=== PATIENT | male | born 1960 | race Caucasian/White ===

== ENCOUNTER 2016-05-28 14:22 | Emergency (ER) | payer OTHER ==
[2016-05-28 14:32] VITALS: BP 163/102
--- NOTE | 2016-05-28 14:34 | ER Document Report ---
ED Medical Screen (RME) - General Stated Complaint: FALL/RIGTH SHOULDER Notes: 55 yo male c/o right shoulder pain x several weeks. sons came over to his house , found patient disorientsed. "not like himself" patient seems dioriented, suicidal thoughts to son. + hx/o depression.. + ETOH abuse. + HTN, + CAD with 13 stents, Heavy ETOH daily per son - Related Data Allergies/Adverse Reactions: No Known Allergies Allergy (Unverified 05/28/16 14:28)
[2016-05-28 15:02] LABS: ABSOLUTE BASOPHILS # (AUTO) 0.1 10^3/uL (0.0-0.2); ABSOLUTE EOSINOPHILS # (AUTO) 0.1 10^3/uL (0.0-0.6); ABSOLUTE LYMPHOCYTES (AUTO) 1.6 10^3/uL (0.5-4.7); ABSOLUTE MONOCYTES (AUTO) 0.4 10^3/uL (0.1-1.4); ABSOLUTE NEUT (AUTO) 3.1 10^3/uL (1.7-8.2); BASOPHILS % (AUTO) 1.1 % (0-2); EOSINOPHILS % (AUTO) 1.3 % (0-6); HEMATOCRIT 53.5 % (37.9-51.0); HEMOGLOBIN 18.6 g/dL (13.5-17.0); HGB HCT DIFFERENCE 2.3; LYMPHOCYTES % (AUTO) 31.1 % (13-45); MEAN CORPUSCULAR HEMOGLOBIN 32.6 pg (27.0-33.4); MEAN CORPUSCULAR HGB CONC 34.9 g/dL (32.0-36.0); MEAN CORPUSCULAR VOLUME 94 fl (80-97); MONOCYTES % (AUTO) 7.2 % (3-13); RED BLOOD COUNT 5.71 10^6/uL (4.35-5.55); RED CELL DISTRIBUTION WIDTH 15.2 % (11.5-14.0); SEGMENTED NEUTROPHILS % (AUTO) 59.3 % (42-78); WHITE BLOOD COUNT 5.2 10^3/uL (4.0-10.5)
[2016-05-28 15:19] LABS: ALANINE AMINOTRANSFERASE 128 U/L (21-72); ALBUMIN 5.2 g/dL (3.5-5.0); ALKALINE PHOSPHATASE 117 U/L (38-126); ANION GAP 23 (5-19); ASPARTATE AMINO TRANSFERASE 142 U/L (17-59); BILIRUBIN,TOTAL 1.2 mg/dL (0.2-1.3); BLOOD UREA NITROGEN 8 mg/dL (7-20); CALCIUM 9.4 mg/dL (8.4-10.2); CARBON DIOXIDE 21 mmol/L (22-30); CHLORIDE 101 mmol/L (98-107); CREATININE RESULT 0.67 mg/dL (0.52-1.25); GLUCOSE 95 mg/dL (75-110); POTASSIUM 4.3 mmol/L (3.6-5.0); SODIUM 144.9 mmol/L (137-145); TOTAL PROTEIN 7.5 g/dL (6.3-8.2)
[2016-05-28 16:17] LABS: APPEARANCE,URINE CLEAR; BILIRUBIN,URINE NEGATIVE (NEGATIVE); GLUCOSE, URINE NEGATIVE (NEGATIVE); KETONES,URINE TRACE mg/dL (NEGATIVE); LEUKOCYTE ESTERASE,URINE NEGATIVE (NEGATIVE); NITRITE,URINE NEGATIVE (NEGATIVE); PROTEIN,URINE 100 mg/dL (NEGATIVE)
[2016-05-28] MEDS ORDERED: PREDNISONE 20 MG TABLET PO ONE (16:25)
--- NOTE | 2016-05-28 16:33 | ER Document Report ---
ED General - General Chief Complaint: Shoulder Pain Stated Complaint: FALL/RIGTH SHOULDER Mode of Arrival: Ambulatory Information source: Patient, Relative - 2 sons Notes: 55 yr old male chronic alcoholic presents iwth complaints of right shoulder pain and continued depression. pt brought in by 2 sons who are concerned about his drinking and depression. pt admits the shoulder pain is chronic but worsened after a fall TRAVEL OUTSIDE OF THE [place] IN LAST 30 DAYS: No - HPI Onset: Other Onset/Duration: Persistent Quality of pain: Achy Severity: Mild Pain Level: 1 Associated symptoms: Other Exacerbated by: Movement Relieved by: Denies Similar symptoms previously: Yes Recently seen / treated by doctor: No - Related Data Allergies/Adverse Reactions: No Known Allergies Allergy (Unverified 05/28/16 14:28) Past Medical History - Social History Smoking Status: Never Smoker Cigarette use (# per day): No Chew tobacco use (# tins/day): No Smoking Education Provided: No Frequency of alcohol use: Heavy Drug Abuse: None Family History: Reviewed & Not Pertinent Patient has suicidal ideation: No - patients sons report that he was making suicidal statements. Patient has homicidal ideation: No - Past Medical History Cardiac Medical History: Reports: Hx Heart Attack, Hx Hypercholesterolemia, Hx Hypertension Renal/ Medical History: Denies: Hx Peritoneal Dialysis GI Medical History: Reports: Hx Gastroesophageal Reflux Disease Psychiatric Medical History: Reports: Hx Depression Past Surgical History: Reports: Hx Cardiac Surgery - stents x13, bypass Review of Systems - Review of Systems Notes: REVIEW OF SYSTEMS: CONSTITUTIONAL : Denies fever, chills, or sweats. Denies recent illness. EENT: Denies eye, ear, throat, or mouth pain or symptoms. Denies nasal or sinus congestion or discharge. Denies throat, tongue, or mouth swelling or difficulty swallowing. CARDIOVASCULAR: Denies chest pain. Denies palpitations or racing or irregular heart beat. Denies ankle edema. RESPIRATORY: Denies cough, cold, or chest congestion. Denies shortness of breath, difficulty breathing, or wheezing. GASTROINTESTINAL: Denies abdominal pain or distention. Denies nausea, vomiting , or diarrhea. Denies blood in vomitus, stools, or per rectum. Denies black, tarry stools. Denies constipation. GENITOURINARY: Denies difficulty urinating, painful urination, burning, frequency, blood in urine, or discharge. MUSCULOSKELETAL: Right shoulder pain SKIN: Denies rash, lesions or sores. HEMATOLOGIC : Denies easy bruising or bleeding. LYMPHATIC: Denies swollen, enlarged glands. NEUROLOGICAL: Denies confusion or altered mental status. Denies passing out or loss of consciousness. Denies dizziness or lightheadedness. Denies headache. Denies weakness or paralysis or loss of use of either side. Denies problems with gait or speech. Denies sensory loss, numbness, or tingling. Denies seizures. PSYCHIATRIC: Depression ALL OTHER SYSTEMS REVIEWED AND NEGATIVE. Dictation was performed using [employer] voice recognition software PHYSICAL EXAMINATION: GENERAL: Well-appearing, well-nourished and in no acute distress. Patient face appears flushed secondary to alcohol use HEAD: Atraumatic, normocephalic. EYES: Pupils equal round and reactive to light, extraocular movements intact, sclera anicteric, conjunctiva are normal. ENT: Nares patent, oropharynx clear without exudates. Moist mucous membranes. NECK: Normal range of motion, supple without lymphadenopathy LUNGS: Breath sounds clear to auscultation bilaterally and equal. No wheezes rales or rhonchi. HEART: Regular rate and rhythm without murmurs ABDOMEN: Soft, nontender, nondistended abdomen. No guarding, no rebound. No masses appreciated. Musculoskeletal: Limited range of motion of the right shoulder secondary to pain NEUROLOGICAL: Cranial nerves grossly intact. Normal speech, normal gait. Normal sensory, motor exams PSYCH: Normal mood, normal affect. SKIN: Warm, Dry, normal turgor, no rashes or lesions noted. Physical Exam - Vital signs Vitals: Temp Pulse Resp BP Pulse Ox 98.0 F 95 20 163/102 H 92 05/28/16 14:29 05/28/16 14:29 05/28/16 14:29 05/28/16 14:29 05/28/16 14:29 Course - Re-evaluation Re-evalutation: 05/28/16 16:32 xray was negative , p offered mental health eval which he agrees to 05/28/16 17:24 It appears even though patient was here with his sons he eloped prior to my notification the patient was leaving. - Vital Signs Vital signs: Temp Pulse Resp BP Pulse Ox 98.0 F 95 20 163/102 H 92 05/28/16 14:29 05/28/16 14:29 05/28/16 14:29 05/28/16 14:29 05/28/16 14:29 - Laboratory Result Diagrams: 05/28/16 14:43 05/28/16 14:43 Laboratory results interpreted by me: 05/28/16 05/28/16 05/28/16 14:43 14:43 15:56 RBC 5.71 H Hgb 18.6 H Hct 53.5 H RDW 15.2 H Carbon Dioxide 21 L Anion Gap 23 H AST 142 H ALT 128 H Albumin 5.2 H Urine Protein 100 H Urine Ketones TRACE H Urine Urobilinogen 2.0 H - Diagnostic Test Radiology reviewed: Image reviewed, Reports reviewed Discharge - Discharge Clinical Impression: Alcohol abuse Shoulder pain Qualifiers: Laterality: right Chronicity: chronic Qualified Code(s): M25.511 - Pain in right shoulder; G89.29 - Other chronic pain Depression Qualifiers: Depression Type: unspecified Qualified Code(s): F32.9 - Major depressive disorder, single episode, unspecified Condition: Stable Disposition: ELOPED Additional Instructions: Patient has left prior to discharge
== END 2016-05-28 17:16 | disposition left against medical advice (07) ==
LOC: ER 14:22
DX: M25.511 Pain in right shoulder (principal); F10.10 Alcohol abuse, uncomplicated; F32.9 Major depressive disorder, single episode, unspecified; W19.XXXA Unspecified fall, initial encounter
CPT/HCPCS: 36415; 80053; 81001; 85025; 99281

== ENCOUNTER 2017-02-12 19:52 | Emergency (ER) | payer OTHER ==
[2017-02-12 20:10] LABS: ABSOLUTE BASOPHILS # (AUTO) 0.1 10^3/uL (0.0-0.2); ABSOLUTE MONOCYTES (AUTO) 0.9 10^3/uL (0.1-1.4); ABSOLUTE NEUT (AUTO) 6.5 10^3/uL (1.7-8.2); BASOPHILS % (AUTO) 0.7 % (0-2); EOSINOPHILS % (AUTO) 0.2 % (0-6); HEMATOCRIT 47.8 % (37.9-51.0); HGB HCT DIFFERENCE 3.2; LYMPHOCYTES % (AUTO) 11.8 % (13-45); MEAN CORPUSCULAR HEMOGLOBIN 32.1 pg (27.0-33.4); MEAN CORPUSCULAR HGB CONC 35.5 g/dL (32.0-36.0); MEAN CORPUSCULAR VOLUME 90 fl (80-97); MONOCYTES % (AUTO) 10.2 % (3-13); RED CELL DISTRIBUTION WIDTH 15.1 % (11.5-14.0); SEGMENTED NEUTROPHILS % (AUTO) 77.1 % (42-78); WHITE BLOOD COUNT 8.4 10^3/uL (4.0-10.5)
--- NOTE | 2017-02-12 20:23 | RADIOLOGY REPORT (SQ) ---
EXAM DESCRIPTION: CHEST SINGLE VIEW COMPLETED DATE/TIME: 02/12/2017 8:13 pm REASON FOR STUDY: cp COMPARISON: None. NUMBER OF VIEWS: One view. TECHNIQUE: Single frontal radiographic view of the chest acquired. LIMITATIONS: None. FINDINGS: LUNGS AND PLEURA: Fullness along the left heart border, ill-defined appearance. Potential ly artifact. Volume loss and pneumonia among others also in the differential. Lungs otherwise look clear. MEDIASTINUM AND HILAR STRUCTURES: As above. HEART AND VASCULAR STRUCTURES: As above. BONES: No acute findings. HARDWARE: None in the chest. OTHER: No other significant finding. IMPRESSION: 1. Mild fullness along the left cardiac border with indistinct margins. Differential as above. This may be physiologic, however there no priors available for comparison. If clinically wa rranted, CT chest can be considered. TECHNICAL DOCUMENTATION: JOB ID: [id number] [employer]- All Rights Reserved
[2017-02-12 20:26] LABS: PROTHROMBIN TIME 13.3 SEC (11.4-15.4)
[2017-02-12 20:33] LABS: ALANINE AMINOTRANSFERASE 35 U/L (21-72); ALBUMIN 4.3 g/dL (3.5-5.0); ALKALINE PHOSPHATASE 74 U/L (38-126); ANION GAP 15 (5-19); ASPARTATE AMINO TRANSFERASE 38 U/L (17-59); BILIRUBIN,DIRECT 0.6 mg/dL (0.0-0.4); BILIRUBIN,TOTAL 2.1 mg/dL (0.2-1.3); BLOOD UREA NITROGEN 9 mg/dL (7-20); CALCIUM 9.1 mg/dL (8.4-10.2); CARBON DIOXIDE 22 mmol/L (22-30); CHLORIDE 99 mmol/L (98-107); CREATINE KINASE 123 U/L (55-170); CREATININE RESULT 0.76 mg/dL (0.52-1.25); GLUCOSE 137 mg/dL (75-110); POTASSIUM 3.9 mmol/L (3.6-5.0); SODIUM 136.4 mmol/L (137-145)
[2017-02-12 20:36] LABS: CREATINE KINASE MB 0.95 ng/mL (<4.55)
[2017-02-12 20:37] LABS: TROPONIN I < 0.012 ng/mL
[2017-02-12 20:55] LABS: TOTAL PROTEIN 6.5 g/dL (6.3-8.2)
[2017-02-12] MEDS ORDERED: FAMOTIDINE INJ/PF 20 MG/2 ML SDV IV ONE (21:17)
[2017-02-12] MEDS ORDERED: NORMAL SALINE 1000 ML 1,000 ML IV PRN (21:17)
[2017-02-12] MEDS ORDERED: KETOROLAC TROMETHAMINE INJ/PF 30 MG/1 ML SDV IV ONE (21:17)
--- NOTE | 2017-02-12 21:42 | ER Document Report ---
ED Cardiac - General Chief Complaint: Chest Pain Stated Complaint: CHEST PAIN Time Seen by Provider: 02/12/17 20:52 Mode of Arrival: Ambulatory Information source: Patient TRAVEL OUTSIDE OF THE [place] IN LAST 30 DAYS: No - HPI Patient complains to provider of: Chest pain Was the onset of pain: Sudden Is the pain a: New problem Chest pain location: Substernal Quality of pain: Heaviness Chest pain radiation location: Left shoulder Severity now: None Severity at worst: Moderate Pain level currently: 0 Cardiac risk factors: Hypertension, Smoker, Dyslipidemia, Hx [place] Positive cardiac history: Yes Associated symptoms: None Exacerbated by: Torso movement Relieved by: Nothing Similar symptoms previously: Yes Recently seen / treated by doctor: No Notes: Patient is a 56-year-old male with a history of hypertension, cholesterol, coronary artery disease with 13 stents that were placed in [place] prior to moving down here, he reports having chest pain that has been going on throughout the day, started earlier this morning, it is worsened by certain movements he makes to the torso or the left shoulder, he took some nitro at home which she reports helped but the pain came back shortly thereafter, he does report increased belching as well, admits to excessive alcohol consumption , although he has been clean for the past 2 days because his son took away his keys and has limited his ability to go out and buy alcohol, he has had some shaking but no seizure activity - Related Data Allergies/Adverse Reactions: No Known Allergies Allergy (Unverified 05/28/16 14:28) Past Medical History - General Information source: Patient, Relative - Social History Smoking Status: Former Smoker Family History: Reviewed & Not Pertinent - Past Medical History Cardiac Medical History: Reports: Hx Heart Attack, Hx Hypercholesterolemia, Hx Hypertension Renal/ Medical History: Denies: Hx Peritoneal Dialysis GI Medical History: Reports: Hx Gastroesophageal Reflux Disease Psychiatric Medical History: Reports: Hx Depression Past Surgical History: Reports: Hx Cardiac Surgery - stents x13, bypass Review of Systems - Review of Systems Constitutional: No symptoms reported EENT: No symptoms reported Cardiovascular: Chest pain Respiratory: No symptoms reported Gastrointestinal: No symptoms reported Genitourinary: No symptoms reported Male Genitourinary: No symptoms reported Musculoskeletal: See HPI Skin: No symptoms reported Hematologic/Lymphatic: No symptoms reported Neurological/Psychological: No symptoms reported -: Yes All other systems reviewed and negative Physical Exam - Vital signs Vitals: Pulse Ox 98 02/12/17 20:03 Interpretation: Normal - General General appearance: Appears well, Alert - HEENT Head: Normocephalic, Atraumatic Eyes: Normal Pupils: PERRL - Respiratory Respiratory status: No respiratory distress Chest status: Tender - Tender to palpate in the left anterior chest wall superiorly, into the left shoulder, pain with range of motion testing of the shoulder Breath sounds: Normal Chest palpation: Normal - Cardiovascular Rhythm: Regular Heart sounds: Normal auscultation Murmur: No - Abdominal Inspection: Normal Distension: No distension Bowel sounds: Normal Tenderness: Nontender Organomegaly: No organomegaly - Back Back: Normal, Nontender - Extremities General upper extremity: Normal inspection, Nontender, Normal color, Normal ROM , Normal temperature General lower extremity: Normal inspection, Nontender, Normal color, Normal ROM , Normal temperature, Normal weight bearing. No: Hao's sign - Neurological Neuro grossly intact: Yes Cognition: Normal Orientation: AAOx4 Pete Coma Scale Eye Opening: Spontaneous [place] Coma Scale Verbal: Oriented [place] Coma Scale Motor: Obeys Commands [place] Coma Scale Total: 15 Speech: Normal Motor strength normal: LUE, RUE, LLE, RLE Sensory: Normal - Psychological Associated symptoms: Normal affect, Normal mood - Skin Skin Temperature: Warm Skin Moisture: Dry Skin Color: Normal Course - Re-evaluation Re-evalutation: 02/12/17 23:56 Patient resting comfortably, lab and imaging findings were discussed with him at bedside, symptoms are likely musculoskeletal in nature as they were are reproducible with certain movements and palpation of the left anterior chest wall, cardiac enzymes 2 are negative, remainder of evaluation is otherwise unremarkable, patient will be discharged with instructions for follow-up and advised to return if symptoms worsen, patient acknowledges understanding and agreement with the - Vital Signs Vital signs: Temp Pulse Resp BP Pulse Ox 17 141/92 H 97 02/12/17 23:00 02/12/17 23:00 02/12/17 23:00 - Laboratory Result Diagrams: 02/12/17 20:00 02/12/17 20:00 Laboratory results interpreted by me: 02/12/17 02/12/17 20:00 20:00 RDW 15.1 H Lymphocytes % 11.8 L Sodium 136.4 L Glucose 137 H Total Bilirubin 2.1 H Direct Bilirubin 0.6 H - Diagnostic Test Radiology reviewed: Image reviewed, Reports reviewed - EKG Interpretation by Me EKG shows normal: Sinus rhythm Rate: Tachycardia Discharge - Discharge Clinical Impression: Chest wall pain Condition: Stable Disposition: HOME, SELF-CARE Instructions: Chest Wall Pain ([facility]) Additional Instructions: Follow up with your primary care provider in one to 2 days. Return to the emergency room immediately if symptoms worsen or any additional concerns. Prescriptions: Tramadol HCl/Acetaminophen [Ultracet 37.5 mg/325 mg Tablet] 1 each PO Q6 #14 tablet
[2017-02-12 23:02] VITALS: BP 141/92
[2017-02-12] MEDS ORDERED: TRAMADOL HCL 50 MG TABLET PO ONE (23:18)
--- NOTE | 2017-02-12 23:24 | EKG REPORT ---
SEVERITY:- OTHERWISE NORMAL ECG - SINUS TACHYCARDIA : Confirmed by: Patel Woodall MD 12-Feb-2017 23:23:58
== END 2017-02-13 00:19 | disposition home or self-care (01) ==
LOC: ER 19:52
DX: R07.89 Other chest pain (principal); I10 Essential (primary) hypertension; E78.00 Pure hypercholesterolemia, unspecified; I25.10 Atherosclerotic heart disease of native coronary artery without angina pectoris; K21.9 Gastro-esophageal reflux disease without esophagitis; I25.2 Old myocardial infarction; Z95.1 Presence of aortocoronary bypass graft
CPT/HCPCS: 93005; 99285; 96361; 96374; 96375; 36415; 82553; 82550; 85025; 85610; 80053; 84484; 71010; 93010; J1885; J7030; S0028

== ENCOUNTER 2017-04-05 12:05 | Inpatient (IN) | payer OTHER ==
[2017-04-05] MEDS ORDERED: NORMAL SALINE 1000 ML 1,000 ML IV ONE (12:43)
[2017-04-05] MEDS ORDERED: ONDANSETRON HCL INJ/PF 4 MG/2 ML SDV IV ONE (12:43)
--- NOTE | 2017-04-05 12:44 | ER Document Report ---
ED Medical Screen (RME) - General Chief Complaint: Nausea/Vomiting Stated Complaint: NAUSEA,VOMITING Time Seen by Provider: 04/05/17 12:42 Notes: Patient states he quit drinking alcohol 3 weeks ago. He states since then he has been shaky and vomiting. [facility]. TRAVEL OUTSIDE OF THE [place] IN LAST 30 DAYS: No - Related Data Allergies/Adverse Reactions: No Known Allergies Allergy (Verified 04/05/17 12:06) Past Medical History - Past Medical History Cardiac Medical History: Reports: Hx Heart Attack, Hx Hypercholesterolemia, Hx Hypertension Renal/ Medical History: Denies: Hx Peritoneal Dialysis GI Medical History: Reports: Hx Gastroesophageal Reflux Disease Psychiatric Medical History: Reports: Hx Depression Past Surgical History: Reports: Hx Cardiac Surgery - stents x13, bypass Physical Exam - Vital signs Vitals: Temp Pulse Resp BP Pulse Ox 98.4 F 115 H 20 104/62 96 04/05/17 12:12 04/05/17 12:12 04/05/17 12:12 04/05/17 12:12 04/05/17 12:12 Course - Vital Signs Vital signs: Temp Pulse Resp BP Pulse Ox 98.4 F 115 H 20 104/62 96 04/05/17 12:12 04/05/17 12:12 04/05/17 12:12 04/05/17 12:12 04/05/17 12:12
[2017-04-05 13:44] LABS: HEMATOCRIT 54.6 % (37.9-51.0); HEMOGLOBIN 18.9 g/dL (13.5-17.0); MEAN CORPUSCULAR HEMOGLOBIN 31.4 pg (27.0-33.4); MEAN CORPUSCULAR HGB CONC 34.6 g/dL (32.0-36.0); MEAN CORPUSCULAR VOLUME 91 fl (80-97); PLATELET COUNT 171 10^3/uL (150-450); RED BLOOD COUNT 6.02 10^6/uL (4.35-5.55); RED CELL DISTRIBUTION WIDTH 16.9 % (11.5-14.0); WHITE BLOOD COUNT 12.8 10^3/uL (4.0-10.5)
[2017-04-05 14:02] LABS: ALANINE AMINOTRANSFERASE 63 U/L (21-72); ALCOHOL < 10 mg/dL (NONE DETECTED); ALKALINE PHOSPHATASE 86 U/L (38-126); ASPARTATE AMINO TRANSFERASE 71 U/L (17-59); BILIRUBIN,DIRECT 0.8 mg/dL (0.0-0.4); BILIRUBIN,TOTAL 2.1 mg/dL (0.2-1.3); BLOOD UREA NITROGEN 11 mg/dL (7-20); CALCIUM 9.8 mg/dL (8.4-10.2); CHLORIDE 91 mmol/L (98-107); GLUCOSE 161 mg/dL (75-110); POTASSIUM 3.5 mmol/L (3.6-5.0); TOTAL PROTEIN 7.9 g/dL (6.3-8.2)
--- NOTE | 2017-04-05 14:07 | RADIOLOGY REPORT (SQ) ---
EXAM DESCRIPTION: CHEST PA/LAT COMPLETED DATE/TIME: 04/05/2017 1:51 pm REASON FOR STUDY: cough/pain COMPARISON: Chest film 02/12/2017 EXAM PARAMETERS: NUMBER OF VIEWS: two views TECHNIQUE: Digital Frontal and Lateral radiographic views of the chest acquired. RADIATION DOSE: NA LIMITATIONS: Left lateral costophrenic sulcus cropped from the field of view on the frontal film FINDINGS: LUNGS AND PLEURA: No opacities, masses or pneumothorax. No pleural effusion. MEDIASTINUM AND HILAR STRUCTURES: No masses or contour abnormalities. HEART AND VASCULAR STRUCTURES: Heart normal size. No evidence for failure. BONES: No acute findings. HARDWARE: None in the chest. OTHER: No other significant finding. IMPRESSION: NO SIGNIFICANT RADIOGRAPHIC FINDING IN THE CHEST. TECHNICAL DOCUMENTATION: JOB ID: [id number] [employer]- All Rights Reserved
[2017-04-05 14:09] LABS: CARBON DIOXIDE 23 mmol/L (22-30); SODIUM 134.1 mmol/L (137-145)
[2017-04-05 14:12] LABS: ANION GAP 20 (5-19)
[2017-04-05] MEDS ORDERED: LORAZEPAM INJ 2 MG/1 ML VIAL IV ONE ×3 (14:12→16:54)
[2017-04-05 14:18] LABS: ABSOLUTE LYMPHOCYTES# (MANUAL) 0.9 10^3/uL (0.5-4.7); ABSOLUTE MONOCYTES # (MANUAL) 0.6 10^3/uL (0.1-1.4); ABSOLUTE NEUTROPHILS# (MANUAL) 11.3 10^3/uL (1.7-8.2); BAND NEUTROPHILS % (MANUAL) 1 % (3-5); BASOPHILS % (MANUAL) 0 % (0-2); EOSINOPHILS % (MANUAL) 0 % (0-6); LYMPHOCYTES % (MANUAL) 3 % (13-45); MONOCYTES % (MANUAL) 5 % (3-13); SEGMENTED NEUTROPHILS % (MAN) 87 % (42-78); TOTAL CELLS COUNTED 100
[2017-04-05 14:19] LABS: ANISOCYTOSIS 1+; PLATELET CLUMPS PRESENT; PLATELET COMMENT ADEQUATE; POLYCHROMASIA SLIGHT; STOMATOCYTES 1+; TOXIC GRANULATION 1+
[2017-04-05] MEDS ORDERED: POTASSIUM CHLORIDE 10 MEQ TABLET.SA PO ONE (14:24)
[2017-04-05] MEDS ORDERED: MAGNESIUM SULFATE/D5W 1 GM/100 ML RTUPB IV ONE (14:24)
--- NOTE | 2017-04-05 14:24 | ER Document Report ---
ED General - General Chief Complaint: Nausea/Vomiting Stated Complaint: NAUSEA,VOMITING Time Seen by Provider: 04/05/17 12:42 Notes: 36-year-old male presents with upper abdominal pain nausea vomiting dehydration. Constant. For about a week. He detox from alcohol 3 weeks ago with no meds got better and then got worse again. Has the above symptoms. Denies fever chills respiratory problems. Has not drank or used drugs since. From [facility]. Was tachycardic there. TRAVEL OUTSIDE OF THE [place] IN LAST 30 DAYS: No - Related Data Allergies/Adverse Reactions: No Known Allergies Allergy (Verified 04/05/17 12:06) Past Medical History - Social History Smoking Status: Never Smoker Chew tobacco use (# tins/day): No Frequency of alcohol use: None Drug Abuse: None Family History: Reviewed & Not Pertinent Patient has suicidal ideation: No Patient has homicidal ideation: No - Past Medical History Cardiac Medical History: Reports: Hx Heart Attack, Hx Hypercholesterolemia, Hx Hypertension Renal/ Medical History: Denies: Hx Peritoneal Dialysis GI Medical History: Reports: Hx Gastroesophageal Reflux Disease Psychiatric Medical History: Reports: Hx Depression Past Surgical History: Reports: Hx Cardiac Surgery - stents x13, bypass Review of Systems - Review of Systems Notes: REVIEW OF SYSTEMS GEN: Malaise no fever ENT: Denies sore throat, nasal discharge, ear pain EYES: Denies blurry vision, eye pain, discharge CV: Denies chest pain, palpitations, edema RESP: Denies cough, shortness of breath, wheezing GI: Denies abdominal pain, nausea, vomiting, diarrhea MSK: Denies joint pain/swelling, edema, SKIN: Denies rash, skin lesions LYMPH: Denies swollen glands/lymph nodes NEURO: Denies headache, focal weakness or numbness, dizziness PSYCH: Denies depression, suicidal or homicidal ideation PHYSICAL EXAMINATION General: No acute distress, well-nourished Head: Atraumatic, normocephalic ENT: Mouth normal, oropharynx moist, no exudates or tonsillar enlargement Eyes: Conjunctiva normal, pupils equal, lids normal Neck: No JVD, supple, no guarding CVS: The cardiac, regular rhythm, no murmurs Resp: No resp distress, equal and normal breath sounds bilaterally GI: Nondistended, soft, no tenderness to palpation, no rebound or guarding Ext: No deformities, no edema, normal range of motion in upper and lower ext Back: No CVA or midline TTP Skin: No rash, warm Lymphatic: No lymphadeopathy noted Neuro: Awake, alert. Face symmetric. GCS 15. Physical Exam - Vital signs Vitals: Temp Pulse Resp BP Pulse Ox 98.4 F 115 H 20 104/62 96 04/05/17 12:12 04/05/17 12:12 04/05/17 12:12 04/05/17 12:12 04/05/17 12:12 Course - Re-evaluation Re-evalutation: 04/05/17 14:24 56-year-old male presents with dehydration nausea vomiting and upper abdominal pain in the setting of alcohol withdrawal. He is tachycardic which could be from alcohol withdrawal but he has minimal tremor so I think is probably also dehydrated. We will rule out pancreatitis with labs. Also hepatitis. Fluids Zofran Ativan and reassessment will be done. 04/05/17 15:35 And found to be hypokalemic. Ordered repletion as well as magnesium and IV fluids. He got some Ativan. At about 330 a came to the bedside as he had pulled out his IV made a bloody mass and was threatening to leave. He looks diaphoretic and is questionably altered. Do not feel comfortable with him leaving at this time I feel like he is actually withdrawing worse. I am going to give him a high dose of Ativan, allow him to take a nap, control his behavior and withdrawal and replete his I's. He is actually in agreement after a long discussion. 04/05/17 16:55 Patient is more altered even after 4 mg of Ativan, tachycardic to the 120s and trying to crawl out of bed. He is asking nursing staff there will be pursued show on his food tray. I think he is developing delirium I think he probably did have alcohol withdrawal to begin with which is now getting worse. Concern for delirium tremens. Will give more Ativan, continue IV fluids, add thiamine and admit to the hospital. 04/05/17 19:35 Patient reassessed at 7 PM for downgraded to IMCU. Previously admitted ICU but Dr. jacome agrees he can be downgraded. He is calm heart rate is 110. - Vital Signs Vital signs: Temp Pulse Resp BP Pulse Ox 98.4 F 115 H 16 107/95 H 94 04/05/17 12:12 04/05/17 12:12 04/05/17 19:00 04/05/17 18:02 04/05/17 19:00 - Laboratory Result Diagrams: 04/05/17 13:19 04/05/17 13:19 Laboratory results interpreted by me: 04/05/17 04/05/17 04/05/17 13:19 13:19 13:19 WBC 12.8 H RBC 6.02 H Hgb 18.9 H Hct 54.6 H RDW 16.9 H Seg Neuts % (Manual) 87 H Band Neutrophils % 1 L Lymphocytes % (Manual) 3 L Abs Neuts (Manual) 11.3 H Sodium 134.1 L Potassium 3.5 L Chloride 91 L Anion Gap 20 H Creatinine 1.67 H Est GFR ( Amer) 52 L Est GFR (Non-Af Amer) 43 L Glucose 161 H Magnesium 1.0 L* Total Bilirubin 2.1 H Direct Bilirubin 0.8 H AST 71 H Critical Care Note - Critical Care Note Total time excluding time spent on procedures (mins): 45 Comments: The above patient is critically ill. Not including procedures, but including direct re-evaluations, speaking with patient and/or consultants, interpreting results, and documenting, I spent the total amount of minute listed listed above on critical care time Discharge - Discharge Clinical Impression: Dehydration, Hypokalemia, Alcohol withdrawal delirium, acute, hyperactive Condition: Good Disposition: ADMITTED INPATIENT Admitting Provider: Hospitalist Unit Admitted: IMCU Instructions: Alcohol Withdrawl ([facility]), Dehydration ([facility]) Prescriptions: Ondansetron HCl [Zofran 4 mg Tablet] 1 - 2 tab PO Q4H PRN #10 tablet PRN Reason: Referrals: AUDELIA SAMAYOA MD [Primary Care Provider] - Follow up as needed
[2017-04-05] MEDS ORDERED: RINGERS SOLUTION,LACTATED 1,000 ML IV ONE (14:51)
[2017-04-05] MEDS ORDERED: THIAMINE HCL 100 MG in NORMAL SALINE 50 ML IV ONE (16:57)
[2017-04-05] MEDS ORDERED: HALOPERIDOL LACTATE INJ 5 MG/1 ML VIAL IV ONE (17:07)
[2017-04-05] MEDS: POTASSI CL 20 MEQ/50 ML RIDER 20 MEQ/50 ML RTUPB IV SCH ×2 (17:17→19:26)
[2017-04-05 18:00] LABS: PHOSPHORUS 2.6 mg/dL (2.5-4.5)
[2017-04-05] MEDS ORDERED: THIAMINE HCL INJ 200 MG/2 ML VIAL IV ONE (18:00)
[2017-04-05] MEDS ORDERED: LORAZEPAM INJ 2 MG/1 ML VIAL IV PRN (18:05)
--- NOTE | 2017-04-05 18:12 | PDOC H&P ---
History of Present Illness Admission Date/PCP: April 05, 2016 AUDELIA SAMAYOA MD History of Present Illness: WOODROW JERNIGAN is a 56 year old male with a history of alcoholism who presented to the hospital [place] nausea and vomiting for the past couple of days. He told the ER physician that his last drink was 3 weeks ago and that he had had some alcohol withdrawal symptoms which got better but then got worse again. It is strongly suspected that he was likely drinking again. He became shaky in the ER and received 1 mg of Ativan initially. He subsequently became very agitated and combative and required a total of 9 mg of IV Ativan and 5 mg of IV Haldol. Currently somnolent and opens his eyes briefly to sternal rub but does not follow commands. Past Medical History Cardiac Medical History: Reports: Myocardial Infarction, Hyperlipidema, Hypertension GI Medical History: Reports: Gastroesophageal Reflux Disease Psychiatric Medical History: Reports: Depression Hematology: Reports: Anemia - gout Social History Smoking Status: Never Smoker Frequency of Alcohol Use: Heavy Family History Family History: Reviewed & Not Pertinent Parental Family History Reviewed: No - Pt unable to provide Children Family History Reviewed: Unknown Sibling(s) Family History Reviewed.: Unknown Medication/Allergy Home Medications: Tramadol HCl/Acetaminophen [Ultracet 37.5 mg/325 mg Tablet] 1 each PO Q6 #14 tablet 02/12/17 Ondansetron HCl [Zofran 4 mg Tablet] 1 - 2 tab PO Q4H PRN #10 tablet 04/05/17 Allergies/Adverse Reactions: No Known Allergies Allergy (Verified 04/05/17 12:06) Review of Systems ROS unobtainable: Due to mental status Physical Exam Vital Signs: Temp Pulse Resp BP Pulse Ox 98.4 F 115 H 20 106/75 96 04/05/17 12:12 04/05/17 12:12 04/05/17 17:53 04/05/17 17:53 04/05/17 17:53 Intake & Output 04/04/17 04/05/17 04/06/17 06:59 06:59 06:59 Weight 114.305 kg General appearance: PRESENT: no acute distress, obese Exam: Sleeping, snoring Head exam: PRESENT: atraumatic, normocephalic Eye exam: PRESENT: PERRLA. ABSENT: scleral icterus Ear exam: PRESENT: normal external ear exam Mouth exam: PRESENT: moist Neck exam: ABSENT: meningismus, tenderness Respiratory exam: PRESENT: clear to auscultation sebas, unlabored. ABSENT: accessory muscle use, crackles, wheezes Cardiovascular exam: PRESENT: tachycardia. ABSENT: systolic murmur GI/Abdominal exam: PRESENT: normal bowel sounds, soft. ABSENT: guarding, rebound, tenderness Rectal exam: PRESENT: deferred Extremities exam: ABSENT: calf tenderness, pedal edema, tenderness Neurological exam: ABSENT: awake Skin exam: ABSENT: abrasion, cyanosis Results Laboratory Results: 04/05/17 13:19 04/05/17 13:19 04/05/17 04/05/17 04/05/17 12:43 13:19 13:19 WBC 12.8 H RBC 6.02 H Hgb 18.9 H Hct 54.6 H MCV 91 MCH 31.4 MCHC 34.6 RDW 16.9 H Plt Count 171 Seg Neutrophils % Not Reportable Lymphocytes % Not Reportable Monocytes % Not Reportable Eosinophils % Not Reportable Basophils % Not Reportable Absolute Neutrophils Not Reportable Absolute Lymphocytes Not Reportable Absolute Monocytes Not Reportable Absolute Eosinophils Not Reportable Absolute Basophils Not Reportable Sodium 134.1 L Potassium 3.5 L Chloride 91 L Carbon Dioxide 23 Anion Gap 20 H BUN 11 Creatinine 1.67 H Est GFR ( Amer) 52 L Est GFR (Non-Af Amer) 43 L Glucose 161 H Calcium 9.8 Total Bilirubin 2.1 H AST 71 H ALT 63 Alkaline Phosphatase 86 Total Protein 7.9 Albumin 5.0 Lipase 113.6 04/05/17 13:19 Troponin I 0.014 Impressions: Chest X-Ray 04/05/17 12:43 IMPRESSION: NO SIGNIFICANT RADIOGRAPHIC FINDING IN THE CHEST. Assessment & Plan - Diagnosis (1) Alcohol withdrawal delirium, acute, hyperactive Is this a current diagnosis for this admission?: Yes Plan: Admit to ICU for close monitoring. IV Thiamine ordered. IV NS at 150cc/hr Ativan IV scheduled and PRN Lovenox s/c for DVT prophylaxis IV Protonix Mag and phos ordered- levels pending. ASpiration and seizure precautions (2) Dehydration Is this a current diagnosis for this admission?: Yes (3) Hypokalemia Is this a current diagnosis for this admission?: Yes Plan: Repleted, continue to monitor - Time Critical Time spent with patient: 35 or more minutes
[2017-04-05] MEDS ORDERED: MAGNESIUM SULFATE 4 GM/100 ML RTUPB IV ONE (19:00)
--- NOTE | 2017-04-05 19:04 | EKG REPORT ---
SEVERITY:- BORDERLINE ECG - SINUS TACHYCARDIA PROBABLE LEFT ATRIAL ABNORMALITY : Confirmed by: Lorraine Parker 05-Apr-2017 19:04:00
[2017-04-06 09:01] LABS: APPEARANCE,URINE CLOUDY; BILIRUBIN,URINE NEGATIVE (NEGATIVE); COLOR,URINE AMBER; GLUCOSE, URINE 50 mg/dL (NEGATIVE); KETONES,URINE NEGATIVE (NEGATIVE); LEUKOCYTE ESTERASE,URINE NEGATIVE (NEGATIVE); NITRITE,URINE NEGATIVE (NEGATIVE); PROTEIN,URINE 100 mg/dL (NEGATIVE); URINE SPECIFIC GRAVITY 1.016
[2017-04-06 09:52] LABS: URINE AMPHETAMINES SCREEN NEGATIVE; URINE BARBITURATES SCREEN NEGATIVE; URINE BENZODIAZEPINES SCREEN NEGATIVE; URINE COCAINE SCREEN NEGATIVE; URINE MARIJUANA (THC) SCREEN NEGATIVE; URINE METHADONE SCREEN NEGATIVE; URINE PHENCYCLIDINE SCREEN NEGATIVE
[2017-04-06 10:26] LABS: ABSOLUTE LYMPHOCYTES (AUTO) 0.9 10^3/uL (0.5-4.7); ABSOLUTE MONOCYTES (AUTO) 0.4 10^3/uL (0.1-1.4); ABSOLUTE NEUT (AUTO) 4.1 10^3/uL (1.7-8.2); BASOPHILS % (AUTO) 0.4 % (0-2); EOSINOPHILS % (AUTO) 0.7 % (0-6); HEMATOCRIT 42.3 % (37.9-51.0); LYMPHOCYTES % (AUTO) 16.5 % (13-45); MEAN CORPUSCULAR HEMOGLOBIN 31.6 pg (27.0-33.4); MEAN CORPUSCULAR HGB CONC 34.6 g/dL (32.0-36.0); MEAN CORPUSCULAR VOLUME 92 fl (80-97); MONOCYTES % (AUTO) 8.1 % (3-13); PLATELET COUNT 104 10^3/uL (150-450); RED BLOOD COUNT 4.62 10^6/uL (4.35-5.55); RED CELL DISTRIBUTION WIDTH 16.9 % (11.5-14.0); SEGMENTED NEUTROPHILS % (AUTO) 74.3 % (42-78); TOTAL CELLS COUNTED % (AUTO) 100 %; WHITE BLOOD COUNT 5.5 10^3/uL (4.0-10.5)
[2017-04-06 10:27] LABS: HEMOGLOBIN 14.6 g/dL (13.5-17.0)
[2017-04-06 10:42] LABS: ALANINE AMINOTRANSFERASE 47 U/L (21-72); ALBUMIN 3.8 g/dL (3.5-5.0); ALKALINE PHOSPHATASE 56 U/L (38-126); ANION GAP 10 (5-19); ASPARTATE AMINO TRANSFERASE 51 U/L (17-59); BILIRUBIN,DIRECT 0.4 mg/dL (0.0-0.4); BILIRUBIN,TOTAL 1.1 mg/dL (0.2-1.3); BLOOD UREA NITROGEN 20 mg/dL (7-20); CALCIUM 9.4 mg/dL (8.4-10.2); CARBON DIOXIDE 26 mmol/L (22-30); CHLORIDE 99 mmol/L (98-107); GLUCOSE 107 mg/dL (75-110); PHOSPHORUS 3.1 mg/dL (2.5-4.5); POTASSIUM 3.8 mmol/L (3.6-5.0); SODIUM 135.4 mmol/L (137-145); TOTAL PROTEIN 5.8 g/dL (6.3-8.2)
[2017-04-06 10:53] LABS: MAGNESIUM 2.2 mg/dL (1.6-2.3)
[2017-04-06] MEDS: LORAZEPAM 1 MG TABLET PO SCH ×4 (11:36→21:35)
[2017-04-06] MEDS ORDERED: TRAMADOL HCL 50 MG TABLET PO PRN (14:03)
[2017-04-06] MEDS ORDERED: NITROGLYCERIN 0.4 MG/TAB 25 TAB/BOTTLE SL PRN (14:03)
[2017-04-06] MEDS ORDERED: 1/2 NORMAL SALINE 1,000 ML IV PRN (14:08)
[2017-04-06] MEDS ORDERED: MULTIVITAMIN TABLET PO ONE (15:00)
[2017-04-06] MEDS ORDERED: PREDNISONE 5 MG TABLET PO ONE (15:00)
[2017-04-06] MEDS ORDERED: ALLOPURINOL 100 MG TABLET PO ONE (15:00)
[2017-04-06] MEDS ORDERED: THIAMINE HCL 100 MG TABLET PO ONE (15:00)
[2017-04-06] MEDS ORDERED: ASPIRIN 81 MG TABLET, ENT COATED PO ONE (15:00)
[2017-04-06] MEDS ORDERED: ATORVASTATIN CALCIUM 20 MG TABLET PO ONE (15:00)
[2017-04-06] MEDS ORDERED: SERTRALINE HCL 50 MG TABLET PO ONE (15:00)
--- NOTE | 2017-04-06 15:25 | RADIOLOGY REPORT (SQ) ---
EXAM DESCRIPTION: HIP RIGHT AP/LATERAL COMPLETED DATE/TIME: 04/06/2017 3:02 pm REASON FOR STUDY: trauma, fall COMPARISON: None. NUMBER OF VIEWS: Two views. TECHNIQUE: AP pelvis and additional frog-leg view of the right hip. LIMITATIONS: None. FINDINGS: MINERALIZATION: Normal. RIGHT HIP: No fracture or dislocation. No worrisome bone lesions. Mild degenerative changes. LEFT HIP: No fracture or dislocation. No worrisome bone lesions. Moderate degenerative changes. PUBIS AND ISCHIUM: No fracture. PELVIS: No fracture. SACRUM: No fracture or dislocation. No worrisome bone lesions. LOWER LUMBAR SPINE: No fracture or dislocation. No worrisome bone lesions. No significant disc disea se. SOFT TISSUES: No findings. OTHER: No other significant finding. IMPRESSION: 1. No evidence fracture. 2. Mild degenerative changes involving the right hip with moderate degenerative changes involving th e left hip. TECHNICAL DOCUMENTATION: JOB ID: [id number] [employer]- All Rights Reserved
--- NOTE | 2017-04-06 15:27 | RADIOLOGY REPORT (SQ) ---
EXAM DESCRIPTION: SHOULDER RIGHT 2 OR MORE VIEWS COMPLETED DATE/TIME: 04/06/2017 3:02 pm REASON FOR STUDY: trauma, fall COMPARISON: 05/28/2016 NUMBER OF VIEWS: Three views. TECHNIQUE: Internal rotation, external rotation, and Y view images acquired of the right shoulder. LIMITATIONS: None. FINDINGS: MINERALIZATION: Normal. BONES: Well corticated bony density on the lateral view posterior to the scapula in the soft tissues likely representing myositis ossificans from previous soft tissue injury. No acute fracture or dislo cation. No worrisome bone lesions. JOINTS: No dislocation. Mild degenerative changes involving the AC joint and the glenohumeral joint. VISUALIZED LUNGS AND RIBS: No pneumothorax. No rib fracture. SOFT TISSUES: No radiopaque foreign body. OTHER: No other significant finding. IMPRESSION: Mild degenerative changes without evidence of acute fracture. TECHNICAL DOCUMENTATION: JOB ID: [id number] [employer]- All Rights Reserved
[2017-04-06] MEDS ORDERED: CLOPIDOGREL BISULFATE 75 MG TABLET PO ONE (15:30)
[2017-04-06] MEDS ORDERED: FOLIC ACID 1 MG TABLET PO ONE (15:30)
[2017-04-06] MEDS ORDERED: ISOSORBIDE MONONITRATE 60 MG TAB.ER.24H PO ONE (15:30)
--- NOTE | 2017-04-06 16:47 | PDOC PROGRESS REPORT ---
Subjective Progress Note for:: 04/06/17 Subjective:: 56-year-old gentleman with past medical history of alcoholism Hypertension Coronary artery disease hyperlipidemia Presented to the hospital on April 05 with nausea vomiting and shaking. He generally drinks a quart of vodka every day. He says his last drink was 3 days ago but has been shaky and sick ever since. In the ER he became very agitated and required multiple doses of IV Ativan and 1 dose of IV Haldol. He did relatively well overnight. This morning he is drowsy but wakes up and answers questions appropriately. He is now on p.o. Ativan 4 times a day. He reported that he had fallen at home and was having some right shoulder and hip pain. X-rays did not show any acute dislocation or fracture. Appetite is good. Reason For Visit: DEHYDRATION HYPOKALEMIA ALCOHOL WITHDRAW DELIRIUM Physical Exam Vital Signs: Temp Pulse Resp BP Pulse Ox 98.4 F 115 H 13 134/87 H 94 04/05/17 12:12 04/05/17 12:12 04/06/17 15:03 04/06/17 14:01 04/06/17 15:03 Additional comments: Obese male sitting up in bed not in acute distress HEENT: Pupils equal reactive to light moist pink oral fragile mucosa with no lesions normal external ears and nose no icterus Neck is supple trachea is midline Cardiac: S1-S2 regular no peripheral edema no cyanosis no calf tenderness Abdomen: Soft, obese, no focal tenderness, normal bowel sounds Skin: Warm and dry Neurologic: Awake and alert oriented 3 no facial droop speech is clear and fluent no focal weakness Results Laboratory Results: 04/06/17 10:13 04/06/17 10:13 04/06/17 04/06/17 04/06/17 08:35 10:13 10:13 WBC 5.5 RBC 4.62 Hgb 14.6 D Hct 42.3 MCV 92 MCH 31.6 MCHC 34.6 RDW 16.9 H Plt Count 104 L Seg Neutrophils % 74.3 Lymphocytes % 16.5 Monocytes % 8.1 Eosinophils % 0.7 Basophils % 0.4 Absolute Neutrophils 4.1 Absolute Lymphocytes 0.9 Absolute Monocytes 0.4 Absolute Eosinophils 0.0 Absolute Basophils 0.0 Sodium 135.4 L Potassium 3.8 Chloride 99 Carbon Dioxide 26 Anion Gap 10 BUN 20 Creatinine 1.63 H Est GFR ( Amer) 53 L Est GFR (Non-Af Amer) 44 L Glucose 107 Calcium 9.4 Phosphorus 3.1 Magnesium 2.2 D Total Bilirubin 1.1 AST 51 ALT 47 Alkaline Phosphatase 56 Total Protein 5.8 L Albumin 3.8 Urine Color BECKY Urine Appearance CLOUDY Urine pH 5.0 Ur Specific [place] 1.016 Urine Protein 100 H Urine Glucose (UA) 50 H Urine Ketones NEGATIVE Urine Blood SMALL H Urine Nitrite NEGATIVE Ur Leukocyte Esterase NEGATIVE Urine WBC (Auto) 7 Urine RBC (Auto) 1 Impressions: Chest X-Ray 04/05/17 12:43 IMPRESSION: NO SIGNIFICANT RADIOGRAPHIC FINDING IN THE CHEST. Hip/Pelvis X-Ray 04/06/17 00:00 IMPRESSION: 1. No evidence fracture. 2. Mild degenerative changes involving the right hip with moderate degenerative changes involving the left hip. Shoulder X-Ray 04/06/17 00:00 IMPRESSION: Mild degenerative changes without evidence of acute fracture. Assessment & Plan - Diagnosis (1) Alcohol withdrawal delirium, acute, hyperactive Is this a current diagnosis for this admission?: Yes (2) Dehydration Is this a current diagnosis for this admission?: Yes (3) Hypokalemia Is this a current diagnosis for this admission?: Yes (4) CAD (coronary artery disease) Is this a current diagnosis for this admission?: Yes (5) Hypertension Is this a current diagnosis for this admission?: Yes (6) Hyperlipidemia Is this a current diagnosis for this admission?: Yes (7) ARF (acute renal failure) Is this a current diagnosis for this admission?: Yes - Time Time Spent with patient: 25-34 minutes - Plan Summary Plan Summary: Continue scheduled and prn Ativan. Acute renal failure is most likely secondary to dehydration. Continue IV fluids and monitor renal function Continue outpatient medications for hypertension hyperlipidemia and coronary artery disease Continue thiamine and folic acid supplementation. Fall precautions Physical therapy
[2017-04-06] MEDS: RANOLAZINE 500 MG TAB.SR.12H PO SCH (17:55)
[2017-04-06] MEDS: METOPROLOL TARTRATE 25 MG TABLET PO SCH (17:55)
[2017-04-06] MEDS: NORMAL SALINE 1000 ML 1,000 ML IV PRN (17:56)
[2017-04-06] MEDS: MAGNESIUM OXIDE 400 MG TABLET PO SCH (17:56)
[2017-04-06] MEDS ORDERED: TRAZODONE HCL 50 MG TABLET PO SCH (22:00)
[2017-04-07] MEDS: RANOLAZINE 500 MG TAB.SR.12H PO SCH (05:24)
[2017-04-07] MEDS: METOPROLOL TARTRATE 25 MG TABLET PO SCH (05:26)
[2017-04-07] MEDS ORDERED: LANSOPRAZOLE 30 MG TAB.RAP.DR PO SCH (06:00)
[2017-04-07] MEDS ORDERED: LORAZEPAM 1 MG TABLET PO PRN (09:53)
[2017-04-07] MEDS ORDERED: ATORVASTATIN CALCIUM 20 MG TABLET PO SCH (10:00)
[2017-04-07] MEDS ORDERED: MULTIVITAMIN TABLET PO SCH (10:00)
[2017-04-07] MEDS ORDERED: CLOPIDOGREL BISULFATE 75 MG TABLET PO SCH (10:00)
[2017-04-07] MEDS ORDERED: FOLIC ACID 1 MG TABLET PO SCH ×2 (10:00)
[2017-04-07] MEDS ORDERED: PREDNISONE 5 MG TABLET PO SCH (10:00)
[2017-04-07] MEDS ORDERED: THIAMINE HCL 100 MG TABLET PO SCH ×2 (10:00→12:00)
[2017-04-07] MEDS ORDERED: ISOSORBIDE MONONITRATE 60 MG TAB.ER.24H PO SCH (10:00)
[2017-04-07] MEDS ORDERED: SERTRALINE HCL 50 MG TABLET PO SCH (10:00)
[2017-04-07] MEDS ORDERED: ASPIRIN 81 MG TABLET, ENT COATED PO SCH (10:00)
[2017-04-07] MEDS ORDERED: ALLOPURINOL 100 MG TABLET PO SCH (10:00)
[2017-04-07] MEDS: MAGNESIUM OXIDE 400 MG TABLET PO SCH (10:06)
[2017-04-07] MEDS: LORAZEPAM 1 MG TABLET PO SCH (10:08)
[2017-04-07] MEDS: NORMAL SALINE 1000 ML 1,000 ML IV PRN (12:05)
--- NOTE | 2017-04-07 13:32 | PDOC DISCHARGE SUMMARY ---
General - Admit/Disc Date/PCP Admission Date/Primary Care Provider: 04/05/17 19:49 AUDELIA SAMAYOA MD Discharge Date: 04/07/17 - Discharge Diagnosis (1) Alcohol withdrawal delirium, acute, hyperactive Is this a current diagnosis for this admission?: Yes (2) Dehydration Is this a current diagnosis for this admission?: Yes (3) Hypokalemia Is this a current diagnosis for this admission?: Yes (4) CAD (coronary artery disease) Is this a current diagnosis for this admission?: Yes (5) Hypertension Is this a current diagnosis for this admission?: Yes (6) Hyperlipidemia Is this a current diagnosis for this admission?: Yes (7) ARF (acute renal failure) Is this a current diagnosis for this admission?: Yes (8) Hypomagnesemia Is this a current diagnosis for this admission?: Yes - Additional Information Discharge Diet: Cardiac Discharge Activity: Activity As Tolerated Prescriptions: Lorazepam [Ativan 1 mg Tablet] 2 mg PO Q4HP PRN 5 Days #30 tablet PRN Reason: Lorazepam [Ativan 1 mg Tablet] 2 mg PO BID 5 Days #10 tablet Home Medications: Allopurinol [Zyloprim 100 mg Tablet] 100 mg PO DAILY 04/06/17 Aspirin [Aspirin EC] 81 mg PO DAILY 04/06/17 Atorvastatin Calcium [Lipitor 40 mg Tablet] 20 mg PO DAILY 04/06/17 Clopidogrel Bisulfate [Plavix 75 mg Tablet] 75 mg PO DAILY 04/06/17 Folic Acid [Folvite 1 mg Tablet] 1 mg PO DAILY 04/06/17 Isosorbide Mononitrate [Imdur 60 mg Tablet.er] 60 mg PO DAILY 04/06/17 Magnesium Oxide [Mag-Ox 400 mg Tablet] 400 mg PO BID 04/06/17 Metoprolol Tartrate [Lopressor 25 mg Tablet] 25 mg PO Q12 04/06/17 Multivitamin [Multivitamins] 1 each PO DAILY 04/06/17 Nitroglycerin [Nitrostat 0.4 mg (1/150 Gr) Tabs 25/Bottle] 1 tab SL Q5MP PRN 07/19 Pantoprazole Sodium 40 mg PO DAILY 04/06/17 Prednisone [Deltasone 5 mg Tablet] 5 mg PO DAILY 04/06/17 Ranolazine [Ranexa] 500 mg PO Q12 04/06/17 Sertraline HCl [Zoloft] 100 mg PO DAILY 04/06/17 Thiamine HCl [Thiamine 100 mg Tablet] 100 mg PO DAILY 04/06/17 Tramadol HCl [Ultram 50 mg Tablet] 50 mg PO 5XD 04/06/17 Trazodone HCl [Desyrel 50 mg Tablet] 50 mg PO DAILY 04/06/17 Folic Acid [Folvite 1 mg Tablet] 1 mg PO DAILY tablet 04/07/17 Lorazepam [Ativan 1 mg Tablet] 2 mg PO BID 5 Days #10 tablet 04/07/17 Lorazepam [Ativan 1 mg Tablet] 2 mg PO Q4HP PRN 5 Days #30 tablet 04/07/17 Thiamine HCl [Thiamine 100 mg Tablet] 100 mg PO DAILY@1200 tablet 04/07/17 History of Present Illness History of Present Illness: 56-year-old gentleman with past medical history of alcoholism Hypertension Coronary artery disease hyperlipidemia Presented to the hospital on April 05 with nausea vomiting and shaking. He generally drinks a quart of vodka every day. He says his last drink was 3 days ago but has been shaky and sick ever since. In the ER he became very agitated and required multiple doses of IV Ativan and 1 dose of IV Haldol. He was started on [id number] Ativan and continue to improve. He became more alert and oriented. He walked around the room okay He reported that he had fallen at home and was having some right shoulder and hip pain. X-rays did not show any acute dislocation or fracture. He is doing well now and will be discharged home with Ativan prescription. He is to get a basic metabolic panel on April 12 to confirm improvement in renal function and follow up with his primary care physician. Hospital Course Hospital Course: As above Physical Exam Vital Signs: Temp Pulse Resp BP Pulse Ox 97.4 F 93 20 129/94 H 92 04/07/17 10:06 04/07/17 10:06 04/07/17 10:06 04/07/17 10:06 04/07/17 10:06 Intake & Output 04/06/17 04/07/17 04/08/17 06:59 06:59 06:59 Intake Total 2480 Balance 2480 Weight 115.5 kg Additional comments: Obese male sitting up in bed not in acute distress Neck is supple trachea is midline Cardiac: S1-S2 regular no peripheral edema no cyanosis no calf tenderness Abdomen: Soft, obese, no focal tenderness, normal bowel sounds Skin: Warm and dry Results Laboratory Results: 04/06/17 10:13 04/06/17 10:13 Impressions: Chest X-Ray 04/05/17 12:43 IMPRESSION: NO SIGNIFICANT RADIOGRAPHIC FINDING IN THE CHEST. Hip/Pelvis X-Ray 04/06/17 00:00 IMPRESSION: 1. No evidence fracture. 2. Mild degenerative changes involving the right hip with moderate degenerative changes involving the left hip. Shoulder X-Ray 04/06/17 00:00 IMPRESSION: Mild degenerative changes without evidence of acute fracture. Status: Image reviewed by me Plan Time Spent: Greater than 30 Minutes
[2017-04-07 14:24] VITALS: BP 129/94
--- NOTE | 2017-04-07 17:42 | XCELERA REPORT ---
[address] [address] Transthoracic Echocardiogram Report Name: WOODROW JERNIGAN Age: 56 yrs Gender: Male : 1960 Patient Status: Inpatient Patient Location: [address] [place] [address] Study Date: 04/07/2017 09:30 AM Height: 73 in Weight: 252 lb BSA: 2.4 m2 Procedure: A two-dimensional transthoracic echocardiogram with color flow and Doppler was performed. Study Quality: Technically suboptimal. The study was technically difficult with many images being suboptimal in quality. Reason For Study: TACHYCARDIA / OLD [place] History: TACHYCARDIA / OLD [place]. Ordering Physician: CECELIA WAN Performed By: Kaylah Busch Interpretation Summary The left ventricle is grossly normal size. LV EF is 65% Left ventricular systolic function is normal. LV diastolic function not assessed. pROBABLY NO WALL MOTION ABNORMALITY. The right ventricle is not well visualized secondary to technical limitations The left atrial size is normal. There is no evidence of mitral valve prolapse. There is no mitral valve stenosis. There is a trace amount of mitral regurgitation There is no aortic valve stenosis There is no LVOT obstruction. No aortic regurgitation is present. There is no tricuspid stenosis. There is a mild amount of tricuspid regurgitation NO SIGNIFICANT PULMONARY HYPERTENSION..RVSP IS 31 TO 36 MM OF Hg WITH A RA MEAN OF 5 TO 10. There is no pericardial effusion. MMode/2D Measurements & Calculations RVDd: 4.4 cm LVIDd: 5.4 cm FS: 39.1 % Ao root diam: 2.9 cm IVSd: 1.0 cm LVIDs: 3.3 cm EDV(Teich): 143.2 ml LVPWd: 1.00 cm ESV(Teich): 44.3 ml Ao root area: 6.7 cm2 EF(Teich): 69.0 % LA dimension: 4.0 cm Doppler Measurements & Calculations MV E max milady: MV P1/2t max milady: Ao V2 max: LV V1 max P.1 cm/sec 66.6 cm/sec 120.8 cm/sec 3.1 mmHg MV A max milady: MV P1/2t: 81.7 msec Ao max PG: LV V1 max: 72.1 cm/sec 5.8 mmHg 87.9 cm/sec MV E/A: 0.92 MVA(P1/2t): 2.7 cm2 MV dec slope: 239.0 cm/sec2 PA V2 max: TR max milady: 70.1 cm/sec 253.8 cm/sec PA max PG: TR max P.8 mmHg 2.0 mmHg Left Ventricle The left ventricle is grossly normal size. There is normal left ventricular wall thickness. LV EF is 65%. Left ventricular systolic function is normal. LV diastolic function not assessed. pROBABLY NO WALL MOTION ABNORMALITY. Right Ventricle The right ventricle is not well visualized secondary to technical limitations. Atria The right atrium is normal. The left atrial size is normal. Mitral Valve There is no evidence of mitral valve prolapse. There is no vegetation seen on the mitral valve. There is no mitral valve stenosis. There is a trace amount of mitral regurgitation. Aortic Valve There is no aortic valve stenosis. There is no LVOT obstruction. No aortic regurgitation is present. Tricuspid Valve There is no tricuspid stenosis. There is a mild amount of tricuspid regurgitation. NO SIGNIFICANT PULMONARY HYPERTENSION..RVSP IS 31 TO 36 MM OF Hg WITH A RA MEAN OF 5 TO 10. Pulmonic Valve There is no pulmonic valvular stenosis. There is no pulmonic valvular regurgitation. Great Vessels The aortic root is not well visualized. Effusions There is no pericardial effusion. : CECELIA WAN > Emmy Jimenes
[2017-04-07] MEDS ORDERED: LORAZEPAM 1 MG TABLET PO SCH (18:00)
== END 2017-04-07 16:17 | disposition home or self-care (01) | DRG 897 ==
LOC: ER 12:05 → EH 19:49 → 3W 04-06 19:00
PROVIDERS: ADMIT Internal Medicine; ATTEND Internal Medicine
DX: F10.231 Alcohol dependence with withdrawal delirium (principal); N17.9 Acute kidney failure, unspecified; E87.6 Hypokalemia; E86.0 Dehydration; E78.5 Hyperlipidemia, unspecified; E83.42 Hypomagnesemia; I10 Essential (primary) hypertension; K21.9 Gastro-esophageal reflux disease without esophagitis; F32.9 Major depressive disorder, single episode, unspecified; M10.9 Gout, unspecified; I25.10 Atherosclerotic heart disease of native coronary artery without angina pectoris; M25.551 Pain in right hip; M25.511 Pain in right shoulder; Z91.81 History of falling; Z95.1 Presence of aortocoronary bypass graft; I25.2 Old myocardial infarction
CPT/HCPCS: 36415; 71046; 80053; 80307; 81001; 83690; 83735; 84100; 84484; 85025; 93005; 93010; 93306; 96361; 96365; 96366; 96367; 96375; 96376; 99291; J1630; J2060; J2405; J3411; J3475; J3480; J7030; J7120; J7512

== ENCOUNTER 2017-07-27 19:18 | Emergency (ER) | payer OTHER ==
[2017-07-27] MEDS ORDERED: ONDANSETRON 4 MG TAB.RAPDIS PO ONE (20:42)
--- NOTE | 2017-07-27 20:45 | ER Document Report ---
ED Medical Screen (RME) - General Chief Complaint: Vomiting Stated Complaint: VOMITING Time Seen by Provider: 07/27/17 20:32 Notes: RAPID MEDICAL EVALUATION DISCLOSURE I have seen this patient as part of a Rapid Medical Evaluation and, if applicable, placed any initially appropriate orders. The patient will be seen and fully evaluated, including a full history and physical exam, by a provider ( in Main ED or Fast Track) when a room becomes available. 57-year-old male here with complaints of epigastric and left upper quadrant abdominal cramping nausea vomiting and skin yellowing ongoing for the past few days. He states that he had been fighting a facial abscess and had been taking Augmentin as well as Tylenol for this for the past 10 days. He finished the Augmentin and the abscess went away. He states he has been taking 2 extra strength Tylenol every 4-6 hours but adamantly denies that he has taken more than this. He used to drink a quart of vodka daily for many years up until 3 months ago when he cut down significantly and now he only drinks a few glasses of wine several times per week. He denies any prior history of liver disease or cirrhosis. He still has his gallbladder. He denies any history of cancer but has a strong family history of cancer. EXAM Severely jaundiced Minimal epigastric and left upper quadrant tenderness to palpation No peritoneal signs TRAVEL OUTSIDE OF THE [place] IN LAST 30 DAYS: No - Related Data Allergies/Adverse Reactions: No Known Allergies Allergy (Verified 04/05/17 12:06) Past Medical History - Past Medical History Cardiac Medical History: Reports: Hx Heart Attack, Hx Hypercholesterolemia, Hx Hypertension Renal/ Medical History: Denies: Hx Peritoneal Dialysis GI Medical History: Reports: Hx Gastroesophageal Reflux Disease Psychiatric Medical History: Reports: Hx Depression Past Surgical History: Reports: Hx Cardiac Surgery - stents x13, bypass - Immunizations History of Influenza Vaccine for 01/2017 - 06/2017 Season: Yes Physical Exam - Vital signs Vitals: Temp Pulse Resp BP Pulse Ox 98.3 F 99 16 103/70 96 07/27/17 19:34 04/26/18 19:34 07/27/17 19:34 07/27/17 19:34 07/27/17 19:34 Course - Vital Signs Vital signs: Temp Pulse Resp BP Pulse Ox 98.3 F 99 16 103/70 96 07/27/17 19:34 07/27/17 19:34 07/27/17 19:34 07/27/17 19:34 07/27/17 19:34
[2017-07-27 21:21] LABS: HEMATOCRIT 40.2 % (37.9-51.0); HEMOGLOBIN 13.7 g/dL (13.5-17.0); MEAN CORPUSCULAR HEMOGLOBIN 32.6 pg (27.0-33.4); MEAN CORPUSCULAR HGB CONC 33.9 g/dL (32.0-36.0); MEAN CORPUSCULAR VOLUME 96 fl (80-97); PLATELET COUNT 177 10^3/uL (150-450); RED BLOOD COUNT 4.19 10^6/uL (4.35-5.55); RED CELL DISTRIBUTION WIDTH 14.8 % (11.5-14.0); WHITE BLOOD COUNT 10.6 10^3/uL (4.0-10.5)
[2017-07-27 21:39] LABS: ABSOLUTE LYMPHOCYTES# (MANUAL) 1.3 10^3/uL (0.5-4.7); ABSOLUTE MONOCYTES # (MANUAL) 0.6 10^3/uL (0.1-1.4); ABSOLUTE NEUTROPHILS# (MANUAL) 8.4 10^3/uL (1.7-8.2); BAND NEUTROPHILS % (MANUAL) 7 % (3-5); BASOPHILS % (MANUAL) 2 % (0-2); EOSINOPHILS % (MANUAL) 1 % (0-6); LYMPHOCYTES % (MANUAL) 12 % (13-45); METAMYELOCYTES % (MANUAL) 1 % (0); MONOCYTES % (MANUAL) 6 % (3-13); SEGMENTED NEUTROPHILS % (MAN) 71 % (42-78); TOTAL CELLS COUNTED 100
[2017-07-27 21:42] LABS: ANISOCYTOSIS SLIGHT; PLATELET COMMENT ADEQUATE; PLATELET LARGE PRESENT; POLYCHROMASIA SLIGHT; TOXIC VACUOLATION PRESENT
[2017-07-27 22:00] LABS: APPEARANCE,URINE CLOUDY; BILIRUBIN,URINE MODERATE (NEGATIVE); COLOR,URINE BROWN; GLUCOSE, URINE 50 mg/dL (NEGATIVE); KETONES,URINE NEGATIVE (NEGATIVE); LEUKOCYTE ESTERASE,URINE NEGATIVE (NEGATIVE); NITRITE,URINE NEGATIVE (NEGATIVE); PROTEIN,URINE 30 mg/dL (NEGATIVE); URINE SPECIFIC GRAVITY 1.029
--- NOTE | 2017-07-27 22:27 | ER Document Report ---
ED General - General Chief Complaint: Vomiting Stated Complaint: VOMITING Time Seen by Provider: 07/27/17 20:32 Mode of Arrival: Ambulatory Information source: Patient Notes: Patient is a 49-year-old male who presents to emergency department with complaints of "turning yellow" and vomiting. Patient states that approximately 8 days ago he was seen in urgent care due to a dental abscess was placed on amoxicillin and told to take extra strength Tylenol. Patient reports that he has been taking approximately 1000 mg of Tylenol every 6 hours for the last 8 days. Patient reports that 2 nights ago he noticed that his skin was turning yellow. Patient states that he has been feeling exhausted and has not slept very well in the last few days but otherwise has no physical complaints. Patient reports a lot of past medical history of left lateral cardiac bypass approximately 9 years ago, 13 stents, hypertension, hyperlipidemia. TRAVEL OUTSIDE OF THE [place] IN LAST 30 DAYS: No - Related Data Allergies/Adverse Reactions: No Known Allergies Allergy (Verified 04/05/17 12:06) Past Medical History - Social History Smoking Status: Never Smoker Chew tobacco use (# tins/day): No Frequency of alcohol use: Heavy Drug Abuse: None Family History: Reviewed & Not Pertinent Patient has suicidal ideation: No Patient has homicidal ideation: No - Past Medical History Cardiac Medical History: Reports: Hx Heart Attack, Hx Hypercholesterolemia, Hx Hypertension Pulmonary Medical History: Reports: None EENT Medical History: Reports: None Neurological Medical History: Reports: None Endocrine Medical History: Reports: None Renal/ Medical History: Reports: None. Denies: Hx Peritoneal Dialysis Malignancy Medical History: Reports None GI Medical History: Reports: Hx Gastroesophageal Reflux Disease Musculoskeltal Medical History: Reports None Skin Medical History: Reports None Psychiatric Medical History: Reports: Hx Depression Traumatic Medical History: Reports: None Past Surgical History: Reports: Hx Cardiac Surgery - stents x13, bypass Review of Systems - Review of Systems Notes: REVIEW OF SYSTEMS: CONSTITUTIONAL : Denies fever, chills, or sweats. Reports recent dental abscess with treatment. EENT: Denies eye, ear, throat, or mouth pain or symptoms. Denies nasal or sinus congestion or discharge. Denies throat, tongue, or mouth swelling or difficulty swallowing. CARDIOVASCULAR: Denies chest pain. Denies palpitations or racing or irregular heart beat. Denies ankle edema. RESPIRATORY: Denies cough, cold, or chest congestion. Denies shortness of breath, difficulty breathing, or wheezing. GASTROINTESTINAL: Denies abdominal pain or distention. Denies nausea, reports vomiting x8 days, denies diarrhea. Denies blood in vomitus, stools, or per rectum. Denies black, tarry stools. Denies constipation. GENITOURINARY: Denies difficulty urinating, painful urination, burning, frequency, blood in urine, or discharge. MUSCULOSKELETAL: Denies back or neck pain or stiffness. Denies joint pain or swelling. SKIN: Denies rash, lesions or sores, reports yellow skin x2 days. HEMATOLOGIC : Denies easy bruising or bleeding. LYMPHATIC: Denies swollen, enlarged glands. NEUROLOGICAL: Denies confusion or altered mental status. Denies passing out or loss of consciousness. Denies dizziness or lightheadedness. Denies headache. Denies weakness or paralysis or loss of use of either side. Denies problems with gait or speech. Denies sensory loss, numbness, or tingling. Denies seizures. PSYCHIATRIC: Denies anxiety or stress. Denies depression, suicidal ideation, or homicidal ideation. ALL OTHER SYSTEMS REVIEWED AND NEGATIVE. Dictation was performed using [employer] voice recognition software Physical Exam - Vital signs Vitals: Temp Pulse Resp BP Pulse Ox 98.3 F 99 16 103/70 96 07/27/17 19:34 07/27/17 19:34 07/27/17 19:34 07/27/17 19:34 07/27/17 19:34 - Notes Notes: PHYSICAL EXAMINATION: GENERAL: Well-appearing, well-nourished and in no acute distress. HEAD: Atraumatic, normocephalic. EYES: Pupils equal round and reactive to light, extraocular movements intact, conjunctiva yellow. ENT: Nares patent, oropharynx clear without exudates. Moist mucous membranes. NECK: Normal range of motion, supple without lymphadenopathy LUNGS: Breath sounds clear to auscultation bilaterally and equal. No wheezes rales or rhonchi. HEART: Regular rate and rhythm without murmurs ABDOMEN: Soft, nontender, nondistended abdomen. No guarding, no rebound. No masses appreciated. Musculoskeletal: Normal range of motion, no pitting or edema. No cyanosis. NEUROLOGICAL: Cranial nerves grossly intact. Normal speech, normal gait. Normal sensory, motor exams PSYCH: Normal mood, normal affect. SKIN: Warm, Dry, normal turgor, no rashes or lesions noted, jaundice noted throughout. Course - Re-evaluation Re-evalutation: On initial exam patient appears very jaundiced but is otherwise comfortable and has no acute complaints. Patient states that the initial nausea he had is completely resolved after nausea medications were administered in triage. Initial labs show a normal CBC with elevated bands, mildly elevated liver enzymes, a total bili of 34.3, and a potassium 2.8. Will add on mag level and send patient for right upper quadrant ultrasound. Patient given 40 mEq of p.o. potassium replacement as IV K riders are unavailable at this time. Patient will be treated with 1 g of Invanz IV for bandemia. Currently awaiting mag level and results of ultrasound. Patient remains asymptomatic and is resting comfortably in his room. Right upper quadrant ultrasound has resulted and shows gallbladder sludge, but otherwise no acute findings or obstructions. Will send patient for CT of the abdomen and pelvis with IV contrast. Magnesium is 0.9, will replace with 2 g of IV magnesium. 07/28/17 04:40 Call placed to [facility] for possible transfer for pancreatitis with obstruction and there is no GI coverage available at [facility]. 07/28/17 0510 Received call from [facility] and spoke with Dr. Fer Ramirez MD who will be accepting the patient for admission and possible ERCP later this morning. 07/28/17 07:23 Bedside report given to Mary KELLER. Patient currently awaiting bed placement and transport to [facility]. - Vital Signs Vital signs: Temp Pulse Resp BP Pulse Ox 98.7 F 99 18 99/71 L 99 07/28/17 06:00 07/27/17 19:34 07/28/17 06:00 07/28/17 04:13 07/28/17 06:14 - Laboratory Result Diagrams: 07/27/17 21:06 07/27/17 22:34 Laboratory results interpreted by me: 07/27/17 07/27/17 07/27/17 21:06 21:20 22:34 WBC 10.6 H RBC 4.19 L RDW 14.8 H Band Neutrophils % 7 H Lymphocytes % (Manual) 12 L Metamyelocytes % 1 H Abs Neuts (Manual) 8.4 H Sodium 133.0 L Potassium 2.8 L* Chloride 91 L Glucose 122 H Calcium 7.7 L Magnesium Total Bilirubin 34.3 H AST 384 H ALT 102 H Alkaline Phosphatase 761 H Total Protein 5.6 L Albumin 3.0 L Lipase 561.8 H Urine Protein 30 H Urine Glucose (UA) 50 H Urine Blood SMALL H Urine Bilirubin MODERATE H Urine Urobilinogen 4.0 H 07/27/17 22:34 WBC RBC RDW Band Neutrophils % Lymphocytes % (Manual) Metamyelocytes % Abs Neuts (Manual) Sodium Potassium Chloride Glucose Calcium Magnesium 0.9 L* Total Bilirubin AST ALT Alkaline Phosphatase Total Protein Albumin Lipase Urine Protein Urine Glucose (UA) Urine Blood Urine Bilirubin Urine Urobilinogen Discharge - Discharge Clinical Impression: Jaundice, Bandemia, Hypokalemia, Hypomagnesemia Vomiting Qualifiers: Vomiting type: unspecified Vomiting Intractability: non-intractable Nausea presence: unspecified Qualified Code(s): R11.10 - Vomiting, unspecified
[2017-07-27 22:57] LABS: ACETAMINOPHEN 10 ug/mL (10-30); ALANINE AMINOTRANSFERASE 102 U/L (21-72); ALKALINE PHOSPHATASE 761 U/L (38-126); ANION GAP 13 (5-19); ASPARTATE AMINO TRANSFERASE 384 U/L (17-59); BLOOD UREA NITROGEN 9 mg/dL (7-20); CALCIUM 7.7 mg/dL (8.4-10.2); CARBON DIOXIDE 29 mmol/L (22-30); CHLORIDE 91 mmol/L (98-107); GLUCOSE 122 mg/dL (75-110); LIPASE 561.8 U/L (23-300); TOTAL PROTEIN 5.6 g/dL (6.3-8.2)
[2017-07-27 23:04] LABS: BILIRUBIN,TOTAL 34.3 mg/dL (0.2-1.3)
[2017-07-27 23:06] LABS: POTASSIUM 2.8 mmol/L (3.6-5.0)
[2017-07-27] MEDS ORDERED: POTASSI CL 20 MEQ/50 ML RIDER 20 MEQ/50 ML RTUPB IV SCH (23:14)
[2017-07-28] MEDS ORDERED: POTASSIUM CHLORIDE 10 MEQ TABLET.SA PO ONE (00:10)
[2017-07-28] MEDS: MAGNESIUM SULFATE/D5W 1 GM/100 ML RTUPB IV SCH ×4 (00:52→05:40)
--- NOTE | 2017-07-28 01:20 | RADIOLOGY REPORT (SQ) ---
EXAM DESCRIPTION: U/S ABDOMEN LIMITED W/O DOP CLINICAL HISTORY: 57 years, Male, vomiting, jaundice COMPARISON: None. LIMITATIONS: Bowel gas artifact. FINDINGS: Gallbladder sludge. Negative sonographic Adams's test. Gallbladder wall thickness is 0.7 cm. No pericholecystic fluid. Negative sonographic Adams's test. Moderate hepatic steatosis, 21.6 cm hepatomegaly, partially obscured aorta, obscured pancreas, and 11 cm right kidney appear otherwise unremarkable. No vita ascites. IMPRESSION: 1. No acute findings. Gallbladder sludge. Nonspecific gallbladder wall edema measures 0.7 cm in thickness. Negative sonographic Adams's test. 2. Hepatomegaly. Hepatic steatosis.
[2017-07-28] MEDS ORDERED: ERTAPENEM SODIUM INJ 1 GM VIAL IV ONE (01:52)
--- NOTE | 2017-07-28 03:50 | RADIOLOGY REPORT (SQ) ---
EXAM DESCRIPTION: CT ABD/PELVIS WITH IV ONLY CLINICAL HISTORY: 57 years Male, jaundice, elevated bilirubin, vomiting COMPARISON: Concurrent ultrasound. TECHNIQUE: IV contrast. Coronal and sagittal reformat. This exam was performed according to our departmental dose-optimization program, which includes automated exposure control, adjustment of the mA and/or kV according to patient size and/or use of iterative reconstruction technique. FINDINGS: Moderate fat inflammation surrounds pancreas and second portion of the duodenum. 0.8 cm gallbladder wall thickness and mild adjacent fat inflammation surrounding a mildly hydropic gallbladder. No gallbladder sludge on concurrent sonogram. 3.2 cm lesion of the superior left femoral head may indicate avascular necrosis. Moderate coronary arterial calcification stenting. Mild perinephric fat stranding. Moderate hepatic steatosis. Normal appendix. Inferior thorax, spleen, splenule, adrenals, gastrointestinal tract, pelvic organs, lymphatics, vasculature, and musculoskeleton appear otherwise unremarkable. IMPRESSION: 1. Inflammation of the pancreas, gallbladder, and duodenum probably due to extensive moderate pancreatitis. 2. 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
[2017-07-28] MEDS ORDERED: POTASSIUM CHLORIDE 20 MEQ/15 ML UDCUP PO ONE (04:55)
--- NOTE | 2017-07-28 07:45 | EKG REPORT ---
SEVERITY:- BORDERLINE ECG - SINUS RHYTHM BORDERLINE T ABNORMALITIES, ANTERIOR LEADS BORDERLINE PROLONGED QT INTERVAL : Confirmed by: Patel Woodall MD 28-Jul-2017 07:44:11
--- NOTE | 2017-07-28 10:56 | ER Document Report ---
Doctor's Note Notes: 07/28/17 10:55 Patient is stable at this time. Vital signs reviewed. Not significantly uncomfortable. At this time patient is stable for transport
[2017-07-28 11:47] VITALS: BP 112/68
== END 2017-07-28 11:50 | disposition short-term general hospital (02) ==
LOC: ER 19:18
DX: R17 Unspecified jaundice (principal); D72.825 Bandemia; E87.6 Hypokalemia; E83.42 Hypomagnesemia; R11.10 Vomiting, unspecified; K04.7 Periapical abscess without sinus; Z79.899 Other long term (current) drug therapy; I10 Essential (primary) hypertension; Z95.1 Presence of aortocoronary bypass graft; I25.2 Old myocardial infarction
CPT/HCPCS: 93005; 99285; 96365; 96366; 96368; 36415; 87040; 83690; 83735; 80307; 85025; 87077; 80053; 81001; 87186; 76705; 74177; 93010; S0119; J1335; J3475

== ENCOUNTER 2017-12-01 14:39 | Emergency (ER) | payer OTHER ==
--- NOTE | 2017-12-01 15:27 | ER Document Report ---
ED Medical Screen (RME) - General Chief Complaint: Neck Swelling Stated Complaint: NECK/SHOULDER LUMP Time Seen by Provider: 12/01/17 15:24 Notes: 57 years old male presents today with soft tissue swelling over the left clavicular fourth and left side of the neck. This been going on for the last few days to weeks. No pain or discomfort except having dysphagia. Former smoker. Heavy drinker. TRAVEL OUTSIDE OF THE [place] IN LAST 30 DAYS: No - Related Data Allergies/Adverse Reactions: No Known Allergies Allergy (Verified 12/01/17 14:41) Past Medical History - Social History Chew tobacco use (# tins/day): No Frequency of alcohol use: Occasional Drug Abuse: None - Past Medical History Cardiac Medical History: Reports: Hx Heart Attack, Hx Hypercholesterolemia, Hx Hypertension Renal/ Medical History: Denies: Hx Peritoneal Dialysis GI Medical History: Reports: Hx Gastroesophageal Reflux Disease Psychiatric Medical History: Reports: Hx Depression Past Surgical History: Reports: Hx Cardiac Surgery - stents x13, bypass - Immunizations History of Influenza Vaccine for 01/2017 - 06/2017 Season: Yes Physical Exam - Vital signs Vitals: Temp Pulse Resp BP Pulse Ox 98.5 F 102 H 18 157/99 H 97 12/01/17 14:52 12/01/17 14:52 12/01/17 14:52 12/01/17 14:52 12/01/17 14:52 Course - Vital Signs Vital signs: Temp Pulse Resp BP Pulse Ox 98.5 F 102 H 18 157/99 H 97 12/01/17 14:52 12/01/17 14:52 12/01/17 14:52 12/01/17 14:52 12/01/17 14:52
[2017-12-01 16:31] LABS: ABSOLUTE LYMPHOCYTES (AUTO) 0.7 10^3/uL (0.5-4.7); ABSOLUTE MONOCYTES (AUTO) 0.4 10^3/uL (0.1-1.4); ABSOLUTE NEUT (AUTO) 4.8 10^3/uL (1.7-8.2); BASOPHILS % (AUTO) 0.4 % (0-2); EOSINOPHILS % (AUTO) 0.4 % (0-6); HEMATOCRIT 49.8 % (37.9-51.0); HEMOGLOBIN 17.3 g/dL (13.5-17.0); LYMPHOCYTES % (AUTO) 12.3 % (13-45); MEAN CORPUSCULAR HEMOGLOBIN 30.8 pg (27.0-33.4); MEAN CORPUSCULAR HGB CONC 34.8 g/dL (32.0-36.0); MEAN CORPUSCULAR VOLUME 89 fl (80-97); MONOCYTES % (AUTO) 6.9 % (3-13); PLATELET COUNT 112 10^3/uL (150-450); RED BLOOD COUNT 5.63 10^6/uL (4.35-5.55); RED CELL DISTRIBUTION WIDTH 17.6 % (11.5-14.0); TOTAL CELLS COUNTED % (AUTO) 100 %
[2017-12-01 17:27] LABS: ALANINE AMINOTRANSFERASE 38 U/L (21-72); ALBUMIN 4.6 g/dL (3.5-5.0); ALKALINE PHOSPHATASE 111 U/L (38-126); ANION GAP 15 (5-19); ASPARTATE AMINO TRANSFERASE 71 U/L (17-59); BILIRUBIN,DIRECT 0.8 mg/dL (0.0-0.4); BILIRUBIN,TOTAL 2.3 mg/dL (0.2-1.3); BLOOD UREA NITROGEN 11 mg/dL (7-20); CARBON DIOXIDE 31 mmol/L (22-30); CHLORIDE 89 mmol/L (98-107); GLUCOSE 148 mg/dL (75-110); POTASSIUM 3.8 mmol/L (3.6-5.0); SODIUM 134.8 mmol/L (137-145); TOTAL PROTEIN 7.4 g/dL (6.3-8.2)
--- NOTE | 2017-12-01 17:32 | ER Document Report ---
ED General - General Chief Complaint: Neck Swelling Stated Complaint: NECK/SHOULDER LUMP Time Seen by Provider: 12/01/17 15:24 TRAVEL OUTSIDE OF THE [place] IN LAST 30 DAYS: No - HPI Notes: Patient is a 57-year-old male with a history of coronary disease, stent placement, CABG, hypertension who presents to the ED complaining of a soft lump to the left trapezius muscle/base of the neck area that developed over the last month and has been slowly increasing in size. Patient states that he has not noticed any redness or drainage to the skin. Patient states that pushing on it does not cause any discomfort and it feels soft. Patient states that he does have an occasional discomfort in that area when he moves his arm. Patient states that he can breathe without any difficulties, but fears that it may be getting closer to his neck. He is eating and drinking without any difficulties. He is urinating normally and having normal bowel movements. He has not had any drooling or hoarseness. Denies any headache, fever, head injury , neck pain, URI, sore throat, chest pain, palpitations, syncope, cough, shortness of breath, wheeze, dyspnea, abdominal pain, nausea/vomiting/diarrhea, urinary retention, dysuria, hematuria, or rash. - Related Data Allergies/Adverse Reactions: No Known Allergies Allergy (Verified 12/01/17 14:41) Past Medical History - Social History Smoking Status: Never Smoker Chew tobacco use (# tins/day): No Frequency of alcohol use: Occasional Drug Abuse: None Family History: Reviewed & Not Pertinent Patient has suicidal ideation: No Patient has homicidal ideation: No - Past Medical History Cardiac Medical History: Reports: Hx Heart Attack, Hx Hypercholesterolemia, Hx Hypertension Renal/ Medical History: Denies: Hx Peritoneal Dialysis GI Medical History: Reports: Hx Gastroesophageal Reflux Disease Psychiatric Medical History: Reports: Hx Depression Past Surgical History: Reports: Hx Cardiac Surgery - stents x13, bypass Review of Systems - Review of Systems -: Yes All other systems reviewed and negative Physical Exam - Vital signs Vitals: Temp Pulse Resp BP Pulse Ox 98.5 F 102 H 18 157/99 H 97 12/01/17 14:52 12/01/17 14:52 12/01/17 14:52 12/01/17 14:52 12/01/17 14:52 - Notes Notes: PHYSICAL EXAMINATION: GENERAL: Well-appearing, well-nourished and in no acute distress. A&Ox4. Answers questions appropriately. Moves comfortably w/o notable distress HEAD: Atraumatic, normocephalic. EYES: Pupils equal round and reactive to light, extraocular movements intact, sclera anicteric, conjunctiva are normal. ENT: EAC clear b/l. TM's intact b/l without erythema, fluid, or perforation. Nares patent and with clear discharge. oropharynx without erythema without exudates. No tonsilar hypertrophy without erythema or exudate. No palatine shift. Uvula midline. No tongue protrusion. No drooling, hoarseness, or airway compromise. Moist mucous membranes. No sinus tenderness. NECK: Normal range of motion, supple without lymphadenopathy. No rigidity/ meningismus. see skin. LUNGS: Breath sounds clear to auscultation bilaterally and equal. No wheezes rales or rhonchi. No retractions HEART: Regular rate and rhythm without murmurs, rubs, gallops. NEUROLOGICAL: Normal speech, normal gait. Normal sensory, motor exams PSYCH: Normal mood, normal affect. SKIN: there is a round approx 4cm smooth, soft, rubbery, non-tender, mobile lump to the left medial trap- just lateral to the left base of neck posterior to the sternocleidomastoid noted. No erythema, induration, fluctuance. Course - Re-evaluation Re-evalutation: 12/01/17 16:00 I did speak with Dr. Jack about this presentation. Most consistent with a lipoma which he suggests outpatient f/u. We may perform an US, but CT not warranted at this time. Dr. Younger will assist with an US. 12/01/17 17:48 Patient is an afebrile, well-hydrated, 57-year-old male who presents to the ED with a lipoma. Vitals are acceptable without significant tachycardia, tachypnea , or hypoxia. PE is otherwise unremarkable. Ultrasound was performed by Dr. Younger who agrees that this is a lipoma. CBC and CMP are acceptable. No other labs or imaging warranted at this time based on H&P. Patient is tolerating p.o. any difficulties and is nontoxic-appearing. Low suspicion for any meningitis, sepsis, peritonsillar/pharyngeal abscess, airway compromise, Eduardo's, or other emergent systemic condition at this time. Patient is aware this condition can change from initial presentation and he needs to monitor symptoms closely. Conservative measures otherwise for symptoms. Recheck with your PCM in 3-5 days. Call general surgery to schedule an appointment for further evaluation and management. Return to the ED with any worsening/ concerning symptoms otherwise as reviewed in discharge. Patient is in agreement. - Vital Signs Vital signs: Temp Pulse Resp BP Pulse Ox 98.5 F 102 H 18 157/99 H 97 12/01/17 14:52 12/01/17 14:52 12/01/17 14:52 12/01/17 14:52 12/01/17 14:52 - Laboratory Result Diagrams: 12/01/17 15:40 12/01/17 16:48 Laboratory results interpreted by me: 12/01/17 12/01/17 15:40 16:48 RBC 5.63 H Hgb 17.3 H RDW 17.6 H Plt Count 112 L Seg Neutrophils % 80.0 H Lymphocytes % 12.3 L Sodium 134.8 L Chloride 89 L Carbon Dioxide 31 H Glucose 148 H Total Bilirubin 2.3 H Direct Bilirubin 0.8 H AST 71 H Discharge - Discharge Clinical Impression: Lipoma Qualifiers: Lipoma location: trunk Qualified Code(s): D17.1 - Benign lipomatous neoplasm of skin and subcutaneous tissue of trunk Condition: Stable Disposition: HOME, SELF-CARE Additional Instructions: Keep the skin clean Wash with soap and water Tylenol/ibuprofen if needed Take medication as directed Monitor for any worsening symptoms Recheck with your PCM in 3-5 days Call the general surgeon's office and schedule an appointment for further evaluation and management Return to the ED with any worsening symptoms and/or development of fever, drooling, hoarseness, trouble swallowing, headache, chest pain, palpitations, syncope, shortness of breath, trouble breathing, abdominal pain, n/v/d, abscess , purulent discharge, red streaks, worsening swelling, or other worsening symptoms that are concerning to you. Forms: Elevated Blood Pressure, Smoking Cessation Education Referrals: TEJAS JACK MD [ACTIVE STAFF] - Follow up in 1 week
[2017-12-01 18:11] VITALS: BP 152/101
== END 2017-12-01 18:13 | disposition home or self-care (01) ==
LOC: ER 14:39
DX: D17.1 Benign lipomatous neoplasm of skin and subcutaneous tissue of trunk (principal); R22.1 Localized swelling, mass and lump, neck; I25.10 Atherosclerotic heart disease of native coronary artery without angina pectoris; I10 Essential (primary) hypertension
CPT/HCPCS: 36415; 80053; 85025; 99283

== ENCOUNTER 2018-01-14 17:06 | Inpatient (IN) | payer OTHER ==
--- NOTE | 2018-01-14 17:43 | ER Document Report ---
ED General - General Mode of Arrival: Ambulatory Information source: Patient TRAVEL OUTSIDE OF THE [place] IN LAST 30 DAYS: No <DAVID VARGAS - Last Filed: 01/14/18 19:43> <JULIANA RUBIN - Last Filed: 01/14/18 22:19> - General Chief Complaint: Alcohol Withdrawl Stated Complaint: POSSIBLE SEIZURE Time Seen by Provider: 01/14/18 17:30 Notes: Patient is a 57 year old male with HTN, CAD (13 stents), cardiac bypass, VT, hyperlipidemia, depression with a history of alcohol abuse, alcohol withdrawal seizures presents to the emergency department accompanied by son complaining of a possible seizure. Son states he and the patient were on their way home from a buffet when the patient began to behave abnormally further stating he began to speak jibberish. He states the patient then proceeded to contract one hand, go stiff then began to have contractures of all extremities. Following this, the son reports the patient stopped breathing after which he called 911 and was instructed to perform CPR where he compressed 6 times and gave mouth to mouth. He states the patient then began to breathe again and EMS arrived on scene. Son states the patient had similar symptoms approximately 2 weeks ago where the patient normalized shortly after. He states the patient's last alcoholic beverage was approximately 2 days ago. At bedside, patient states he feels exhausted. (DAVID VARGAS) The HPI comes primarily from the patient's son Daniel, whose telephone number is [phone]. Patient was here in July of this year and had very high bilirubin, he was sent to [place] where he probably had ERCP. He did not have his gallbladder removed although there was discussion about whether or not to remove the gallbladder. (JULIANA RUBIN) - Related Data Allergies/Adverse Reactions: No Known Allergies Allergy (Verified 12/01/17 14:41) Past Medical History - General Information source: Patient - Social History Smoking Status: Former Smoker - quit 20 years ago as of 2018. Cigarette use (# per day): No Chew tobacco use (# tins/day): No Smoking Education Provided: No Frequency of alcohol use: Heavy Family History: Reviewed & Not Pertinent - Past Medical History Cardiac Medical History: Reports: Hx Heart Attack, Hx Hypercholesterolemia, Hx Hypertension GI Medical History: Reports: Hx Gastroesophageal Reflux Disease Psychiatric Medical History: Reports: Hx Depression Past Surgical History: Reports: Hx Cardiac Surgery - stents x13, bypass <DAVID VARGAS - Last Filed: 01/14/18 19:43> Review of Systems - Review of Systems Constitutional: No symptoms reported EENT: No symptoms reported Cardiovascular: No symptoms reported Respiratory: No symptoms reported Gastrointestinal: No symptoms reported Genitourinary: No symptoms reported Male Genitourinary: No symptoms reported Musculoskeletal: No symptoms reported Skin: No symptoms reported Hematologic/Lymphatic: No symptoms reported Neurological/Psychological: See HPI, Seizure -: Yes All other systems reviewed and negative <ALICIADAVID VAUGHN - Last Filed: 01/14/18 19:43> Physical Exam - General General appearance: Appears well, Alert In distress: None - HEENT Head: Normocephalic, Atraumatic Eyes: Normal Conjunctiva: Normal Extraocular movements intact: Yes Pupils: PERRL Mucous membranes: Normal Neck: Normal - Respiratory Respiratory status: No respiratory distress Chest status: Nontender Breath sounds: Normal Chest palpation: Normal - Cardiovascular Rhythm: Regular Heart sounds: Normal auscultation Murmur: No Friction rub: No Gallop: None auscultated - Abdominal Inspection: Normal Distension: No distension Bowel sounds: Normal Tenderness: Nontender Organomegaly: No organomegaly - Back Back: Normal - Extremities General upper extremity: Normal ROM General lower extremity: Normal ROM - Neurological Neuro grossly intact: Yes Cognition: Normal Orientation: AAOx4 [place] Coma Scale Eye Opening: Spontaneous [place] Coma Scale Verbal: Oriented [place] Coma Scale Motor: Obeys Commands [place] Coma Scale Total: 15 Speech: Normal - Psychological Associated symptoms: Normal affect, Normal mood - Skin Skin Temperature: Warm Skin Moisture: Dry Skin Color: Normal <DAVID VARGAS - Last Filed: 01/14/18 19:43> - Vital signs Vitals: Temp Pulse Resp BP Pulse Ox 99.1 F 124 H 14 108/79 97 01/14/18 17:17 01/14/18 17:17 01/14/18 17:17 01/14/18 17:17 01/14/18 17:17 Course - Laboratory Result Diagrams: 01/14/18 17:30 01/14/18 17:30 <ALICIAJOECURTIS - Last Filed: 01/14/18 19:43> - Laboratory Result Diagrams: 01/14/18 17:30 01/14/18 17:30 - EKG Interpretation by Ga EKG shows normal: Sinus rhythm, Sunset, QRS Complexes, ST-T Waves. abnormal: Intervals - Borderline prolonged QT interval Rate: Tachycardia - 113 Rhythm: NSR P Waves: LAE - Consults Dr. Rodriguez Time consulted: 21:00 Consulted provider: will come to ER <JULIANA RUBIN - Last Filed: 01/14/18 22:19> - Vital Signs Vital signs: Temp Pulse Resp BP Pulse Ox 98.5 F 124 H 18 137/88 H 97 01/14/18 20:52 01/14/18 17:17 01/14/18 22:00 01/14/18 22:00 01/14/18 22:00 - Laboratory Laboratory results interpreted by me: 01/14/18 01/14/18 01/14/18 17:27 17:30 17:30 MCH 33.9 H RDW 15.4 H Sodium 133.2 L Potassium 3.1 L Chloride 87 L Anion Gap 24 H Creatinine 2.02 H Est GFR ( Amer) 41 L Est GFR (Non-Af Amer) 34 L Glucose 258 H POC Glucose 263 H Uric Acid Magnesium 0.9 L* Total Bilirubin 3.1 H Direct Bilirubin 1.3 H AST 98 H Creatine Kinase 188 H 01/14/18 17:30 MCH RDW Sodium Potassium Chloride Anion Gap Creatinine Est GFR ( Amer) Est GFR (Non-Af Amer) Glucose POC Glucose Uric Acid 12.1 H Magnesium Total Bilirubin Direct Bilirubin AST Creatine Kinase Critical Care Note - Critical Care Note Total time excluding time spent on procedures (mins): 40 <JULIANA RUBIN - Last Filed: 01/14/18 22:19> Discharge <DAVID VARGAS - Last Filed: 01/14/18 19:43> - Discharge Admitting Provider: Hospitalist Unit Admitted: IMCU <JULIANA RUBIN - Last Filed: 01/14/18 22:19> - Discharge Clinical Impression: Seizure, Hypokalemia, Hypomagnesemia, Tachycardia Hypotension Qualifiers: Hypotension type: unspecified hypotension type Qualified Code(s): I95.9 - Hypotension, unspecified Alcohol withdrawal seizure Qualifiers: Complication of substance-induced condition: uncomplicated Qualified Code(s): F10.230 - Alcohol dependence with withdrawal, uncomplicated Acute renal failure Qualifiers: Acute renal failure type: unspecified Qualified Code(s): N17.9 - Acute kidney failure, unspecified Condition: Good Disposition: ADMITTED INPATIENT Scribe Attestation: 01/14/18 17:47 I personally performed the services described in the documentation, reviewed and edited the documentation which was dictated to the scribe in my presence, and it accurately records my words and actions. (JULIANA RUBIN) Scribe Documentation - Scribe Written by Danni:: Danni Michel, 01/14/2018 18:07 acting as scribe for :: Ab <DAVID VARGAS - Last Filed: 01/14/18 19:43>
[2018-01-14] MEDS ORDERED: NORMAL SALINE 1000 ML 1,000 ML IV ONE (17:44)
[2018-01-14] MEDS ORDERED: LORAZEPAM INJ 2 MG/1 ML VIAL IV ONE (17:44)
[2018-01-14 17:51] LABS: ABSOLUTE LYMPHOCYTES (AUTO) 1.1 10^3/uL (0.5-4.7); ABSOLUTE MONOCYTES (AUTO) 0.6 10^3/uL (0.1-1.4); ABSOLUTE NEUT (AUTO) 6.3 10^3/uL (1.7-8.2); BASOPHILS % (AUTO) 0.5 % (0-2); EOSINOPHILS % (AUTO) 0.1 % (0-6); HEMATOCRIT 48.8 % (37.9-51.0); LYMPHOCYTES % (AUTO) 13.6 % (13-45); MEAN CORPUSCULAR HEMOGLOBIN 33.9 pg (27.0-33.4); MEAN CORPUSCULAR HGB CONC 34.9 g/dL (32.0-36.0); MEAN CORPUSCULAR VOLUME 97 fl (80-97); MONOCYTES % (AUTO) 7.8 % (3-13); PLATELET COUNT 158 10^3/uL (150-450); RED BLOOD COUNT 5.02 10^6/uL (4.35-5.55); RED CELL DISTRIBUTION WIDTH 15.4 % (11.5-14.0); TOTAL CELLS COUNTED % (AUTO) 100 %; WHITE BLOOD COUNT 8.1 10^3/uL (4.0-10.5)
[2018-01-14 18:20] LABS: ALANINE AMINOTRANSFERASE 46 U/L (21-72); ALBUMIN 4.8 g/dL (3.5-5.0); ALKALINE PHOSPHATASE 99 U/L (38-126); BILIRUBIN,DIRECT 1.3 mg/dL (0.0-0.4); BILIRUBIN,TOTAL 3.1 mg/dL (0.2-1.3); BLOOD UREA NITROGEN 9 mg/dL (7-20); CALCIUM 8.8 mg/dL (8.4-10.2); CREATINE KINASE 188 U/L (55-170); GLUCOSE 258 mg/dL (75-110); POTASSIUM 3.1 mmol/L (3.6-5.0); TOTAL PROTEIN 7.6 g/dL (6.3-8.2)
[2018-01-14 18:31] LABS: ASPARTATE AMINO TRANSFERASE 98 U/L (17-59); CARBON DIOXIDE 22 mmol/L (22-30); CHLORIDE 87 mmol/L (98-107); CREATINE KINASE MB 1.09 ng/mL (<4.55); SODIUM 133.2 mmol/L (137-145)
[2018-01-14 18:34] LABS: ALCOHOL < 10 mg/dL (NONE DETECTED); ANION GAP 24 (5-19)
[2018-01-14 18:36] LABS: TROPONIN I < 0.012 ng/mL
[2018-01-14] MEDS ORDERED: POTASSIUM CHLORIDE 20 MEQ/15 ML UDCUP PO ONE (18:48)
[2018-01-14] MEDS ORDERED: THIAMINE HCL 100 MG in NORMAL SALINE 50 ML IV ONE (18:51)
[2018-01-14] MEDS ORDERED: THIAMINE HCL INJ 200 MG/2 ML VIAL ONE (19:22)
[2018-01-14] MEDS: MAGNESIUM SULFATE/D5W 1 GM/100 ML RTUPB IV SCH ×3 (19:35→23:26)
--- NOTE | 2018-01-14 19:47 | EKG REPORT ---
SEVERITY:- BORDERLINE ECG - SINUS TACHYCARDIA PROBABLE LEFT ATRIAL ABNORMALITY BORDERLINE PROLONGED QT INTERVAL : Confirmed by: Emmy Jimenes MD 14-Jan-2018 19:45:37
[2018-01-14] MEDS ORDERED: RINGERS SOLUTION,LACTATED 1,000 ML IV ONE (20:53)
[2018-01-14 21:22] LABS: LIPASE 94.7 U/L (23-300)
--- NOTE | 2018-01-14 21:30 | RADIOLOGY REPORT (SQ) ---
XR CHEST 1 VIEW HISTORY: Alcohol withdrawal seizure. COMPARISON: None. FINDINGS/IMPRESSION: Normal cardiomediastinal silhouette. Possible opacity versus atelectasis in the left lung base. No pleural effusion is seen. No acute osseous findings.
[2018-01-14] MEDS ORDERED: MAG HYDROX/AL HYDROX/SIMETH SUSP 30 ML UDCUP PO PRN (22:21)
[2018-01-14] MEDS ORDERED: LORAZEPAM INJ 2 MG/1 ML VIAL IV PRN (22:21)
[2018-01-14] MEDS ORDERED: IPRATROPIUM/ALBUTEROL 0.5-2.5 MG/3 ML AMPUL NEB PRN (22:21)
[2018-01-14] MEDS ORDERED: METOPROLOL TARTRATE 25 MG TABLET PO ONE (23:00)
[2018-01-14] MEDS ORDERED: TRAZODONE HCL 50 MG TABLET PO ONE (23:00)
[2018-01-14] MEDS: LORAZEPAM 1 MG TABLET PO PRN (23:40)
[2018-01-15 00:10] LABS: APPEARANCE,URINE CLOUDY; BILIRUBIN,URINE MODERATE (NEGATIVE); COLOR,URINE AMBER; GLUCOSE, URINE NEGATIVE (NEGATIVE); KETONES,URINE NEGATIVE (NEGATIVE); LEUKOCYTE ESTERASE,URINE NEGATIVE (NEGATIVE); NITRITE,URINE NEGATIVE (NEGATIVE); PROTEIN,URINE >=500 mg/dL (NEGATIVE); URINE SPECIFIC GRAVITY 1.024
[2018-01-15 00:35] LABS: CREATINE KINASE MB 1.35 ng/mL (<4.55)
[2018-01-15 00:36] LABS: TROPONIN I < 0.012 ng/mL
[2018-01-15] MEDS: MAGNESIUM SULFATE/D5W 1 GM/100 ML RTUPB IV SCH (01:09)
[2018-01-15 01:14] LABS: URINE AMPHETAMINES SCREEN NEGATIVE; URINE BARBITURATES SCREEN NEGATIVE; URINE BENZODIAZEPINES SCREEN NEGATIVE; URINE COCAINE SCREEN NEGATIVE; URINE MARIJUANA (THC) SCREEN NEGATIVE; URINE METHADONE SCREEN NEGATIVE; URINE PHENCYCLIDINE SCREEN NEGATIVE
[2018-01-15] MEDS: NORMAL SALINE 1000 ML 1,000 ML IV PRN ×2 (04:20→08:52)
--- NOTE | 2018-01-15 06:30 | PDOC H&P ---
History of Present Illness Admission Date/PCP: 01/14/18 21:07 Patient complains of: Seizure History of Present Illness: WOODROW JERNIGAN is a 57 year old male with a past medical history of alcohol and benzodiazepine dependence, seizure, coronary artery bypass graft, subsequent supposed 13 stents, hypertension dyslipidemia. Patient presents with seizure- like activity including limb shaking and garbled speech, lasting several minutes , no postictal state. Previous episode 2 weeks ago, patient admits running out of Xanax and last drink 2 days ago. He receives thiamine, folate and referred to the hospitalist for admission. Past Medical History Cardiac Medical History: Reports: Myocardial Infarction, Hyperlipidema, Hypertension GI Medical History: Reports: Gastroesophageal Reflux Disease Psychiatric Medical History: Reports: Depression Hematology: Reports: Anemia - gout Past Surgical History Past Surgical History: Reports: None Social History Information Source: Patient, [facility] Records Smoking Status: Former Smoker Number of Years Smokin Last Time Smoked: 2002 Frequency of Alcohol Use: Heavy Hx Recreational Drug Use: No Drugs: None Hx Prescription Drug Abuse: No - Advance Directive Resuscitation Status: Full Code Family History Family History: CAD, COPD Parental Family History Reviewed: Yes Children Family History Reviewed: Yes Sibling(s) Family History Reviewed.: Yes Medication/Allergy Home Medications: Allopurinol [Zyloprim 100 mg Tablet] 100 mg PO DAILY 04/06/17 Aspirin [Aspirin EC] 81 mg PO DAILY 04/06/17 Atorvastatin Calcium [Lipitor 40 mg Tablet] 20 mg PO DAILY 04/06/17 Clopidogrel Bisulfate [Plavix 75 mg Tablet] 75 mg PO DAILY 04/06/17 Folic Acid [Folvite 1 mg Tablet] 1 mg PO DAILY 04/06/17 Isosorbide Mononitrate [Imdur 60 mg Tablet.er] 60 mg PO DAILY 04/06/17 Magnesium Oxide [Mag-Ox 400 mg Tablet] 400 mg PO BID 04/06/17 Metoprolol Tartrate [Lopressor 25 mg Tablet] 25 mg PO Q12 04/06/17 Multivitamin [Multivitamins] 1 each PO DAILY 04/06/17 Nitroglycerin [Nitrostat 0.4 mg (1/150 Gr) Tabs 25/Bottle] 1 tab SL Q5MP PRN 07/19 Pantoprazole Sodium 40 mg PO DAILY 04/06/17 Prednisone [Deltasone 5 mg Tablet] 5 mg PO DAILY 04/06/17 Ranolazine [Ranexa] 500 mg PO Q12 04/06/17 Sertraline HCl [Zoloft] 100 mg PO DAILY 04/06/17 Thiamine HCl [Thiamine 100 mg Tablet] 100 mg PO DAILY 04/06/17 Tramadol HCl [Ultram 50 mg Tablet] 50 mg PO 5XD 04/06/17 Trazodone HCl [Desyrel 50 mg Tablet] 50 mg PO DAILY 04/06/17 Folic Acid [Folvite 1 mg Tablet] 1 mg PO DAILY tablet 04/07/17 Lorazepam [Ativan 1 mg Tablet] 2 mg PO BID 5 Days #10 tablet 04/07/17 Lorazepam [Ativan 1 mg Tablet] 2 mg PO Q4HP PRN 5 Days #30 tablet 04/07/17 Thiamine HCl [Thiamine 100 mg Tablet] 100 mg PO DAILY@1200 tablet 04/07/17 Allergies/Adverse Reactions: No Known Allergies Allergy (Verified 12/01/17 14:41) Review of Systems ROS unobtainable: Due to mental status - Unreliable historian Physical Exam Vital Signs: Temp Pulse Resp BP Pulse Ox 98.1 F 77 20 109/72 97 01/15/18 03:50 01/15/18 03:50 01/15/18 03:50 01/15/18 03:50 01/15/18 03:50 Intake & Output 01/13/18 01/14/18 01/15/18 11:59 11:59 11:59 Intake Total 2300 Balance 2300 Weight 118 kg General appearance: PRESENT: no acute distress, well-developed, well-nourished Head exam: PRESENT: atraumatic, normocephalic Eye exam: PRESENT: conjunctiva pink, EOMI, PERRLA. ABSENT: scleral icterus Ear exam: PRESENT: normal external ear exam Mouth exam: PRESENT: moist, tongue midline Neck exam: ABSENT: carotid bruit, JVD, lymphadenopathy, thyromegaly Respiratory exam: PRESENT: clear to auscultation sebas. ABSENT: rales, rhonchi, wheezes Cardiovascular exam: PRESENT: RRR. ABSENT: diastolic murmur, rubs, systolic murmur Pulses: PRESENT: normal dorsalis pedis pul Vascular exam: PRESENT: normal capillary refill GI/Abdominal exam: PRESENT: normal bowel sounds, soft. ABSENT: distended, guarding, mass, organolmegaly, rebound, tenderness Rectal exam: PRESENT: deferred Extremities exam: PRESENT: full ROM. ABSENT: calf tenderness, clubbing, pedal edema Neurological exam: PRESENT: alert, awake, oriented to person, oriented to place , oriented to time, oriented to situation, CN II-XII grossly intact. ABSENT: motor sensory deficit Psychiatric exam: PRESENT: appropriate affect, normal mood. ABSENT: homicidal ideation, suicidal ideation Skin exam: PRESENT: dry, intact, warm. ABSENT: cyanosis, rash Results Laboratory Results: 01/14/18 23:20 Urine Color BECKY Urine Appearance CLOUDY Urine pH 5.0 Ur Specific [place] 1.024 Urine Protein >=500 H Urine Glucose (UA) NEGATIVE Urine Ketones NEGATIVE Urine Blood NEGATIVE Urine Nitrite NEGATIVE Ur Leukocyte Esterase NEGATIVE Urine WBC (Auto) 8 Urine RBC (Auto) 3 01/14/18 01/14/18 23:40 23:40 Creatine Kinase 194 H CK-MB (CK-2) 1.35 Troponin I < 0.012 Impressions: Chest X-Ray 01/14/18 21:05 FINDINGS/IMPRESSION: Normal cardiomediastinal silhouette. Possible opacity versus atelectasis in the left lung base. No pleural effusion is seen. No acute osseous findings. Assessment & Plan - Diagnosis (1) Alcohol withdrawal seizure Qualifiers: Complication of substance-induced condition: uncomplicated Qualified Code(s ): F10.230 - Alcohol dependence with withdrawal, uncomplicated Is this a current diagnosis for this admission?: Yes Plan: Patient discontinued alcohol 48 hours prior to event, additionally ran out of Xanax. Telemetry observation, supportive care, thiamine, folate and benzodiazepine as needed (2) Hypertension Qualifiers: Hypertension type: essential hypertension Qualified Code(s): I10 - Essential (primary) hypertension Is this a current diagnosis for this admission?: Yes Plan: Outpatient regiment (3) Hypomagnesemia Is this a current diagnosis for this admission?: Yes Plan: Magnesium IV repletion, reevaluate chemistry (4) CAD (coronary artery disease) Is this a current diagnosis for this admission?: Yes Plan: Denies pain, serial cardiac enzymes. - Time Time Spent: 50 to 70 Minutes - Inpatient Certification Medical Necessity: Need Close Monitoring Due to Risk of Patient Decompensation
[2018-01-15] MEDS: HEPARIN SOD (PORCINE) 5,000 UNIT/ML 1 ML SYRINGE SUBCUT SCH ×4 (06:32→22:15)
[2018-01-15 07:14] LABS: ABSOLUTE MONOCYTES (AUTO) 0.3 10^3/uL (0.1-1.4); BASOPHILS % (AUTO) 0.3 % (0-2); EOSINOPHILS % (AUTO) 0.7 % (0-6); HEMATOCRIT 39.9 % (37.9-51.0); MEAN CORPUSCULAR HEMOGLOBIN 34.2 pg (27.0-33.4); MEAN CORPUSCULAR HGB CONC 35.5 g/dL (32.0-36.0); MEAN CORPUSCULAR VOLUME 96 fl (80-97); MONOCYTES % (AUTO) 7.9 % (3-13); RED BLOOD COUNT 4.14 10^6/uL (4.35-5.55); RED CELL DISTRIBUTION WIDTH 15.6 % (11.5-14.0); SEGMENTED NEUTROPHILS % (AUTO) 69.1 % (42-78); TOTAL CELLS COUNTED % (AUTO) 100 %; WHITE BLOOD COUNT 4.3 10^3/uL (4.0-10.5)
[2018-01-15 07:17] LABS: HEMOGLOBIN 14.2 g/dL (13.5-17.0); PLATELET COUNT 84 10^3/uL (150-450)
[2018-01-15 07:26] LABS: ALANINE AMINOTRANSFERASE 54 U/L (21-72); ALBUMIN 3.7 g/dL (3.5-5.0); ALKALINE PHOSPHATASE 80 U/L (38-126); ANION GAP 10 (5-19); ASPARTATE AMINO TRANSFERASE 81 U/L (17-59); BILIRUBIN,DIRECT 0.7 mg/dL (0.0-0.4); BILIRUBIN,TOTAL 2.1 mg/dL (0.2-1.3); BLOOD UREA NITROGEN 11 mg/dL (7-20); CALCIUM 7.9 mg/dL (8.4-10.2); CARBON DIOXIDE 31 mmol/L (22-30); CHLORIDE 94 mmol/L (98-107); CHOLESTEROL 256.27 mg/dL (0-200); CREATINE KINASE 174 U/L (55-170); GLUCOSE 128 mg/dL (75-110); SODIUM 135.4 mmol/L (137-145); TRIGLYCERIDES 171 mg/dL (<150)
[2018-01-15 07:36] LABS: CREATINE KINASE MB 0.99 ng/mL (<4.55)
[2018-01-15 07:37] LABS: DIRECT LDL 173 mg/dL (<100)
[2018-01-15 07:39] LABS: TROPONIN I < 0.012 ng/mL
[2018-01-15 07:48] LABS: VLDL CHOLESTEROL 34.2 mg/dL (10-31)
[2018-01-15 07:49] LABS: POTASSIUM 2.9 mmol/L (3.6-5.0)
[2018-01-15] MEDS ORDERED: POTASSIUM CHLORIDE 10 MEQ CAPSULE.ER PO ONE (08:44)
--- NOTE | 2018-01-15 08:47 | Physician Advisory Note ---
Physician Advisor ProgressNote .: Pursuant to the plan for [facility], I have reviewed the medical record for this patient. Physician Advisor Statement: Please consider documenting, if you agree: 1. "GABINO, suspect due to ; baseline Cr = 0.8's" 2. "benzodiazepine dependence" 3. "Acute hyponatremia, likely due to " 4. "Abnormal LFTs, suspect due to " [acute alcoholic hepatitis? or ...] Status: Appropriately brought in initially as Obs, for IVF & K/Mag replacement , prn benzo, etc. Since arrival & onset of tx, tachycardia & hypotension have improved, GABINO is improved (tho' not yet fully baseline), Na is improved, K is a bit worse, thrombocytopenia has developed. If cannot safely be d/c'd later today after more K replacement/IVF, please document the reasons/ongoing concerns , & may become appropriate for change to Inpatient status. Thanks! CK
[2018-01-15] MEDS: ISOSORBIDE MONONITRATE 60 MG TAB.ER.24H PO SCH (10:28)
[2018-01-15] MEDS: LANSOPRAZOLE 30 MG TAB.RAP.DR PO SCH (10:29)
[2018-01-15] MEDS: SERTRALINE HCL 50 MG TABLET PO SCH (10:29)
[2018-01-15] MEDS: MAGNESIUM OXIDE 400 MG TABLET PO SCH ×2 (10:29→18:09)
[2018-01-15] MEDS: ATORVASTATIN CALCIUM 40 MG TABLET PO SCH (10:30)
[2018-01-15] MEDS: CLOPIDOGREL BISULFATE 75 MG TABLET PO SCH (10:30)
[2018-01-15] MEDS: THIAMINE HCL 100 MG TABLET PO SCH (10:30)
[2018-01-15] MEDS: METOPROLOL TARTRATE 25 MG TABLET PO SCH ×2 (10:31→22:13)
[2018-01-15] MEDS: ASPIRIN 81 MG TABLET, ENT COATED PO SCH (10:31)
[2018-01-15] MEDS: DOCUSATE SODIUM 100 MG CAPSULE PO SCH ×2 (10:33→18:04)
[2018-01-15] MEDS: POTASSI CL 20 MEQ/50 ML RIDER 20 MEQ/50 ML RTUPB IV SCH ×2 (10:33→13:26)
[2018-01-15] MEDS: FOLIC ACID 1 MG TABLET PO SCH (10:40)
[2018-01-15 12:44] LABS: CREATINE KINASE MB 0.85 ng/mL (<4.55)
[2018-01-15 12:47] LABS: TROPONIN I < 0.012 ng/mL
[2018-01-15 14:32] LABS: ANION GAP 10 (5-19); BLOOD UREA NITROGEN 11 mg/dL (7-20); CALCIUM 7.9 mg/dL (8.4-10.2); CARBON DIOXIDE 25 mmol/L (22-30); CHLORIDE 99 mmol/L (98-107); GLUCOSE 110 mg/dL (75-110); POTASSIUM 3.6 mmol/L (3.6-5.0); SODIUM 133.9 mmol/L (137-145)
--- NOTE | 2018-01-15 18:14 | PDOC PROGRESS REPORT ---
Subjective Progress Note for:: 01/15/18 Subjective:: The patient is a 57-year-old male with a past medical history of alcohol and benzodiazepine dependence, seizures, CABG, report of 13 stents, hypertension, dyslipidemia, GERD, and depression who was admitted 01/04/18 for seizure-like activity. The patient was seen on morning rounds. He is found resting in bed comfortably on room air. The patient is alert and oriented x4, however, slow to respond to questions. He tells me that his last alcohol intake was 3-4 weeks ago and that his son was "just telling stories like he likes to do." He reports that the cause of his seizure was a "sugar medication" and that upon arrival to the emergency department he was found to have a "low enough sugar to stop my heart, " but then tells me that this occurred after eating at a [place] buffet. He is unable to tell me what medication he is referencing and denies a history of diabetes. He states that he is feeling well and is just tired this morning. He denies headache, dizziness, chest pain, palpitations, dyspnea, cough, abdominal pain, nausea vomiting and diarrhea. He has no new questions or concerns. No concerns per nursing. Reason For Visit: ETOH WITHDRAWAL SZ, CAD Physical Exam Vital Signs: Temp Pulse Resp BP Pulse Ox 98.1 F 93 18 103/71 96 01/15/18 12:10 01/15/18 16:03 01/15/18 16:03 01/15/18 12:10 01/15/18 16:03 Intake & Output 01/14/18 01/15/18 01/16/18 06:59 06:59 06:59 Intake Total 2300 2122 Balance 2300 2122 Weight 118 kg General appearance: PRESENT: no acute distress, well-developed, well-nourished - Overweight Head exam: PRESENT: atraumatic, normocephalic Eye exam: PRESENT: conjunctiva pink, EOMI, PERRLA. ABSENT: scleral icterus Ear exam: PRESENT: normal external ear exam Mouth exam: PRESENT: moist, tongue midline Neck exam: ABSENT: carotid bruit, JVD, lymphadenopathy, thyromegaly Respiratory exam: PRESENT: clear to auscultation sebas. ABSENT: rales, rhonchi, wheezes Cardiovascular exam: PRESENT: RRR. ABSENT: diastolic murmur, rubs, systolic murmur Pulses: PRESENT: normal dorsalis pedis pul Vascular exam: PRESENT: normal capillary refill GI/Abdominal exam: PRESENT: normal bowel sounds, soft. ABSENT: distended, guarding, mass, organolmegaly, rebound, tenderness Rectal exam: PRESENT: deferred Extremities exam: PRESENT: full ROM. ABSENT: calf tenderness, clubbing, pedal edema Neurological exam: PRESENT: alert, awake, oriented to person, oriented to place , oriented to time, oriented to situation, CN II-XII grossly intact. ABSENT: motor sensory deficit Psychiatric exam: PRESENT: appropriate affect, normal mood. ABSENT: homicidal ideation, suicidal ideation Skin exam: PRESENT: dry, intact, warm. ABSENT: cyanosis, rash Results Laboratory Results: 01/15/18 06:42 01/15/18 13:49 01/14/18 01/15/18 01/15/18 23:20 06:42 06:42 WBC 4.3 RBC 4.14 L Hgb 14.2 D Hct 39.9 MCV 96 MCH 34.2 H MCHC 35.5 RDW 15.6 H Plt Count 84 L Seg Neutrophils % 69.1 Lymphocytes % 22.0 Monocytes % 7.9 Eosinophils % 0.7 Basophils % 0.3 Absolute Neutrophils 3.0 Absolute Lymphocytes 1.0 Absolute Monocytes 0.3 Absolute Eosinophils 0.0 Absolute Basophils 0.0 Sodium 135.4 L Potassium 2.9 L* Chloride 94 L Carbon Dioxide 31 H Anion Gap 10 BUN 11 Creatinine 1.18 Est GFR ( Amer) > 60 Est GFR (Non-Af Amer) > 60 Glucose 128 H Calcium 7.9 L Magnesium 2.0 D Total Bilirubin 2.1 H AST 81 H ALT 54 Alkaline Phosphatase 80 Total Protein 6.0 L Albumin 3.7 Triglycerides 171 H Cholesterol 256.27 H LDL Cholesterol Direct 173 H VLDL Cholesterol 34.2 H HDL Cholesterol 64 Urine Color BECKY Urine Appearance CLOUDY Urine pH 5.0 Ur Specific [place] 1.024 Urine Protein >=500 H Urine Glucose (UA) NEGATIVE Urine Ketones NEGATIVE Urine Blood NEGATIVE Urine Nitrite NEGATIVE Ur Leukocyte Esterase NEGATIVE Urine WBC (Auto) 8 Urine RBC (Auto) 3 01/15/18 13:49 WBC RBC Hgb Hct MCV MCH MCHC RDW Plt Count Seg Neutrophils % Lymphocytes % Monocytes % Eosinophils % Basophils % Absolute Neutrophils Absolute Lymphocytes Absolute Monocytes Absolute Eosinophils Absolute Basophils Sodium 133.9 L Potassium 3.6 Chloride 99 Carbon Dioxide 25 Anion Gap 10 BUN 11 Creatinine 0.81 Est GFR ( Amer) > 60 Est GFR (Non-Af Amer) > 60 Glucose 110 Calcium 7.9 L Magnesium Total Bilirubin AST ALT Alkaline Phosphatase Total Protein Albumin Triglycerides Cholesterol LDL Cholesterol Direct VLDL Cholesterol HDL Cholesterol Urine Color Urine Appearance Urine pH Ur Specific [place] Urine Protein Urine Glucose (UA) Urine Ketones Urine Blood Urine Nitrite Ur Leukocyte Esterase Urine WBC (Auto) Urine RBC (Auto) 01/14/18 01/14/18 01/15/18 23:40 23:40 06:42 Creatine Kinase 194 H 174 H CK-MB (CK-2) 1.35 Troponin I < 0.012 01/15/18 01/15/18 01/15/18 06:42 11:57 11:57 Creatine Kinase 154 CK-MB (CK-2) 0.99 0.85 Troponin I < 0.012 < 0.012 Impressions: Chest X-Ray 01/14/18 21:05 FINDINGS/IMPRESSION: Normal cardiomediastinal silhouette. Possible opacity versus atelectasis in the left lung base. No pleural effusion is seen. No acute osseous findings. Assessment & Plan - Diagnosis (1) Alcohol withdrawal seizure Qualifiers: Complication of substance-induced condition: uncomplicated Qualified Code(s ): F10.230 - Alcohol dependence with withdrawal, uncomplicated Is this a current diagnosis for this admission?: Yes Plan: The patient was admitted with report of seizure-like activity and discontinuation of alcohol and benzodiazepines approximately 48 hours prior to the event per patient's family. He does have a history of alcohol withdrawal seizures. He has been admitted to the [facility] on continuous cardiac telemetry. He has received 2.5L of IV fluids and is now tolerating a regular diet. IV fluids are discontinued. We will continue thiamine and folate supplementation. Fall, seizure, aspiration precautions. As needed p.o. and IV Ativan for anxiety, agitation, withdrawal symptoms, and seizure-like activity. (2) Hypokalemia Is this a current diagnosis for this admission?: Yes Plan: Replete. Patient was provided IV and p.o. potassium replacement. We will continue to monitor daily chemistries. (3) Hypomagnesemia Is this a current diagnosis for this admission?: Yes (4) CAD (coronary artery disease) Qualifiers: Coronary Disease-Associated Artery/Lesion type: bypass graft [place] vs. transplanted heart: [place] heart Is this a current diagnosis for this admission?: Yes Plan: The patient denies current pain, palpitations, dyspnea, orthopnea. EKG revealed sinus tachycardia with a prolonged QT interval. Serial troponins are negative x3. He will be monitored on continuous cardiac telemetry. We will continue daily aspirin, Plavix, statin therapy. Home antihypertensive medication regimen is continued. (5) Hyperlipidemia Is this a current diagnosis for this admission?: Yes Plan: Daily statin therapy. (6) Hypertension Qualifiers: Hypertension type: essential hypertension Qualified Code(s): I10 - Essential (primary) hypertension Is this a current diagnosis for this admission?: Yes Plan: The patient's home dose isosorbide and metoprolol are continued. (7) GABINO (acute kidney injury) Is this a current diagnosis for this admission?: Yes Plan: Resolved; likely prerenal secondary to hypotension related to alcohol withdrawal seizure. Patient was admitted with a creatinine of 2.02; corrected to 0.81 (baseline) with IV fluids. Avoid nephrotoxic medications as able. Continue to monitor with daily chemistries. (8) Benzodiazepine dependence Is this a current diagnosis for this admission?: Yes Plan: As needed p.o. and IV Ativan for anxiety, agitation, withdrawal symptoms, and seizure-like activity. (9) Abnormal LFTs Is this a current diagnosis for this admission?: Yes Plan: Likely secondary to acute alcoholic hepatitis, although, the patient has noted to have a history of elevated LFTs. CT of the abdomen and pelvis revealed hepatomegaly with hepatic steatosis. Will asses Hepatitis A/B/C panel. Will check PT/INR and CMP in the am. Pt is strongly encouraged to stop drinking EtOH. - Time Time Spent with patient: 15-24 minutes Medications reviewed and adjusted accordingly: Yes Anticipated discharge: Home Within: within 48 hours
[2018-01-15] MEDS ORDERED: TRAZODONE HCL 50 MG TABLET PO SCH (22:00)
[2018-01-15] MEDS: LORAZEPAM 1 MG TABLET PO PRN (22:22)
[2018-01-15] MEDS ORDERED: IBUPROFEN 400 MG TABLET PO PRN (22:34)
[2018-01-16] MEDS ORDERED: IBUPROFEN 400 MG TABLET ONE (00:39)
[2018-01-16 05:36] LABS: HEMATOCRIT 36.3 % (37.9-51.0); MEAN CORPUSCULAR HEMOGLOBIN 34.8 pg (27.0-33.4); MEAN CORPUSCULAR HGB CONC 35.8 g/dL (32.0-36.0); MEAN CORPUSCULAR VOLUME 97 fl (80-97); RED BLOOD COUNT 3.74 10^6/uL (4.35-5.55); RED CELL DISTRIBUTION WIDTH 15.2 % (11.5-14.0); WHITE BLOOD COUNT 3.9 10^3/uL (4.0-10.5)
[2018-01-16 06:04] LABS: ALANINE AMINOTRANSFERASE 49 U/L (21-72); ALBUMIN 3.3 g/dL (3.5-5.0); ALKALINE PHOSPHATASE 73 U/L (38-126); ANION GAP 6 (5-19); ASPARTATE AMINO TRANSFERASE 79 U/L (17-59); BILIRUBIN,DIRECT 0.5 mg/dL (0.0-0.4); BILIRUBIN,TOTAL 1.4 mg/dL (0.2-1.3); BLOOD UREA NITROGEN 10 mg/dL (7-20); CALCIUM 8.2 mg/dL (8.4-10.2); CARBON DIOXIDE 28 mmol/L (22-30); CHLORIDE 102 mmol/L (98-107); GLUCOSE 104 mg/dL (75-110); POTASSIUM 3.4 mmol/L (3.6-5.0); SODIUM 135.8 mmol/L (137-145); TOTAL PROTEIN 5.5 g/dL (6.3-8.2)
[2018-01-16] MEDS: HEPARIN SOD (PORCINE) 5,000 UNIT/ML 1 ML SYRINGE SUBCUT SCH (06:04)
[2018-01-16 06:11] LABS: INTERNATIONAL RATION (INR) 0.93; PROTHROMBIN TIME 12.9 SEC (11.4-15.4)
[2018-01-16 06:19] LABS: PLATELET COUNT 76 10^3/uL (150-450)
--- NOTE | 2018-01-16 08:46 | Physician Advisory Note ---
Physician Advisor ProgressNote .: [facility], I have reviewed the medical record for this patient. Physician Advisor Statement: Please consider documenting, if you agree: 1. ? 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 - or "just" ongoing acute EtOH w/d, +/- assoc'd delirium? (confabulating is nicely doc'd - may decide based on course ...) 2. "hyponatremia [acute or chronic], likely due to ____" 3. Med Nec: Please make it explicit why pt still needing to be in hospital 10/ PM, since "A&O x4", "feeling well", IVF d/c'd, GABINO resolved by PM, K better by PM, so far not needing prn Ativan, LFT's continuing to improve, .... - May then change to Inpatient status. Thanks! CK Note: Korsakoff synd = inability to form new memories, loss memory, confabulation, halluc.s, due to B-1 defic over time Wernicke encephalop = confusion, ataxia, abnormal eye mvmts, double vision, ...
[2018-01-16] MEDS: THIAMINE HCL 100 MG TABLET PO SCH (10:01)
[2018-01-16] MEDS: MAGNESIUM OXIDE 400 MG TABLET PO SCH (10:01)
[2018-01-16] MEDS: METOPROLOL TARTRATE 25 MG TABLET PO SCH (10:01)
[2018-01-16] MEDS: SERTRALINE HCL 50 MG TABLET PO SCH (10:01)
[2018-01-16] MEDS: ISOSORBIDE MONONITRATE 60 MG TAB.ER.24H PO SCH (10:01)
[2018-01-16] MEDS: CLOPIDOGREL BISULFATE 75 MG TABLET PO SCH (10:02)
[2018-01-16] MEDS: ATORVASTATIN CALCIUM 40 MG TABLET PO SCH (10:02)
[2018-01-16] MEDS: FOLIC ACID 1 MG TABLET PO SCH (10:02)
[2018-01-16] MEDS: ASPIRIN 81 MG TABLET, ENT COATED PO SCH (10:02)
[2018-01-16] MEDS: LANSOPRAZOLE 30 MG TAB.RAP.DR PO SCH (10:03)
[2018-01-16] MEDS: DOCUSATE SODIUM 100 MG CAPSULE PO SCH (10:03)
[2018-01-16 14:21] VITALS: BP 108/79
[2018-01-17 04:37] LABS: HEPATITIS A AB IGM Negative (Negative); HEPATITIS B CORE AB IGM Negative (Negative); HEPATITS B SURFACE ANTIGEN Negative (Negative)
[2018-01-17 07:30] LABS: HEPATITIS C VIRUS ANTIBODY <0.1 s/co ratio (0.0-0.9)
--- NOTE | 2018-01-18 13:41 | PDOC DISCHARGE SUMMARY ---
General - Admit/Disc Date/PCP Admission Date/Primary Care Provider: 01/16/18 11:49 Discharge Date: 01/16/18 - Discharge Diagnosis (1) Alcohol withdrawal seizure Is this a current diagnosis for this admission?: Yes - Additional Information Resuscitation Status: Full Code Discharge Diet: As Tolerated Discharge Activity: Activity As Tolerated Prescriptions: Clonazepam [Klonopin 1 mg Tablet] 1 mg PO DAILYP PRN #14 tablet PRN Reason: Anxiety Home Medications: Acetaminophen [Tylenol Extra Strength 500 mg Tablet] 500 mg PO Q6HP PRN Aspirin [Aspirin EC] 81 mg PO DAILY 01/15/18 Cinnamon Bark [Cinnamon] 1,000 mg PO DAILY 01/15/18 Clopidogrel Bisulfate [Plavix 75 mg Tablet] 75 mg PO DAILY 01/15/18 Folic Acid [Folvite 1 mg Tablet] 1 mg PO DAILY 01/15/18 Isosorbide Mononitrate [Imdur 60 mg Tablet.er] 60 mg PO DAILY 01/15/18 Magnesium Oxide [Mag-Ox 400 mg Tablet] 400 mg PO BID 01/15/18 Metoprolol Tartrate [Lopressor 50 mg Tablet] 75 mg PO Q12 01/15/18 Sertraline HCl [Zoloft] 100 mg PO DAILY 01/15/18 Thiamine HCl [Thiamine 100 mg Tablet] 100 mg PO DAILY 01/15/18 Trazodone HCl [Desyrel 50 mg Tablet] 50 mg PO QHS 01/15/18 Aspirin [Ecotrin 81 mg EC Tablet] 81 mg PO DAILY tabec 01/16/18 Atorvastatin Calcium [Lipitor 40 mg Tablet] 20 mg PO DAILY tablet 01/16/18 Clonazepam [Klonopin 1 mg Tablet] 1 mg PO DAILYP PRN #14 tablet 01/16/18 Clopidogrel Bisulfate [Plavix 75 mg Tablet] 75 mg PO DAILY tablet 01/16/18 Isosorbide Mononitrate [Imdur 60 mg Tablet.er] 60 mg PO DAILY tab.er.24h Lansoprazole [Prevacid 30 mg Odt Tablet] 30 mg PO DAILY tab.rap.dr 01/16/18 Magnesium Oxide [Mag-Ox 400 mg Tablet] 400 mg PO BID tablet 01/16/18 Metoprolol Tartrate [Lopressor 25 mg Tablet] 25 mg PO Q12 tablet 01/16/18 Sertraline HCl [Zoloft 50 mg Tablet] 100 mg PO DAILY tablet 01/16/18 Thiamine HCl [Thiamine 100 mg Tablet] 100 mg PO DAILY tablet 01/16/18 Trazodone HCl [Desyrel 50 mg Tablet] 50 mg PO QHS tablet 01/16/18 History of Present Illness Patient complains of: SEIZURE History of Present Illness: WOODROW JERNIGAN is a 57 year old male with a past medical history of alcohol and benzodiazepine dependence, seizure, coronary artery bypass graft, subsequent supposed 13 stents, hypertension dyslipidemia. Patient presents with seizure- like activity including limb shaking and garbled speech, lasting several minutes , no postictal state. Previous episode 2 weeks ago, patient admits running out of Xanax and last drink 2 days ago. He receives thiamine, folate and referred to the hospitalist for admission. Hospital Course Hospital Course: 57-year-old male with PMH of ETOH and benzodiazepine dependence, seizures, CABG (reports "13 stents"), HTN, dyslipidemia, GERD and depression who was admitted 01/04/2018 for seizure-like activity. The patient's son reports that he witnessed seizure-like activity on the day the patient was admitted. According to family, the patient has a history of chronic EtOH use, has experienced EtOH withdrawal seizures in the past and takes benzodiazepines daily. The patient reportedly ran out of his benzodiazepines and stop drinking alcohol approximately 48 hours prior to admission. Patient was treated with IV Ativan and IVF. In addition to EtOH withdrawal seizures, the patient was admitted with an GABINO (creatinine 2.02). This is likely prerenal secondary to dehydration and hypotension from chronic alcohol use. The patient received 2.5 L of IVF bolus in the ED and continued on maintenance fluids once inpatient. He was also provided daily thiamine and folate supplementation. The patient did not experience another seizure while admitted to [facility]. Additionally, the patient's mental status remained intact. He was alert and oriented x3 (GCS 15) throughout his hospital stay. The administration of generous IVF, the patient's creatinine decreased from 2.02--> 0.89. Following 48 hours at [facility], the patient was deemed safe for discharge home. Patient reported he ran out of his benzodiazepine medication so he was provided a new prescription for Klonopin. The patient received extensive counseling regarding the dangers of chronic EtOH use and the risks associated with seizures following abrupt cessation of EtOH consumption. The patient (and his son at the bedside) stated complete understanding of the discharge instructions. For further information regarding this patient's hospitalization, please refer to the EMR. Physical Exam Vital Signs: Temp Pulse Resp BP Pulse Ox 98.2 F 79 18 108/79 95 01/16/18 14:19 01/16/18 14:19 01/16/18 14:19 01/16/18 14:19 01/16/18 14:19 Intake & Output 01/17/18 01/18/18 01/19/18 06:59 06:59 06:59 Intake Total 458 Balance 458 Results Impressions: Chest X-Ray 01/14/18 21:05 FINDINGS/IMPRESSION: Normal cardiomediastinal silhouette. Possible opacity versus atelectasis in the left lung base. No pleural effusion is seen. No acute osseous findings. Status: Imported from PACS Qualifiers - * PATIENT BEING DISCHARGED WITH ANY OF THE FOLLOWING DIAGNOSIS: No Plan Discharge Plan: DISCHARGE HOME WITH PRESCRIPTION FOR KLONIPIN. INSTRUCTED TO STOP DRINKING ALCOHOL. Time Spent: Less than 30 Minutes
== END 2018-01-16 14:49 | disposition home or self-care (01) | DRG 897 ==
LOC: ER 17:06 → INTOOBSV 21:07 → EH 21:07 → 3W 22:10 → OBSVTOIN 01-16 11:49
PROVIDERS: ADMIT Internal Medicine; ATTEND Internal Medicine
DX: F10.239 Alcohol dependence with withdrawal, unspecified (principal); R56.9 Unspecified convulsions; E87.6 Hypokalemia; E83.42 Hypomagnesemia; I95.9 Hypotension, unspecified; E78.5 Hyperlipidemia, unspecified; I25.10 Atherosclerotic heart disease of native coronary artery without angina pectoris; I10 Essential (primary) hypertension; K21.9 Gastro-esophageal reflux disease without esophagitis; Y90.0 Blood alcohol level of less than 20 mg/100 ml; I25.2 Old myocardial infarction; Z95.1 Presence of aortocoronary bypass graft; Z95.5 Presence of coronary angioplasty implant and graft; Z87.891 Personal history of nicotine dependence; Z79.01 Long term (current) use of anticoagulants; Z79.82 Long term (current) use of aspirin; Z79.899 Other long term (current) drug therapy
CPT/HCPCS: 36415; 71045; 80048; 80053; 80061; 80074; 80307; 81001; 82550; 82553; 82962; 83036; 83690; 83735; 84443; 84484; 84550; 85025; 85027; 85610; 85730; 93005; 93010; 96365; 96367; 96375; 99291; G0378; J1644; J2060; J3411; J3475; J3480; J3490; J7030; J7120

== ENCOUNTER 2018-05-13 17:47 | Emergency (ER) | payer OTHER ==
[2018-05-13] MEDS ORDERED: ASPIRIN 81 MG TABLET, CHEWABLE PO ONE (18:27)
[2018-05-13] MEDS ORDERED: MORPHINE SULFATE 10 MG/ML INJ IV ONE (18:28)
[2018-05-13] MEDS ORDERED: ONDANSETRON HCL INJ/PF 4 MG/2 ML SDV IV ONE (18:28)
[2018-05-13] MEDS ORDERED: NORMAL SALINE 1000 ML 1,000 ML IV ONE ×2 (18:28→19:50)
--- NOTE | 2018-05-13 18:30 | ER Document Report ---
ED Medical Screen (RME) - General Chief Complaint: Chest Pain Stated Complaint: ABDOMINAL PAIN Time Seen by Provider: 05/13/18 18:08 Mode of Arrival: Ambulatory Information source: Patient Notes: 48-year-old's male presents emergency department with complaints of nausea, vomiting, right-sided abdominal pain. Patient states he has a history of ETOH abuse. He stopped drinking from until Monday. He consumed alcohol on Monday. He states that he drank a large amount and stopped on . He states that he then went into withdrawals. He states that he had the DTs , Monday, Monday. Patient states that today he is only has nausea. He denies any vomiting, diarrhea, constipation. He states that when he arrived in the emergency department the walk from the parking lot to triage caused him to feel short of breath and have chest pain. He states that he is having a dull ache in the left chest. He states that it radiates to the armpit. He took 2 nitro and this helped with the pain. He has a history of CAD with stent placement. I have greeted and performed a rapid initial assessment of this patient. A comprehensive ED assessment and evaluation of the patient, analysis of test results and completion of the medical decision making process will be conducted by additional ED providers. PHYSICAL EXAMINATION: GENERAL: Ill appearing. HEAD: Atraumatic, normocephalic. EYES: Pupils equal round extraocular movements intact, conjunctiva are normal. ENT: Nares patent NECK: Normal range of motion LUNGS: No respiratory distress Musculoskeletal: Normal range of motion NEUROLOGICAL: Normal speech, normal gait. PSYCH: Normal mood, normal affect. SKIN: Warm, Dry, normal turgor, no rashes or lesions noted. TRAVEL OUTSIDE OF THE [place] IN LAST 30 DAYS: No - Related Data Allergies/Adverse Reactions: No Known Allergies Allergy (Verified 05/13/18 18:08) Past Medical History - Social History Chew tobacco use (# tins/day): No Frequency of alcohol use: Heavy - Past Medical History Cardiac Medical History: Reports: Hx Heart Attack, Hx Hypercholesterolemia, Hx Hypertension Renal/ Medical History: Denies: Hx Peritoneal Dialysis GI Medical History: Reports: Hx Gastroesophageal Reflux Disease Psychiatric Medical History: Reports: Hx Depression Past Surgical History: Reports: Hx Cardiac Surgery - stents x13, bypass - Immunizations History of Influenza Vaccine for 01/2017 - 06/2017 Season: Yes Physical Exam - Vital signs Vitals: Temp Pulse Resp BP Pulse Ox 97.5 F 110 H 18 136/110 H 96 05/13/18 18:04 05/13/18 18:04 05/13/18 18:04 05/13/18 18:04 05/13/18 18:04 Course - Vital Signs Vital signs: Temp Pulse Resp BP Pulse Ox 97.5 F 110 H 18 136/110 H 96 05/13/18 18:04 05/13/18 18:04 05/13/18 18:04 05/13/18 18:04 05/13/18 18:04
[2018-05-13 18:36] LABS: HEMOGLOBIN 19.7 g/dL (13.5-17.0); MEAN CORPUSCULAR HEMOGLOBIN 31.6 pg (27.0-33.4); MEAN CORPUSCULAR HGB CONC 35.5 g/dL (32.0-36.0); MEAN CORPUSCULAR VOLUME 89 fl (80-97); PLATELET COUNT 168 10^3/uL (150-450); RED BLOOD COUNT 6.22 10^6/uL (4.35-5.55); RED CELL DISTRIBUTION WIDTH 15.7 % (11.5-14.0); WHITE BLOOD COUNT 12.7 10^3/uL (4.0-10.5)
[2018-05-13 18:51] LABS: ALANINE AMINOTRANSFERASE 53 U/L (21-72); ALBUMIN 4.8 g/dL (3.5-5.0); ALKALINE PHOSPHATASE 137 U/L (38-126); ANION GAP 16 (5-19); ASPARTATE AMINO TRANSFERASE 63 U/L (17-59); BILIRUBIN,DIRECT 0.9 mg/dL (0.0-0.4); BILIRUBIN,TOTAL 2.5 mg/dL (0.2-1.3); BLOOD UREA NITROGEN 32 mg/dL (7-20); CALCIUM 9.8 mg/dL (8.4-10.2); CARBON DIOXIDE 27 mmol/L (22-30); CHLORIDE 90 mmol/L (98-107); GLUCOSE 174 mg/dL (75-110); LIPASE 1443.2 U/L (23-300); SODIUM 133.3 mmol/L (137-145); TOTAL PROTEIN 7.2 g/dL (6.3-8.2)
[2018-05-13 18:59] LABS: HEMATOCRIT 55.4 % (37.9-51.0)
[2018-05-13 19:01] LABS: ABSOLUTE LYMPHOCYTES# (MANUAL) 0.6 10^3/uL (0.5-4.7); ABSOLUTE MONOCYTES # (MANUAL) 1.3 10^3/uL (0.1-1.4); ABSOLUTE NEUTROPHILS# (MANUAL) 10.8 10^3/uL (1.7-8.2); BASOPHILS % (MANUAL) 0 % (0-2); EOSINOPHILS % (MANUAL) 0 % (0-6); LYMPHOCYTES % (MANUAL) 5 % (13-45); MONOCYTES % (MANUAL) 10 % (3-13); SEGMENTED NEUTROPHILS % (MAN) 85 % (42-78); TOTAL CELLS COUNTED 100
[2018-05-13 19:02] LABS: ANISOCYTOSIS SLIGHT; PLATELET COMMENT ADEQUATE; PLATELET GIANT PRESENT
--- NOTE | 2018-05-13 19:50 | RADIOLOGY REPORT (SQ) ---
EXAM DESCRIPTION: CHEST SINGLE VIEW COMPLETED DATE/TIME: 05/13/2018 6:47 pm REASON FOR STUDY: chest pain COMPARISON: 04/05/2017 TECHNIQUE: Single frontal radiographic view of the chest acquired. NUMBER OF VIEWS: One view. LIMITATIONS: None. FINDINGS: LUNGS AND PLEURA: No pneumothorax. No consolidation or pleural effusion. MEDIASTINUM AND HILAR STRUCTURES: Stable. HEART AND VASCULAR STRUCTURES: Stable. BONES: No acute findings. HARDWARE: None in the chest. OTHER: No other significant finding. IMPRESSION: NO ACUTE FINDINGS. TECHNICAL DOCUMENTATION: JOB ID: [id number] [employer]- All Rights Reserved Reading location - IP/workstation name: [email or web address]
--- NOTE | 2018-05-13 19:53 | ER Document Report ---
ED General - General Chief Complaint: Chest Pain Stated Complaint: ABDOMINAL PAIN Time Seen by Provider: 05/13/18 18:08 Mode of Arrival: Ambulatory Notes: Patient is a 48-year-old male with a past medical history of coronary artery disease, status post stent placement, bypass, chronic alcohol abuse, presents to the emergency department with complaints of nausea, vomiting, epigastric abdominal pain, right-sided abdominal pain. Patient states he has a history of ETOH abuse. He stopped drinking from until Monday. He consumed alcohol on Monday. He states that he drank a large amount and stopped on . He states that he then went into withdrawals. He states that he had withdrawal symptoms , Monday, Monday. Patient states that today he is only has nausea as well as mild, aching, cramping upper abdominal pain. Nothing improves or worsens his symptoms currently. States he had previously had vomiting but has been able to tolerate oral intake today without further vomitin g. He states that when he arrived in the emergency department the walk from the parking lot to triage caused him to feel short of breath and have chest pain. He states that he is having a dull ache in the left chest. He states that it radiates to the armpit. He took 2 nitro and this helped with the pain. He has a history of CAD with stent placement. He denies any current chest discomfort. TRAVEL OUTSIDE OF THE [place] IN LAST 30 DAYS: No - Related Data Allergies/Adverse Reactions: No Known Allergies Allergy (Verified 05/13/18 18:08) Past Medical History - General Information source: Patient - Social History Smoking Status: Current Every Day Smoker Chew tobacco use (# tins/day): No Frequency of alcohol use: Heavy Drug Abuse: None Lives with: Alone Family History: CAD, COPD Patient has suicidal ideation: No Patient has homicidal ideation: No - Past Medical History Cardiac Medical History: Reports: Hx Heart Attack, Hx Hypercholesterolemia, Hx Hypertension Renal/ Medical History: Denies: Hx Peritoneal Dialysis GI Medical History: Reports: Hx Gastroesophageal Reflux Disease Psychiatric Medical History: Reports: Hx Depression Past Surgical History: Reports: Hx Cardiac Surgery - stents x13, bypass - Immunizations Hx Pneumococcal Vaccination: 04/03/14 Review of Systems - Review of Systems Notes: Constitutional: Negative for fever. HENT: Negative for sore throat. Eyes: Negative for visual changes. Cardiovascular: Positive for chest discomfort earlier now resolved Respiratory: Negative for shortness of breath. Gastrointestinal: Positive for upper abdominal pain, nausea and vomiting Genitourinary: Negative for dysuria. Musculoskeletal: Negative for back pain. Skin: Negative for rash. Neurological: Negative for headaches, weakness or numbness. 10 point ROS negative except as marked above and in HPI. Physical Exam - Vital signs Vitals: Temp Pulse Resp BP Pulse Ox 97.5 F 110 H 18 136/110 H 96 05/13/18 18:04 05/13/18 18:04 05/13/18 18:04 05/13/18 18:04 05/13/18 18:04 Interpretation: Tachycardic - Resolved at the time of my assessment with a heart rate of 92 Notes: PHYSICAL EXAMINATION: GENERAL: Well-appearing, well-nourished and in no acute distress. HEAD: Atraumatic, normocephalic. EYES: Pupils equal round and reactive to light, extraocular movements intact, sclera anicteric, conjunctiva are normal. ENT: nares patent, oropharynx clear without exudates. Moderately dry mucous membranes. NECK: Normal range of motion, supple without lymphadenopathy LUNGS: Breath sounds clear to auscultation bilaterally and equal. No wheezes rales or rhonchi. HEART: Regular rate and rhythm without murmurs ABDOMEN: Soft, very mild tenderness to the epigastrium on palpation with any other localized areas of tenderness, normoactive bowel sounds. No guarding, no rebound. No masses appreciated. EXTREMITIES: Normal range of motion, no pitting or edema. No cyanosis. NEUROLOGICAL: No focal neurological deficits. Moves all extremities spontaneously and on command. PSYCH: Normal mood, normal affect. SKIN: Warm, Dry, normal turgor, no rashes or lesions noted. Course - Re-evaluation Re-evalutation: 05/13/18 19:52 Patient presents with clinical history and exam and labs to suggest acute pancreatitis. Lipase is markedly elevated today. Patient admits to alcohol use as the trigger for the acute episode of pancreatitis and has a history of the same in the past. At time of arrival, patient's vitals are within normal limits, they are well-appearing and in no acute distress. The patient has tolerated oral intake without difficulty and has not had any vomiting with today's presentation. Pain was able to be controlled here in the emergency department with oral medications. Yelitza score is 0. Patient is an appropriate candidate for outpatient management of this acute episode of pancreatitis using oral pain medications, antiemetics, and recommendations for a clear liquid diet until pain has resolved. In regards to the patient's episode of chest discomfort, EKG without any ischemic changes. Initial troponin negative. Delta troponin is pending. Suspect that his pain was more likely related to recent nausea, vomiting and ongoing pancreatitis. Patient likewise agrees stating was more of a soreness than similar pains he has had in the past with cardiac events. If delta troponin remains normal I think it would be acceptable for patient to follow-up as an outpatient in regards to this episode of chest discomfort. 05/13/18 22:04 Delta troponin remains normal. Patient has some mild upper abdominal pain but states this is mild enough that he feels Tylenol will be sufficient. Has continued to tolerate oral intake without any difficulty. At this time will discharge with return precautions and follow-up recommendations. Verbal di avanirge instructions given a the bedside and opportunity for questions given. Medication warnings reviewed. Patient is in agreement with this plan and has verbalized understanding of return precautions and the need for primary care follow-up in the next 24-72 hours. - Vital Signs Vital signs: Temp Pulse Resp BP Pulse Ox 97.5 F 110 H 13 171/99 H 97 05/13/18 18:04 05/13/18 18:04 05/13/18 20:54 05/13/18 20:54 05/13/18 21:01 - Laboratory Result Diagrams: 05/13/18 18:20 05/13/18 18:20 Laboratory results interpreted by me: 05/13/18 05/13/18 18:20 18:20 WBC 12.7 H RBC 6.22 H Hgb 19.7 H Hct 55.4 H RDW 15.7 H Seg Neuts % (Manual) 85 H Lymphocytes % (Manual) 5 L Abs Neuts (Manual) 10.8 H Sodium 133.3 L Chloride 90 L BUN 32 H Creatinine 1.27 H Est GFR (Non-Af Amer) 58 L Glucose 174 H Total Bilirubin 2.5 H Direct Bilirubin 0.9 H AST 63 H Alkaline Phosphatase 137 H Lipase 1443.2 H - Diagnostic Test Radiology reviewed: Image reviewed, Reports reviewed Radiology results interpreted by me: 05/13/18 19:53 Chest x-ray: No acute infiltrate or pneumothorax - EKG Interpretation by Me Additional EKG results interpreted by me: 05/13/18 19:53 Sinus tachycardia, rate 108. No ST elevations or depressions. QTC is 451 Discharge - Discharge Clinical Impression: GABINO (acute kidney injury), Alcohol abuse, Upper abdominal pain, Chest discomfort Alcohol-induced pancreatitis Qualifiers: Chronicity: acute Acute pancreatitis complication: unspecified Qualified Code(s): K85.20 - Alcohol induced acute pancreatitis without necrosis or infection Nausea and vomiting Qualifiers: Vomiting type: unspecified Vomiting Intractability: non-intractable Qualified Code(s): R11.2 - Nausea with vomiting, unspecified Condition: Stable Disposition: HOME, SELF-CARE Additional Instructions: You were seen today for alcohol-induced pancreatitis. Please avoid alcohol in any quantity in the future as this could cause a recurrence of your pancreat itis. Please keep in mind that pancreatitis can be a very serious condition that can even result in . Your case today appears mild and it is safe for you to go home today with medications for nausea. Please drink plenty of fluids over the next several days and try to avoid food ingestion until your pain is resolved. Please return to the emergency department immediately if you develop persistent vomiting that prohibits you from taking your medications or keeping fluids down, you develop a fever of greater than 101F, you have worsening pain, you become confused, you become short of breath, or have any other symptoms that are worrisome to you. Please follow-up with your primary care doctor in the next 24-48 hours. You were also seen today for chest pain. The exact cause of your pain is unclear. However, based on your cardiac enzyme testing, chest x-ray, and EKG it does not appear that it is from an immediately life-threatening cause at this time. Although your testing here is normal is critical that you follow-up with your primary care physician for continued evaluation of this chest pain and possible stress testing. I recommended you see your physician within the next 24-48 hours to be evaluated for consideration of a stress test. Please return to emergency department immediately if you have worsening of your chest pain, shortness of breath, vomiting, become unable to exert yourself due to pain or difficulty breathing, you pass out, or have any pain that radiates into your arms, jaw, or back. Please also return if you have any additional symptoms that are concerning to you.
[2018-05-13] MEDS ORDERED: ONDANSETRON ODT 4 MG TAB (6 TAB/ER DISP) PO PRN (19:55)
[2018-05-13] MEDS ORDERED: ACETAMINOPHEN 325 MG TABLET PO ONE (22:03)
[2018-05-13 22:13] VITALS: BP 159/88
--- NOTE | 2018-05-13 23:54 | EKG REPORT ---
SEVERITY:- BORDERLINE ECG - SINUS TACHYCARDIA PROBABLE LEFT ATRIAL ABNORMALITY : Confirmed by: Lorraine Parker 13-May-2018 23:53:52
== END 2018-05-13 22:22 | disposition home or self-care (01) ==
LOC: ER 17:47
DX: K85.20 Alcohol induced acute pancreatitis without necrosis or infection (principal); F10.10 Alcohol abuse, uncomplicated; N17.9 Acute kidney failure, unspecified; R10.13 Epigastric pain; R11.2 Nausea with vomiting, unspecified; R00.0 Tachycardia, unspecified; R07.9 Chest pain, unspecified; R06.02 Shortness of breath; I25.10 Atherosclerotic heart disease of native coronary artery without angina pectoris; I10 Essential (primary) hypertension; I25.2 Old myocardial infarction; F17.200 Nicotine dependence, unspecified, uncomplicated; Z95.5 Presence of coronary angioplasty implant and graft; Z95.1 Presence of aortocoronary bypass graft; Z82.49 Family history of ischemic heart disease and other diseases of the circulatory system
CPT/HCPCS: 93005; 99284; 96361; 96374; 96375; 36415; 83690; 85025; 80053; 84484; 71045; 93010; J2270; J2405; J7030

== ENCOUNTER 2018-05-14 11:15 | Inpatient (IN) | payer OTHER ==
[2018-05-14] MEDS ORDERED: NORMAL SALINE 1000 ML 1,000 ML IV ONE ×2 (11:34→15:16)
[2018-05-14] MEDS ORDERED: MORPHINE SULFATE 10 MG/ML INJ IV ONE (11:35)
[2018-05-14] MEDS ORDERED: ONDANSETRON HCL INJ/PF 4 MG/2 ML SDV IV ONE (11:35)
--- NOTE | 2018-05-14 11:38 | ER Document Report ---
ED Medical Screen (RME) - General Chief Complaint: Testicular Pain Stated Complaint: TESTICLE PAIN Time Seen by Provider: 05/14/18 11:30 Mode of Arrival: Ambulatory Information source: Patient Notes: 57-year-old male presents emergency department complaints of nausea, vomiting, right upper quadrant abdominal pain with radiation down into the right testicle. Patient states that his nausea, vomiting, and abdominal pain symptoms started yesterday. He was seen in the emergency department for this and diagnosed with pancreatitis secondary to alcohol use. He was discharged home. Patient states that last night he began having some testicular pain. He states that he has a history of his testicle twisting while sleeping. He denies any previous surgeries on his testicle. Patient states that he took Tylenol without any improvement in symptoms. I have greeted and performed a rapid initial assessment of this patient. A comprehensive ED assessment and evaluation of the patient, analysis of test results and completion of the medical decision making process will be conducted by additional ED providers. PHYSICAL EXAMINATION: GENERAL: Well-appearing. HEAD: Atraumatic, normocephalic. EYES: Pupils equal round extraocular movements intact, conjunctiva are normal. ENT: Nares patent NECK: Normal range of motion LUNGS: No respiratory distress Musculoskeletal: Normal range of motion NEUROLOGICAL: Normal speech, normal gait. TRAVEL OUTSIDE OF THE [place] IN LAST 30 DAYS: No - Related Data Allergies/Adverse Reactions: No Known Allergies Allergy (Verified 05/13/18 18:08) Past Medical History - Social History Chew tobacco use (# tins/day): No Frequency of alcohol use: is in a ETOH program /detoxed -Monday Drug Abuse: None - Past Medical History Cardiac Medical History: Reports: Hx Heart Attack, Hx Hypercholesterolemia, Hx Hypertension Renal/ Medical History: Denies: Hx Peritoneal Dialysis GI Medical History: Reports: Hx Gastroesophageal Reflux Disease Psychiatric Medical History: Reports: Hx Depression Past Surgical History: Reports: Hx Cardiac Surgery - stents x13, bypass - Immunizations History of Influenza Vaccine for 01/2017 - 06/2017 Season: Yes Physical Exam - Vital signs Vitals: Temp Pulse Resp BP Pulse Ox 97.4 F 103 H 16 148/89 H 98 05/14/18 11:19 05/14/18 11:19 05/14/18 11:19 05/14/18 11:19 05/14/18 11:19 Course - Vital Signs Vital signs: Temp Pulse Resp BP Pulse Ox 97.4 F 103 H 16 148/89 H 98 05/14/18 11:19 05/14/18 11:19 05/14/18 11:19 05/14/18 11:19 05/14/18 11:19
[2018-05-14 13:10] LABS: ABSOLUTE LYMPHOCYTES (AUTO) 0.7 10^3/uL (0.5-4.7); ABSOLUTE MONOCYTES (AUTO) 0.8 10^3/uL (0.1-1.4); ABSOLUTE NEUT (AUTO) 10.3 10^3/uL (1.7-8.2); BASOPHILS % (AUTO) 0.2 % (0-2); HEMATOCRIT 48.8 % (37.9-51.0); LYMPHOCYTES % (AUTO) 5.5 % (13-45); MEAN CORPUSCULAR HEMOGLOBIN 31.5 pg (27.0-33.4); MEAN CORPUSCULAR HGB CONC 35.4 g/dL (32.0-36.0); MEAN CORPUSCULAR VOLUME 89 fl (80-97); MONOCYTES % (AUTO) 6.7 % (3-13); PLATELET COUNT 131 10^3/uL (150-450); RED BLOOD COUNT 5.48 10^6/uL (4.35-5.55); RED CELL DISTRIBUTION WIDTH 15.6 % (11.5-14.0); SEGMENTED NEUTROPHILS % (AUTO) 87.6 % (42-78); TOTAL CELLS COUNTED % (AUTO) 100 %; WHITE BLOOD COUNT 11.8 10^3/uL (4.0-10.5)
[2018-05-14 13:12] LABS: HEMOGLOBIN 17.2 g/dL (13.5-17.0)
[2018-05-14 13:25] LABS: ALANINE AMINOTRANSFERASE 29 U/L (21-72); ALBUMIN 4.5 g/dL (3.5-5.0); ALKALINE PHOSPHATASE 98 U/L (38-126); ANION GAP 13 (5-19); ASPARTATE AMINO TRANSFERASE 46 U/L (17-59); BILIRUBIN,DIRECT 0.9 mg/dL (0.0-0.4); BILIRUBIN,TOTAL 1.9 mg/dL (0.2-1.3); BLOOD UREA NITROGEN 25 mg/dL (7-20); CALCIUM 9.4 mg/dL (8.4-10.2); CARBON DIOXIDE 26 mmol/L (22-30); CHLORIDE 95 mmol/L (98-107); GLUCOSE 124 mg/dL (75-110); POTASSIUM 4.3 mmol/L (3.6-5.0); SODIUM 134.2 mmol/L (137-145); TOTAL PROTEIN 6.9 g/dL (6.3-8.2)
--- NOTE | 2018-05-14 14:05 | RADIOLOGY REPORT (SQ) ---
EXAM DESCRIPTION: U/S ABDOMEN LIMITED W/O DOP COMPLETED DATE/TIME: 05/14/2018 1:49 pm REASON FOR STUDY: RUQ pain COMPARISON: None. TECHNIQUE: Dynamic and static grayscale images acquired of the abdomen and recorded on PACS. Additio nal selected color Doppler and spectral images recorded. LIMITATIONS: None. FINDINGS: PANCREAS: Mild diffuse heterogenous appearance to the pancreas. These findings may be co nsistent with inflammatory changes. The patient has a known history of elevated lipase. No evidence of peripancreatic fluid collection. LIVER: The liver measures 18.0 cm in length, mild hepatomegaly. No masses. Echotexture normal. LIVER VASCULATURE: Normal directional flow of the main portal vein and hepatic veins. GALLBLADDER: The gallbladder is dilated. The gallbladder wall measures 3.7 mm, mild gallbladder wal l thickening. No pericholecystic fluid. ULTRASOUND-DETECTED RAE'S SIGN: Negative. INTRAHEPATIC DUCTS AND COMMON DUCT: CBD measures 3.1 mm in diameter, normal. The intrahepatic ducts normal caliber. No filling defects. INFERIOR VENA CAVA: Normal flow. AORTA: No aneurysm. RIGHT KIDNEY: The right kidney measures 13.2 cm in length, normal size. Normal echogenicity. No mehul id or suspicious masses. No hydronephrosis. No calcifications. PERITONEAL AND RIGHT PLEURAL SPACE: No ascites or effusions. OTHER: No other significant findings. IMPRESSION: 1. The gallbladder is dilated and mild diffuse gallbladder wall thickening. Correlatio n suggested. 2. Mild diffuse heterogenous appearance to the pancreas, these findings may be consistent with inflam matory changes. The patient has a known history of elevated lipase. 3. Mild hepatomegaly. TECHNICAL DOCUMENTATION: JOB ID: [id number]- All Rights Reserved Reading location - IP/workstation name: [email or web address]
--- NOTE | 2018-05-14 14:06 | RADIOLOGY REPORT (SQ) ---
EXAM DESCRIPTION: U/S SCROTUM W/DOPPLER COMPLETED DATE/TIME: 05/14/2018 1:49 pm REASON FOR STUDY: R testicular pain COMPARISON: None. TECHNIQUE: Static and realtime martinez scale imaging of the scrotum and testes. Selected color Doppler and spectral images recorded to document blood flow. LIMITATIONS: None. FINDINGS: RIGHT: TESTICLE: The right testicle measures 4.9 x 3.1 x 3.1 cm. Normal size. Normal echotexture. Normal blood flow. No mass. EPIDIDYMIS: Head of the epididymis measures 1.2 x 0.7 x 0.9 cm. Normal. HYDROCELE OR VARICOCELE: No. HERNIA OR EXTRA-TESTICULAR MASS: No. OTHER: No other significant finding. LEFT: TESTICLE: The left testicle measures 5.1 x 3.0 x 2.3 cm. Normal size. Normal echotexture. Normal b lood flow. No mass. EPIDIDYMIS: The head of the epididymis measures 1.0 x 0.7 x 0.7 cm. Normal. HYDROCELE OR VARICOCELE: No. HERNIA OR EXTRA-TESTICULAR MASS: No. OTHER: No other significant finding. IMPRESSION: 1. NORMAL SCROTAL ULTRASOUND. NO EVIDENCE OF TESTICULAR MASS OR TORSION. TECHNICAL DOCUMENTATION: JOB ID: [id number] [employer]- All Rights Reserved Reading location - IP/workstation name: [email or web address]
[2018-05-14 14:55] LABS: APPEARANCE,URINE CLEAR; BILIRUBIN,URINE NEGATIVE (NEGATIVE); GLUCOSE, URINE NEGATIVE (NEGATIVE); KETONES,URINE 20 mg/dL (NEGATIVE); LEUKOCYTE ESTERASE,URINE NEGATIVE (NEGATIVE); NITRITE,URINE NEGATIVE (NEGATIVE); PROTEIN,URINE NEGATIVE (NEGATIVE); URINE SPECIFIC GRAVITY 1.023
[2018-05-14 15:00] LABS: COLOR,URINE DARK YELLOW
--- NOTE | 2018-05-14 15:34 | ER Document Report ---
Entered by LINDA NI SCRIBE 05/14/18 [id number] Acting as scribe for:JULIANA RUBIN MD ED GI/ - General Chief Complaint: Testicular Pain Stated Complaint: TESTICLE PAIN Time Seen by Provider: 05/14/18 11:30 Mode of Arrival: Ambulatory Notes: 57-year-old male who presents to the emergency department today with complaints of vomiting, abdominal pain, and right testicular pain. Patient states the pain seems to radiate from his right side of his abdomen into his right testicle. Patient states he has a history of his "testicles twisting during sleep which he manually twists back". Patient was seen here yesterday and he states his lipase was elevated and he was diagnosed with pancreatitis. TRAVEL OUTSIDE OF THE [place] IN LAST 30 DAYS: No - Related Data Allergies/Adverse Reactions: No Known Allergies Allergy (Verified 05/13/18 18:08) Past Medical History - General Information source: Patient - Social History Smoking Status: Never Smoker Chew tobacco use (# tins/day): No Frequency of alcohol use: is in a ETOH program /detoxed -Monday Drug Abuse: None Family History: CAD, COPD Patient has suicidal ideation: No Patient has homicidal ideation: No - Past Medical History Cardiac Medical History: Reports: Hx Heart Attack, Hx Hypercholesterolemia, Hx Hypertension Renal/ Medical History: Denies: Hx Peritoneal Dialysis GI Medical History: Reports: Hx Gastroesophageal Reflux Disease Psychiatric Medical History: Reports: Hx Depression Past Surgical History: Reports: Hx Cardiac Surgery - stents x13, bypass - Immunizations Hx Pneumococcal Vaccination: 04/03/14 Review of Systems - Review of Systems Constitutional: No symptoms reported EENT: No symptoms reported Cardiovascular: No symptoms reported Respiratory: No symptoms reported Gastrointestinal: See HPI, Abdominal pain, Nausea, Vomiting Genitourinary: No symptoms reported Male Genitourinary: See HPI, Testicular pain Musculoskeletal: No symptoms reported Skin: No symptoms reported Hematologic/Lymphatic: No symptoms reported Neurological/Psychological: No symptoms reported -: Yes All other systems reviewed and negative Physical Exam - Vital signs Vitals: Temp Pulse Resp BP Pulse Ox 97.4 F 103 H 16 148/89 H 98 05/14/18 11:19 05/14/18 11:19 05/14/18 11:19 05/14/18 11:19 02/11/19 11:19 - Notes Notes: Physical Exam: General: Alert, appears well. HEENT: Normocephalic. Atraumatic. PERRL. Extraocular movements intact. Oropharynx clear. Neck: Supple. Non-tender. Respiratory: No respiratory distress. Clear and equal breath sounds bilaterally. Cardiovascular: Regular rate and rhythm. Abdominal: No McBurney's point tenderness to palpation. Slight tenderness to palpation of the right epigastric area. No distension. Normal Bowel Sounds. Male genitourinary: No swelling or tenderness with palpation of the right testic le. Right pelvic tenderness with palpation. Back: Non-tender. No deformity or step off. Extremities: Moves all four extremities. Upper extremities: Normal inspection. Normal ROM. Lower extremities: Normal inspection. No edema. Normal ROM. Neurological: Normal cognition. AAOx4. Normal speech. Psychological: Normal affect. Normal Mood. Skin: Warm. Dry. Normal color. Course - Vital Signs Vital signs: Temp Pulse Resp BP Pulse Ox 97.4 F 103 H 16 148/89 H 98 05/14/18 11:19 05/14/18 11:19 05/14/18 11:19 05/14/18 11:19 05/14/18 11:19 - Laboratory Result Diagrams: 05/14/18 12:41 05/14/18 12:41 Laboratory results interpreted by me: 05/14/18 05/14/18 05/14/18 12:41 12:41 14:10 WBC 11.8 H Hgb 17.2 H D RDW 15.6 H Plt Count 131 L Seg Neutrophils % 87.6 H Lymphocytes % 5.5 L Absolute Neutrophils 10.3 H Sodium 134.2 L Chloride 95 L BUN 25 H Glucose 124 H Total Bilirubin 1.9 H Direct Bilirubin 0.9 H Lipase 804.0 H Urine Ketones 20 H Urine Urobilinogen 2.0 H - Diagnostic Test Radiology reviewed: Image reviewed, Reports reviewed - Ultrasound of the testicles is unremarkable. Abdominal ultrasound shows a dilated gallbladder with mild diffuse gallbladder wall thickening without pericholecystic fluid. Mild diffuse heterogeneous appearance of the pancreas consistent with inflammatory changes, pancreatitis. Mild hepatomegaly. - Consults Dr. Murillo Time consulted: 14:20 Consulted provider: will see as inpatient - Requests that I have the hospitalist admit the patient and he will consult Chyna Leal NP Time consulted: 14:30 Consulted provider: will come to ER Discharge - Discharge Clinical Impression: Thickening of wall of gallbladder, Polycythemia Abdominal pain Qualifiers: Abdominal location: upper abdomen, unspecified Qualified Code(s): R10.10 - Upper abdominal pain, unspecified Pancreatitis Qualifiers: Chronicity: acute Pancreatitis type: unspecified pancreatitis type Acute pancreatitis complication: no infection or necrosis Qualified Code(s): K85.90 - Acute pancreatitis without necrosis or infection, unspecified Condition: Stable Disposition: ADMITTED INPATIENT Admitting Provider: Hospitalist Unit Admitted: Telemetry Scribe Attestation: 05/14/18 15:33 I personally performed the services described in the documentation, reviewed and edited the documentation which was dictated to the scribe in my presence, and it accurately records my words and actions. I personally performed the services described in the documentation, reviewed and edited the documentation which was dictated to the scribe in my presence, and it accurately records my words and actions.
[2018-05-14] MEDS ORDERED: ACETAMINOPHEN 325 MG TABLET PO PRN (16:39)
[2018-05-14] MEDS ORDERED: DEXTROSE 50%-WATER 25 GM/50 ML DISP.SYRIN IV PRN ×2 (16:39)
[2018-05-14] MEDS ORDERED: GLUCAGON,HUMAN RECOMB 1 MG INJ SUBCUT PRN (16:39)
[2018-05-14] MEDS ORDERED: ONDANSETRON 4 MG TAB.RAPDIS PO PRN (16:39)
[2018-05-14] MEDS ORDERED: DEXTROSE 40% GEL 15 GM TUBE PO PRN ×2 (16:39)
[2018-05-14] MEDS ORDERED: PROMETHAZINE HCL INJ 25 MG/1 ML VIAL IV PRN (16:39)
[2018-05-14] MEDS ORDERED: MORPHINE SULFATE 10 MG/ML INJ IV PRN (16:45)
[2018-05-14] MEDS ORDERED: HYDRALAZINE HCL INJ/PF 20 MG/1 ML SDV IV PRN (17:48)
[2018-05-14] MEDS ORDERED: METOPROLOL TARTRATE PF/INJ 5 MG/5 ML SDV IV PRN (17:48)
--- NOTE | 2018-05-14 18:58 | PDOC CONSULTATION ---
Consultation Consult Date: 05/14/18 Attending physician:: JULIANA RUBIN Consult reason:: Abdominal pain History of Present Illness Admission Date/PCP: 05/14/18 15:46 Patient complains of: Abdominal History of Present Illness: WOODROW JERNIGAN is a 57 year old male Patient is a 57-year-old white male, heavy alcoholic, ex-smoker, history of coronary artery disease, who was seen in the emergency department yesterday when he of testicular pain. Ultrasound of the right testicle was unremarkable. Pain radiating to his testicle. He was seen back in the emergency department today where he was found to have an increase in his level of lipase. Gallbladder ultrasound revealed no evidence of gallbladder stones, possibly thickened wall but no pericholecystic fluid; common bile duct felt to be within normal limits. The liver was felt to be mildly enlarged the pancreas had a heterogeneous pattern. Patient was admitted to the hospital service for abdominal pain possibly alcohol related pancreatitis. Surgery was consulted. Patient denies history of previous episodes of pancreatitis; he has had a colonoscopy in the past; he is in alcohol detoxification currently. He drinks regularly and heavily Past Medical History Past Medical History: Alcohol abuse; smoking abuse, now stopped; coronary artery disease, hypertension. Cardiac Medical History: Reports: Myocardial Infarction, Hyperlipidema, Hypert ension GI Medical History: Reports: Gastroesophageal Reflux Disease Psychiatric Medical History: Reports: Depression Hematology: Reports: Anemia - gout Past Surgical History Past Surgical History: History of 13 coronary artery stents placed over the last 15 years Social History Information Source: Patient Smoking Status: Former Smoker Frequency of Alcohol Use: Heavy Hx Recreational Drug Use: No Drugs: None Hx Prescription Drug Abuse: No Family History Family History: CAD, COPD Parental Family History Reviewed: Yes Children Family History Reviewed: Yes Sibling(s) Family History Reviewed.: Yes Medication/Allergy Home Medications: Folic Acid [Folvite 1 mg Tablet] 1 mg PO DAILY 01/15/18 Metoprolol Tartrate [Lopressor 50 mg Tablet] 75 mg PO Q12 01/15/18 Thiamine HCl [Thiamine 100 mg Tablet] 100 mg PO DAILY tablet 01/16/18 Magnesium Oxide [Magnesium] 500 mg PO Q12 05/14/18 Naltrexone 50 Mg 50 mg PO DAILY 05/14/18 Nitroglycerin 0.4 mg SL PRN PRN 05/14/18 Trazodone HCl [Desyrel] 100 mg PO QHS 05/14/18 Allergies/Adverse Reactions: No Known Allergies Allergy (Verified 05/13/18 18:08) Review of Systems Constitutional: PRESENT: as per HPI Eyes: ABSENT: visual disturbances Ears: ABSENT: hearing changes Gastrointestinal: PRESENT: as per HPI Genitourinary: PRESENT: as per HPI Physical Exam Vital Signs: Temp Pulse Resp BP Pulse Ox 98.4 F 103 H 17 152/94 H 95 05/14/18 17:10 05/14/18 11:19 05/14/18 18:01 05/14/18 18:00 05/14/18 18:01 Intake & Output 05/13/18 05/14/18 05/15/18 06:59 06:59 06:59 Intake Total 1000 Output Total 260 Balance 740 Weight 119.1 kg General appearance: PRESENT: no acute distress Head exam: PRESENT: normocephalic Eye exam: PRESENT: other - Evidence of icterus Mouth exam: PRESENT: dry mucosa Neck exam: PRESENT: full ROM Respiratory exam: PRESENT: other - Decreased in bases bilaterally Cardiovascular exam: PRESENT: RRR Pulses: PRESENT: normal carotid pulses GI/Abdominal exam: PRESENT: diminished bowel sounds, other - Soft small umbilical hernia: No perineal signs or rigidity no abdominal tenderness. Skin exam: PRESENT: dry Results Laboratory Results: 05/14/18 12:41 05/14/18 12:41 05/14/18 05/14/18 05/14/18 12:41 12:41 14:10 WBC 11.8 H RBC 5.48 Hgb 17.2 H D Hct 48.8 MCV 89 MCH 31.5 MCHC 35.4 RDW 15.6 H Plt Count 131 L Seg Neutrophils % 87.6 H Lymphocytes % 5.5 L Monocytes % 6.7 Eosinophils % 0.0 Basophils % 0.2 Absolute Neutrophils 10.3 H Absolute Lymphocytes 0.7 Absolute Monocytes 0.8 Absolute Eosinophils 0.0 Absolute Basophils 0.0 Sodium 134.2 L Potassium 4.3 Chloride 95 L Carbon Dioxide 26 Anion Gap 13 BUN 25 H Creatinine 0.90 Est GFR ( Amer) > 60 Est GFR (Non-Af Amer) > 60 Glucose 124 H Calcium 9.4 Total Bilirubin 1.9 H AST 46 ALT 29 Alkaline Phosphatase 98 Total Protein 6.9 Albumin 4.5 Lipase 804.0 H Urine Color DARK YELLOW Urine Appearance CLEAR Urine pH 5.0 Ur Specific [place] 1.023 Urine Protein NEGATIVE Urine Glucose (UA) NEGATIVE Urine Ketones 20 H Urine Blood NEGATIVE Urine Nitrite NEGATIVE Ur Leukocyte Esterase NEGATIVE Urine WBC (Auto) 4 Urine RBC (Auto) 0 Impressions: Scrotum Ultrasound 05/14/18 11:34 IMPRESSION: 1. NORMAL SCROTAL ULTRASOUND. NO EVIDENCE OF TESTICULAR MASS OR TORSION. Abdomen Ultrasound 05/14/18 11:36 IMPRESSION: 1. The gallbladder is dilated and mild diffuse gallbladder wall thickening. Correlation suggested. 2. Mild diffuse heterogenous appearance to the pancreas, these findings may be consistent with inflammatory changes. The patient has a known history of elevated lipase. 3. Mild hepatomegaly. 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 Patient's symptoms are unlikely due to acute gallbladder disease. Recommendations: 1. Allow patient to dry out, stabilize from a pancreatitis perspective; no indication for cholecystectomy tonight 2. We will follow patient with you; will track laboratory profile as well. (2) Pancreatitis Qualifiers: Chronicity: acute Pancreatitis type: unspecified pancreatitis type Acute pancreatitis complication: no infection or necrosis Qualified Code(s): K85.90 - Acute pancreatitis without necrosis or infection, unspecified Is this a current diagnosis for this admission?: Yes (3) Abnormal LFTs Is this a current diagnosis for this admission?: Yes (4) Alcohol abuse Is this a current diagnosis for this admission?: Yes
[2018-05-14] MEDS: ENOXAPARIN SODIUM INJ 40 MG/0.4 ML DISP.SYRIN SUBCUT SCH (20:10)
--- NOTE | 2018-05-14 20:36 | PDOC H&P ---
History of Present Illness Admission Date/PCP: 05/14/18 15:46 Patient complains of: abdominal pain. nausea and vomiting. History of Present Illness: WOODROW JERNIGAN is a 57 year old male with a PMH of CAD s/p stent placement(x13), bypass, ETOH abuse, presented to the ED with N/V, R sided abdominal pain radiating to the R testicle. The patient states he has a hx of ETOH abuse. He stopped drinking from until Monday. He consumed ETOH 5 days ago (1/2 gallon red wine). He began experiencing symptoms of withdrawal the next three days. Of note, the patient was seen at [facility] ED yesterday and was diagnosed with pancreatitis. He was sent home with pain medication and antiemetics. The patient returned today with the same abdominal pain. US reveals gallbladder wall thickening and inflammatory changes to the pancreas. Surgery was consulted. Lipase 804. Testicular US benign. Plan to admit the patient to hospitalist service for medical management of pancreatitis and cholecystitis. Surgery consulted for possible cholecystectomy. Past Medical History Cardiac Medical History: Reports: Coronary Artery Disease, Myocardial Infarction, Hyperlipidema, Hypertension GI Medical History: Reports: Gastroesophageal Reflux Disease Psychiatric Medical History: Reports: Depression Hematology: Reports: Anemia - gout Past Surgical History Past Surgical History: Reports: Coronary Artery Bypass Graft Social History Information Source: Patient Lives with: Alone Smoking Status: Never Smoker Frequency of Alcohol Use: Heavy Hx Recreational Drug Use: No Drugs: None Hx Prescription Drug Abuse: No - Advance Directive Resuscitation Status: Full Code Family History Family History: CAD, COPD Parental Family History Reviewed: Yes Children Family History Reviewed: NA Sibling(s) Family History Reviewed.: Yes Medication/Allergy Home Medications: Folic Acid [Folvite 1 mg Tablet] 1 mg PO DAILY 01/15/18 Metoprolol Tartrate [Lopressor 50 mg Tablet] 75 mg PO Q12 01/15/18 Thiamine HCl [Thiamine 100 mg Tablet] 100 mg PO DAILY tablet 01/16/18 Magnesium Oxide [Magnesium] 500 mg PO Q12 05/14/18 Naltrexone 50 Mg 50 mg PO DAILY 05/14/18 Nitroglycerin 0.4 mg SL PRN PRN 05/14/18 Trazodone HCl [Desyrel] 100 mg PO QHS 05/14/18 Allergies/Adverse Reactions: No Known Allergies Allergy (Verified 05/13/18 18:08) Review of Systems All systems: reviewed and no additional remarkable complaints except as stated Physical Exam Vital Signs: Temp Pulse Resp BP Pulse Ox 98.4 F 103 H 16 148/89 H 98 05/14/18 17:10 05/14/18 11:19 05/14/18 11:19 05/14/18 11:19 05/14/18 11:19 Intake & Output 05/13/18 05/14/18 05/15/18 06:59 06:59 06:59 Intake Total 1000 Output Total 260 Balance 740 Weight 119.1 kg General appearance: PRESENT: no acute distress, morbidly obese Eye exam: PRESENT: conjunctiva pink, PERRLA, other - EXOPTHALAMUS Mouth exam: PRESENT: moist, tongue midline Teeth exam: PRESENT: poor dentation Neck exam: PRESENT: full ROM Respiratory exam: PRESENT: clear to auscultation sebas, symmetrical, unlabored Cardiovascular exam: PRESENT: RRR, +S1, +S2 Pulses: PRESENT: normal radial pulses, normal dorsalis pedis pul GI/Abdominal exam: PRESENT: distended, normal bowel sounds, soft, tenderness - RUQ Rectal exam: PRESENT: deferred Extremities exam: PRESENT: full ROM. ABSENT: pedal edema Musculoskeletal exam: PRESENT: ambulatory, full ROM Neurological exam: PRESENT: alert, awake, oriented to person, oriented to place, oriented to time, oriented to situation Skin exam: PRESENT: dry, intact, normal color Results Laboratory Results: 05/14/18 12:41 05/14/18 12:41 05/14/18 05/14/18 05/14/18 12:41 12:41 14:10 WBC 11.8 H RBC 5.48 Hgb 17.2 H D Hct 48.8 MCV 89 MCH 31.5 MCHC 35.4 RDW 15.6 H Plt Count 131 L Seg Neutrophils % 87.6 H Lymphocytes % 5.5 L Monocytes % 6.7 Eosinophils % 0.0 Basophils % 0.2 Absolute Neutrophils 10.3 H Absolute Lymphocytes 0.7 Absolute Monocytes 0.8 Absolute Eosinophils 0.0 Absolute Basophils 0.0 Sodium 134.2 L Potassium 4.3 Chloride 95 L Carbon Dioxide 26 Anion Gap 13 BUN 25 H Creatinine 0.90 Est GFR ( Amer) > 60 Est GFR (Non-Af Amer) > 60 Glucose 124 H Calcium 9.4 Total Bilirubin 1.9 H AST 46 ALT 29 Alkaline Phosphatase 98 Total Protein 6.9 Albumin 4.5 Lipase 804.0 H Urine Color DARK YELLOW Urine Appearance CLEAR Urine pH 5.0 Ur Specific [place] 1.023 Urine Protein NEGATIVE Urine Glucose (UA) NEGATIVE Urine Ketones 20 H Urine Blood NEGATIVE Urine Nitrite NEGATIVE Ur Leukocyte Esterase NEGATIVE Urine WBC (Auto) 4 Urine RBC (Auto) 0 Impressions: Scrotum Ultrasound 05/14/18 11:34 IMPRESSION: 1. NORMAL SCROTAL ULTRASOUND. NO EVIDENCE OF TESTICULAR MASS OR TORSION. Abdomen Ultrasound 05/14/18 11:36 IMPRESSION: 1. The gallbladder is dilated and mild diffuse gallbladder wall thickening. Correlation suggested. 2. Mild diffuse heterogenous appearance to the pancreas, these findings may be consistent with inflammatory changes. The patient has a known history of elevated lipase. 3. Mild hepatomegaly. Status: Imported from PACS Assessment & Plan - Diagnosis (1) Pancreatitis Qualifiers: Chronicity: acute Pancreatitis type: unspecified pancreatitis type Acute pancreatitis complication: no infection or necrosis Qualified Code(s): K85.90 - Acute pancreatitis without necrosis or infection, unspecified Is this a current diagnosis for this admission?: Yes Plan: Likely secondary to ETOH abuse Patient reports he was previously an alcoholic but has been sober for approx. 12 years, he admits that be broke sobriety 5 days ago and consumed 1/2 gallon of red wine. Lipase 804, improved from yesterday when patient initially checked into the ER (lipase 1443) Possible cholecystitis on US Mild leukocytosis (WBC 11) [place] Criteria 0. Only 1% mortality risk Admit to MED/TELE NPO until evaluated by surgeon Maintenance IVF PRN morphine for pain control PRN zofran ODT for nausea (2) Thickening of wall of gallbladder Is this a current diagnosis for this admission?: Yes Plan: No evidence of stones or CBD blockage Surgery consulted NPO Maintenance IVF No plans for further imaging at this time (3) Alcohol abuse Is this a current diagnosis for this admission?: Yes Plan: History of ETOH abuse Patient admits to 12 yrs sobriety but consumed 1/2 gallon red wine 5 days ago Denies history of pancreatitis Outside the window of ETOH withdrawal No need for PRN benzos at this time Maintenance IVF PO thiamine and folate (4) CAD (coronary artery disease) Qualifiers: Coronary Disease-Associated Artery/Lesion type: bypass graft [place] vs. transplanted heart: [place] heart Associated angina: without angina Qualified Code(s): I25.810 - Atherosclerosis of coronary artery bypass graft(s) without angina pectoris Is this a current diagnosis for this admission?: Yes Plan: History of CABG x 1 and [place] with 13 stents placed in LAD Echocardiogram from reveals normal LVEF, no valvular abnormalities Continue ASA (5) Hypertension Qualifiers: Hypertension type: essential hypertension Qualified Code(s): I10 - Essential (primary) hypertension Is this a current diagnosis for this admission?: Yes Plan: Continue home dose anti-HTN - Time Time Spent: 30 to 50 Minutes Medications reviewed and adjusted accordingly: Yes Anticipated discharge: Home - Inpatient Certification Based on my medical assessment, after consideration of the patient's comorbidi ties, presenting symptoms, or acuity I expect that the services needed warrant INPATIENT care.: Yes I certify that my determination is in accordance with my understanding of Joe moore's requirements for reasonable and necessary INPATIENT services [42 CFR 412.3e].: Yes Medical Necessity: Risk of Complication if Not Cared For in Hospital
[2018-05-14] MEDS ORDERED: (PENDING PHARMACY ID) (Magnesium Oxide [Magnesium] 500 MG) PO SCH (22:00)
[2018-05-14] MEDS: MAGNESIUM OXIDE 400 MG TABLET PO SCH (22:04)
[2018-05-14] MEDS: METOPROLOL TARTRATE 50 MG TABLET PO SCH (22:07)
[2018-05-14] MEDS: FAMOTIDINE INJ/PF 20 MG/2 ML SDV IV SCH (22:08)
[2018-05-14] MEDS: NORMAL SALINE 1000 ML 1,000 ML IV PRN (22:13)
[2018-05-15 05:48] LABS: HEMATOCRIT 41.6 % (37.9-51.0); MEAN CORPUSCULAR HEMOGLOBIN 31.7 pg (27.0-33.4); MEAN CORPUSCULAR HGB CONC 35.1 g/dL (32.0-36.0); MEAN CORPUSCULAR VOLUME 90 fl (80-97); PLATELET COUNT 115 10^3/uL (150-450); RED BLOOD COUNT 4.61 10^6/uL (4.35-5.55); RED CELL DISTRIBUTION WIDTH 15.7 % (11.5-14.0); WHITE BLOOD COUNT 8.7 10^3/uL (4.0-10.5)
[2018-05-15 05:56] LABS: HEMOGLOBIN 14.6 g/dL (13.5-17.0)
[2018-05-15 06:08] LABS: ALANINE AMINOTRANSFERASE 26 U/L (21-72); ALBUMIN 3.3 g/dL (3.5-5.0); ALKALINE PHOSPHATASE 81 U/L (38-126); ANION GAP 8 (5-19); ASPARTATE AMINO TRANSFERASE 31 U/L (17-59); BILIRUBIN,DIRECT 0.6 mg/dL (0.0-0.4); BILIRUBIN,TOTAL 1.3 mg/dL (0.2-1.3); BLOOD UREA NITROGEN 17 mg/dL (7-20); CALCIUM 8.6 mg/dL (8.4-10.2); CARBON DIOXIDE 25 mmol/L (22-30); CHLORIDE 102 mmol/L (98-107); GLUCOSE 98 mg/dL (75-110); POTASSIUM 3.7 mmol/L (3.6-5.0); TOTAL PROTEIN 5.4 g/dL (6.3-8.2)
[2018-05-15] MEDS ORDERED: ENOXAPARIN SODIUM INJ 30 MG/0.3 ML DISP.SYRIN SUBCUT SCH (10:00)
[2018-05-15] MEDS: FAMOTIDINE INJ/PF 20 MG/2 ML SDV IV SCH ×2 (10:09→21:46)
[2018-05-15] MEDS: MAGNESIUM OXIDE 400 MG TABLET PO SCH ×2 (10:11→21:46)
[2018-05-15] MEDS: METOPROLOL TARTRATE 50 MG TABLET PO SCH ×2 (10:12→21:45)
[2018-05-15] MEDS: THIAMINE HCL 100 MG TABLET PO SCH (10:14)
[2018-05-15] MEDS: DOCUSATE SODIUM 100 MG CAPSULE PO SCH (10:15)
[2018-05-15] MEDS: FOLIC ACID 1 MG TABLET PO SCH (10:15)
[2018-05-15] MEDS: ENOXAPARIN SODIUM INJ 40 MG/0.4 ML DISP.SYRIN SUBCUT SCH (10:16)
[2018-05-15] MEDS ORDERED: LORAZEPAM INJ 2 MG/1 ML VIAL IV PRN (12:28)
[2018-05-15] MEDS ORDERED: HALOPERIDOL LACTATE INJ 5 MG/1 ML VIAL IM ONE (12:30)
[2018-05-15] MEDS: DIAZEPAM 5 MG TABLET PO SCH ×2 (12:58→20:25)
--- NOTE | 2018-05-15 17:51 | EKG REPORT ---
SEVERITY:- BORDERLINE ECG - SINUS RHYTHM BORDERLINE T ABNORMALITIES, ANT-LAT LEADS : Confirmed by: Emmy Jimenes MD 15-May-2018 17:51:38
--- NOTE | 2018-05-15 17:57 | PDOC PROGRESS REPORT ---
Subjective Progress Note for:: 05/15/18 Subjective:: WOODROW JERNIGAN is a 57 year old male with a PMH of CAD s/p stent placement(x13), bypass, ETOH abuse, GERD, EtOH abuse (continuous), and depression who was admitted 05/14/18 for pancreatitis. The patient was seen on morning rounds. He was found sitting up to chair on r oom air having just consumed a clear liquid diet. He appears to be comfortable and denies current abdominal discomfort, nausea, vomiting, diarrhea. He reports that he is feeling much better now that he has had something to eat; stating he has not been able to tolerate p.o. intake for approximately 4 days. At the time of my visit he is noted to be alert, oriented x4, though with an odd affect. He denies fever, chills, chest pain, palpitations, dyspnea, orthopnea, abdominal pain, nausea vomiting or diarrhea. He asks about possible cholecystectomy versus discharge to home tomorrow, but otherwise has no questions or concerns at this time. Per nursing, the patient has been impulsive, frequently detaching the IV line from his IV hub, and wandering the hallways. Orders for scheduled Valium with as needed Ativan for potential EtOH withdrawal are provided. Reason For Visit: PANCREATITIS Physical Exam Vital Signs: Temp Pulse Resp BP Pulse Ox 97.8 F 73 16 141/89 H 99 05/15/18 15:54 05/15/18 15:54 05/15/18 15:54 05/15/18 15:54 05/15/18 15:54 Intake & Output 05/14/18 05/15/18 05/16/18 06:59 06:59 06:59 Intake Total 2000 Output Total 260 Balance 1740 Weight 120 kg General appearance: PRESENT: no acute distress, disheveled, obese, well- developed, well-nourished Head exam: PRESENT: atraumatic, normocephalic Eye exam: PRESENT: conjunctiva pink, EOMI, PERRLA. ABSENT: scleral icterus Mouth exam: PRESENT: moist, tongue midline Neck exam: ABSENT: carotid bruit, JVD, lymphadenopathy, thyromegaly Respiratory exam: PRESENT: clear to auscultation sebas, symmetrical, unlabored. ABSENT: rales, rhonchi, wheezes Cardiovascular exam: PRESENT: RRR, +S1, +S2. ABSENT: diastolic murmur, rubs, systolic murmur Pulses: PRESENT: normal dorsalis pedis pul Vascular exam: PRESENT: normal capillary refill GI/Abdominal exam: PRESENT: distended, normal bowel sounds, soft. ABSENT: guarding, mass, organolmegaly, rebound, tenderness Rectal exam: PRESENT: deferred Extremities exam: PRESENT: full ROM. ABSENT: calf tenderness, clubbing, pedal edema Neurological exam: PRESENT: alert, awake, oriented to person, oriented to place, oriented to time, oriented to situation, CN II-XII grossly intact. ABSENT: motor sensory deficit Psychiatric exam: PRESENT: normal mood, unusual affect. ABSENT: homicidal ideation, suicidal ideation Skin exam: PRESENT: dry, intact, warm. ABSENT: cyanosis, rash Results Laboratory Results: 05/15/18 05:08 05/15/18 05:08 05/15/18 05/15/18 05/15/18 05:08 05:08 05:08 WBC 8.7 RBC 4.61 Hgb 14.6 D Hct 41.6 MCV 90 MCH 31.7 MCHC 35.1 RDW 15.7 H Plt Count 115 L Sodium 135.0 L Potassium 3.7 Chloride 102 Carbon Dioxide 25 Anion Gap 8 BUN 17 Creatinine 0.81 Est GFR ( Amer) > 60 Est GFR (Non-Af Amer) > 60 Glucose 98 Calcium 8.6 Total Bilirubin 1.3 AST 31 ALT 26 Alkaline Phosphatase 81 Total Protein 5.4 L Albumin 3.3 L TSH 1.82 05/15/18 05:08 NT-Pro-B Natriuret Pep 183 Impressions: Scrotum Ultrasound 05/14/18 11:34 IMPRESSION: 1. NORMAL SCROTAL ULTRASOUND. NO EVIDENCE OF TESTICULAR MASS OR TORSION. Abdomen Ultrasound 05/14/18 11:36 IMPRESSION: 1. The gallbladder is dilated and mild diffuse gallbladder wall thickening. Correlation suggested. 2. Mild diffuse heterogenous appearance to the pancreas, these findings may be consistent with inflammatory changes. The patient has a known history of elevated lipase. 3. Mild hepatomegaly. Assessment & Plan - Diagnosis (1) Pancreatitis Qualifiers: Chronicity: acute Pancreatitis type: unspecified pancreatitis type Acute pancreatitis complication: no infection or necrosis Qualified Code(s): K85.90 - Acute pancreatitis without necrosis or infection, unspecified Is this a current diagnosis for this admission?: Yes Plan: Improved; no asymptomatic and tolerating a clear liquid diet. Likely secondary to ETOH abuse Patient reports he was previously an alcoholic but has been sober since Mar, he admits that be broke sobriety 5 days ago and consumed 1/2 gallon of red wine. Lipase trending down 1443--> 804 Possible cholecystitis on US Mild leukocytosis (WBC 11); now resolved. [place] Criteria 0. Only 1% mortality risk Patient is admitted to the medical floor on continuous cardiac telemetry. He has been advanced to a clear liquid diet. Continue maintenance IV fluids. Antiemetics and analgesics as needed for symptom control. Surgery has been consulted; appreciate their evaluation recommendations. (2) Thickening of wall of gallbladder Is this a current diagnosis for this admission?: Yes Plan: No evidence of stones or CBD blockage Surgery consulted; spoke with Dr. Jack today, no indications for additional i maging or surgical intervention at this time. Management of pancreatitis as above. (3) Alcohol abuse Is this a current diagnosis for this admission?: Yes Plan: Patient endorses a history of EtOH abuse. He admits to several years of sobriety but recently consuming 1/2 gallon of red wine; patient's recent alcohol intake is not consistent between conversations. Early evidence of EtOH withdrawal today with impulsivity, mood lability, difficulty redirecting (patient reports that he has removed his IV multiple times and is found wandering in the hallways). Continue p.o. thiamine and folate supplementation. Continue maintenance IV fluids. Start scheduled Valium 5 mg every 6 hours with IV Ativan 2 mg every 2 hours as needed anxiety/agitation/withdrawal symptoms. Fall, aspiration, seizure precautions. 1:1 sitter for safety. Discharge planning is consulted. (4) CAD (coronary artery disease) Qualifiers: Coronary Disease-Associated Artery/Lesion type: bypass graft [place] vs. transplanted heart: [place] heart Associated angina: without angina Qualified Code(s): I25.810 - Atherosclerosis of coronary artery bypass graft(s) without angina pectoris Is this a current diagnosis for this admission?: Yes Plan: Stable; patient denies active chest pain at this time. History of CABG x 1 and OR with 13 stents placed in LAD Echocardiogram from reveals normal LVEF, no valvular abnormalities Continue ASA (5) Hypertension Qualifiers: Hypertension type: essential hypertension Qualified Code(s): I10 - Essential (primary) hypertension Is this a current diagnosis for this admission?: Yes Plan: Continue home dose metoprolol. IV hydralazine as needed for blood pressure control. (6) Alcohol withdrawal Is this a current diagnosis for this admission?: Yes Plan: Early indications for alcohol withdrawal despite inconsistencies in patient's self report of alcohol use. Per nursing, the patient is impulsive, difficult to redirect, removing IV lines, and wandering. At time of my visit, he was A&O x4 but with an odd affect. Scheduled and as needed benzodiazepines. Maintenance IV fluids. Supportive care. Fall, aspiration, seizure precautions. Bed alarm. 1:1 sitter for safety. Discharge planning is consulted. - Time Time Spent with patient: 25-34 minutes Medications reviewed and adjusted accordingly: Yes Anticipated discharge: Home
--- NOTE | 2018-05-15 23:10 | PDOC PROGRESS REPORT ---
Subjective Progress Note for:: 05/15/18 Subjective:: This is a 57-year-old male with a history of alcohol abuse, admitted with pancreatitis. The patient reports that he is feeling better today. The patient has been somewhat confused (as reported by the nursing staff). Currently he denies chest pain, shortness of breath, nausea, vomiting, blurry vision, headache, fevers, chills, malaise, fatigue. He does still have some abdominal pain, but it is much improved. Reason For Visit: PANCREATITIS Physical Exam Vital Signs: Temp Pulse Resp BP Pulse Ox 97.8 F 73 16 141/89 H 99 05/15/18 15:54 05/15/18 15:54 05/15/18 15:54 05/15/18 15:54 05/15/18 15:54 Intake & Output 05/14/18 05/15/18 05/16/18 06:59 06:59 06:59 Intake Total 2000 562 Output Total 260 Balance 1740 562 Weight 120 kg General appearance: PRESENT: no acute distress Head exam: PRESENT: atraumatic, normocephalic Eye exam: PRESENT: EOMI, PERRLA Mouth exam: PRESENT: moist, neck supple Neck exam: ABSENT: meningismus, tenderness, thyromegaly, tracheal deviation Respiratory exam: PRESENT: clear to auscultation sebas. ABSENT: chest wall tenderness Cardiovascular exam: PRESENT: RRR Pulses: PRESENT: normal radial pulses Vascular exam: ABSENT: pallor GI/Abdominal exam: PRESENT: soft, tenderness - Mild. ABSENT: distended, rigid Rectal exam: PRESENT: deferred Extremities exam: ABSENT: clubbing Musculoskeletal exam: ABSENT: deformity Neurological exam: PRESENT: alert, awake Psychiatric exam: PRESENT: agitated - Mild Skin exam: ABSENT: cyanosis, erythema, jaundice Results Laboratory Results: 05/15/18 05:08 05/15/18 05:08 05/15/18 05/15/18 05/15/18 05:08 05:08 05:08 WBC 8.7 RBC 4.61 Hgb 14.6 D Hct 41.6 MCV 90 MCH 31.7 MCHC 35.1 RDW 15.7 H Plt Count 115 L Sodium 135.0 L Potassium 3.7 Chloride 102 Carbon Dioxide 25 Anion Gap 8 BUN 17 Creatinine 0.81 Est GFR ( Amer) > 60 Est GFR (Non-Af Amer) > 60 Glucose 98 Calcium 8.6 Total Bilirubin 1.3 AST 31 ALT 26 Alkaline Phosphatase 81 Total Protein 5.4 L Albumin 3.3 L TSH 1.82 05/15/18 05:08 NT-Pro-B Natriuret Pep 183 Impressions: Scrotum Ultrasound 05/14/18 11:34 IMPRESSION: 1. NORMAL SCROTAL ULTRASOUND. NO EVIDENCE OF TESTICULAR MASS OR TORSION. Abdomen Ultrasound 05/14/18 11:36 IMPRESSION: 1. The gallbladder is dilated and mild diffuse gallbladder wall thickening. Correlation suggested. 2. Mild diffuse heterogenous appearance to the pancreas, these findings may be consistent with inflammatory changes. The patient has a known history of elevated lipase. 3. Mild hepatomegaly. Assessment & Plan - Diagnosis (1) Pancreatitis Qualifiers: Chronicity: acute Pancreatitis type: unspecified pancreatitis type Acute pancreatitis complication: no infection or necrosis Qualified Code(s): K85.90 - Acute pancreatitis without necrosis or infection, unspecified Is this a current diagnosis for this admission?: Yes - Plan Summary Plan Summary: This is a 57-year-old male with pancreatitis. The patient recently began drinking again, which precipitated his abdominal pain. The most likely scenario for his pancreatitis is alcohol related. The patient has a gallbladder ultrasound which shows borderline thickening of the wall of the gallbladder. This is frequently seen in patients with hepatitis and/or cirrhosis. The patient does not exhibit a Adams sign. There was no mention of gallstones on his ultrasound report. I do not believe his abdominal pain or his pancreatitis is related to his gallbladder. Patient should refrain from alcohol intake completely. If the patient has recurrence of his pancreatitis and complete abstinence of alcohol intake, cholecystectomy may be reasonable. The patient is tolerating clear liquids at this time. If amylase and lipase are trending down, restart of a regular diet is reasonable. I will see the patient again on an as- needed basis. Please renotify with any questions or concerns.
[2018-05-16] MEDS: DIAZEPAM 5 MG TABLET PO SCH ×3 (00:11→13:08)
[2018-05-16 05:42] LABS: HEMATOCRIT 40.3 % (37.9-51.0); HEMOGLOBIN 14.2 g/dL (13.5-17.0); MEAN CORPUSCULAR HEMOGLOBIN 32.1 pg (27.0-33.4); MEAN CORPUSCULAR HGB CONC 35.3 g/dL (32.0-36.0); MEAN CORPUSCULAR VOLUME 91 fl (80-97); PLATELET COUNT 112 10^3/uL (150-450); RED BLOOD COUNT 4.43 10^6/uL (4.35-5.55); RED CELL DISTRIBUTION WIDTH 15.6 % (11.5-14.0); WHITE BLOOD COUNT 6.6 10^3/uL (4.0-10.5)
[2018-05-16 06:03] LABS: ALANINE AMINOTRANSFERASE 28 U/L (21-72); ALBUMIN 3.3 g/dL (3.5-5.0); ALKALINE PHOSPHATASE 77 U/L (38-126); ANION GAP 10 (5-19); ASPARTATE AMINO TRANSFERASE 37 U/L (17-59); BILIRUBIN,DIRECT 0.5 mg/dL (0.0-0.4); BLOOD UREA NITROGEN 19 mg/dL (7-20); CALCIUM 8.9 mg/dL (8.4-10.2); CARBON DIOXIDE 25 mmol/L (22-30); CHLORIDE 103 mmol/L (98-107); GLUCOSE 101 mg/dL (75-110); LIPASE 505.4 U/L (23-300); TOTAL PROTEIN 5.3 g/dL (6.3-8.2)
[2018-05-16] MEDS: NORMAL SALINE 1000 ML 1,000 ML IV PRN (08:15)
[2018-05-16] MEDS ORDERED: OXYCODONE HCL IR 5 MG TABLET PO PRN (08:39)
[2018-05-16 08:58] VITALS: BP 140/66
[2018-05-16] MEDS: METOPROLOL TARTRATE 50 MG TABLET PO SCH (09:18)
[2018-05-16] MEDS: MAGNESIUM OXIDE 400 MG TABLET PO SCH (09:20)
[2018-05-16] MEDS: FOLIC ACID 1 MG TABLET PO SCH (09:20)
[2018-05-16] MEDS: DOCUSATE SODIUM 100 MG CAPSULE PO SCH (09:20)
[2018-05-16] MEDS: THIAMINE HCL 100 MG TABLET PO SCH (09:20)
[2018-05-16] MEDS: ENOXAPARIN SODIUM INJ 40 MG/0.4 ML DISP.SYRIN SUBCUT SCH (09:21)
[2018-05-16] MEDS: FAMOTIDINE INJ/PF 20 MG/2 ML SDV IV SCH (09:21)
--- NOTE | 2018-05-19 13:32 | PDOC DISCHARGE SUMMARY ---
General - Admit/Disc Date/PCP Admission Date/Primary Care Provider: 05/14/18 15:46 Discharge Date: 05/16/18 - Discharge Diagnosis (1) Pancreatitis Is this a current diagnosis for this admission?: Yes Summary: Improved; now asymptomatic and tolerating a regular diet. Likely secondary to ETOH abuse Patient reports he was previously an alcoholic but has been sober since March, he admits that be broke sobriety 5 days ago and consumed 1/2 gallon of red wine. Lipase trending down 1443--> 804--> 505 Possible cholecystitis on US Mild leukocytosis (WBC 11); now resolved. [place] Criteria 0. Only 1% mortality risk The patient was admitted to the medical floor on continuous cardiac telemetry in n.p.o. status and provided aggressive IV fluids, antiemetics, and analgesics as needed. Surgery was consulted for evaluation cholecystitis; ruled out. The borderline thickening of the gallbladder wall is likely secondary to cirrhosis. No indications for surgical interventions at this time. As the patient's symptoms resolved, his diet was cautiously advanced with good tolerance. At time of discharge, the patient with in stable condition, maintaining oxygen saturations while ambulatory on room air, and asymptomatic while tolerating a regular diet. He is instructed to stop drinking, ensure he remains hydrated through drinking plenty of water, advancing his diet slowly as tolerated. He is provided prescriptions for Zofran and oxycodone for symptom management. He is advised to continue his folic acid and thiamine supplementation. He is instructed to follow-up with his primary care provider within 1 week. (2) Thickening of wall of gallbladder Is this a current diagnosis for this admission?: Yes Summary: Likely secondary to cirrhosis and patient with long-standing history of EtOH abuse. No evidence of stones or CBD blockage. Surgery was consulted; no indications for additional imaging or surgical int ervention at this time. Management of pancreatitis as above. (3) Alcohol abuse Is this a current diagnosis for this admission?: Yes Summary: Patient endorses a history of EtOH abuse. He admits to several years of sobriety but recently consuming 1/2 gallon of red wine; patient's recent alcohol intake is not consistent between conversations. Some evidence of EtOH withdrawal on Day 2 with impulsivity, mood lability, difficulty redirecting (nursing reports that he has removed his IV and has found wandering in the hallways); responded well to a one-time dose of p.o. Valium. Further scheduled Valium doses were held as the patient had no futher symptoms. He did not require as needed Ativan for anxiety/agitation/withdrawal symptoms. On day of discharge, he had return to his baseline mental status; alert and oriented x4 without behavioral disturbances. Sobriety was strongly encouraged. Recommend continued thiamine and folic acid supplementation. (4) CAD (coronary artery disease) Is this a current diagnosis for this admission?: Yes Summary: Stable; patient denies active chest pain at this time. History of CABG x 1 and [place] with 13 stents placed in LAD Echocardiogram from reveals normal LVEF, no valvular abnormalities Continue ASA (5) Hypertension Is this a current diagnosis for this admission?: Yes Summary: Acceptable blood pressures on the patient's home dose metoprolol. (6) Alcohol withdrawal Is this a current diagnosis for this admission?: Yes Summary: The patient demonstrated some indications for mild alcohol withdrawal despite inconsistencies in patient's self report of alcohol use. Per nursing, the patient is impulsive, difficult to redirect, removing IV lines, and wandering. He remained in NSR with acceptable blood pressures and without any other indications of EtOH withdrawal. During each of my visits, he was A&O x4 but with an odd affect. CIWA protocol was ordered; patient only received one Valium dose as his symptoms rapidly subsided afterward. He did not require additional benzodiazepine dosing. - Additional Information Resuscitation Status: Full Code Discharge Diet: As Tolerated, Other (Comments) Discharge Activity: Activity As Tolerated, Balance Activity w/Rest, Slowly Increase Activity Prescriptions: Ondansetron [Zofran Odt 4 mg Tablet] 4 mg PO Q6HP PRN #12 tab.rapdis PRN Reason: Oxycodone HCl [Oxy-Ir 5 mg Tablet] 5 mg PO Q4HP PRN #20 tablet PRN Reason: Home Medications: Folic Acid [Folvite 1 mg Tablet] 1 mg PO DAILY 01/15/18 Metoprolol Tartrate [Lopressor 50 mg Tablet] 75 mg PO Q12 01/15/18 Thiamine HCl [Thiamine 100 mg Tablet] 100 mg PO DAILY tablet 01/16/18 Magnesium Oxide [Magnesium] 500 mg PO Q12 05/14/18 Naltrexone 50 Mg 50 mg PO DAILY 05/14/18 Nitroglycerin 0.4 mg SL PRN PRN 05/14/18 Trazodone HCl [Desyrel] 100 mg PO QHS 05/14/18 Acetaminophen [Tylenol 325 mg Tablet] 650 mg PO Q4HP PRN tablet 05/16/18 Ondansetron [Zofran Odt 4 mg Tablet] 4 mg PO Q6HP PRN #12 tab.rapdis 05/16/18 Oxycodone HCl [Oxy-Ir 5 mg Tablet] 5 mg PO Q4HP PRN #20 tablet 05/16/18 History of Present Illness History of Present Illness: Per H&P by Chyna Leal NP: WOODROW JERNIGAN is a 57 year old male with a PMH of CAD s/p stent placement(x13), bypass, ETOH abuse, presented to the ED with N/V, R sided abdominal pain radiating to the R testicle. The patient states he has a hx of ETOH abuse. He stopped drinking from until Monday. He consumed ETOH 5 days ago (1/2 gallon red wine). He began experiencing symptoms of withdrawal the next three days. Of note, the patient was seen at [facility] yesterday and was diagnosed with pancreatitis. He was sent home with pain medication and antiemetics. The patient returned today with the same abdominal pain. US reveals gallbladder wall thickening and inflammatory changes to the pancreas. Surgery was consulted. Lipase 804. Testicular US benign. Plan to admit the patient to hospitalist service for medical management of pancreatitis and cholecystitis. Surgery consulted for possible cholecystectomy. Physical Exam Vital Signs: Temp Pulse Resp BP Pulse Ox 98.1 F 84 16 140/66 H 97 05/16/18 12:04 05/16/18 12:04 05/16/18 12:04 05/16/18 12:04 05/16/18 12:04 General appearance: PRESENT: no acute distress, disheveled, obese, well- developed, well-nourished Head exam: PRESENT: atraumatic, normocephalic Eye exam: PRESENT: conjunctiva pink, EOMI, PERRLA. ABSENT: scleral icterus Ear exam: PRESENT: normal external ear exam Mouth exam: PRESENT: moist, tongue midline Neck exam: ABSENT: carotid bruit, JVD, lymphadenopathy, thyromegaly Respiratory exam: PRESENT: clear to auscultation sebas, symmetrical, unlabored. ABSENT: rales, rhonchi, wheezes Cardiovascular exam: PRESENT: RRR. ABSENT: diastolic murmur, rubs, systolic murmur Pulses: PRESENT: normal dorsalis pedis pul Vascular exam: PRESENT: normal capillary refill GI/Abdominal exam: PRESENT: normal bowel sounds, soft. ABSENT: distended, guarding, mass, organolmegaly, rebound, tenderness Rectal exam: PRESENT: deferred Extremities exam: PRESENT: full ROM. ABSENT: calf tenderness, clubbing, pedal edema Neurological exam: PRESENT: alert, awake, oriented to person, oriented to place, oriented to time, oriented to situation, CN II-XII grossly intact. ABSENT: motor sensory deficit Psychiatric exam: PRESENT: appropriate affect, normal mood. ABSENT: homicidal ideation, suicidal ideation Skin exam: PRESENT: dry, intact, warm. ABSENT: cyanosis, rash Results Laboratory Results: 05/16/18 05:18 05/16/18 05:18 05/15/18 05:08 NT-Pro-B Natriuret Pep 183 Impressions: Scrotum Ultrasound 05/14/18 11:34 IMPRESSION: 1. NORMAL SCROTAL ULTRASOUND. NO EVIDENCE OF TESTICULAR MASS OR TORSION. Abdomen Ultrasound 05/14/18 11:36 IMPRESSION: 1. The gallbladder is dilated and mild diffuse gallbladder wall thickening. Correlation suggested. 2. Mild diffuse heterogenous appearance to the pancreas, these findings may be consistent with inflammatory changes. The patient has a known history of elevated lipase. 3. Mild hepatomegaly. Qualifiers - * PATIENT BEING DISCHARGED WITH ANY OF THE FOLLOWING DIAGNOSIS: No Plan Discharge Plan: Discharged home with self-care. Patient is instructed to STOP drinking alcohol, drink plenty of water, eat a bland diet, avoid high fatty foods and to advance slowly to a cardiac diet as tolerated. He is to follow-up with his primary care provider within 1 week. Return to the emergency department as needed for concerning symptoms. Time Spent: Less than 30 Minutes
== END 2018-05-16 13:13 | disposition home or self-care (01) | DRG 439 ==
LOC: ER 11:15 → EH 15:46 → 5 20:34
PROVIDERS: ADMIT Internal Medicine; ATTEND Internal Medicine
PROC: HZ2ZZZZ Detoxification Services for Substance Abuse Treatment (ICD-10-PCS; principal; 2018-05-14)
DX: K85.20 Alcohol induced acute pancreatitis without necrosis or infection (principal); F10.239 Alcohol dependence with withdrawal, unspecified; I25.810 Atherosclerosis of coronary artery bypass graft(s) without angina pectoris; K70.30 Alcoholic cirrhosis of liver without ascites; F10.20 Alcohol dependence, uncomplicated; I10 Essential (primary) hypertension; K81.9 Cholecystitis, unspecified; E78.00 Pure hypercholesterolemia, unspecified; K21.9 Gastro-esophageal reflux disease without esophagitis; F32.9 Major depressive disorder, single episode, unspecified; D64.9 Anemia, unspecified; M10.9 Gout, unspecified; Z60.2 Problems related to living alone; D75.1 Secondary polycythemia; I25.2 Old myocardial infarction; Z95.1 Presence of aortocoronary bypass graft; Z95.5 Presence of coronary angioplasty implant and graft; Z79.899 Other long term (current) drug therapy; Z87.891 Personal history of nicotine dependence; Z83.6 Family history of other diseases of the respiratory system; Z82.49 Family history of ischemic heart disease and other diseases of the circulatory system
CPT/HCPCS: 36415; 76705; 76870; 80053; 81001; 83615; 83690; 83880; 84443; 85025; 85027; 93005; 93010; 93976; 96361; 96374; 96375; 99285; J1630; J1650; J2060; J2270; J2405; J7030; S0028; S0119

== ENCOUNTER 2018-12-29 16:46 | Inpatient (IN) | payer OTHER ==
[2018-12-29] MEDS ORDERED: ASPIRIN 81 MG TABLET, CHEWABLE PO ONE (16:50)
[2018-12-29 17:17] LABS: ABSOLUTE LYMPHOCYTES (AUTO) 0.6 10^3/uL (0.5-4.7); ABSOLUTE MONOCYTES (AUTO) 0.4 10^3/uL (0.1-1.4); ABSOLUTE NEUT (AUTO) 7.6 10^3/uL (1.7-8.2); BASOPHILS % (AUTO) 0.2 % (0-2); HEMATOCRIT 49.8 % (37.9-51.0); HEMOGLOBIN 17.4 g/dL (13.5-17.0); LYMPHOCYTES % (AUTO) 6.6 % (13-45); MEAN CORPUSCULAR HEMOGLOBIN 32.8 pg (27.0-33.4); MEAN CORPUSCULAR VOLUME 94 fl (80-97); MONOCYTES % (AUTO) 4.6 % (3-13); SEGMENTED NEUTROPHILS % (AUTO) 88.6 % (42-78); TOTAL CELLS COUNTED % (AUTO) 100 %; WHITE BLOOD COUNT 8.6 10^3/uL (4.0-10.5)
[2018-12-29 17:39] LABS: ALBUMIN 4.4 g/dL (3.5-5.0); ALKALINE PHOSPHATASE 113 U/L (38-126); ANION GAP 17 (5-19); ASPARTATE AMINO TRANSFERASE 80 U/L (17-59); BILIRUBIN,DIRECT 0.8 mg/dL (0.0-0.4); BLOOD UREA NITROGEN 11 mg/dL (7-20); CALCIUM 8.8 mg/dL (8.4-10.2); CARBON DIOXIDE 25 mmol/L (22-30); CHLORIDE 91 mmol/L (98-107); CREATINE KINASE 284 U/L (55-170); GLUCOSE 207 mg/dL (75-110); PLATELET COUNT 79 10^3/uL (150-450); POTASSIUM 3.5 mmol/L (3.6-5.0); TOTAL PROTEIN 6.9 g/dL (6.3-8.2)
[2018-12-29 17:51] LABS: CREATINE KINASE MB 2.49 ng/mL (<4.55); TROPONIN I 0.016 ng/mL
--- NOTE | 2018-12-29 18:06 | ER Document Report ---
ED General - General Chief Complaint: Chest Pain Stated Complaint: CHEST PAIN Time Seen by Provider: 12/29/18 17:53 Primary Care Provider: BRITTANY BASSETT [Primary Care Provider] - Follow up as needed TRAVEL OUTSIDE OF THE [place] IN LAST 30 DAYS: No - HPI Notes: Patient presents with onset of intermittent chest pain in his left upper chest wall that radiates to his left scapula that started this morning. He has been off and on several times and last several minutes. He has a history of several heart attacks and stents is on Plavix and has been medically compliant. He also states that he used to drink approximately half a bottle of vodka every day and quit drinking on his day. He has had several bouts of vomiting, he has not eaten anything since Monday but is able to drink water. He states that as of yesterday he is quit vomiting and feels like he is over the hump. - Related Data Allergies/Adverse Reactions: No Known Allergies Allergy (Verified 05/13/18 18:08) Past Medical History - Social History Smoking Status: Former Smoker Frequency of alcohol use: None Drug Abuse: None Family History: CAD, COPD Patient has suicidal ideation: No Patient has homicidal ideation: No - Past Medical History Cardiac Medical History: Reports: Hx Coronary Artery Disease, Hx Heart Attack, Hx Hypercholesterolemia, Hx Hypertension Renal/ Medical History: Denies: Hx Peritoneal Dialysis GI Medical History: Reports: Hx Gastroesophageal Reflux Disease Psychiatric Medical History: Reports: Hx Depression Past Surgical History: Reports: Hx Cardiac Surgery - stents x13, bypass, Hx Coronary Artery Bypass Graft - Immunizations Hx Pneumococcal Vaccination: 04/03/14 Review of Systems - Review of Systems Constitutional: No symptoms reported EENT: No symptoms reported Cardiovascular: See HPI Respiratory: See HPI Gastrointestinal: No symptoms reported Genitourinary: No symptoms reported Male Genitourinary: No symptoms reported Musculoskeletal: No symptoms reported Skin: No symptoms reported Hematologic/Lymphatic: No symptoms reported Neurological/Psychological: No symptoms reported Physical Exam - Vital signs Vitals: Pulse Ox 94 12/29/18 16:50 - General General appearance: Appears well, Alert, Other - Mild tremulous of hands when outstretched - HEENT Head: Normocephalic, Atraumatic Eyes: Normal Conjunctiva: Normal Cornea: Normal Pupils: PERRL - Respiratory Respiratory status: No respiratory distress Chest status: Nontender Breath sounds: Normal Chest palpation: Normal - Cardiovascular Rhythm: Tachycardia Heart sounds: Normal auscultation Murmur: No - Abdominal Inspection: Normal Distension: No distension Bowel sounds: Normal Tenderness: Nontender - Back Back: Normal, Nontender - Neurological Neuro grossly intact: Yes Cognition: Normal Orientation: AAOx4 Course - Re-evaluation Re-evalutation: 12/29/18 18:05 Pleasant patient who states that he wanted to quit drinking and he has as of Monday and feels like as of yesterday he is turning the corner . All tremors of his hands outstretched. He is also hypertensive. He has multiple heart history and states that he has been having intermittent chest pain rating to his left scapula since this morning. Work-up in progress 12/30/18 00:40 Patient admitted for pancreatitis, detox, and further chest pain management. - Vital Signs Vital signs: Temp Pulse Resp BP Pulse Ox 99.4 F 20 150/72 H 93 12/29/18 17:02 12/29/18 18:01 12/29/18 21:20 12/29/18 20:16 - Laboratory Result Diagrams: 12/29/18 17:04 12/29/18 17:04 Laboratory results interpreted by me: 12/29/18 12/29/18 12/29/18 17:04 17:04 17:04 Hgb 17.4 H Plt Count 79 L Lymph % (Auto) 6.6 L Seg Neutrophils % 88.6 H Sodium 133.1 L Potassium 3.5 L Chloride 91 L Glucose 207 H Magnesium 1.1 L* Total Bilirubin 3.0 H Direct Bilirubin 0.8 H AST 80 H Creatine Kinase 284 H Lipase 12/29/18 17:04 Hgb Plt Count Lymph % (Auto) Seg Neutrophils % Sodium Potassium Chloride Glucose Magnesium Total Bilirubin Direct Bilirubin AST Creatine Kinase Lipase 632.4 H Discharge - Discharge Clinical Impression: Alcohol abuse Chest pain Qualifiers: Chest pain type: unspecified Qualified Code(s): R07.9 - Chest pain, unspecified Pancreatitis Qualifiers: Chronicity: acute Pancreatitis type: unspecified pancreatitis type Acute pancreatitis complication: unspecified Qualified Code(s): K85.90 - Acute pancreatitis without necrosis or infection, unspecified Nausea and vomiting Qualifiers: Vomiting type: unspecified Vomiting Intractability: non-intractable Qualified Code(s): R11.2 - Nausea with vomiting, unspecified Condition: Good Disposition: ADMITTED INPATIENT Admitting Provider: Michael (Hospitalist) Unit Admitted: Telemetry [facility]errals: [facility] [[facility]] - Follow up as needed
[2018-12-29] MEDS ORDERED: MAGNESIUM SULFATE PF/INJ 40 MEQ/10 ML SDV IV ONE (18:51)
--- NOTE | 2018-12-29 18:55 | RADIOLOGY REPORT (SQ) ---
EXAM DESCRIPTION: CHEST SINGLE VIEW COMPLETED DATE/TIME: 12/29/2018 6:24 pm REASON FOR STUDY: chest pain COMPARISON: 05/13/2018. EXAM PARAMETERS: NUMBER OF VIEWS: One view. TECHNIQUE: Single frontal radiographic view of the chest acquired. RADIATION DOSE: NA LIMITATIONS: None. FINDINGS: LUNGS AND PLEURA: The right lung is clear. MEDIASTINUM AND HILAR STRUCTURES: There is obscuration of the left heart border by a veiled opacity in the left paramediastinal region. The hilum is visualized through the mass. The possibility of le ft upper lobe collapse or anterior or posterior mediastinal mass are considerations. HEART AND VASCULAR STRUCTURES: The heart is difficult to evaluate due to silhouetting of the left hea rt border. It does not appear significantly changed in size. BONES: No acute findings. HARDWARE: None in the chest. OTHER: No other significant finding. IMPRESSION: Evidence of a veiled opacity in the left paramediastinal region. CT could be useful for further evaluation. TECHNICAL DOCUMENTATION: JOB ID: [id number] SC-69 2010 [employer]- All Rights Reserved Reading location - IP/workstation name: [email or web address]
[2018-12-29] MEDS ORDERED: MAGNESIUM SULFATE 4 GM/100 ML RTUPB IV ONE (19:35)
[2018-12-29] MEDS: MAGNESIUM SULFATE/D5W 1 GM/100 ML RTUPB IV SCH ×3 (19:50→22:39)
--- NOTE | 2018-12-29 21:00 | RADIOLOGY REPORT (SQ) ---
EXAM DESCRIPTION: CT CHEST WITH IV CONTRAST COMPLETED DATE/TME: 12/29/2018 18:49 CLINICAL HISTORY: 58 years, Male, eval for lung collapse vs mass, abn CXR COMPARISON: Multiple prior plain radiographs, most recent from the previous examination performed earlier the same day TECHNIQUE: Contrast enhanced CT of the chest was performed. Coronal and sagittal reformations were created. Images stored on PACS. All CT scanners at this facility use dose modulation, iterative reconstruction, and/or weight based dosing when appropriate to reduce radiation dose to as low as reasonably achievable (ALARA). [facility]: Dose Right [facility]: CareDose [facility]: Dose Right [facility]: Teradose 4D [facility]: Smart [employer] LIMITATIONS: None. FINDINGS: Central airways are patent. There is a 6 mm solid subpleural nodule located within the left lower lobe on image 56 of series 4, new from the previous exam dated 07/28/2017. Lungs are otherwise clear. Mediastinal windows show no significant hilar or mediastinal lymph node enlargement. Calcifications are evident about the coronary vessels and thoracic aorta. However, there is prominent mediastinal fat which likely results in the abnormality seen on the recent chest radiograph. Limited evaluation of the upper abdomen reveals that the liver is diffusely low in attenuation relative to the spleen. In addition, mild inflammatory stranding is noted immediately adjacent to the pancreatic tail, best visualized on image 76 of series 3. There is associated thickening of the anterior perirenal fascia on the left. No additional suspicious findings are evident within the imaged upper abdomen. Bone windows show an area of heterotopic ossification located adjacent to the right scapula on image one of series 3. No destructive osseous lesions. IMPRESSION: No acute findings within the chest. The findings seen on the recent chest radiograph corresponds to prominent mediastinal fat. Mild inflammatory stranding located adjacent to the pancreatic tail, suspicious for acute pancreatitis. Correlation with lipase levels. 6.0 mm solid pulmonary nodule. Recommend a non-contrast Chest CT at 6-12 months, then consider an additional non-contrast Chest CT at 18-24 months. These guidelines do not apply to immunocompromised patients and patients with cancer. Follow up in patients with significant comorbidities as clinically warranted. For lung cancer screening, adhere to Lung-RADS guidelines. Reference: Radiology. 2017; 284(1):228-43. Hepatic steatosis. TECHNICAL DOCUMENTATION: Quality ID # 436: Final reports with documentation of one or more dose reduction techniques (e.g., Automated exposure control, adjustment of the mA and/or kV according to patient size, use of iterative reconstruction technique) copyright 2011 [employer]- All Rights Reserved
[2018-12-30] MEDS: MAGNESIUM SULFATE/D5W 1 GM/100 ML RTUPB IV SCH (00:26)
[2018-12-30] MEDS ORDERED: LORAZEPAM INJ 2 MG/1 ML VIAL IV PRN (00:38)
[2018-12-30] MEDS ORDERED: DIAZEPAM 5 MG TABLET PO ONE (00:38)
[2018-12-30] MEDS ORDERED: IPRATROPIUM/ALBUTEROL 0.5-2.5 MG/3 ML AMPUL NEB PRN (00:42)
[2018-12-30] MEDS ORDERED: ACETAMINOPHEN 325 MG TABLET PO PRN (00:42)
[2018-12-30] MEDS ORDERED: MAG HYDROX/AL HYDROX/SIMETH SUSP 30 ML UDCUP PO PRN (00:42)
[2018-12-30] MEDS: RINGERS SOLUTION,LACTATED 1,000 ML IV PRN ×2 (01:33→11:00)
[2018-12-30 03:27] LABS: TROPONIN I < 0.012 ng/mL
[2018-12-30] MEDS ORDERED: PANTOPRAZOLE SODIUM 40 MG VIAL IV PRN (05:49)
--- NOTE | 2018-12-30 05:59 | PDOC H&P ---
History of Present Illness Admission Date/PCP: 12/30/18 00:53 [facility] Patient complains of: Abdominal pain nausea vomiting History of Present Illness: WOODROW JERNIGAN is a 58 year old male with a past medical history of coronary artery disease status post coronary artery bypass graft, 13 stents, hypertension, dyslipidemia, chronic sinusitis and binge alcohol abuse. He presents with a 4-day binge of alcohol resulting in abdominal pain nausea vomiting without blood, unable to tolerate food or medication he develops chest pain that prompted him to seek evaluation emergency room. EMS discovered his blood pressure in the 200 systolic range and administered nitroglycerin resulting in instant relief of chest pain. In the emergency room he is found to have conjunctivitis, sinusitis, abdominal pain, hyperbilirubinemia and mild pancreatitis. He receives symptomatic management and referred to the hospitalist for admission. Patient does admit history of DTs and failure of inpatient alcohol rehab x3. Past Medical History Cardiac Medical History: Reports: Coronary Artery Disease, Myocardial Infarction, Hyperlipidema, Hypertension Pulmonary Medical History: Reports: Other - Chronic sinusitis EENT Medical History: Reports: Eyes - Both eyes erythemic with purulent exudate Denies: Ears, Nose, Throat Renal/ Medical History: Reports: None Malignancy Medical History: Reports: None GI Medical History: Reports: Gastroesophageal Reflux Disease Denies: Hiatal Hernia, Ulcerative Colitis Psychiatric Medical History: Reports: Alcohol Dependency Denies: Depression, Substance Abuse Hematology: Reports: Anemia - gout Past Surgical History Past Surgical History: Reports: Coronary Artery Bypass Graft Social History Information Source: Patient, [facility] Records Lives with: Family Smoking Status: Former Smoker Number of Years Smokin Last Time Smoked: 04/03/1991 Frequency of Alcohol Use: Heavy Hx Recreational Drug Use: No Drugs: None Hx Prescription Drug Abuse: No - Advance Directive Resuscitation Status: Full Code Family History Family History: CAD, COPD Parental Family History Reviewed: Yes Children Family History Reviewed: Yes Sibling(s) Family History Reviewed.: Yes Medication/Allergy Home Medications: Folic Acid [Folvite 1 mg Tablet] 1 mg PO DAILY 01/15/18 Metoprolol Tartrate [Lopressor 50 mg Tablet] 75 mg PO Q12 01/15/18 Thiamine HCl [Thiamine 100 mg Tablet] 100 mg PO DAILY tablet 01/16/18 Magnesium Oxide [Magnesium] 500 mg PO Q12 05/14/18 Naltrexone 50 Mg 50 mg PO DAILY 05/14/18 Nitroglycerin 0.4 mg SL PRN PRN 05/14/18 Trazodone HCl [Desyrel] 100 mg PO QHS 05/14/18 Acetaminophen [Tylenol 325 mg Tablet] 650 mg PO Q4HP PRN tablet 05/16/18 Ondansetron [Zofran Odt 4 mg Tablet] 4 mg PO Q6HP PRN #12 tab.rapdis 05/16/18 Oxycodone HCl [Oxy-Ir 5 mg Tablet] 5 mg PO Q4HP PRN #20 tablet 05/16/18 Allergies/Adverse Reactions: No Known Allergies Allergy (Verified 05/13/18 18:08) Review of Systems Constitutional: PRESENT: as per HPI, anorexia, fatigue. ABSENT: chills, fever(s), headache(s), weight gain, weight loss Eyes: PRESENT: other - Purulent exudate from the eyes x3 days. ABSENT: visual disturbances Ears: ABSENT: hearing changes Cardiovascular: ABSENT: chest pain, dyspnea on exertion, edema, orthropnea, palpitations Respiratory: PRESENT: as per HPI, cough. ABSENT: dyspnea, hemoptysis, sputum Gastrointestinal: PRESENT: as per HPI, abdominal pain, bloating, nausea, vomiting. ABSENT: coffee ground emesis, constipation, diarrhea, hematemesis, hematochezia Genitourinary: ABSENT: dysuria, hematuria Musculoskeletal: ABSENT: joint swelling Integumentary: ABSENT: rash, wounds Neurological: ABSENT: abnormal gait, abnormal speech, confusion, dizziness, focal weakness, syncope Psychiatric: ABSENT: anxiety, depression, homidical ideation, suicidal ideation Endocrine: ABSENT: cold intolerance, heat intolerance, polydipsia, polyuria Hematologic/Lymphatic: ABSENT: easy bleeding, easy bruising Physical Exam Vital Signs: Temp Pulse Resp BP Pulse Ox 99.1 F 107 H 20 109/54 L 90 L 12/30/18 03:57 12/30/18 03:57 12/30/18 03:57 12/30/18 03:57 12/30/18 03:57 Intake & Output 12/28/18 12/29/18 12/30/18 11:59 11:59 11:59 Intake Total 400 Balance 400 Weight 120.8 kg General appearance: PRESENT: no acute distress, cooperative, mild distress, obese Head exam: PRESENT: atraumatic, normocephalic Eye exam: PRESENT: conjunctival injection, EOMI, PERRLA, other - Bilateral purulent exudate. ABSENT: nystagmus Ear exam: PRESENT: normal external ear exam Mouth exam: PRESENT: moist, tongue midline Neck exam: ABSENT: carotid bruit, JVD, lymphadenopathy, thyromegaly Respiratory exam: PRESENT: accessory muscle use, clear to auscultation sebas. ABSENT: crackles, prolonged expiratory phas, tachypnea, wheezes Cardiovascular exam: PRESENT: gallop, +S1, +S2, systolic murmur, tachycardia Pulses: PRESENT: normal dorsalis pedis pul Vascular exam: PRESENT: normal capillary refill GI/Abdominal exam: PRESENT: diminished bowel sounds, distended, hypoactive bowel sounds, soft, tenderness. ABSENT: ascites, firm, rigid Rectal exam: PRESENT: deferred Extremities exam: PRESENT: full ROM. ABSENT: calf tenderness, clubbing, pedal edema Neurological exam: PRESENT: alert, awake, oriented to person, oriented to place, oriented to time, oriented to situation, CN II-XII grossly intact. ABSENT: motor sensory deficit Psychiatric exam: PRESENT: appropriate affect, normal mood. ABSENT: homicidal ideation, suicidal ideation Skin exam: PRESENT: dry, intact, warm. ABSENT: cyanosis, rash Results Laboratory Results: 12/29/18 17:04 12/29/18 17:04 12/29/18 12/29/18 12/29/18 17:04 17:04 17:04 WBC 8.6 RBC 5.30 Hgb 17.4 H Hct 49.8 MCV 94 MCH 32.8 MCHC 35.0 RDW 14.0 Plt Count 79 L Seg Neutrophils % 88.6 H Sodium 133.1 L Potassium 3.5 L Chloride 91 L Carbon Dioxide 25 Anion Gap 17 BUN 11 Creatinine 1.00 Est GFR ( Amer) > 60 Glucose 207 H Calcium 8.8 Magnesium 1.1 L* Total Bilirubin 3.0 H AST 80 H Alkaline Phosphatase 113 Total Protein 6.9 Albumin 4.4 Lipase 12/29/18 17:04 WBC RBC Hgb Hct MCV MCH MCHC RDW Plt Count Seg Neutrophils % Sodium Potassium Chloride Carbon Dioxide Anion Gap BUN Creatinine Est GFR ( Amer) Glucose Calcium Magnesium Total Bilirubin AST Alkaline Phosphatase Total Protein Albumin Lipase 632.4 H 12/29/18 12/29/18 12/29/18 17:04 17:04 20:41 Creatine Kinase 284 H CK-MB (CK-2) 2.49 Troponin I 0.016 < 0.012 12/30/18 12/30/18 02:45 02:45 Creatine Kinase 221 H CK-MB (CK-2) 2.30 Troponin I < 0.012 Impressions: Chest X-Ray 12/29/18 18:02 IMPRESSION: Evidence of a veiled opacity in the left paramediastinal region. CT could be useful for further evaluation. Chest CT 12/29/18 18:49 IMPRESSION: No acute findings within the chest. The findings seen on the recent chest radiograph corresponds to prominent mediastinal fat. Mild inflammatory stranding located adjacent to the pancreatic tail, suspicious for acute pancreatitis. Correlation with lipase levels. 6.0 mm solid pulmonary nodule. Recommend a non-contrast Chest CT at 6-12 months, then consider an additional non-contrast Chest CT at 18-24 months. These guidelines do not apply to immunocompromised patients and patients with cancer. Follow up in patients with significant comorbidities as clinically warranted. For lung cancer screening, adhere to Lung-RADS guidelines. Reference: Radiology. 2017; 284(1):228-43. Hepatic steatosis. TECHNICAL DOCUMENTATION: Quality ID # 436: Final reports with documentation of one or more dose reduction techniques (e.g., Automated exposure control, adjustment of the mA and/or kV according to patient size, use of iterative reconstruction technique) copyright 2011 [employer]- All Rights Reserved Assessment and Plan - Diagnosis (1) Alcoholic gastritis Is this a current diagnosis for this admission?: Yes Plan: Bowel rest, Protonix twice daily, outpatient EGD follow-up CBC (2) Alcohol abuse Is this a current diagnosis for this admission?: Yes Plan: Thiamine, folate, Ativan, Valium ordered. Education and consider outpatient rehab (3) Chest pain Qualifiers: Chest pain type: unspecified Qualified Code(s): R07.9 - Chest pain, unspecified Is this a current diagnosis for this admission?: Yes Plan: Likely secondary to hypertensive urgency relieved by nitro. Follow-up cardiac enzymes. (4) Abnormal LFTs Is this a current diagnosis for this admission?: Yes Plan: Secondary to alcohol binging, follow-up LFTs (5) Acute sinusitis Is this a current diagnosis for this admission?: Yes Plan: Flonase and Levaquin (6) Conjunctivitis Is this a current diagnosis for this admission?: Yes Plan: Ciprodex PID - Time Time Spent with patient: 25-34 minutes - Inpatient Certification Medical Necessity: Need Close Monitoring Due to Risk of Patient Decompensation
[2018-12-30] MEDS ORDERED: PANTOPRAZOLE SODIUM 40 MG VIAL IV ONE (06:00)
[2018-12-30] MEDS ORDERED: LEVOFLOXACIN 750 MG/D5W RTU 750 MG/150 ML RTUPB IV ONE (06:00)
[2018-12-30] MEDS ORDERED: HEPARIN SOD (PORCINE) 5,000 UNIT/ML 1 ML VIAL SUBCUT SCH (06:00)
[2018-12-30] MEDS ORDERED: CIPROFLOXACIN HCL/DEXAMETH OTIC DROP 7.5 ML AU ONE (06:00)
[2018-12-30 06:07] LABS: ABSOLUTE LYMPHOCYTES (AUTO) 1.2 10^3/uL (0.5-4.7); ABSOLUTE MONOCYTES (AUTO) 0.4 10^3/uL (0.1-1.4); ABSOLUTE NEUT (AUTO) 7.4 10^3/uL (1.7-8.2); BASOPHILS % (AUTO) 0.4 % (0-2); EOSINOPHILS % (AUTO) 0.2 % (0-6); HEMOGLOBIN 16.1 g/dL (13.5-17.0); LYMPHOCYTES % (AUTO) 13.2 % (13-45); MEAN CORPUSCULAR HEMOGLOBIN 32.5 pg (27.0-33.4); MEAN CORPUSCULAR HGB CONC 35.1 g/dL (32.0-36.0); MEAN CORPUSCULAR VOLUME 93 fl (80-97); MONOCYTES % (AUTO) 4.9 % (3-13); RED BLOOD COUNT 4.97 10^6/uL (4.35-5.55); RED CELL DISTRIBUTION WIDTH 14.1 % (11.5-14.0); SEGMENTED NEUTROPHILS % (AUTO) 81.3 % (42-78); TOTAL CELLS COUNTED % (AUTO) 100 %; WHITE BLOOD COUNT 9.1 10^3/uL (4.0-10.5)
[2018-12-30 06:28] LABS: ALBUMIN 4.1 g/dL (3.5-5.0); ALKALINE PHOSPHATASE 98 U/L (38-126); ANION GAP 13 (5-19); ASPARTATE AMINO TRANSFERASE 60 U/L (17-59); BILIRUBIN,DIRECT 0.7 mg/dL (0.0-0.4); BILIRUBIN,TOTAL 2.2 mg/dL (0.2-1.3); BLOOD UREA NITROGEN 15 mg/dL (7-20); CALCIUM 8.7 mg/dL (8.4-10.2); CARBON DIOXIDE 28 mmol/L (22-30); CHLORIDE 92 mmol/L (98-107); GLUCOSE 130 mg/dL (75-110); POTASSIUM 3.3 mmol/L (3.6-5.0); TOTAL PROTEIN 6.6 g/dL (6.3-8.2)
[2018-12-30 07:13] LABS: PLATELET COUNT 72 10^3/uL (150-450)
[2018-12-30] MEDS ORDERED: POTASSIUM CHLORIDE 10 MEQ CAPSULE.ER PO ONE ×2 (07:36→10:00)
[2018-12-30] MEDS: IPRATROPIUM/ALBUTEROL 0.5-2.5 MG/3 ML AMPUL NEB SCH ×3 (07:42→23:55)
[2018-12-30] MEDS: DOCUSATE SODIUM 100 MG CAPSULE PO SCH ×2 (09:55→17:21)
[2018-12-30] MEDS: THIAMINE HCL 100 MG TABLET PO SCH (09:55)
[2018-12-30] MEDS: FONDAPARINUX SODIUM INJ 2.5 MG/0.5 ML DISP.SYRIN SUBCUT SCH (09:55)
[2018-12-30] MEDS: FOLIC ACID 1 MG TABLET PO SCH (09:55)
[2018-12-30] MEDS: CIPROFLOXACIN HCL/DEXAMETH OTIC DROP 7.5 ML AU SCH ×2 (09:55→22:03)
[2018-12-30] MEDS ORDERED: DIAZEPAM 2 MG TABLET PO ONE (13:15)
--- NOTE | 2018-12-30 14:44 | Progress Note ---
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 Patient was briefly seen on afternoon rounds. He is found sitting up to the edge of the bed, comfortably, on room air eating his lunch. He reports that his abdominal discomfort, chest pain, nausea, and vomiting have all resolved. He does continue to have bilateral eye itching and facial pressure. However he reports these are somewhat improved today as well. Overnight events, vital signs, laboratory and imaging results, and orders reviewed; agree with plan of care as established by the previous provider. In addition, have added saline nasal spray 4 times daily as needed and Flonase once daily for nasal congestion, and Valium 2 mg p.o. every 6 hours scheduled for tremor/diaphoresis/hypertension/tachycardia suggestive of alcohol withdrawal. Anticipate patient will be discharged home tomorrow.
[2018-12-30] MEDS: PANTOPRAZOLE SODIUM 40 MG VIAL IV SCH (17:21)
[2018-12-30] MEDS: SODIUM CHLORIDE NASAL SPRAY 44 ML NASL SCH ×2 (17:21→22:03)
[2018-12-30] MEDS: NORMAL SALINE 1000 ML 1,000 ML IV PRN (17:27)
[2018-12-30] MEDS ORDERED: CIPROFLOXACIN HCL/DEXAMETH OTIC DROP 7.5 ML AU SCH (18:00)
[2018-12-30] MEDS: DIAZEPAM 2 MG TABLET PO SCH (18:55)
--- NOTE | 2018-12-31 00:47 | EKG REPORT ---
SEVERITY:- ABNORMAL ECG - SINUS TACHYCARDIA PROBABLE LEFT ATRIAL ABNORMALITY NONSPECIFIC REPOL ABNORMALITY, DIFFUSE LEADS : Confirmed by: Lorraine Parker 31-Dec-2018 00:46:26
[2018-12-31] MEDS: DIAZEPAM 2 MG TABLET PO SCH ×2 (00:54→05:32)
[2018-12-31] MEDS: NORMAL SALINE 1000 ML 1,000 ML IV PRN (01:32)
[2018-12-31] MEDS: PANTOPRAZOLE SODIUM 40 MG VIAL IV SCH (05:29)
[2018-12-31 06:17] LABS: ABSOLUTE EOSINOPHILS # (AUTO) 0.1 10^3/uL (0.0-0.6); ABSOLUTE LYMPHOCYTES (AUTO) 0.9 10^3/uL (0.5-4.7); ABSOLUTE MONOCYTES (AUTO) 0.3 10^3/uL (0.1-1.4); ABSOLUTE NEUT (AUTO) 4.3 10^3/uL (1.7-8.2); BASOPHILS % (AUTO) 0.4 % (0-2); HEMATOCRIT 39.6 % (37.9-51.0); LYMPHOCYTES % (AUTO) 16.9 % (13-45); MEAN CORPUSCULAR HEMOGLOBIN 32.6 pg (27.0-33.4); MEAN CORPUSCULAR HGB CONC 34.7 g/dL (32.0-36.0); MEAN CORPUSCULAR VOLUME 94 fl (80-97); MONOCYTES % (AUTO) 5.4 % (3-13); RED BLOOD COUNT 4.22 10^6/uL (4.35-5.55); RED CELL DISTRIBUTION WIDTH 13.9 % (11.5-14.0); SEGMENTED NEUTROPHILS % (AUTO) 76.3 % (42-78); TOTAL CELLS COUNTED % (AUTO) 100 %; WHITE BLOOD COUNT 5.6 10^3/uL (4.0-10.5)
[2018-12-31 06:28] LABS: ALBUMIN 3.4 g/dL (3.5-5.0); ALKALINE PHOSPHATASE 73 U/L (38-126); ANION GAP 6 (5-19); ASPARTATE AMINO TRANSFERASE 42 U/L (17-59); BILIRUBIN,DIRECT 0.4 mg/dL (0.0-0.4); BILIRUBIN,TOTAL 1.3 mg/dL (0.2-1.3); BLOOD UREA NITROGEN 15 mg/dL (7-20); CALCIUM 7.8 mg/dL (8.4-10.2); CARBON DIOXIDE 33 mmol/L (22-30); CHLORIDE 96 mmol/L (98-107); GLUCOSE 134 mg/dL (75-110); POTASSIUM 3.1 mmol/L (3.6-5.0); TOTAL PROTEIN 5.4 g/dL (6.3-8.2)
[2018-12-31 07:07] LABS: HEMOGLOBIN 13.7 g/dL (13.5-17.0)
[2018-12-31 07:11] LABS: PLATELET COUNT 59 10^3/uL (150-450)
[2018-12-31] MEDS ORDERED: POTASSIUM CHLORIDE 10 MEQ CAPSULE.ER PO ONE (07:24)
[2018-12-31] MEDS: IPRATROPIUM/ALBUTEROL 0.5-2.5 MG/3 ML AMPUL NEB SCH (08:01)
[2018-12-31] MEDS: SODIUM CHLORIDE NASAL SPRAY 44 ML NASL SCH ×2 (08:24→10:04)
[2018-12-31] MEDS: FONDAPARINUX SODIUM INJ 2.5 MG/0.5 ML DISP.SYRIN SUBCUT SCH (09:57)
[2018-12-31] MEDS ORDERED: LEVOFLOXACIN 750 MG/D5W RTU 750 MG/150 ML RTUPB IV SCH (10:00)
[2018-12-31] MEDS ORDERED: FLUTICASONE NASAL SPRAY 50 MCG/SPRY 120 SPRAY/16 GM NASL SCH (10:00)
[2018-12-31] MEDS: FOLIC ACID 1 MG TABLET PO SCH (10:02)
[2018-12-31] MEDS: DOCUSATE SODIUM 100 MG CAPSULE PO SCH (10:02)
[2018-12-31] MEDS: THIAMINE HCL 100 MG TABLET PO SCH (10:02)
[2018-12-31] MEDS: CIPROFLOXACIN HCL/DEXAMETH OTIC DROP 7.5 ML AU SCH (10:03)
[2018-12-31 10:08] VITALS: BP 134/91
--- NOTE | 2019-01-01 14:13 | PDOC DISCHARGE SUMMARY ---
Impression - Admit/DC Date/PCP Admission Date/Primary Care Provider: 12/30/18 00:[facility] Discharge Date: 12/31/18 - Discharge Diagnosis (1) Abnormal LFTs Is this a current diagnosis for this admission?: Yes (2) Acute sinusitis Is this a current diagnosis for this admission?: Yes (3) Alcohol abuse Is this a current diagnosis for this admission?: Yes (4) Alcoholic gastritis Is this a current diagnosis for this admission?: Yes (5) Chest pain Is this a current diagnosis for this admission?: Yes (6) Conjunctivitis Is this a current diagnosis for this admission?: Yes - Additional Information Resuscitation Status: Full Code Discharge Diet: As Tolerated, Cardiac Discharge Activity: Activity As Tolerated, Balance Activity w/Rest, Slowly Increase Activity, Weigh Daily Referrals: CLINIC,MD [Primary Care Provider] - 01/08/19 8:30 am Home Medications: Metoprolol Tartrate [Lopressor 50 mg Tablet] 75 mg PO Q12 01/15/18 Thiamine HCl [Thiamine 100 mg Tablet] 100 mg PO DAILY tablet 01/16/18 Magnesium Oxide [Magnesium] 500 mg PO Q12 05/14/18 Naltrexone 50 Mg 50 mg PO DAILY 05/14/18 Trazodone HCl [Desyrel] 100 mg PO QHS 05/14/18 Diclofenac Sodium [Voltaren] 4 gm TP QID 12/31/18 Folic Acid [Folvite 1 mg Tablet] 1 mg PO DAILY 12/31/18 Lidocaine 1 applic TP BID 12/31/18 History of Present Illiness History of Present Illness: H&P by Dr. Rodriguez: WOODROW JERNIGAN is a 58 year old male with a past medical history of coronary artery disease status post coronary artery bypass graft, 13 stents, hypertension, dyslipidemia, chronic sinusitis and binge alcohol abuse. He presents with a 4-day binge of alcohol resulting in abdominal pain nausea vomiting without blood, unable to tolerate food or medication he develops chest pain that prompted him to seek evaluation emergency room. EMS discovered his blood pressure in the 200 systolic range and administered nitroglycerin resulting in instant relief of chest pain. In the emergency room he is found to have conjunctivitis, sinusitis, abdominal pain, hyperbilirubinemia and mild pancreatitis. He receives symptomatic management and referred to the hospitalist for admission. Patient does admit history of DTs and failure of inpatient alcohol rehab x3. Hospital Course Hospital Course: The patient was admitted to [facility] on continuous cardiac telemetry. He was provided as needed benzodiazepines for management of alcohol withdrawal. He was supported with IV fluids, electrolyte replacement as needed. And antibiotics as needed. His symptoms rapidly resolved and was tolerating a regular diet without difficulty. Patient reports that he believes his chest pain related to his indigestion/nausea/vomiting; he has had no further episodes of chest discomfort. He remained in sinus rhythm without concerning Rhythm changes throughout his admission. His LFT abnormalities have resolved. Serial troponins were negative x3. The patient is discharged home, in stable condition. He is provided prescription for Flonase, Ciprodex eyedrops to continue x7 days, folic acid and thiamine supplementation, and Valium 2 mg every 6 hours as needed for withdrawal symptoms. He is instructed to drink plenty of water and eat as tolerated. He is advised to he is instructed not to drink alcohol. 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 He is further instructed to return to the emergency department immediately for any concerning symptoms. Physical Exam Vital Signs: Temp Pulse Resp BP Pulse Ox 97.9 F 80 18 134/91 H 95 12/31/18 10:07 12/31/18 10:07 12/31/18 10:07 12/31/18 10:07 12/31/18 10:07 Intake & Output 12/31/18 01/01/19 01/02/19 06:59 06:59 06:59 Intake Total 4392 Output Total 0 Balance 4392 Weight 119.5 kg General appearance: PRESENT: no acute distress, cooperative, obese, well- developed, well-nourished Head exam: PRESENT: atraumatic, normocephalic Eye exam: PRESENT: conjunctiva pink, EOMI, PERRLA. ABSENT: scleral icterus Ear exam: PRESENT: normal external ear exam Mouth exam: PRESENT: moist, tongue midline Neck exam: ABSENT: carotid bruit, JVD, lymphadenopathy, thyromegaly Respiratory exam: PRESENT: clear to auscultation sebas, symmetrical, unlabored. ABSENT: rales, rhonchi, wheezes Cardiovascular exam: PRESENT: RRR, +S1, +S2. ABSENT: diastolic murmur, rubs, systolic murmur Pulses: PRESENT: normal dorsalis pedis pul Vascular exam: PRESENT: normal capillary refill GI/Abdominal exam: PRESENT: normal bowel sounds, soft. ABSENT: distended, guarding, mass, organolmegaly, rebound, tenderness Rectal exam: PRESENT: deferred Extremities exam: PRESENT: full ROM. ABSENT: calf tenderness, clubbing, pedal edema Neurological exam: PRESENT: alert, awake, oriented to person, oriented to place, oriented to time, oriented to situation, CN II-XII grossly intact. ABSENT: motor sensory deficit Psychiatric exam: PRESENT: appropriate affect, normal mood. ABSENT: homicidal ideation, suicidal ideation Skin exam: PRESENT: dry, intact, warm. ABSENT: cyanosis, rash Results Laboratory Results: WBC 5.6 10^3/uL (4.0-10.5) 12/31/18 05:49 RBC 4.22 10^6/uL (4.35-5.55) L 12/31/18 05:49 Hgb 13.7 g/dL (13.5-17.0) D 12/31/18 05:49 Hct 39.6 % (37.9-51.0) 12/31/18 05:49 MCV 94 fl (80-97) 12/31/18 05:49 MCH 32.6 pg (27.0-33.4) 12/31/18 05:49 MCHC 34.7 g/dL (32.0-36.0) 12/31/18 05:49 RDW 13.9 % (11.5-14.0) 12/31/18 05:49 Plt Count 59 10^3/uL (150-450) L 12/31/18 05:49 Lymph % (Auto) 16.9 % (13-45) 12/31/18 05:49 Blaine % (Auto) 5.4 % (3-13) 12/31/18 05:49 Eos % (Auto) 1.0 % (0-6) 12/31/18 05:49 Baso % (Auto) 0.4 % (0-2) 12/31/18 05:49 Absolute Neuts (auto) 4.3 10^3/uL (1.7-8.2) 12/31/18 05:49 Absolute Lymphs (auto) 0.9 10^3/uL (0.5-4.7) 12/31/18 05:49 Absolute Monos (auto) 0.3 10^3/uL (0.1-1.4) 12/31/18 05:49 Absolute Eos (auto) 0.1 10^3/uL (0.0-0.6) 12/31/18 05:49 Absolute Basos (auto) 0.0 10^3/uL (0.0-0.2) 12/31/18 05:49 Seg Neutrophils % 76.3 % (42-78) 12/31/18 05:49 Sodium 134.9 mmol/L (137-145) L 12/31/18 05:49 Potassium 3.1 mmol/L (3.6-5.0) L 12/31/18 05:49 Chloride 96 mmol/L (98-107) L 12/31/18 05:49 Carbon Dioxide 33 mmol/L (22-30) H 12/31/18 05:49 Anion Gap 6 (5-19) 12/31/18 05:49 BUN 15 mg/dL (7-20) 12/31/18 05:49 Creatinine 0.83 mg/dL (0.52-1.25) 12/31/18 05:49 Est GFR ( Amer) > 60 (>60) 12/31/18 05:49 Est GFR (MDRD) Non-Af > 60 (>60) 12/31/18 05:49 Glucose 134 mg/dL (75-110) H 12/31/18 05:49 Calcium 7.8 mg/dL (8.4-10.2) L 12/31/18 05:49 Magnesium 1.9 mg/dL (1.6-2.3) 12/31/18 05:49 Total Bilirubin 1.3 mg/dL (0.2-1.3) 12/31/18 05:49 Direct Bilirubin 0.4 mg/dL (0.0-0.4) 12/31/18 05:49 Neonat Total Bilirubin Not Reportable 12/31/18 05:49 Neonat Direct Bilirubin Not Reportable 12/31/18 05:49 Neonat Indirect Bili Not Reportable 12/31/18 05:49 AST 42 U/L (17-59) 12/31/18 05:49 ALT 22 U/L (<50) 12/31/18 05:49 Alkaline Phosphatase 73 U/L (38-126) 12/31/18 05:49 Creatine Kinase 221 U/L (55-170) H 12/30/18 02:45 CK-MB (CK-2) 2.30 ng/mL (<4.55) 12/30/18 02:45 Troponin I < 0.012 ng/mL 12/30/18 02:45 Total Protein 5.4 g/dL (6.3-8.2) L 12/31/18 05:49 Albumin 3.4 g/dL (3.5-5.0) L 12/31/18 05:49 Lipase 632.4 U/L (23-300) H 12/29/18 17:04 12/29/18 12/29/18 12/30/18 17:04 20:41 02:45 CK-MB (CK-2) 2.49 2.30 Troponin I 0.016 < 0.012 < 0.012 Impressions: Chest X-Ray 12/29/18 18:02 IMPRESSION: Evidence of a veiled opacity in the left paramediastinal region. CT could be useful for further evaluation. Chest CT 12/29/18 18:49 IMPRESSION: No acute findings within the chest. The findings seen on the recent chest radiograph corresponds to prominent mediastinal fat. Mild inflammatory stranding located adjacent to the pancreatic tail, suspicious for acute pancreatitis. Correlation with lipase levels. 6.0 mm solid pulmonary nodule. Recommend a non-contrast Chest CT at 6-12 months, then consider an additional non-contrast Chest CT at 18-24 months. These guidelines do not apply to immunocompromised patients and patients with cancer. Follow up in patients with significant comorbidities as clinically warranted. For lung cancer screening, adhere to Lung-RADS guidelines. Reference: Radiology. 2017; 284(1):228-43. Hepatic steatosis. TECHNICAL DOCUMENTATION: Quality ID # 436: Final reports with documentation of one or more dose reduction techniques (e.g., Automated exposure control, adjustment of the mA and/or kV according to patient size, use of iterative reconstruction technique) copyright 2011 [employer]- All Rights Reserved Plan Goals: Patient is discharged home in stable condition. He is advised to follow-up with his primary care provider within 1 week. The patient establish with a wood gang sawyer in [place]; he is instructed to contact the on Monday, notify them of his admission, and follow-up as instructed. Drink plenty of water. Do not drink alcohol. Eat as tolerated. Return to the emergency department as needed for concerning symptoms. Stroke Is this a Stroke Patient?: No Acute Heart Failure - Is this a Heart Failure Patient?: No
== END 2018-12-31 10:45 | disposition home or self-care (01) | DRG 392 ==
LOC: ER 16:46 → EH 12-30 00:53 → 3W 12-30 02:15
PROVIDERS: ADMIT Internal Medicine; ATTEND Internal Medicine
DX: K29.20 Alcoholic gastritis without bleeding (principal); I25.10 Atherosclerotic heart disease of native coronary artery without angina pectoris; F10.20 Alcohol dependence, uncomplicated; I10 Essential (primary) hypertension; E78.5 Hyperlipidemia, unspecified; H10.9 Unspecified conjunctivitis; J01.90 Acute sinusitis, unspecified; J32.9 Chronic sinusitis, unspecified; R94.5 Abnormal results of liver function studies; Z79.02 Long term (current) use of antithrombotics/antiplatelets; K21.9 Gastro-esophageal reflux disease without esophagitis; F32.9 Major depressive disorder, single episode, unspecified; Z95.1 Presence of aortocoronary bypass graft; Z95.5 Presence of coronary angioplasty implant and graft; I25.2 Old myocardial infarction; Z87.891 Personal history of nicotine dependence; Z82.49 Family history of ischemic heart disease and other diseases of the circulatory system
CPT/HCPCS: 36415; 71045; 71260; 80053; 82550; 82553; 83690; 83735; 84484; 85025; 93005; 93010; 96361; 96365; 99285; J1652; J1956; J2060; J3475; J3490; J7030; J7120; J7620; S0164

== ENCOUNTER 2019-05-15 13:07 | Inpatient (IN) | payer OTHER ==
--- NOTE | 2019-05-15 13:45 | RADIOLOGY REPORT (SQ) ---
EXAM DESCRIPTION: CHEST SINGLE VIEW COMPLETED DATE/TIME: 05/15/2019 1:33 pm REASON FOR STUDY: bed 19 sepsis protocol COMPARISON: 12/29/2018 EXAM PARAMETERS: NUMBER OF VIEWS: One view. TECHNIQUE: Single frontal radiographic view of the chest acquired. RADIATION DOSE: NA LIMITATIONS: None. FINDINGS: LUNGS AND PLEURA: No opacities, masses or pneumothorax. No pleural effusion. MEDIASTINUM AND HILAR STRUCTURES: No discrete masses. Stable widening of the paratracheal stripe, li prateek vascular. HEART AND VASCULAR STRUCTURES: Stable. Aortic atherosclerosis. BONES: No acute findings. HARDWARE: None in the chest. OTHER: No other significant finding. IMPRESSION: No evidence of focal airspace disease or other acute cardiopulmonary process. TECHNICAL DOCUMENTATION: JOB ID: [id number] 2010 [employer]- All Rights Reserved Reading location - IP/workstation name: [email or web address]
[2019-05-15 13:46] LABS: ABSOLUTE BASOPHILS # (AUTO) 0.1 10^3/uL (0.0-0.2); ABSOLUTE LYMPHOCYTES (AUTO) 1.2 10^3/uL (0.5-4.7); ABSOLUTE MONOCYTES (AUTO) 0.7 10^3/uL (0.1-1.4); ABSOLUTE NEUT (AUTO) 11.4 10^3/uL (1.7-8.2); BASOPHILS % (AUTO) 0.4 % (0-2); EOSINOPHILS % (AUTO) 0.2 % (0-6); HEMATOCRIT 53.6 % (37.9-51.0); LYMPHOCYTES % (AUTO) 8.8 % (13-45); MEAN CORPUSCULAR HEMOGLOBIN 32.9 pg (27.0-33.4); MEAN CORPUSCULAR HGB CONC 35.5 g/dL (32.0-36.0); MEAN CORPUSCULAR VOLUME 93 fl (80-97); MONOCYTES % (AUTO) 5.2 % (3-13); PLATELET COUNT 236 10^3/uL (150-450); RED BLOOD COUNT 5.77 10^6/uL (4.35-5.55); RED CELL DISTRIBUTION WIDTH 15.9 % (11.5-14.0); SEGMENTED NEUTROPHILS % (AUTO) 85.4 % (42-78); TOTAL CELLS COUNTED % (AUTO) 100 %; WHITE BLOOD COUNT 13.3 10^3/uL (4.0-10.5)
[2019-05-15 13:51] LABS: VENOUS BLOOD BASE EXCESS -1.7 mmol/L; VENOUS BLOOD HCO3 21.2 mmol/L (20-32); VENOUS BLOOD PCO2 32.6 mmHg (35-63); VENOUS BLOOD PH 7.43 (7.30-7.42)
[2019-05-15 13:56] LABS: INTERNATIONAL RATION (INR) 1.01; PROTHROMBIN TIME 13.3 SEC (11.4-15.4)
[2019-05-15 14:10] LABS: ALBUMIN 4.6 g/dL (3.5-5.0); ALKALINE PHOSPHATASE 86 U/L (38-126); ASPARTATE AMINO TRANSFERASE 55 U/L (17-59); BILIRUBIN,DIRECT 1.2 mg/dL (0.0-0.4); BILIRUBIN,TOTAL 3.1 mg/dL (0.2-1.3); BLOOD UREA NITROGEN 31 mg/dL (7-20); CALCIUM 8.3 mg/dL (8.4-10.2); CARBON DIOXIDE 20 mmol/L (22-30); GLUCOSE 227 mg/dL (75-110); POTASSIUM 3.2 mmol/L (3.6-5.0); TOTAL PROTEIN 7.4 g/dL (6.3-8.2)
--- NOTE | 2019-05-15 14:13 | EKG REPORT ---
SEVERITY:- ABNORMAL ECG - SINUS TACHYCARDIA PROBABLE LEFT ATRIAL ABNORMALITY ST DEPRESSION, CONSIDER ISCHEMIA, ANT-LAT LDS PROLONGED QT INTERVAL : Confirmed by: Patel Woodall MD 15-May-2019 14:12:52
[2019-05-15 14:16] LABS: CHLORIDE 83 mmol/L (98-107)
[2019-05-15 14:18] LABS: ANION GAP 28 (5-19)
[2019-05-15] MEDS ORDERED: POTASSI CL 40 MEQ/NS 1L 1,000 ML IV ONE (14:30)
[2019-05-15] MEDS: NORMAL SALINE 1000 ML 1,000 ML IV PRN ×3 (14:30→20:53)
--- NOTE | 2019-05-15 14:30 | ER Document Report ---
ED General - General Chief Complaint: Low Blood Pressure Stated Complaint: POSSIBLE SEPSIS Time Seen by Provider: 05/15/19 14:10 TRAVEL OUTSIDE OF THE [place] IN LAST 30 DAYS: No - HPI Notes: Patient is a 58-year-old male with a history of alcohol dependence who presents to the emergency department for evaluation of nausea and vomiting. He states he had been recovered from his alcohol problem, started drinking alcohol again. He was drinking about a liter daily. About 2 weeks ago he stopped. For the last 9 days he has been vomiting. EMS was called today. They found him slumped over" unresponsive" with a systolic blood pressure in the 60s. He is given a liter of fluid in the field, heart rate improved somewhat and his blood pressure improved into the 90s. He became awake and alert. He states he vomits "everything he puts in his mouth." He is not keeping down his medications. He states his emesis is all been watery and clear. He states his abdominal muscles feel sore, but he denies any vita abdominal pain. No diarrhea, has not had a bowel movement in several days. He is passing gas. He states he is still urinating, but it is decreased. He states he is felt hot and cold chills, thinks he may have had a fever, but did not take an objective measurement. He denies any coughing, states when he is having these emesis episodes he is short of breath. - Related Data Allergies/Adverse Reactions: No Known Allergies Allergy (Verified 05/13/18 18:08) Home Medications: Patient simply tells me "I have a briefcase full of medications" he is unable to tell me what they are Past Medical History - General Information source: Patient - Social History Smoking Status: Former Smoker Frequency of alcohol use: Heavy Family History: CAD, COPD Patient has suicidal ideation: No Patient has homicidal ideation: No - Medical History Notes: Polycythemia - Past Medical History Cardiac Medical History: Reports: Hx Coronary Artery Disease, Hx Heart Attack, Hx Hypercholesterolemia, Hx Hypertension Renal/ Medical History: Denies: Hx Peritoneal Dialysis GI Medical History: Reports: Hx Gastroesophageal Reflux Disease. Denies: Hx Hiatal Hernia, Hx Ulcerative Colitis Psychiatric Medical History: Denies: Hx Depression Past Surgical History: Reports: Hx Cardiac Surgery - stents x13, bypass, Hx Coronary Artery Bypass Graft - Immunizations Hx Pneumococcal Vaccination: 04/03/14 Review of Systems - Review of Systems Constitutional: See HPI Cardiovascular: See HPI Gastrointestinal: See HPI -: Yes All other systems reviewed and negative Physical Exam - Vital signs Vitals: Temp Pulse Ox 99.5 F 95 05/15/19 13:11 05/15/19 13:11 - Notes Notes: This is a moderately disheveled 58-year-old male who appears his stated age in no acute distress. Vital signs reviewed, please refer to chart. Head is normocephalic, atraumatic. Pupils equal round, reactive to light. Neck is supple without meningismus. Heart is regular rate and rhythm. Lungs are clear to auscultation bilaterally. Abdomen is soft, nontender, normoactive bowel s ounds throughout. Extremities without cyanosis, clubbing. Posterior calves are nontender. Peripheral pulses are equal. Skin is warm and dry. Patient is awake, alert, neurological exam is nonfocal. He has generalized weakness, but no focal findings. Course - Re-evaluation Re-evalutation: 05/15/19 14:29 Patient presents to the emergency department for evaluation. He is clearly dehydrated. His lactate in route was found to be over 9, his blood pressures were in the 60s. He was given a liter in route. I further covered him with 3 more liters of fluid here in the emergency department. His hemoglobin is found to be 19. His creatinine is found to be 5. I believe this is all secondary to volume depletion. He has an elevated white count, elevated heart rate, elevated lactate. He does meet criteria for sepsis. Cultures are pending, will treat the patient with ceftriaxone. I do strongly suspect, however, this is all secondary to alcohol withdrawal and volume depletion. Patient is feeling improved, we will contact medicine for admission. 05/15/19 15:57 I spoke with Larissa Chisholm about this patient. She was concerned that, given his creatinine, he may need dialyzed. She has had a Sparrow catheter be placed. She asked that if urine output was low we contact nephrology. Sparrow catheter was placed. He only produced approximately 25 cc of dark urine. At that point he had had about 2-1/2 L of IV fluids and. I spoke with Dr. Jay in regards to this patient. We discussed all of his labs, including prior creatinines, all of his electrolytes. She is in agreement that this is likely prerenal. She mcclain s not see any need for emergent dialysis at this time. She will see the patient in consult. Awaiting phone call again from Larissa Chisholm. 05/15/19 16:02 Patient accepted to medicine. Plan is to give report to Dr. Pacheco. - Vital Signs Vital signs: Temp Pulse Resp BP Pulse Ox 99.5 F 18 108/80 94 05/15/19 13:11 05/15/19 15:31 05/15/19 15:31 05/15/19 15:31 - Laboratory Result Diagrams: 05/15/19 13:20 05/15/19 13:20 Laboratory results interpreted by me: 05/15/19 05/15/19 05/15/19 13:00 13:20 13:20 WBC 13.3 H RBC 5.77 H Hgb 19.0 H Hct 53.6 H RDW 15.9 H Lymph % (Auto) 8.8 L Absolute Neuts (auto) 11.4 H Seg Neutrophils % 85.4 H VBG pH VBG pCO2 Sodium 131.3 L Potassium 3.2 L Chloride 83 L Carbon Dioxide 20 L Anion Gap 28 H BUN 31 H Creatinine 5.06 H Est GFR ( Amer) 14 L Est GFR (MDRD) Non-Af 12 L Glucose 227 H POC Glucose Lactic Acid Calcium 8.3 L Magnesium 0.6 L* Total Bilirubin 3.1 H Direct Bilirubin 1.2 H 05/15/19 05/15/19 05/15/19 13:20 13:20 14:05 WBC RBC Hgb Hct RDW Lymph % (Auto) Absolute Neuts (auto) Seg Neutrophils % VBG pH 7.43 H VBG pCO2 32.6 L Sodium Potassium Chloride Carbon Dioxide Anion Gap BUN Creatinine Est GFR ( Amer) Est GFR (MDRD) Non-Af Glucose POC Glucose 207 H Lactic Acid 5.3 H Calcium Magnesium Total Bilirubin Direct Bilirubin - Diagnostic Test Radiology reviewed: Reports reviewed Radiology results interpreted by me: 05/15/19 14:32 Chest X-Ray 05/15/19 13:11 IMPRESSION: No evidence of focal airspace disease or other acute card iopulmonary process. - EKG Interpretation by Me Additional EKG results interpreted by me: 05/15/19 14:32 Sinus tachycardia with rate of 109 bpm. Normal axis. Prolonged QT interval. ST depression in the anterolateral leads concerning for ischemia, a change from prior study. Discharge - Discharge Clinical Impression: Hypokalemia, Hypomagnesemia, GABINO (acute kidney injury) Hypotension Qualifiers: Hypotension type: other hypotension type Qualified Code(s): I95.89 - Other hypotension Alcohol withdrawal Qualifiers: Complication of substance-induced condition: with unspecified complication Qualified Code(s): F10.239 - Alcohol dependence with withdrawal, unspecified Nausea and vomiting Qualifiers: Vomiting Intractability: intractable Sepsis Qualifiers: Sepsis acute organ dysfunction status: unspecified Condition: Stable Disposition: ADMITTED INPATIENT Admitting Provider: Dr. Pacheco Unit Admitted: Telemetry
[2019-05-15] MEDS ORDERED: CEFTRIAXONE 1 GM/D5W RTU 1 GM/50 ML RTUPB IV ONE (14:31)
[2019-05-15] MEDS ORDERED: ONDANSETRON HCL INJ/PF 4 MG/2 ML SDV IV ONE (14:31)
[2019-05-15] MEDS ORDERED: LORAZEPAM INJ 2 MG/1 ML VIAL IV ONE (14:33)
[2019-05-15] MEDS ORDERED: NORMAL SALINE 1000 ML 1,000 ML IV ONE (14:44)
[2019-05-15] MEDS: MAGNESIUM SULFATE/D5W 1 GM/100 ML RTUPB IV SCH ×3 (15:51→20:53)
[2019-05-15 17:06] LABS: APPEARANCE,URINE CLOUDY; BILIRUBIN,URINE MODERATE (NEGATIVE); COLOR,URINE AMBER; GLUCOSE, URINE 50 mg/dL (NEGATIVE); KETONES,URINE TRACE mg/dL (NEGATIVE); LEUKOCYTE ESTERASE,URINE NEGATIVE (NEGATIVE); NITRITE,URINE NEGATIVE (NEGATIVE); PROTEIN,URINE 100 mg/dL (NEGATIVE); URINE SPECIFIC GRAVITY 1.025
[2019-05-15] MEDS ORDERED: PROMETHAZINE HCL INJ 25 MG/1 ML VIAL IV PRN (17:27)
[2019-05-15] MEDS ORDERED: MAG HYDROX/AL HYDROX/SIMETH SUSP 30 ML UDCUP PO PRN (17:27)
[2019-05-15] MEDS ORDERED: ONDANSETRON HCL INJ/PF 4 MG/2 ML SDV IV PRN (17:27)
[2019-05-15] MEDS ORDERED: MAGNESIUM SULFATE/D5W 1 GM/100 ML RTUPB IV ONE ×2 (17:31→20:51)
[2019-05-15] MEDS ORDERED: GLUCAGON,HUMAN RECOMB 1 MG INJ IM PRN (17:32)
[2019-05-15] MEDS ORDERED: DEXTROSE 50%-WATER 25 GM/50 ML DISP.SYRIN IV PRN ×2 (17:32)
[2019-05-15] MEDS ORDERED: DEXTROSE 40% GEL 15 GM TUBE PO PRN ×2 (17:32)
--- NOTE | 2019-05-15 18:41 | PDOC H&P ---
History of Present Illness Admission Date/PCP: 05/15/19 16:21 [facility] Patient complains of: Vomiting, nausea History of Present Illness: WOODROW JERNIGAN is a 58 year old male with a history of CAD and reports history of CABG and 13 stents in the heart, hypertension, dyslipidemia, alcohol abuse, who presents to the hospital with complaint of nausea & vomiting and dizziness. Patient reports that he drinks alcohol very frequently but has not had a drink since about 2 weeks ago. Since then he has been experiencing episodes of nausea vomiting several times and has been unable to hold down any food. After several days of the nausea and vomiting, he started to develop some abdominal tenderness from the vomiting. This morning patient felt very dizzy and diaphoretic subsequently called EMS. When the EMS arrived patient was noted to be incoherent and lethargic and her blood pressure at that time was in the 60s systolic. Patient was brought to the ER and given some fluids. At the time of interview patient is coherent and fully awake and oriented. Patient denies any chest pain or shortness of breath at the moment. Patient does state that he was making urine. Denies any cough, urinary symptoms, diarrhea or wounds. Patient does admit to alcohol withdrawal in the past but typically happens about 2 to 3 days of alcohol and characterized by tremors, nausea vomiting and sweats. Past Medical History Cardiac Medical History: Reports: Coronary Artery Disease, Myocardial Infarction, Hyperlipidema, Hypertension GI Medical History: Reports: Gastroesophageal Reflux Disease Denies: Hiatal Hernia, Ulcerative Colitis Psychiatric Medical History: Denies: Depression Hematology: Reports: Anemia - gout Past Surgical History Past Surgical History: Reports: Coronary Artery Bypass Graft Social History Information Source: Patient Smoking Status: Former Smoker Frequency of Alcohol Use: Heavy Hx Recreational Drug Use: No Drugs: None Hx Prescription Drug Abuse: No - Advance Directive Resuscitation Status: Full Code Family History Family History: CAD, COPD, Other - Congestive heart failure Parental Family History Reviewed: Yes Children Family History Reviewed: NA Sibling(s) Family History Reviewed.: Yes Medication/Allergy Allergies/Adverse Reactions: No Known Allergies Allergy (Verified 05/13/18 18:08) Review of Systems Constitutional: PRESENT: chills, fatigue Eyes: ABSENT: visual disturbances Nose, Mouth, and Throat: ABSENT: headache(s) - None at the moment Cardiovascular: ABSENT: chest pain Respiratory: ABSENT: cough, dyspnea Gastrointestinal: PRESENT: abdominal pain, nausea, vomiting. ABSENT: diarrhea Genitourinary: ABSENT: dysuria Integumentary: PRESENT: diaphoresis Neurological: PRESENT: dizziness Psychiatric: ABSENT: anxiety Endocrine: ABSENT: polyuria Physical Exam Vital Signs: Temp Pulse Resp BP Pulse Ox 98.2 F 22 H 110/75 91 L 05/15/19 17:31 05/15/19 17:31 05/15/19 17:31 05/15/19 17:31 Intake & Output 05/14/19 05/15/19 05/16/19 06:59 06:59 06:59 Intake Total 3150 Balance 3150 Weight 113 kg General appearance: PRESENT: no acute distress, cooperative Head exam: PRESENT: normocephalic Eye exam: PRESENT: EOMI Mouth exam: PRESENT: neck supple Neck exam: ABSENT: JVD Respiratory exam: PRESENT: clear to auscultation sebas, unlabored. ABSENT: tachypnea, wheezes Cardiovascular exam: PRESENT: RRR, +S1, +S2. ABSENT: tachycardia GI/Abdominal exam: PRESENT: soft, tenderness. ABSENT: distended, firm, gua rding, rebound, rigid Gentrourinary exam: PRESENT: indwelling catheter - Only about 20 cc in the Sparrow bag. About 25 to 30 cc was sent for urinalysis earlier Extremities exam: ABSENT: pedal edema Neurological exam: PRESENT: alert, awake, oriented to person, oriented to place, oriented to time, oriented to situation, other - Non-tremulous Psychiatric exam: ABSENT: agitated, anxious Focused psych exam: ABSENT: pressured speech Skin exam: PRESENT: other - Flushed damp skin. ABSENT: jaundice Results Laboratory Results: 05/15/19 13:20 05/15/19 13:20 05/15/19 05/15/19 05/15/19 13:00 13:00 13:20 WBC 13.3 H RBC 5.77 H Hgb 19.0 H Hct 53.6 H MCV 93 MCH 32.9 MCHC 35.5 RDW 15.9 H Plt Count 236 Seg Neutrophils % 85.4 H VBG pH VBG pCO2 VBG HCO3 VBG Base Excess Sodium Potassium Chloride Carbon Dioxide Anion Gap BUN Creatinine Est GFR ( Amer) Glucose Lactic Acid Calcium Magnesium 0.6 L* Total Bilirubin AST Alkaline Phosphatase Total Protein Albumin Lipase 72.5 Urine Color Urine Appearance Urine pH Ur Specific [place] Urine Protein Urine Glucose (UA) Urine Ketones Urine Blood Urine Nitrite Ur Leukocyte Esterase Urine WBC (Auto) Urine RBC (Auto) 05/15/19 05/15/19 05/15/19 13:20 13:20 13:20 WBC RBC Hgb Hct MCV MCH MCHC RDW Plt Count Seg Neutrophils % VBG pH 7.43 H VBG pCO2 32.6 L VBG HCO3 21.2 VBG Base Excess -1.7 Sodium 131.3 L Potassium 3.2 L Chloride 83 L Carbon Dioxide 20 L Anion Gap 28 H BUN 31 H Creatinine 5.06 H Est GFR ( Amer) 14 L Glucose 227 H Lactic Acid 5.3 H Calcium 8.3 L Magnesium Total Bilirubin 3.1 H AST 55 Alkaline Phosphatase 86 Total Protein 7.4 Albumin 4.6 Lipase Urine Color Urine Appearance Urine pH Ur Specific [place] Urine Protein Urine Glucose (UA) Urine Ketones Urine Blood Urine Nitrite Ur Leukocyte Esterase Urine WBC (Auto) Urine RBC (Auto) 05/15/19 05/15/19 15:52 16:18 WBC RBC Hgb Hct MCV MCH MCHC RDW Plt Count Seg Neutrophils % VBG pH VBG pCO2 VBG HCO3 VBG Base Excess Sodium Potassium Chloride Carbon Dioxide Anion Gap BUN Creatinine Est GFR ( Amer) Glucose Lactic Acid 3.1 H Calcium Magnesium Total Bilirubin AST Alkaline Phosphatase Total Protein Albumin Lipase Urine Color BECKY Urine Appearance CLOUDY Urine pH 5.0 Ur Specific [place] 1.025 Urine Protein 100 H Urine Glucose (UA) 50 H Urine Ketones TRACE H Urine Blood SMALL H Urine Nitrite NEGATIVE Ur Leukocyte Esterase NEGATIVE Urine WBC (Auto) 7 Urine RBC (Auto) 4 05/15/19 13:00 Troponin I 0.024 Impressions: Chest X-Ray 05/15/19 13:11 IMPRESSION: No evidence of focal airspace disease or other acute cardiopulmonary process. Assessment and Plan - Diagnosis (1) ARF (acute renal failure) Qualifiers: Acute renal failure type: unspecified Qualified Code(s): N17.9 - Acute kidney failure, unspecified Is this a current diagnosis for this admission?: Yes Plan: I suspect this is likely secondary to prerenal GABINO or ATN secondary to hypotension from intravascular depletion Patient's baseline is 1 creatinine We will give IV fluids and monitor strict I's and O's. Sparrow catheter placed but patient has only put out about 50 cc of urine despite receiving 3 L so far this is a worrisome sign. Continue to trend BMP. Nephrology consulted (2) Hypotension Qualifiers: Hypotension type: other hypotension type Qualified Code(s): I95.89 - Other hypotension Is this a current diagnosis for this admission?: Yes Plan: Significant hypotension secondary to intravascular disposition from intractable nausea vomiting Patient has received 3 L of fluids. I will place on continuous IV fluids at 140 cc/h BP has normalized at this time (3) Nausea and vomiting Qualifiers: Vomiting type: unspecified Vomiting Intractability: intractable Qualified Code(s): R11.2 - Nausea with vomiting, unspecified Is this a current diagnosis for this admission?: Yes Plan: This is likely secondary to alcoholic gastritis from patient's excessive drinking but now may have also been complicated by patient's uremia I will place on Protonix IV twice daily, Zofran and Phenergan Trial of full liquid diet (4) Leukocytosis Qualifiers: Leukocytosis type: unspecified Qualified Code(s): D72.829 - Elevated white blood cell count, unspecified Is this a current diagnosis for this admission?: Yes Plan: This is likely secondary to hemoconcentration. Will monitor response with IV hydration. No current evidence of infection as he denies any urinary symptoms, fevers, diarrhea, headaches and chest x-ray is clear.patient did receive a dose of ceftriaxone in the ER empirically. (5) Hypomagnesemia Is this a current diagnosis for this admission?: Yes Plan: Secondary to nausea and vomiting. Aggressive repletion with 4 g of magnesium sulfate. Recheck magnesium in the morning (6) Alcohol abuse Is this a current diagnosis for this admission?: Yes Plan: Reports the last drink was 2 weeks ago. Check alcohol level. Patient should be out of withdrawal phase by now and likely alcohol withdrawal is not accounting for any of his symptoms. However I will check CIWA every 6 hours for 1 day. Thiamine folic acid and multivitamins. (7) High anion gap metabolic acidosis Is this a current diagnosis for this admission?: Yes Plan: Patient does seem to have a mixed metabolic alkalosis with metabolic acidosis with high anion gap yet pH of 7.43 This is secondary to high anion gap from acute renal failure, minimal ketosis and compounded by alkalosis from intractable vomiting We will monitor response with IV fluids and hopefully improvement of renal function (8) Hyperglycemia Is this a current diagnosis for this admission?: Yes Plan: Blood sugars in the 200s. Patient denies any history of diabetes. Will check hemoglobin A1c. Put patient on Accu-Cheks and sliding scale insulin coverage for now. - Time Time Spent with patient: 35 or more minutes
[2019-05-15] MEDS ORDERED: THIAMINE HCL 100 MG, FOLIC ACID 1 MG in NORMAL SALINE 250 ML IV ONE (20:00)
[2019-05-15] MEDS: TEMAZEPAM 7.5 MG CAPSULE PO PRN ×2 (22:00→22:12)
[2019-05-15] MEDS: MULTIVITAMIN TABLET PO SCH (22:12)
[2019-05-15] MEDS: PANTOPRAZOLE SODIUM 40 MG VIAL IV SCH (22:12)
[2019-05-15] MEDS: HEPARIN SOD (PORCINE) 5,000 UNIT/ML 1 ML VIAL SUBCUT SCH (22:12)
[2019-05-15] MEDS: INSULIN LISPRO 100 UNIT/ML 3 ML VIAL SUBCUT SCH (22:16)
[2019-05-16 05:33] LABS: URINE CREATININE 444.9 mg/dL (22-328)
[2019-05-16 05:45] LABS: ABSOLUTE EOSINOPHILS # (AUTO) 0.1 10^3/uL (0.0-0.6); ABSOLUTE LYMPHOCYTES (AUTO) 1.2 10^3/uL (0.5-4.7); ABSOLUTE MONOCYTES (AUTO) 0.5 10^3/uL (0.1-1.4); ABSOLUTE NEUT (AUTO) 5.9 10^3/uL (1.7-8.2); BASOPHILS % (AUTO) 0.5 % (0-2); EOSINOPHILS % (AUTO) 1.2 % (0-6); HEMATOCRIT 40.5 % (37.9-51.0); LYMPHOCYTES % (AUTO) 15.7 % (13-45); MEAN CORPUSCULAR HEMOGLOBIN 32.8 pg (27.0-33.4); MEAN CORPUSCULAR HGB CONC 35.1 g/dL (32.0-36.0); MEAN CORPUSCULAR VOLUME 93 fl (80-97); PLATELET COUNT 117 10^3/uL (150-450); RED BLOOD COUNT 4.34 10^6/uL (4.35-5.55); RED CELL DISTRIBUTION WIDTH 15.6 % (11.5-14.0); SEGMENTED NEUTROPHILS % (AUTO) 76.6 % (42-78); TOTAL CELLS COUNTED % (AUTO) 100 %; WHITE BLOOD COUNT 7.6 10^3/uL (4.0-10.5)
[2019-05-16 05:48] LABS: HEMOGLOBIN 14.2 g/dL (13.5-17.0)
[2019-05-16 05:53] LABS: INTERNATIONAL RATION (INR) 0.97; PARTIAL THROMBOPLASTIN TIME 25.6 SEC (23.5-35.8); PROTHROMBIN TIME 12.9 SEC (11.4-15.4)
[2019-05-16] MEDS: HEPARIN SOD (PORCINE) 5,000 UNIT/ML 1 ML VIAL SUBCUT SCH ×3 (06:05→21:15)
[2019-05-16 06:12] LABS: ALKALINE PHOSPHATASE 61 U/L (38-126); ANION GAP 12 (5-19); ASPARTATE AMINO TRANSFERASE 32 U/L (17-59); BILIRUBIN,DIRECT 0.6 mg/dL (0.0-0.4); BILIRUBIN,TOTAL 1.1 mg/dL (0.2-1.3); BLOOD UREA NITROGEN 36 mg/dL (7-20); CARBON DIOXIDE 23 mmol/L (22-30); CHLORIDE 98 mmol/L (98-107); GLUCOSE 113 mg/dL (75-110); PHOSPHORUS 3.6 mg/dL (2.5-4.5); TOTAL PROTEIN 5.4 g/dL (6.3-8.2)
[2019-05-16 06:21] LABS: CALCIUM 6.7 mg/dL (8.4-10.2)
[2019-05-16] MEDS ORDERED: POTASSIUM CHLORIDE 10 MEQ TABLET.ER PO ONE (06:44)
[2019-05-16] MEDS: POTASSI CL 20 MEQ/50 ML RIDER 20 MEQ/50 ML RTUPB IV SCH ×2 (07:01→09:47)
[2019-05-16] MEDS: NORMAL SALINE 1000 ML 1,000 ML IV PRN ×3 (07:01→23:25)
[2019-05-16] MEDS ORDERED: CALCIUM GLUCONATE 1000 MG/10 ML INJ IV ONE (07:57)
[2019-05-16] MEDS: INSULIN LISPRO 100 UNIT/ML 3 ML VIAL SUBCUT SCH ×4 (09:24→22:46)
[2019-05-16] MEDS: MULTIVITAMIN TABLET PO SCH (09:46)
[2019-05-16] MEDS: PANTOPRAZOLE SODIUM 40 MG VIAL IV SCH ×2 (09:46→18:34)
[2019-05-16] MEDS: MAGNESIUM OXIDE 400 MG TABLET PO SCH ×2 (09:46→18:34)
[2019-05-16] MEDS: FOLIC ACID 1 MG TABLET PO SCH (09:46)
[2019-05-16] MEDS: THIAMINE HCL 100 MG TABLET PO SCH (09:46)
--- NOTE | 2019-05-16 11:40 | PDOC CONSULTATION ---
Consultation Consult Date: 05/16/19 Provider Consulted: JENNIFER PENG Consult reason:: GABINO History of Present Illness Admission Date/PCP: 05/15/19 16:[facility] History of Present Illness: WOODROW JERNIGAN is a 58 year old male with history of coronary artery disease status post 13 stent placements and CABG x1, hypertension, hyperlipidemia, previous alcohol abuse who presented with a 10-day history of nausea, vomiting, dizziness and headache. Patient said he was unable to tolerate anything orally including solids and fluids. He has his usual baseline shortness of breath in addition on exertion. He denies any note of decreasing urine output nor leg swelling. He denies any NSAID use nor previous kidney disease. When the EMS got him he was noted to be incoherent and lethargic. His systolic blood pressure was also in the 60s. He was immediately given IV fluids. In the emergency room he improved and was noted to be coherent, awake and oriented. Initial evaluation showed a low sodium of 131.3, low potassium of 3.2, bicarbonate low at 20, elevated BUN of 31, creatinine of 5.06, hemoglobin of 19 with WBC of 13.3. Review of records revealed that the patient's baseline creatinine is normal between 0.76-1.0 for the last few months. Patient was started to be given IV fluid hydration. He is +5451 mL due to the IV boluses. His urine output recorded was only 250 mL though. He was also given 1 dose of IV ceftriaxone. Today repeat labs showed a white count improved to 7.6 and hemoglobin of 14.2. His sodium is still low at 133 with low potassium of 3.0, low magnesium of 1.4 and low calcium corrected at 7.5. His kidney function significantly improved today with BUN of 36 and creatinine of 2.83. His initial urinalysis showed protein of 100, with small blood and no nitrite. His FENa 0.17%. His blood pressure this morning is improved to 90-100/56-87. Today he is eating some liquids. Past Medical History Cardiac Medical History: Reports: Coronary Artery Disease, Hyperlipidemia, Hypertension-primary, Myocardial Infarction GI Medical History: Reports: Gastroesophageal Reflux Disease Musculoskeltal Medical History: Reports: Gout Hematology Medical History: Reports Anemia Past Surgical History Past Surgical History: Reports: Coronary Artery Bypass Graft - X1, Coronary Stent - X13 Social History Information Source: Patient Lives with: Alone Smoking Status: Former Smoker Frequency of Alcohol Use: Heavy Hx Recreational Drug Use: No Drugs: None Hx Prescription Drug Abuse: No - Advance Directive Resuscitation Status: Full Code Family History Family History: CAD - Parents Family History: No kidney disease Parental Family History Reviewed: Yes Children Family History Reviewed: Yes Sibling(s) Family History Reviewed.: Yes Medication/Allergy Home Medications: Clopidogrel Bisulfate [Plavix 75 mg Tablet] 75 mg PO DAILY 05/16/19 Folic Acid [Folvite 1 mg Tablet] 1 mg PO DAILY 05/16/19 Lidocaine 4% Cream 1 applic TP BID 05/16/19 Magnesium Oxide 500 mg PO Q12 05/16/19 Metoprolol Tartrate 75 mg PO Q12 05/16/19 Naltrexone 100 mg PO DAILY 05/16/19 Thiamine HCl [Thiamine 100 mg Tablet] 100 mg PO DAILY 05/16/19 Trazodone HCl 100 mg PO QHS 05/16/19 Allergies/Adverse Reactions: No Known Allergies Allergy (Verified 05/13/18 18:08) Review of Systems All systems: reviewed and no additional remarkable complaints except as stated Review of Systems: Constitutional: ABSENT: chills, fatigue, fever(s), weight gain, weight loss; admits headache Eyes: ABSENT: visual disturbances Ears: ABSENT: hearing changes Cardiovascular: ABSENT: chest pain, edema, orthropnea, palpitations; admits dyspnea on exertion Respiratory: ABSENT: cough, hemoptysis Gastrointestinal: ABSENT: abdominal pain, constipation, diarrhea, hematemesis, hematochezia; admits nausea, vomiting Genitourinary: ABSENT: dysuria, hematuria Musculoskeletal: ABSENT: joint swelling Integumentary: ABSENT: rash, wounds Neurological: ABSENT: abnormal gait, abnormal speech, confusion, dizziness, focal weakness, numbness, syncope Psychiatric: ABSENT: anxiety, depression Endocrine: ABSENT: cold intolerance, heat intolerance, polydipsia, polyuria Hematologic/Lymphatic: ABSENT: easy bleeding, easy bruising, lymphadenopathy Physical Exam Vital Signs: Temp Pulse Resp BP Pulse Ox 98.3 F 81 16 101/71 94 05/16/19 07:39 05/16/19 07:39 05/16/19 07:39 05/16/19 07:39 05/16/19 07:39 Intake & Output 05/15/19 05/16/19 05/17/19 06:59 06:59 06:59 Intake Total 5701.2 50 Output Total 250 Balance 5451.2 50 Weight 118.8 kg Exam: General appearance: No acute distress, cooperative, well-developed, well- nourished Head exam: PRESENT: atraumatic, normocephalic Eye exam: PRESENT: Conjunctiva [place], EOMI, PERRLA. ABSENT: conjunctival injection, scleral icterus Mouth exam: PRESENT: moist, neck supple, tongue midline Neck exam: PRESENT: full ROM. ABSENT: carotid bruit, JVD, lymphadenopathy, thyromegaly Respiratory exam: PRESENT: clear to auscultation bilaterally. ABSENT: rales, rhonchi, stridor, wheezes Cardiovascular exam: PRESENT: RRR, +S1, +S2. ABSENT: systolic murmur Pulses: PRESENT: normal radial pulses, normal dorsalis pedis pulses GI/Abdominal exam: PRESENT: normal bowel sounds, soft. ABSENT: guarding, mass, tenderness Rectal exam: Deferred Extremities exam: PRESENT: full ROM. ABSENT: calf tenderness, pedal edema Musculoskeletal: PRESENT: full ROM. ABSENT: deformity Neurological exam: PRESENT: alert, Awake, Oriented to person, Oriented to place, Oriented to time, reflexes normal, CN II-XII grossly intact. ABSENT: motor sensory deficit Psychiatric exam: PRESENT: appropriate affect, normal mood. ABSENT: homicidal ideation, suicidal ideation Skin exam: PRESENT: intact, dry, warm. ABSENT: rash Results Laboratory Results: 05/16/19 05:24 05/16/19 05:24 05/15/19 05/15/19 05/15/19 13:00 13:00 13:20 WBC 13.3 H RBC 5.77 H Hgb 19.0 H Hct 53.6 H MCV 93 MCH 32.9 MCHC 35.5 RDW 15.9 H Plt Count 236 Seg Neutrophils % 85.4 H VBG pH VBG pCO2 VBG HCO3 VBG Base Excess Sodium Potassium Chloride Carbon Dioxide Anion Gap BUN Creatinine Est GFR ( Amer) Glucose Lactic Acid Calcium Phosphorus Magnesium 0.6 L* Total Bilirubin AST Alkaline Phosphatase Total Protein Albumin Lipase 72.5 PTH Intact Urine Color Urine Appearance Urine pH Ur Specific [place] Urine Protein Urine Glucose (UA) Urine Ketones Urine Blood Urine Nitrite Ur Leukocyte Esterase Urine WBC (Auto) Urine RBC (Auto) 05/15/19 05/15/19 05/15/19 13:20 13:20 13:20 WBC RBC Hgb Hct MCV MCH MCHC RDW Plt Count Seg Neutrophils % VBG pH 7.43 H VBG pCO2 32.6 L VBG HCO3 21.2 VBG Base Excess -1.7 Sodium 131.3 L Potassium 3.2 L Chloride 83 L Carbon Dioxide 20 L Anion Gap 28 H BUN 31 H Creatinine 5.06 H Est GFR ( Amer) 14 L Glucose 227 H Lactic Acid 5.3 H Calcium 8.3 L Phosphorus Magnesium Total Bilirubin 3.1 H AST 55 Alkaline Phosphatase 86 Total Protein 7.4 Albumin 4.6 Lipase PTH Intact Urine Color Urine Appearance Urine pH Ur Specific [place] Urine Protein Urine Glucose (UA) Urine Ketones Urine Blood Urine Nitrite Ur Leukocyte Esterase Urine WBC (Auto) Urine RBC (Auto) 05/15/19 05/15/19 05/15/19 15:52 16:18 19:17 WBC RBC Hgb Hct MCV MCH MCHC RDW Plt Count Seg Neutrophils % VBG pH VBG pCO2 VBG HCO3 VBG Base Excess Sodium Potassium Chloride Carbon Dioxide Anion Gap BUN Creatinine Est GFR ( Amer) Glucose Lactic Acid 3.1 H 1.7 Calcium Phosphorus Magnesium Total Bilirubin AST Alkaline Phosphatase Total Protein Albumin Lipase PTH Intact Urine Color BECKY Urine Appearance CLOUDY Urine pH 5.0 Ur Specific [place] 1.025 Urine Protein 100 H Urine Glucose (UA) 50 H Urine Ketones TRACE H Urine Blood SMALL H Urine Nitrite NEGATIVE Ur Leukocyte Esterase NEGATIVE Urine WBC (Auto) 7 Urine RBC (Auto) 4 05/16/19 05/16/19 05/16/19 05:24 05:24 05:24 WBC 7.6 RBC 4.34 L Hgb 14.2 D Hct 40.5 MCV 93 MCH 32.8 MCHC 35.1 RDW 15.6 H Plt Count 117 L Seg Neutrophils % 76.6 VBG pH VBG pCO2 VBG HCO3 VBG Base Excess Sodium 133.0 L Potassium 3.0 L* Chloride 98 Carbon Dioxide 23 Anion Gap 12 BUN 36 H Creatinine 2.83 H Est GFR ( Amer) 28 L Glucose 113 H Lactic Acid 0.7 Calcium 6.7 L* Phosphorus 3.6 Magnesium 1.4 L Total Bilirubin 1.1 AST 32 Alkaline Phosphatase 61 Total Protein 5.4 L Albumin 3.0 L Lipase PTH Intact Urine Color Urine Appearance Urine pH Ur Specific [place] Urine Protein Urine Glucose (UA) Urine Ketones Urine Blood Urine Nitrite Ur Leukocyte Esterase Urine WBC (Auto) Urine RBC (Auto) 05/16/19 10:13 WBC RBC Hgb Hct MCV MCH MCHC RDW Plt Count Seg Neutrophils % VBG pH VBG pCO2 VBG HCO3 VBG Base Excess Sodium Potassium Chloride Carbon Dioxide Anion Gap BUN Creatinine Est GFR ( Amer) Glucose Lactic Acid Calcium Phosphorus Magnesium Total Bilirubin AST Alkaline Phosphatase Total Protein Albumin Lipase PTH Intact 231.4 H Urine Color Urine Appearance Urine pH Ur Specific [place] Urine Protein Urine Glucose (UA) Urine Ketones Urine Blood Urine Nitrite Ur Leukocyte Esterase Urine WBC (Auto) Urine RBC (Auto) 05/15/19 05/16/19 13:00 05:24 Troponin I 0.024 NT-Pro-B Natriuret Pep 515 H Impressions: Chest X-Ray 05/15/19 13:11 IMPRESSION: No evidence of focal airspace disease or other acute cardiopulmonary process. Assessment & Plan - Diagnosis (1) GABINO (acute kidney injury) Is this a current diagnosis for this admission?: Yes Plan: Patient with associated relative hypotension and decreased urine output with fractional excretion of sodium of 0.17% consistent with acute prerenal azotemia secondary to severe dehydration due to GI complaints. Currently improved with aggressive IV fluid hydration. Continue current management. Patient does not need any acute renal replacement therapy. I anticipate improvement of his kidney function back to his normal baseline in the next 24 to 48 hours. (2) Dehydration Is this a current diagnosis for this admission?: Yes Plan: Continue IV fluid hydration. (3) Hypotension Qualifiers: Hypotension type: other hypotension type Qualified Code(s): I95.89 - Other hypotension Is this a current diagnosis for this admission?: Yes Plan: Improved with hydration. (4) Nausea and vomiting Qualifiers: Vomiting type: unspecified Vomiting Intractability: intractable Qualified Code(s): R11.2 - Nausea with vomiting, unspecified Is this a current diagnosis for this admission?: Yes Plan: Defer to primary service. (5) Hypokalemia Is this a current diagnosis for this admission?: Yes Plan: Secondary to nausea and vomiting. Potassium replacement is appropriate. (6) Hypomagnesemia Is this a current diagnosis for this admission?: Yes Plan: Again secondary to nausea and vomiting. Replace magnesium. (7) Hypocalcemia Is this a current diagnosis for this admission?: Yes Plan: Secondary to hypomagnesemia. Needs to correct magnesium and replace calcium as well. (8) High anion gap metabolic acidosis Is this a current diagnosis for this admission?: Yes Plan: Resolving. (9) Hyperglycemia Is this a current diagnosis for this admission?: Yes Plan: Improved. (10) Leukocytosis Qualifiers: Leukocytosis type: unspecified Qualified Code(s): D72.829 - Elevated white blood cell count, unspecified Is this a current diagnosis for this admission?: Yes Plan: Resolved. Associated polycythemia is also now normalized. - Notes Notes: Thank you very much for this consultation. - Time Time Spent: 50 to 70 Minutes
[2019-05-16] MEDS: CALCIUM GLUCONATE 1 GM/NS 50 ML RTU IV SCH ×3 (14:14→14:55)
--- NOTE | 2019-05-16 14:28 | PDOC PROGRESS REPORT ---
Subjective Progress Note for:: 05/16/19 Subjective:: Patient feels stable at this time. Denies any shortness of breath. Making urine Reason For Visit: RENAL FAILURE,HYPOTENSION Physical Exam Vital Signs: Temp Pulse Resp BP Pulse Ox 98.3 F 81 16 101/71 94 05/16/19 07:39 05/16/19 07:39 05/16/19 07:39 05/16/19 07:39 05/16/19 07:39 Intake & Output 05/15/19 05/16/19 05/17/19 06:59 06:59 06:59 Intake Total 5701.2 170 Output Total 250 325 Balance 5451.2 -155 Weight 118.8 kg General appearance: PRESENT: no acute distress Neck exam: ABSENT: JVD Respiratory exam: PRESENT: clear to auscultation sebas, unlabored. ABSENT: tachypnea, wheezes Cardiovascular exam: PRESENT: RRR. ABSENT: bradycardia, irregular rhythm, tachycardia GI/Abdominal exam: PRESENT: soft. ABSENT: rebound, rigid, tenderness Neurological exam: PRESENT: alert, awake Results Laboratory Results: 05/16/19 05:24 05/16/19 05:24 05/15/19 05/15/19 05/15/19 13:00 13:00 15:52 WBC RBC Hgb Hct MCV MCH MCHC RDW Plt Count Seg Neutrophils % Sodium Potassium Chloride Carbon Dioxide Anion Gap BUN Creatinine Est GFR ( Amer) Glucose Lactic Acid Calcium Phosphorus Magnesium 0.6 L* Total Bilirubin AST Alkaline Phosphatase Total Protein Albumin Lipase 72.5 PTH Intact Urine Color BECKY Urine Appearance CLOUDY Urine pH 5.0 Ur Specific [place] 1.025 Urine Protein 100 H Urine Glucose (UA) 50 H Urine Ketones TRACE H Urine Blood SMALL H Urine Nitrite NEGATIVE Ur Leukocyte Esterase NEGATIVE Urine WBC (Auto) 7 Urine RBC (Auto) 4 05/15/19 05/15/19 05/16/19 16:18 19:17 05:24 WBC 7.6 RBC 4.34 L Hgb 14.2 D Hct 40.5 MCV 93 MCH 32.8 MCHC 35.1 RDW 15.6 H Plt Count 117 L Seg Neutrophils % 76.6 Sodium Potassium Chloride Carbon Dioxide Anion Gap BUN Creatinine Est GFR ( Amer) Glucose Lactic Acid 3.1 H 1.7 Calcium Phosphorus Magnesium Total Bilirubin AST Alkaline Phosphatase Total Protein Albumin Lipase PTH Intact Urine Color Urine Appearance Urine pH Ur Specific [place] Urine Protein Urine Glucose (UA) Urine Ketones Urine Blood Urine Nitrite Ur Leukocyte Esterase Urine WBC (Auto) Urine RBC (Auto) 05/16/19 05/16/19 05/16/19 05:24 05:24 10:13 WBC RBC Hgb Hct MCV MCH MCHC RDW Plt Count Seg Neutrophils % Sodium 133.0 L Potassium 3.0 L* Chloride 98 Carbon Dioxide 23 Anion Gap 12 BUN 36 H Creatinine 2.83 H Est GFR ( Amer) 28 L Glucose 113 H Lactic Acid 0.7 Calcium 6.7 L* Phosphorus 3.6 Magnesium 1.4 L Total Bilirubin 1.1 AST 32 Alkaline Phosphatase 61 Total Protein 5.4 L Albumin 3.0 L Lipase PTH Intact 231.4 H Urine Color Urine Appearance Urine pH Ur Specific [place] Urine Protein Urine Glucose (UA) Urine Ketones Urine Blood Urine Nitrite Ur Leukocyte Esterase Urine WBC (Auto) Urine RBC (Auto) 05/15/19 05/16/19 13:00 05:24 Troponin I 0.024 NT-Pro-B Natriuret Pep 515 H Impressions: Chest X-Ray 05/15/19 13:11 IMPRESSION: No evidence of focal airspace disease or other acute car diopulmonary process. Assessment and Plan - Diagnosis (1) ARF (acute renal failure) Qualifiers: Acute renal failure type: unspecified Qualified Code(s): N17.9 - Acute kidney failure, unspecified Is this a current diagnosis for this admission?: Yes Plan: Likely prerenal azotemia secondary to hypotension and intravascular depletion from vomiting Patient's baseline is 1. Creatinine improving on downtrending. Continue IV fluids while monitoring strict I's and O's Nephrology following. Recommendations appreciated Continue to trend BMP (2) Hypotension Qualifiers: Hypotension type: other hypotension type Qualified Code(s): I95.89 - Other hypotension Is this a current diagnosis for this admission?: Yes Plan: Resolved following IV fluids. (3) Nausea and vomiting Qualifiers: Vomiting type: unspecified Vomiting Intractability: intractable Qualified Code(s): R11.2 - Nausea with vomiting, unspecified Is this a current diagnosis for this admission?: Yes Plan: This is likely secondary to alcoholic gastritis from patient's excessive drinking but now may have also been complicated by patient's uremia Continue Protonix IV twice daily, Zofran and Phenergan Had all of his breakfast this morning. Escalate to soft diet (4) Leukocytosis Qualifiers: Leukocytosis type: unspecified Qualified Code(s): D72.829 - Elevated white blood cell count, unspecified Is this a current diagnosis for this admission?: Yes Plan: This is likely secondary to hemoconcentration. Resolved with IV fluids. Hold off on antibiotics for now. (5) Hypomagnesemia Is this a current diagnosis for this admission?: Yes Plan: Secondary to nausea and vomiting. Improved today. We will still suboptimal. Will give p.o. magnesium. (6) Alcohol abuse Is this a current diagnosis for this admission?: Yes Plan: Reports the last drink was 2 weeks ago. Check alcohol level. Patient should be out of withdrawal phase by now and likely alcohol withdrawal is not accounting for any of his symptoms. Discontinue CIWA protocol. Thiamine, folic acid and multivitamins. (7) High anion gap metabolic acidosis Is this a current diagnosis for this admission?: Yes Plan: mixed metabolic alkalosis with HAGMA on admission secondary to renal failure, lactic acidosis and alkalosis from vomiting Currently resolved with fluids and improvement in renal function. (8) Prediabetes Is this a current diagnosis for this admission?: Yes Plan: Hyperglycemic on presentation. A1c of 6 indicating prediabetes. Will keep on Accu-Cheks for today and discontinue tomorrow if blood sugars stay within acceptable range. Lifestyle modification. Placed on carb 5 diet (9) Hypocalcemia Is this a current diagnosis for this admission?: Yes Plan: Secondary to hypomagnesemia, and also hypovitaminosis D from lab work. Will place on cholecalciferol and give calcium gluconate today Intact PTH pending - Time Time Spent with patient: Less than 15 minutes
[2019-05-17] MEDS: TEMAZEPAM 7.5 MG CAPSULE PO PRN (03:36)
[2019-05-17] MEDS: ACETAMINOPHEN 325 MG TABLET PO PRN ×2 (03:36→08:43)
[2019-05-17 05:23] LABS: ALBUMIN 2.8 g/dL (3.5-5.0); ALKALINE PHOSPHATASE 55 U/L (38-126); ANION GAP 7 (5-19); ASPARTATE AMINO TRANSFERASE 32 U/L (17-59); BILIRUBIN,DIRECT 0.1 mg/dL (0.0-0.4); BILIRUBIN,TOTAL 0.9 mg/dL (0.2-1.3); BLOOD UREA NITROGEN 24 mg/dL (7-20); CALCIUM 7.1 mg/dL (8.4-10.2); CARBON DIOXIDE 24 mmol/L (22-30); CHLORIDE 104 mmol/L (98-107); GLUCOSE 100 mg/dL (75-110); POTASSIUM 3.3 mmol/L (3.6-5.0); TOTAL PROTEIN 4.8 g/dL (6.3-8.2)
[2019-05-17] MEDS: HEPARIN SOD (PORCINE) 5,000 UNIT/ML 1 ML VIAL SUBCUT SCH ×2 (05:48→15:11)
[2019-05-17] MEDS: NORMAL SALINE 1000 ML 1,000 ML IV PRN (05:49)
[2019-05-17] MEDS ORDERED: COLCHICINE 0.6 MG TABLET PO ONE ×2 (09:30→11:00)
[2019-05-17] MEDS ORDERED: POTASSIUM CHLORIDE 10 MEQ TABLET.ER PO SCH (10:00)
[2019-05-17] MEDS ORDERED: CLOPIDOGREL BISULFATE 75 MG TABLET PO SCH (10:00)
[2019-05-17] MEDS ORDERED: CHOLECALCIFEROL (D3) 1,000 UNIT (25 MCG) TABLET PO SCH (10:00)
[2019-05-17] MEDS ORDERED: NALTREXONE PO SCH (10:00)
[2019-05-17] MEDS ORDERED: METOPROLOL TARTRATE 25 MG TABLET PO SCH ×2 (10:00)
[2019-05-17] MEDS: INSULIN LISPRO 100 UNIT/ML 3 ML VIAL SUBCUT SCH ×2 (10:00→12:00)
[2019-05-17] MEDS ORDERED: CALCIUM CARBONATE 500 MG TABLET PO SCH (10:00)
[2019-05-17] MEDS: MAGNESIUM OXIDE 400 MG TABLET PO SCH (10:23)
[2019-05-17] MEDS: FOLIC ACID 1 MG TABLET PO SCH (10:24)
[2019-05-17] MEDS: MULTIVITAMIN TABLET PO SCH (10:24)
[2019-05-17] MEDS: THIAMINE HCL 100 MG TABLET PO SCH (10:26)
[2019-05-17] MEDS ORDERED: KETOROLAC TROMETHAMINE INJ/PF 30 MG/1 ML SDV IV ONE (11:30)
[2019-05-17] MEDS ORDERED: METHYLPREDNISOLONE INJ 40 MG/1 ML SDV IV ONE (11:34)
--- NOTE | 2019-05-17 11:53 | PDOC PROGRESS REPORT ---
Subjective Progress Note for:: 05/17/19 Subjective:: Today, patient complains of significant pain or swelling in his left ankle and left knee making it hard for him to bear weight on his left ankle. Patient does endorse a history of gout and has had gout flares before. Patient otherwise denies any shortness of breath, chest pain fever or chills. Patient states that he is no longer vomiting since his been here. Reason For Visit: RENAL FAILURE,HYPOTENSION Physical Exam Vital Signs: Temp Pulse Resp BP Pulse Ox 98.1 F 79 18 149/84 H 94 05/17/19 08:01 05/17/19 08:01 05/17/19 08:01 05/17/19 08:01 05/17/19 08:01 Intake & Output 05/16/19 05/17/19 05/18/19 06:59 06:59 06:59 Intake Total 5701.2 3995 Output Total 250 1700 Balance 5451.2 2295 Weight 118.8 kg 119.4 kg 119.4 kg General appearance: PRESENT: no acute distress, cooperative Neck exam: ABSENT: JVD Respiratory exam: PRESENT: clear to auscultation sebas, unlabored. ABSENT: tachypnea, wheezes Cardiovascular exam: PRESENT: RRR, +S1, +S2. ABSENT: tachycardia GI/Abdominal exam: PRESENT: normal bowel sounds, soft. ABSENT: rebound, rigid, tenderness Extremities exam: PRESENT: joint swelling - Swelling in his left ankle with warmth but without erythema. Very tender and restricted range of motion. Tenderness at the left knee as well but without swelling or warmth. Neurological exam: PRESENT: alert, awake, oriented to person, oriented to place, oriented to time Results Laboratory Results: 05/16/19 05:24 05/17/19 04:15 05/17/19 04:15 Sodium 135.1 L Potassium 3.3 L Chloride 104 Carbon Dioxide 24 Anion Gap 7 BUN 24 H Creatinine 1.46 H Est GFR ( Amer) > 60 Glucose 100 Calcium 7.1 L Phosphorus 3.0 Magnesium 1.4 L Total Bilirubin 0.9 AST 32 Alkaline Phosphatase 55 Total Protein 4.8 L Albumin 2.8 L 05/15/19 13:00 Blood Blood Culture (PCR) - Final Staphylococcus Species 05/15/19 05/16/19 13:00 05:24 Troponin I 0.024 NT-Pro-B Natriuret Pep 515 H Impressions: Chest X-Ray 05/15/19 13:11 IMPRESSION: No evidence of focal airspace disease or other acute cardiopulmonary process. Assessment and Plan - Diagnosis (1) ARF (acute renal failure) Qualifiers: Acute renal failure type: unspecified Qualified Code(s): N17.9 - Acute kidney failure, unspecified Is this a current diagnosis for this admission?: Yes Plan: Likely prerenal azotemia secondary to hypotension and intravascular depletion from vomiting Patient has had good response with IV fluids and is close to baseline at this point with creatinine of 1.4 with good urinary output. (2) Alcoholic gastritis Qualifiers: Chronicity: acute Gastritis bleeding: without bleeding Qualified Code(s): K29.20 - Alcoholic gastritis without bleeding Is this a current diagnosis for this admission?: Yes Plan: Intractable nausea vomiting have resolved. We will transition from IV to p.o. Protonix twice daily. Patient counseled on restraining from alcohol use. Zofran as needed (3) Pain and swelling of left ankle Is this a current diagnosis for this admission?: Yes Plan: Patient has significant swelling and pain of his left ankle making weight placement difficult. He does have a history of gout arthritis and has significant alcohol abuse history. I suspect that this is another gout flare involving his left ankle and mildly in the left knee. We will check x-rays of his left ankle and left knee. Check uric acid. I will empirically give patient colchicine 1.2 mg then 0.6 mg and some steroids to treat for potential gout arthritis. (4) Hypotension Qualifiers: Hypotension type: other hypotension type Qualified Code(s): I95.89 - Other hypotension Is this a current diagnosis for this admission?: Yes Plan: Resolved (5) Alcohol abuse Is this a current diagnosis for this admission?: Yes Plan: Reports the last drink was 2 weeks ago. Check alcohol level. Patient should be out of withdrawal phase by now and likely alcohol withdrawal is not accounting for any of his symptoms. Thiamine, folic acid and multivitamins. (6) High anion gap metabolic acidosis Is this a current diagnosis for this admission?: Yes Plan: mixed metabolic alkalosis with HAGMA on admission secondary to renal failure, lactic acidosis and alkalosis from vomiting Currently resolved with fluids and improvement in renal function. (7) Prediabetes Is this a current diagnosis for this admission?: Yes Plan: Hyperglycemic on presentation. A1c of 6 indicating prediabetes. Will keep on Accu-Cheks for today and discontinue tomorrow if blood sugars stay within acceptable range. Lifestyle modification. Placed on carb 5 diet (8) Hypocalcemia Is this a current diagnosis for this admission?: Yes Plan: Secondary to hypomagnesemia, and also hypovitaminosis D from lab work. Intact PTH also elevated. Placed on cholecalciferol, calcium carbonate. Continue repletion of magnesium with IV mag sulfate today. (9) Positive blood culture Is this a current diagnosis for this admission?: Yes Plan: Likely contaminant as coagulase-negative staph currently 1 blood culture sent. Repeat blood cultures were sent yesterday which have been negative at 1 day. In the meantime we will hold off on antibiotics. - Time Time Spent with patient: 15-24 minutes
[2019-05-17] MEDS: PANTOPRAZOLE SODIUM 40 MG VIAL IV SCH (12:51)
--- NOTE | 2019-05-17 14:00 | RADIOLOGY REPORT (SQ) ---
EXAM DESCRIPTION: FOOT LEFT 2 VIEWS COMPLETED DATE/TIME: 05/17/2019 12:39 pm REASON FOR STUDY: left ankle pain and swelling COMPARISON: None. NUMBER OF VIEWS: Two views. TECHNIQUE: AP and lateral radiographic images acquired of the left foot. LIMITATIONS: None. FINDINGS: MINERALIZATION: Normal. BONES: No acute fracture or dislocation. JOINTS: The normal tarsometatarsal alignment is preserved. SOFT TISSUES: Vascular calcifications. There is no soft tissue swelling or radiopaque foreign body. OTHER: No other finding. IMPRESSION: No acute osseous abnormality of the left foot. TECHNICAL DOCUMENTATION: JOB ID: [id number] [employer]- All Rights Reserved Reading location - IP/workstation name: [email or web address]
--- NOTE | 2019-05-17 14:02 | RADIOLOGY REPORT (SQ) ---
EXAM DESCRIPTION: KNEE LEFT 2 VIEWS COMPLETED DATE/TIME: 05/17/2019 12:39 pm REASON FOR STUDY: left knee pain/swelling COMPARISON: None. NUMBER OF VIEWS: Two views. TECHNIQUE: AP and lateral radiographic images acquired of the left knee. LIMITATIONS: None. FINDINGS: MINERALIZATION: Normal. BONES: No acute fracture or dislocation. JOINT: No effusion. The quadriceps and patellar tendon silhouettes are intact. SOFT TISSUES: Vascular calcifications. There is no soft tissue swelling. OTHER: No other finding. IMPRESSION: No acute osseous abnormality of the left knee. TECHNICAL DOCUMENTATION: JOB ID: [id number] [employer]- All Rights Reserved Reading location - IP/workstation name: [email or web address]
[2019-05-17] MEDS: MAGNESIUM SULFATE/D5W 1 GM/100 ML RTUPB IV SCH ×2 (15:11→15:12)
[2019-05-17 15:21] VITALS: BP 125/68
[2019-05-17] MEDS ORDERED: PANTOPRAZOLE SODIUM 40 MG TABLET.DR PO SCH (17:00)
--- NOTE | 2019-05-17 17:06 | PDOC PROGRESS REPORT ---
Subjective Progress Note for:: 05/17/19 Subjective:: Patient has done very well. He said he feels much better and is ready to go home. The only complaint he has is he seems to have a flare of his gout with right ankle minimal swelling. Patient does said that he can deal with that at home. He made a decent amount of urine output for the past 24 hours with about 1700 mL. He is otherwise stable. Reason For Visit: RENAL FAILURE,HYPOTENSION Physical Exam Vital Signs: Temp Pulse Resp BP Pulse Ox 98.1 F 79 18 149/84 H 94 05/17/19 08:01 05/17/19 08:01 05/17/19 08:01 05/17/19 08:01 05/17/19 08:01 Intake & Output 05/16/19 05/17/19 05/18/19 06:59 06:59 06:59 Intake Total 5701.2 3995 848 Output Total 250 1700 250 Balance 5451.2 2295 598 Weight 118.8 kg 119.4 kg 119.4 kg Exam: General appearance: PRESENT: no acute distress, cooperative, well-developed, well-nourished Head exam: PRESENT: atraumatic, normocephalic Eye exam: PRESENT: conjunctiva pink, PERRLA. ABSENT: scleral icterus Neck exam: ABSENT: JVD Respiratory exam: PRESENT: Normal breath sounds. ABSENT: crackles, rales, rhonchi, unlabored, wheezes Cardiovascular exam: PRESENT: Regular rate rhythm -+S1, +S2. ABSENT: diastolic murmur, systolic murmur GI/Abdominal exam: PRESENT: normal bowel sounds, soft. ABSENT: guarding, mass, tenderness Extremities exam: ABSENT: No edema; mildly swollen lateral malleolus on his left foot. Neurological exam: PRESENT: alert, awake, oriented to person, place and time. Skin exam: PRESENT: dry, warm, Results Laboratory Results: 05/16/19 05:24 05/17/19 04:15 05/17/19 05/17/19 04:15 04:15 Sodium 135.1 L Potassium 3.3 L Chloride 104 Carbon Dioxide 24 Anion Gap 7 BUN 24 H Creatinine 1.46 H Est GFR ( Amer) > 60 Glucose 100 Uric Acid 7.5 Calcium 7.1 L Phosphorus 3.0 Magnesium 1.4 L Total Bilirubin 0.9 AST 32 Alkaline Phosphatase 55 Total Protein 4.8 L Albumin 2.8 L 05/15/19 13:00 Blood Blood Culture (PCR) - Final Staphylococcus Species 05/15/19 05/16/19 13:00 05:24 Troponin I 0.024 NT-Pro-B Natriuret Pep 515 H Impressions: Chest X-Ray 05/15/19 13:11 IMPRESSION: No evidence of focal airspace disease or other acute cardiopulmonary process. Foot X-Ray 05/17/19 10:22 IMPRESSION: No acute osseous abnormality of the left foot. Knee X-Ray 05/17/19 10:23 IMPRESSION: No acute osseous abnormality of the left knee. Assessment & Plan - Diagnosis (1) GABINO (acute kidney injury) Is this a current diagnosis for this admission?: Yes Plan: Secondary to acute prerenal azotemia with initial hypotension. Currently much improved with IV fluid hydration alone. I think the patient can be safely discharged home. Advised continues adequate fluid intake. Patient may follow- up in our office as an outpatient in 2 to 3 weeks after discharge, at least a repeat basic metabolic panel. (2) Dehydration Is this a current diagnosis for this admission?: Yes Plan: Resolved. (3) Hypotension Qualifiers: Hypotension type: other hypotension type Qualified Code(s): I95.89 - Other hypotension Is this a current diagnosis for this admission?: Yes Plan: Resolved. (4) Nausea and vomiting Qualifiers: Vomiting type: unspecified Vomiting Intractability: intractable Qualified Code(s): R11.2 - Nausea with vomiting, unspecified Is this a current diagnosis for this admission?: Yes Plan: Resolved. (5) Hypokalemia Is this a current diagnosis for this admission?: Yes Plan: Improved. (6) Hypomagnesemia Is this a current diagnosis for this admission?: Yes Plan: Improved. (7) Hypocalcemia Is this a current diagnosis for this admission?: Yes Plan: Corrected calcium is 8.05. This is improved. (8) High anion gap metabolic acidosis Is this a current diagnosis for this admission?: Yes Plan: Resolved. (9) Hyperglycemia Is this a current diagnosis for this admission?: Yes Plan: Improved. (10) Leukocytosis Qualifiers: Leukocytosis type: unspecified Qualified Code(s): D72.829 - Elevated white blood cell count, unspecified Is this a current diagnosis for this admission?: Yes Plan: Resolved. - Time Time with patient: 15-25 minutes
--- NOTE | 2019-05-17 17:08 | PDOC DISCHARGE SUMMARY ---
Impression - Admit/DC Date/PCP Admission Date/Primary Care Provider: 05/15/19 16:[facility] Discharge Date: 05/17/19 - Discharge Diagnosis (1) ARF (acute renal failure) Is this a current diagnosis for this admission?: Yes (2) Alcoholic gastritis Is this a current diagnosis for this admission?: Yes (3) Pain and swelling of left ankle Is this a current diagnosis for this admission?: Yes (4) Hypotension Is this a current diagnosis for this admission?: Yes (5) Alcohol abuse Is this a current diagnosis for this admission?: Yes (6) High anion gap metabolic acidosis Is this a current diagnosis for this admission?: Yes (7) Prediabetes Is this a current diagnosis for this admission?: Yes (8) Hypocalcemia Is this a current diagnosis for this admission?: Yes (9) Positive blood culture Is this a current diagnosis for this admission?: Yes - Additional Information Resuscitation Status: Full Code Discharge Diet: As Tolerated Discharge Activity: Activity As Tolerated, Balance Activity w/Rest Referrals: JENNIFER PENG MD [ACTIVE STAFF] - (can't schedule an appointment until Dr. Peng talks to her office) [facility] [Primary Care Provider] - Follow up as needed Prescriptions: Colchicine [Colcrys 0.6 mg Tablet] 0.6 mg PO DAILY 7 Days #7 tablet Prednisone [Deltasone 20 mg Tablet] 20 mg PO DAILY 3 Days #3 tablet Pantoprazole Sodium [Protonix [address] Tablet] 40 mg PO DAILY #30 tablet. Cholecalciferol (Vitamin D3) [Vitamin D3 1000 Unit Tablet] 2,000 unit PO DAILY 30 Days tablet Home Medications: Clopidogrel Bisulfate [Plavix 75 mg Tablet] 75 mg PO DAILY 05/16/19 Folic Acid [Folvite 1 mg Tablet] 1 mg PO DAILY 05/16/19 Lidocaine 4% Cream 1 applic TP BID 05/16/19 Magnesium Oxide 500 mg PO Q12 05/16/19 Naltrexone 100 mg PO DAILY 05/16/19 Thiamine HCl [Thiamine 100 mg Tablet] 100 mg PO DAILY 05/16/19 Trazodone HCl 100 mg PO QHS 05/16/19 Acetaminophen [Tylenol 325 mg Tablet] 650 mg PO Q4HP PRN tablet 05/17/19 Cholecalciferol (Vitamin D3) [Vitamin D3 1000 Unit Tablet] 2,000 unit PO DAILY 30 Days tablet 05/17/19 Colchicine [Colcrys 0.6 mg Tablet] 0.6 mg PO DAILY 7 Days #7 tablet 05/17/19 Metoprolol Tartrate 75 mg PO Q12 #15 05/17/19 Pantoprazole Sodium [Protonix [address] Tablet] 40 mg PO DAILY #30 tablet. 05/17/19 Prednisone [Deltasone 20 mg Tablet] 20 mg PO DAILY 3 Days #3 tablet 05/17/19 History of Present Illiness History of Present Illness: WOODROW JERNIGAN is a 58 year old male with a history of CAD and reports history of CABG and 13 stents in the heart, hypertension, dyslipidemia, alcohol abuse, who presents to the hospital with complaint of nausea & vomiting and dizziness. Patient reports that he drinks alcohol very frequently but has not had a drink since about 2 weeks ago. Since then he has been experiencing episodes of nausea vomiting several times and has been unable to hold down any food. After several days of the nausea and vomiting, he started to develop some abdominal tenderness from the vomiting. This morning patient felt very dizzy and diaphoretic subsequently called EMS. When the EMS arrived patient was noted to be incoherent and lethargic and her blood pressure at that time was in the 60s systolic. Patient was brought to the ER and given some fluids. At the time of interview patient is coherent and fully awake and oriented. Patient denies any chest pain or shortness of breath at the moment. Patient does state that he was making urine. Denies any cough, urinary symptoms, diarrhea or wounds. Patient does admit to alcohol withdrawal in the past but typically happens about 2 to 3 days of alcohol and characterized by tremors, nausea vomiting and sweats. Hospital Course Hospital Course: Patient was admitted after creatinine was found to be 5.06. Patient was thought to be having prerenal azotemia given FeNa and his prerenal GABINO was thought to be secondary to intravascular depletion and hypotension from intractable nausea and vomiting. His intractable nausea vomiting was thought to be secondary to alcoholic gastritis. Patient showed no evidence of withdrawal during his hospital stay. Patient was started on aggressive IV fluids. I's and O's were strictly monitored. Patient should show good urinary output and his kidney fu nction improved significantly over the 2 days. His creatinine was 1.46 at the time of discharge. Patient's nausea vomiting has also stopped after patient was placed on Protonix for potential alcoholic gastritis. Patient has been eating his meals without difficulty. Patient did complain of pain in his left knee as well as pain and swelling in his left ankle today. Evaluation showed effusion in his left ankle with significant tenderness and warmth. Patient was offered arthrocentesis for further evaluation and to differentiate gout from infectious but he declined. Ankle X-ray showed no osseous. Given patient's history of gout in combination with his excessive drinking, I am highly suspicious that this could have been a gout flare. Patient was loaded with colchicine and given some doses of prednisone with significant improvement. Later in the day patient requested to be discharged home and was subsequently discharged home with a few days of prednisone and some colchicine. His uric acid was noted to be over 7. Patient has been counseled on refraining from alcohol use. Of note, patient did have 1 set up positive blood culture with coagulase-negative staph which was thought to be contaminant as other blood cultures done were negative so far. 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 Physical Exam Vital Signs: Temp Pulse Resp BP Pulse Ox 98.1 F 79 18 125/68 94 05/17/19 15:17 05/17/19 15:17 05/17/19 15:17 05/17/19 15:17 05/17/19 15:17 Intake & Output 05/16/19 05/17/19 05/18/19 06:59 06:59 06:59 Intake Total 5701.2 3995 848 Output Total 250 1700 250 Balance 5451.2 2295 598 Weight 118.8 kg 119.4 kg 119.4 kg General appearance: PRESENT: no acute distress, cooperative Neck exam: ABSENT: JVD Respiratory exam: PRESENT: clear to auscultation sebas Results Laboratory Results: WBC 7.6 10^3/uL (4.0-10.5) 05/16/19 05:24 RBC 4.34 10^6/uL (4.35-5.55) L 05/16/19 05:24 Hgb 14.2 g/dL (13.5-17.0) D 05/16/19 05:24 Hct 40.5 % (37.9-51.0) 05/16/19 05:24 MCV 93 fl (80-97) 05/16/19 05:24 MCH 32.8 pg (27.0-33.4) 05/16/19 05:24 MCHC 35.1 g/dL (32.0-36.0) 05/16/19 05:24 RDW 15.6 % (11.5-14.0) H 05/16/19 05:24 Plt Count 117 10^3/uL (150-450) L 05/16/19 05:24 Lymph % (Auto) 15.7 % (13-45) 05/16/19 05:24 [place] % (Auto) 6.0 % (3-13) 05/16/19 05:24 Eos % (Auto) 1.2 % (0-6) 05/16/19 05:24 Baso % (Auto) 0.5 % (0-2) 05/16/19 05:24 Absolute Neuts (auto) 5.9 10^3/uL (1.7-8.2) 05/16/19 05:24 Absolute Lymphs (auto) 1.2 10^3/uL (0.5-4.7) 05/16/19 05:24 Absolute Monos (auto) 0.5 10^3/uL (0.1-1.4) 05/16/19 05:24 Absolute Eos (auto) 0.1 10^3/uL (0.0-0.6) 05/16/19 05:24 Absolute Basos (auto) 0.0 10^3/uL (0.0-0.2) 05/16/19 05:24 Seg Neutrophils % 76.6 % (42-78) 05/16/19 05:24 PT 12.9 SEC (11.4-15.4) 05/16/19 05:24 INR 0.97 05/16/19 05:24 APTT 25.6 SEC (23.5-35.8) 05/16/19 05:24 VBG pH 7.43 (7.30-7.42) H 05/15/19 13:20 VBG pCO2 32.6 mmHg (35-63) L 05/15/19 13:20 VBG HCO3 21.2 mmol/L (20-32) 05/15/19 13:20 VBG Base Excess -1.7 mmol/L 05/15/19 13:20 Sodium 135.1 mmol/L (137-145) L 05/17/19 04:15 Potassium 3.3 mmol/L (3.6-5.0) L 05/17/19 04:15 Chloride 104 mmol/L (98-107) 05/17/19 04:15 Carbon Dioxide 24 mmol/L (22-30) 05/17/19 04:15 Anion Gap 7 (5-19) 05/17/19 04:15 BUN 24 mg/dL (7-20) H 05/17/19 04:15 Creatinine 1.46 mg/dL (0.52-1.25) H 05/17/19 04:15 Est GFR ( Amer) > 60 (>60) 05/17/19 04:15 Est GFR (MDRD) Non-Af 49 (>60) L 05/17/19 04:15 Glucose 100 mg/dL (75-110) 05/17/19 04:15 POC Glucose 117 mg/dL (70-110) H 05/17/19 11:13 Hemoglobin A1c % 6.0 % (4.7-6.0) 05/16/19 05:24 Lactic Acid 0.7 mmol/L (0.7-2.1) 05/16/19 05:24 Uric Acid 7.5 mg/dL (3.5-8.5) 05/17/19 04:15 Calcium 7.1 mg/dL (8.4-10.2) L 05/17/19 04:15 Phosphorus 3.0 mg/dL (2.5-4.5) 05/17/19 04:15 Magnesium 1.4 mg/dL (1.6-2.3) L 05/17/19 04:15 Total Bilirubin 0.9 mg/dL (0.2-1.3) 05/17/19 04:15 Direct Bilirubin 0.1 mg/dL (0.0-0.4) 05/17/19 04:15 Neonat Total Bilirubin Not Reportable 05/17/19 04:15 Neonat Direct Bilirubin Not Reportable 05/17/19 04:15 Neonat Indirect Bili Not Reportable 05/17/19 04:15 AST 32 U/L (17-59) 05/17/19 04:15 ALT 16 U/L (<50) 05/17/19 04:15 Alkaline Phosphatase 55 U/L (38-126) 05/17/19 04:15 Troponin I 0.024 ng/mL 05/15/19 13:00 NT-Pro-B Natriuret Pep 515 pg/mL (<125) H 05/16/19 05:24 Total Protein 4.8 g/dL (6.3-8.2) L 05/17/19 04:15 Albumin 2.8 g/dL (3.5-5.0) L 05/17/19 04:15 Lipase 72.5 U/L (23-300) 05/15/19 13:00 Vitamin D 25-Hydroxy 13.2 ng/mL (14.7-68.3) L 05/16/19 08:59 PTH Intact 231.4 pg/mL (10.0-65.0) H 05/16/19 10:13 Urine Color BECKY 05/15/19 15:52 Urine Appearance CLOUDY 05/15/19 15:52 Urine pH 5.0 (5.0-9.0) 05/15/19 15:52 Ur Specific [place] 1.025 05/15/19 15:52 Urine Protein 100 mg/dL (NEGATIVE) H 05/15/19 15:52 Urine Glucose (UA) 50 mg/dL (NEGATIVE) H 05/15/19 15:52 Urine Ketones TRACE mg/dL (NEGATIVE) H 05/15/19 15:52 Urine Blood SMALL (NEGATIVE) H 05/15/19 15:52 Urine Nitrite NEGATIVE (NEGATIVE) 05/15/19 15:52 Urine Bilirubin MODERATE (NEGATIVE) H 05/15/19 15:52 Urine Urobilinogen 4.0 mg/dL (<2.0) H 05/15/19 15:52 Ur Leukocyte Esterase NEGATIVE (NEGATIVE) 05/15/19 15:52 Urine WBC (Auto) 7 /HPF 05/15/19 15:52 Urine RBC (Auto) 4 /HPF 05/15/19 15:52 U Hyaline Cast (Auto) 99 /LPF 05/15/19 15:52 Urine Bacteria (Auto) TRACE /HPF 05/15/19 15:52 Squamous Epi Cells Auto 3 /HPF 05/15/19 15:52 Urine Mucus (Auto) MANY /LPF 05/15/19 15:52 Urine Creatinine 444.9 mg/dL (22-328) H 05/16/19 04:30 Urine Sodium 35 mmol/L (30-90) 05/16/19 04:30 Urine Ascorbic Acid NEGATIVE (NEGATIVE) 05/15/19 15:52 Serum Alcohol < 10 mg/dL (NONE DETECTED) 05/15/19 13:00 05/15/19 05/16/19 13:00 05:24 Troponin I 0.024 NT-Pro-B Natriuret Pep 515 H Impressions: Chest X-Ray 05/15/19 13:11 IMPRESSION: No evidence of focal airspace disease or other acute cardiopulmonary process. Foot X-Ray 05/17/19 10:22 IMPRESSION: No acute osseous abnormality of the left foot. Knee X-Ray 05/17/19 10:23 IMPRESSION: No acute osseous abnormality of the left knee. Plan Time Spent: Greater than 30 Minutes Stroke Is this a Stroke Patient?: No Acute Heart Failure - Is this a Heart Failure Patient?: No
[2019-05-18] MEDS ORDERED: PREDNISONE 20 MG TABLET PO SCH (10:00)
[2019-05-18] MEDS ORDERED: COLCHICINE 0.6 MG TABLET PO SCH (10:00)
== END 2019-05-17 15:50 | disposition home or self-care (01) | DRG 683 ==
LOC: ER 13:07 → EH 16:21 → 3S 18:10 → 3N 20:33
PROVIDERS: ADMIT Internal Medicine; ATTEND Internal Medicine
DX: N17.9 Acute kidney failure, unspecified (principal); F10.239 Alcohol dependence with withdrawal, unspecified; E87.2 Acidosis; I95.9 Hypotension, unspecified; E83.51 Hypocalcemia; R73.9 Hyperglycemia, unspecified; K29.20 Alcoholic gastritis without bleeding; E86.0 Dehydration; E87.6 Hypokalemia; E83.42 Hypomagnesemia; D72.829 Elevated white blood cell count, unspecified; I25.10 Atherosclerotic heart disease of native coronary artery without angina pectoris; Y90.0 Blood alcohol level of less than 20 mg/100 ml; M25.472 Effusion, left ankle; Z95.5 Presence of coronary angioplasty implant and graft; Z79.01 Long term (current) use of anticoagulants; Z79.52 Long term (current) use of systemic steroids; Z79.899 Other long term (current) drug therapy
CPT/HCPCS: 36415; 71045; 80053; 80307; 81001; 82306; 82570; 82803; 82962; 83036; 83605; 83690; 83735; 83880; 83970; 84100; 84300; 84484; 84550; 85025; 85610; 85730; 87040; 87077; 87150; 87186; 93005; 93010; 96365; 96368; 96375; 99285; J0610; C9113; J0696; J1644; J1885; J2060; J2405; J2550; J3411; J3475; J3480; J3490; J7030; J7050

== ENCOUNTER 2019-08-17 10:00 | Inpatient (IN) | payer OTHER ==
[2019-08-17 10:40] LABS: ABSOLUTE EOSINOPHILS # (AUTO) 0.1 10^3/uL (0.0-0.6); ABSOLUTE LYMPHOCYTES (AUTO) 0.8 10^3/uL (0.5-4.7); ABSOLUTE MONOCYTES (AUTO) 0.7 10^3/uL (0.1-1.4); ABSOLUTE NEUT (AUTO) 4.3 10^3/uL (1.7-8.2); BASOPHILS % (AUTO) 0.4 % (0-2); EOSINOPHILS % (AUTO) 0.9 % (0-6); HEMATOCRIT 41.5 % (37.9-51.0); HEMOGLOBIN 14.9 g/dL (13.5-17.0); LYMPHOCYTES % (AUTO) 13.2 % (13-45); MEAN CORPUSCULAR HEMOGLOBIN 36.9 pg (27.0-33.4); MEAN CORPUSCULAR HGB CONC 35.9 g/dL (32.0-36.0); MEAN CORPUSCULAR VOLUME 103 fl (80-97); MONOCYTES % (AUTO) 11.4 % (3-13); PLATELET COUNT 230 10^3/uL (150-450); RED BLOOD COUNT 4.04 10^6/uL (4.35-5.55); RED CELL DISTRIBUTION WIDTH 17.2 % (11.5-14.0); SEGMENTED NEUTROPHILS % (AUTO) 74.1 % (42-78); TOTAL CELLS COUNTED % (AUTO) 100 %; WHITE BLOOD COUNT 5.7 10^3/uL (4.0-10.5)
--- NOTE | 2019-08-17 10:52 | RADIOLOGY REPORT (SQ) ---
EXAM DESCRIPTION: CHEST SINGLE VIEW IMAGES COMPLETED DATE/TIME: 08/17/2019 10:34 am REASON FOR STUDY: bed 7 difficulty breathing COMPARISON: Chest films 05/13/2018, 12/29/2018, 05/15/2019 CT chest 12/29/2018 EXAM PARAMETERS: NUMBER OF VIEWS: One view. TECHNIQUE: Single frontal radiographic view of the chest acquired. RADIATION DOSE: NA LIMITATIONS: None. FINDINGS: LUNGS AND PLEURA: Mild interstitial edema with Tristin lines at both lung bases. Mild pulmonary vascular congestion. No pleural effusion no pneumothorax no dense consolidation worrisome for pneumonia. MEDIASTINUM AND HILAR STRUCTURES: No masses. Contour normal. HEART AND VASCULAR STRUCTURES: Stable mild cardiomegaly BONES: No acute findings. HARDWARE: None in the chest. OTHER: No other significant finding. IMPRESSION: Fluid overload or congestive failure TECHNICAL DOCUMENTATION: JOB ID: [id number] 2010 [email or web address]- All Rights Reserved Reading location - IP/workstation name: [email or web address]
[2019-08-17 10:56] LABS: ALBUMIN 3.8 g/dL (3.5-5.0); ALKALINE PHOSPHATASE 76 U/L (38-126); ANION GAP 10 (5-19); ASPARTATE AMINO TRANSFERASE 81 U/L (17-59); BILIRUBIN,DIRECT 0.2 mg/dL (0.0-0.4); BILIRUBIN,TOTAL 1.6 mg/dL (0.2-1.3); BLOOD UREA NITROGEN 13 mg/dL (7-20); CALCIUM 8.7 mg/dL (8.4-10.2); CARBON DIOXIDE 33 mmol/L (22-30); CHLORIDE 92 mmol/L (98-107); CREATINE KINASE 56 U/L (55-170); GLUCOSE 162 mg/dL (75-110); POTASSIUM 3.4 mmol/L (3.6-5.0); TOTAL PROTEIN 6.1 g/dL (6.3-8.2)
[2019-08-17 11:08] LABS: CREATINE KINASE MB 1.34 ng/mL (<4.55); TROPONIN I 0.016 ng/mL
[2019-08-17 11:37] LABS: ARTERIAL BLOOD BASE EXCESS 3.3 mmol/L; ARTERIAL BLOOD HCO3 27.4 mmol/L (20-24); ARTERIAL BLOOD O2 SATURATION 99.2 % (94-98); ARTERIAL BLOOD PH 7.45 (7.35-7.45); ARTERIAL BLOOD PO2 164.3 mmHg (80-100); ARTERIAL BLOOD TOTAL CO2 28.7 mmol/L (23-27)
[2019-08-17 11:38] LABS: ARTERIAL BLOOD FIO2 40%
[2019-08-17] MEDS ORDERED: FUROSEMIDE INJ/PF 20 MG/2 ML SDV IV ONE (11:56)
[2019-08-17] MEDS ORDERED: NITROGLYCERIN 2% OINTMENT 1 GM PACKET TP ONE (11:59)
[2019-08-17] MEDS ORDERED: POTASSI CL 20 MEQ/50 ML RIDER 20 MEQ/50 ML RTUPB IV ONE (11:59)
--- NOTE | 2019-08-17 12:06 | ER Document Report ---
ED General - General Chief Complaint: Shortness Of Breath Stated Complaint: SHORTNESS OF BREATH [facility] Provider[facility] [[facility]] - Follow up as needed TRAVEL OUTSIDE OF THE [place] IN LAST 30 DAYS: No - HPI Notes: Chief complaint: Shortness of breath HPI: 59-year-old male with history of CAD with multiple past stent placements presenting with 2-day history of progressively worsening dyspnea. Vague sensation of tightness in chest without any true pain. No fever. No chills. N o sputum production. Past cigarette smoker. Patient says he has been strictly isolated at home for over a month and has had no known exposure to COVID infected individuals. He denies any travel outside the area. Patient was started on BiPAP for respiratory distress and O2 saturation in the 80s on room air by EMS. They also initiated a 10 mcg IV nitroglycerin infusion. Past history of alcoholism. Patient says he is not drinking any at this time. - Related Data Allergies/Adverse Reactions: No Known Allergies Allergy (Verified 05/13/18 18:08) Past Medical History - General Information source: Patient, Emergency Med Personnel, [facility] Records - Social History Smoking Status: Former Smoker Frequency of alcohol use: Heavy Drug Abuse: None Family History: CAD, COPD, Other - Congestive heart failure Patient has homicidal ideation: No - Past Medical History Cardiac Medical History: Reports: Hx Congestive Heart Failure, Hx Coronary Artery Disease, Hx Heart Attack, Hx Hypercholesterolemia, Hx Hypertension Renal/ Medical History: Denies: Hx Peritoneal Dialysis GI Medical History: Reports: Hx Gastroesophageal Reflux Disease. Denies: Hx Hiatal Hernia, Hx Ulcerative Colitis Musculoskeletal Medical History: Reports Hx Gout Psychiatric Medical History: Denies: Hx Depression Past Surgical History: Reports: Hx Cardiac Surgery - stents x13, bypass, Hx Coronary Artery Bypass Graft - X1, Hx Coronary Stent - X13 - Immunizations Hx Pneumococcal Vaccination: 04/03/14 Review of Systems - Review of Systems Notes: Constitutional: Negative for fever. HENT: Negative for sore throat. Eyes: Negative for visual changes. Cardiovascular: As per HPI. Respiratory: As per HPI. Gastrointestinal: Negative for abdominal pain, vomiting or diarrhea. Genitourinary: Negative for dysuria. Musculoskeletal: Negative for back pain. Skin: Negative for rash. Neurological: Negative for headaches, weakness or numbness. 10 point ROS negative except as marked above and in HPI. Physical Exam - Vital signs Vitals: Pulse Ox 100 08/17/19 10:02 - Notes Notes: GENERAL: Male patient of approximately stated age currently on BiPAP and appears alert and relatively comfortable with this. SKIN: Good turgor no rashes. HEAD: Normocephalic atraumatic. EYES: PERRLA. EOMI. Conjunctivae and sclerae clear. EARS: CANALS AND TMS CLEAR. NOSE: CLEAR. MOUTH: Moist mucosa. Good dentition. No stridor or edema. No drooling. NECK: Supple. No masses or thyromegaly. No adenopathy. Carotids 2+ without bruits. No JVD. BACK: Symmetrical without tenderness. CHEST: Patient is on BiPAP. Diminished breath sounds both lung bases. Lungs are otherwise clear. HEART: Tachycardic regular rhythm. No murmur gallop or rub. ABDOMEN: Mildly obese. Soft nontender without masses, organomegaly or rebound. Bowel sounds normally active. No bruits. GENITALIA: Deferred. EXTREMITIES: No edema. No calf tenderness. Cap refill less than 1.5 seconds. Dorsalis pedis and posterior tibial pulses 3+ and symmetrical. NEUROLOGICAL: GCS 15. Alert and oriented x3. Fluent speech. Cranial nerves II through XII intact. Sensorimotor and cerebellar normal. Normal tone. PSYCHIATRIC: Appropriate affect. Course - Re-evaluation Re-evalutation: 08/17/19 12:12 Patient appeared very comfortable when he arrived on BiPAP. Chest x-ray was consistent with decompensated heart failure. BNP is 2500. EKG was unchanged from baseline. Troponin is normal. Potassium marginally low at 3.4. Magnesium level is pending. Arterial blood gas obtained on the CPAP with patient receiving 40% FiO2 showed a pH of 7.4 PCO2 of 40 PO2 of 164 and total CO2 of 28. I am giving him some IV Lasix and will try to get him off BiPAP substituting 4 L nasal O2 and also switch him over to transdermal nitroglycerin. Nurses notes indicate that this man has a history of CHF but he says not and I looked at his past records and I do not clearly see that this is been documented in the past. He obviously has a new oxygen requirement and will require admission. - Vital Signs Vital signs: Temp Pulse Resp BP Pulse Ox 99.5 F 19 118/81 100 08/17/19 11:27 08/17/19 12:36 08/17/19 12:41 08/17/19 12:46 - Laboratory Result Diagrams: 08/17/19 10:10 08/17/19 10:10 Laboratory results interpreted by me: 08/17/19 08/17/19 08/17/19 10:10 10:10 10:10 RBC 4.04 L MCV 103 H MCH 36.9 H RDW 17.2 H ABG pO2 ABG HCO3 ABG Total CO2 ABG O2 Saturation Sodium 134.7 L Potassium 3.4 L Chloride 92 L Carbon Dioxide 33 H Glucose 162 H Magnesium Total Bilirubin 1.6 H AST 81 H NT-Pro-B Natriuret Pep 2960 H Total Protein 6.1 L Urine Glucose (UA) 08/17/19 08/17/19 08/17/19 10:10 11:15 12:52 RBC MCV MCH RDW ABG pO2 164.3 H ABG HCO3 27.4 H ABG Total CO2 28.7 H ABG O2 Saturation 99.2 H Sodium Potassium Chloride Carbon Dioxide Glucose Magnesium 0.8 L* Total Bilirubin AST NT-Pro-B Natriuret Pep Total Protein Urine Glucose (UA) 50 H - Diagnostic Test Radiology reviewed: Reports reviewed - Per radiologist: Portable chest x-ray shows bilateral vascular congestion. - EKG Interpretation by Me Additional EKG results interpreted by me: 08/17/19 12:08 Twelve-lead EKG from 1016 hrs. reviewed contemporaneously by me. Normal sinus rhythm with rate of 76. Minimal anterior ST depression unchanged from previous comparison tracing obtained on 05/15/2019. Intervals are normal. QRS axis is normal at +50 degrees. No T wave changes. Critical Care Note - Critical Care Note Total time excluding time spent on procedures (mins): 65 - BiPAP. IV nitroglycerin infusion. Discharge - Discharge Clinical Impression: Acute respiratory failure, Acute decompensated heart failure Condition: Fair Disposition: ADMITTED INPATIENT Admitting Provider: Mansi (Hospitalist) Unit Admitted: Telemetry [facility]errals: [facility] [Primary [facility]] - Follow up as needed
[2019-08-17 13:07] LABS: APPEARANCE,URINE CLEAR; BILIRUBIN,URINE NEGATIVE (NEGATIVE); COLOR,URINE YELLOW; GLUCOSE, URINE 50 mg/dL (NEGATIVE); KETONES,URINE NEGATIVE (NEGATIVE); LEUKOCYTE ESTERASE,URINE NEGATIVE (NEGATIVE); NITRITE,URINE NEGATIVE (NEGATIVE); PROTEIN,URINE NEGATIVE (NEGATIVE); URINE SPECIFIC GRAVITY 1.008; UROBILINOGEN,URINE NEGATIVE mg/dL (<2.0)
[2019-08-17] MEDS: MAGNESIUM SULFATE/D5W 1 GM/100 ML RTUPB IV SCH ×4 (14:31→20:55)
[2019-08-17] MEDS ORDERED: MAGNESIUM HYDROXIDE SUSP 30 ML UDCUP PO PRN (16:24)
[2019-08-17] MEDS ORDERED: MAG HYDROX/AL HYDROX/SIMETH SUSP 30 ML UDCUP PO PRN (16:24)
[2019-08-17] MEDS ORDERED: ACETAMINOPHEN 325 MG TABLET PO PRN (16:24)
[2019-08-17] MEDS ORDERED: LORAZEPAM INJ 2 MG/1 ML VIAL IV PRN (16:38)
[2019-08-17] MEDS ORDERED: NITROGLYCERIN 0.4 MG/TAB 25 TAB/BOTTLE SL PRN (16:42)
--- NOTE | 2019-08-17 17:12 | PDOC H&P ---
History of Present Illness Admission Date/PCP: 08/17/19 14:[facility] Patient complains of: Shortness of breath with ankle swelling History of Present Illness: WOODROW JERNIGAN is a 59 year old male who was recently admitted in May of this year for nausea and vomiting. At that time he had an acute kidney injury. Today he presents with several days of worsening shortness of breath. He states that at rest he can breathe comfortably but he has experienced progressive shortness of breath with less and less exertion. He got to the point where walking to the bathroom had him completely out of breath. In addition he has very poorly controlled hypertension and his blood pressures were markedly elevated earlier when he arrived to the emergency department. He has a significant history of coronary disease having received 13 stents over multiple procedures and a history of coronary artery bypass graft surgery. Unfortunately he is noncompliant with a cardiac diet. He continues to use alcohol excessively. He does not weigh himself daily. He is requiring oxygen supplementation in the emergency department. He reports that his blood pressure taken by EMS was systolic greater than 200 and diastolic greater than 150. He was given nitroglycerin in route. In the emergency department he still exhibited high blood pressures but systolic pressures were now less than 170 with diastolic pressures for the most part less than 100. He is not tachycardic at this time. He is requiring 2 L nasal cannula oxygen. His brain natruretic peptide is elevated and his first troponin was negative. He will be admitted to the hospitalist service. We will continue to diurese aggressively. He will be on nitroglycerin and we will add an DAVID inhibitor and furosemide to his beta- jo therapy. We will also continue his Plavix. Past Medical History Cardiac Medical History: Reports: Congestive Heart Failure, Coronary Artery Disease, Myocardial Infarction, Hyperlipidema, Hypertension Pulmonary Medical History: Denies: Asthma, Chronic Obstructive Pulmonary Disease (COPD), Respiratory Maximiliano lure EENT Medical History: Reports: None Neurological Medical History: Denies: Hemorrhagic CVA, Ischemic CVA Endocrine Medical History: Denies: Diabetes Mellitus Type 2, Hypothyroidism Renal/ Medical History: Denies: Chronic Kidney Disease, Nephrolithiasis Malignancy Medical History: Reports: None GI Medical History: Reports: Gastroesophageal Reflux Disease Denies: Hiatal Hernia, Ulcerative Colitis Musculoskeltal Medical History: Reports: Gout Psychiatric Medical History: Reports: Alcohol Dependency Denies: Depression Traumatic Medical History: Reports: None Hematology: Reports: Anemia Infectious Medical History: Reports: None Past Surgical History Past Surgical History: Reports: Coronary Artery Bypass Graft - X1, Coronary Stent - X13 Social History Information Source: Patient, REPLACED BY [facility] Records Lives with: Alone Smoking Status: Former Smoker Electronic Cigarette use?: No Last Time Smoked: 20 years ago Frequency of Alcohol Use: Heavy Amount of Alcoholic Beverages Per Day: Varies. Can be up to 1 quart of vodka in a single day Hx Recreational Drug Use: No Drugs: None Hx Prescription Drug Abuse: No - Advance Directive Resuscitation Status: Full Code Surrogate healthcare decision maker:: The patient reports that he does have a living will on file. His daughter is the designated decision maker. Family History Family History: CAD, COPD, Other - Congestive heart failure Family History: Extensive family history of heart disease with premature Parental Family History Reviewed: Yes Children Family History Reviewed: Yes Sibling(s) Family History Reviewed.: NA Medication/Allergy Home Medications: Clopidogrel Bisulfate [Plavix 75 mg Tablet] 75 mg PO DAILY 05/16/19 Folic Acid [Folvite 1 mg Tablet] 1 mg PO DAILY 05/16/19 Lidocaine 4% Cream 1 applic TP BID 05/16/19 Magnesium Oxide 500 mg PO Q12 05/16/19 Naltrexone 100 mg PO DAILY 05/16/19 Thiamine HCl [Thiamine 100 mg Tablet] 100 mg PO DAILY 05/16/19 Trazodone HCl 100 mg PO QHS 05/16/19 Acetaminophen [Tylenol 325 mg Tablet] 650 mg PO Q4HP PRN tablet 05/17/19 Cholecalciferol (Vitamin D3) [Vitamin D3 1000 Unit Tablet] 2,000 unit PO DAILY 30 Days tablet 05/17/19 Colchicine [Colcrys 0.6 mg Tablet] 0.6 mg PO DAILY 7 Days #7 tablet 05/17/19 Metoprolol Tartrate 75 mg PO Q12 #15 05/17/19 Pantoprazole Sodium [Protonix [address] Tablet] 40 mg PO DAILY #30 tablet.dr 05/17/19 Prednisone [Deltasone 20 mg Tablet] 20 mg PO DAILY 3 Days #3 tablet 05/17/19 Allergies/Adverse Reactions: No Known Allergies Allergy (Verified 05/13/18 18:08) Review of Systems All systems: reviewed and no additional remarkable complaints except as stated Constitutional: PRESENT: weight gain Cardiovascular: PRESENT: dyspnea on exertion, edema Respiratory: PRESENT: dyspnea Physical Exam Vital Signs: Temp Pulse Resp BP Pulse Ox 98.9 F 19 125/78 98 08/17/19 14:46 08/17/19 15:01 08/17/19 15:01 08/17/19 15:01 Intake & Output 08/16/19 08/17/19 08/18/19 06:59 06:59 06:59 Intake Total 250 Output Total 1000 Balance -750 Weight 123.9 kg General appearance: PRESENT: cooperative, disheveled, mild distress, well- developed, well-nourished Head exam: PRESENT: atraumatic, normocephalic Eye exam: PRESENT: conjunctival injection, conjunctiva pink, EOMI. ABSENT: scleral icterus Ear exam: PRESENT: normal external ear exam. ABSENT: bleeding, drainage Mouth exam: PRESENT: dry mucosa, tongue midline Teeth exam: PRESENT: poor dentation Neck exam: PRESENT: full ROM, JVD. ABSENT: carotid bruit, lymphadenopathy, tenderness Respiratory exam: PRESENT: rales - Bilaterally, symmetrical. ABSENT: accessory muscle use, rhonchi, tachypnea, wheezes Cardiovascular exam: PRESENT: RRR, +S1, +S2. ABSENT: diastolic murmur, irregular rhythm, systolic murmur GI/Abdominal exam: PRESENT: normal bowel sounds, soft, other - Protuberant abdomen. ABSENT: guarding, tenderness Rectal exam: PRESENT: deferred Gentrourinary exam: ABSENT: indwelling catheter Extremities exam: PRESENT: +1 edema Musculoskeletal exam: PRESENT: ambulatory, normal inspection. ABSENT: deformity Neurological exam: PRESENT: alert, awake, oriented to person, oriented to place, oriented to time, oriented to situation, CN II-XII grossly intact. ABSENT: altered Psychiatric exam: PRESENT: appropriate affect. ABSENT: agitated, anxious Focused psych exam: ABSENT: delusional, paranoid, restlessness Skin exam: PRESENT: dry, normal color, warm. ABSENT: rash Results Laboratory Results: 08/17/19 10:10 08/17/19 10:10 08/17/19 08/17/19 08/17/19 10:10 10:10 10:10 WBC 5.7 RBC 4.04 L Hgb 14.9 Hct 41.5 MCV 103 H MCH 36.9 H MCHC 35.9 RDW 17.2 H Plt Count 230 Seg Neutrophils % 74.1 Carbonic Acid HCO3/H2CO3 Ratio ABG pH ABG pCO2 ABG pO2 ABG HCO3 ABG O2 Saturation ABG Base Excess FiO2 Sodium 134.7 L Potassium 3.4 L Chloride 92 L Carbon Dioxide 33 H Anion Gap 10 BUN 13 Creatinine 0.89 Est GFR ( Amer) > 60 Glucose 162 H Calcium 8.7 Magnesium 0.8 L* Total Bilirubin 1.6 H AST 81 H Alkaline Phosphatase 76 Total Protein 6.1 L Albumin 3.8 Urine Color Urine Appearance Urine pH Ur Specific [place] Urine Protein Urine Glucose (UA) Urine Ketones Urine Blood Urine Nitrite Ur Leukocyte Esterase Urine WBC (Auto) Urine RBC (Auto) 08/17/19 08/17/19 11:15 12:52 WBC RBC Hgb Hct MCV MCH MCHC RDW Plt Count Seg Neutrophils % Carbonic Acid 1.20 HCO3/H2CO3 Ratio 22:1 ABG pH 7.45 ABG pCO2 40.0 ABG pO2 164.3 H ABG HCO3 27.4 H ABG O2 Saturation 99.2 H ABG Base Excess 3.3 FiO2 40% Sodium Potassium Chloride Carbon Dioxide Anion Gap BUN Creatinine Est GFR ( Amer) Glucose Calcium Magnesium Total Bilirubin AST Alkaline Phosphatase Total Protein Albumin Urine Color YELLOW Urine Appearance CLEAR Urine pH 7.0 Ur Specific [place] 1.008 Urine Protein NEGATIVE Urine Glucose (UA) 50 H Urine Ketones NEGATIVE Urine Blood NEGATIVE Urine Nitrite NEGATIVE Ur Leukocyte Esterase NEGATIVE Urine WBC (Auto) 1 Urine RBC (Auto) 1 08/17/19 08/17/19 08/17/19 10:10 10:10 10:10 Creatine Kinase 56 CK-MB (CK-2) 1.34 Troponin I 0.016 NT-Pro-B Natriuret Pep 2960 H Impressions: Chest X-Ray 08/17/19 10:02 IMPRESSION: Fluid overload or congestive failure Assessment and Plan - Diagnosis (1) Acute on chronic diastolic heart failure with preserved ejection fraction Is this a current diagnosis for this admission?: Yes Plan: 08/17/2019 The patient presents with worsening shortness of breath as well as increasing lower extremity edema. He is not compliant with a cardiac diet. He does report compliance with medication. He is not on a diuretic, DAVID inhibitor or statin therapy. He is on Plavix for his coronary disease. He has responded to IV furosemide and initially IV nitroglycerin that has been changed to nitroglycerin paste. He has had significant diuresis. His breathing is much better but he still requires oxygen supplementation (2 L nasal cannula) that we will taper to off. He has echocardiogram in 2018 revealed normal ejection fraction and no diastolic failure. I have ordered another echocardiogram for this admission. I have also asked cardiology to see the patient. He will be placed on a cardiac diet with daily weights and strict intake and output. (2) CAD (coronary artery disease) Qualifiers: Coronary Disease-Associated Artery/Lesion type: bypass graft [place] vs. transplanted heart: [place] heart Associated angina: without angina Qualified Code(s): I25.810 - Atherosclerosis of coronary artery bypass graft(s) without angina pectoris Is this a current diagnosis for this admission?: Yes Plan: 08/17/2019 The patient has an extensive history of coronary artery disease with extensive family history. We will continue his Plavix and beta-jo therapy. I have added low-dose DAVID inhibitor as well as furosemide. He is also on nitroglycerin paste. We will monitor the patient on telemetry. Serial troponins have been ordered. (3) Hypertension Qualifiers: Hypertension type: essential hypertension Qualified Code(s): I10 - Essential (primary) hypertension Is this a current diagnosis for this admission?: Yes Plan: 08/17/2019 Continue topical nitroglycerin for now. Continue furosemide by IV. Resume metoprolol. I have added low-dose DAVID inhibitor as well. We will need to optimize his medication regimen to try and avoid recurrent heart failure. (4) Hypokalemia Is this a current diagnosis for this admission?: Yes Plan: 08/17/2019 The patient was hypokalemic on admission. With the aggressive diuresis and potassium will only decrease. He will receive IV potassium chloride today and I have initiated oral dosing. We will monitor with daily chemistries. (5) Hypomagnesemia Is this a current diagnosis for this admission?: Yes Plan: 08/17/2019 Serum magnesium was markedly low. The patient will be given intravenous magnesium and will resume his oral magnesium supplement. (6) Alcohol dependence Qualifiers: Substance use status: uncomplicated Qualified Code(s): F10.20 - Alcohol dependence, uncomplicated Is this a current diagnosis for this admission?: Yes Plan: 08/17/2019 The patient is a current drinker. His intake varies. On some days he will drink over 1 quart of vodka. On other days it is significantly less. He is on naltrexone as an outpatient. This is nonformulary. Benzodiazepine therapy is available. Will monitor closely. He will also be on thiamine daily. (7) Edema, lower extremity Is this a current diagnosis for this admission?: Yes Plan: 08/17/2019 The patient and realize his ankles are getting swollen. He has pitting edema. This should respond to diuretic therapy. - Time Time Spent with patient: 35 or more minutes Medications reviewed and adjusted accordingly: Yes Anticipated discharge: Home - Inpatient Certification Based on my medical assessment, after consideration of the patient's comorbidities, presenting symptoms, or acuity I expect that the services needed warrant INPATIENT care.: Yes I certify that my determination is in accordance with my understanding of Medicare's requirements for reasonable and necessary INPATIENT services [42 CFR 412.3e].: Yes Medical Necessity: Need For Continuous Telemetry Monitoring, Other - Intravenous diuresis with close monitoring and repletion of electrolytes
[2019-08-17] MEDS ORDERED: MORPHINE SULFATE 10 MG/ML INJ IV PRN (17:15)
[2019-08-17] MEDS: NITROGLYCERIN 2% OINTMENT 1 GM PACKET TP SCH ×2 (17:22→23:06)
[2019-08-17] MEDS: MAGNESIUM OXIDE 400 MG TABLET PO SCH (17:22)
[2019-08-17 18:14] LABS: PARTIAL THROMBOPLASTIN TIME 29.1 SEC (23.5-35.8); PROTHROMBIN TIME 13.2 SEC (11.4-15.4)
[2019-08-17 18:22] LABS: ANION GAP 8 (5-19); BLOOD UREA NITROGEN 11 mg/dL (7-20); CALCIUM 8.8 mg/dL (8.4-10.2); CARBON DIOXIDE 37 mmol/L (22-30); CHLORIDE 90 mmol/L (98-107); GLUCOSE 145 mg/dL (75-110); POTASSIUM 3.6 mmol/L (3.6-5.0)
[2019-08-17] MEDS ORDERED: METOPROLOL TARTRATE PF/INJ 5 MG/5 ML SDV IV ONE (20:15)
[2019-08-17] MEDS: HEPARIN SOD (PORCINE) 5,000 UNIT/ML 1 ML VIAL SUBCUT SCH (21:55)
[2019-08-17] MEDS: TRAZODONE HCL 50 MG TABLET PO SCH (21:56)
[2019-08-17] MEDS: METOPROLOL TARTRATE 50 MG TABLET PO SCH (21:56)
[2019-08-17] MEDS: POTASSIUM CHLORIDE 10 MEQ TABLET.ER PO SCH (21:56)
[2019-08-17] MEDS: ATORVASTATIN CALCIUM 40 MG TABLET PO SCH (21:57)
[2019-08-17] MEDS ORDERED: POTASSIUM CHLORIDE 10 MEQ TABLET.ER PO SCH (22:00)
[2019-08-18] MEDS: NITROGLYCERIN 2% OINTMENT 1 GM PACKET TP SCH ×4 (05:18→23:12)
[2019-08-18] MEDS: HEPARIN SOD (PORCINE) 5,000 UNIT/ML 1 ML VIAL SUBCUT SCH ×3 (05:18→22:34)
[2019-08-18] MEDS: PANTOPRAZOLE SODIUM 40 MG TABLET.DR PO SCH (05:18)
[2019-08-18 06:42] LABS: ANION GAP 7 (5-19); BLOOD UREA NITROGEN 11 mg/dL (7-20); CALCIUM 8.5 mg/dL (8.4-10.2); CARBON DIOXIDE 33 mmol/L (22-30); CHLORIDE 93 mmol/L (98-107); CHOLESTEROL 222.36 mg/dL (0-200); GLUCOSE 115 mg/dL (75-110); TRIGLYCERIDES 195 mg/dL (<150)
[2019-08-18 06:45] LABS: POTASSIUM 3.7 mmol/L (3.6-5.0)
[2019-08-18 06:53] LABS: DIRECT LDL 185 mg/dL (<100)
--- NOTE | 2019-08-18 08:44 | PDOC CONSULTATION ---
Consultation Consult Date: 08/18/19 Attending physician:: AIRAM RIZO Provider Consulted: JOSE AUGUSTE Consult reason:: CHF History of Present Illness Admission Date/PCP: 08/17/19 14:[facility] History of Present Illness: WOODROW JERNIGAN is a 59 year old male with history of coronary artery disease status post one-vessel CABG 5 or 6 years ago as well as 13 stents the last one for 5 years ago, hypertension, hyperlipidemia, heart failure who is consulted to our service for further evaluation of heart failure. Unfortunately the patient does not remember any details of his cardiac history and does not have any of his cardiac stents. He states that his CABG was done in [place] but does not even remember the name of the hospital. He had been in his usual state of health until 2 to 3 days prior to admission when he developed lower extremity edema associated with class III dyspnea on exertion. His symptoms were so severe that he called EMS at which time his blood pressure taken by EMS was noted to be greater than 200/150. He was given nitroglycerin in route. His brain natruretic peptide is elevated and has had 3 sets of troponins which were negative. This morning he continues to complain of dyspnea on exertion as well as lower extremity edema. Upon further questioning, he endorses noncompliance with medications as well as diet. He states that he eats cold cuts, pizza and other food items high in sodium. His telemetry demonstrates normal sinus rhythm. Physical exam on 08/18/2019: GENERAL: Pleasant and conversational. Mildly dyspneic with normal conversation. Oriented x3 with normal mood. Not in acute distress. Well groomed and well developed. HEENT: Normocephalic, atraumatic. Pupils equal. Sclerae anicteric. Oropharynx moist. NECK: No JVD. No carotid bruits. LUNGS: Clear to auscultation bilaterally. Normal respiratory effort without the use of accessory muscles or intercostal retractions. CARDIOVASCULAR: Regular rate and rhythm, normal S1 and S2 without murmurs, rubs, or gallops. PMI not displaced. ABDOMEN: No masses or tenderness to palpation. No bruit. No splenomegaly or hepatomegaly. No abdominal aorta bruit noted. EXTREMITIES: 1+ pitting edema bilaterally, no cyanosis, no clubbing. +2 pulses femoral and pedal pulses bilaterally. SKIN: No lesions or rashes. MUSCULOSKELETAL: No chest tenderness to palpation. NEUROLOGIC: Nonfocal. No gross sensory or motor deficits bilateral upper or lo wer extremities. Past Medical History Cardiac Medical History: Reports: Congestive Heart Failure, Coronary Artery Disease, Myocardial Infarction, Hyperlipidema, Hypertension Pulmonary Medical History: Denies: Asthma, Chronic Obstructive Pulmonary Disease (COPD), Respiratory Failure EENT Medical History: Reports: None Neurological Medical History: Denies: Hemorrhagic CVA, Ischemic CVA Endocrine Medical History: Denies: Diabetes Mellitus Type 2, Hypothyroidism Renal/ Medical History: Denies: Chronic Kidney Disease, Nephrolithiasis Malignancy Medical History: Reports: None GI Medical History: Reports: Gastroesophageal Reflux Disease Denies: Hiatal Hernia, Ulcerative Colitis Musculoskeltal Medical History: Reports: Gout Psychiatric Medical History: Reports: Alcohol Dependency Denies: Depression Traumatic Medical History: Reports: None Hematology: Reports: Anemia Infectious Medical History: Reports: None Past Surgical History Past Surgical History: Reports: Coronary Artery Bypass Graft - X1, Coronary Stent - X13 Social History Lives with: Alone Smoking Status: Former Smoker Electronic Cigarette use?: No Last Time Smoked: 20 years ago Frequency of Alcohol Use: Heavy Hx Recreational Drug Use: No Drugs: None Hx Prescription Drug Abuse: No - Advance Directive Resuscitation Status: Full Code Family History Family History: CAD, COPD, Other - Congestive heart failure Parental Family History Reviewed: Yes Children Family History Reviewed: Yes Sibling(s) Family History Reviewed.: Yes Medication/Allergy Home Medications: Clopidogrel Bisulfate [Plavix 75 mg Tablet] 75 mg PO DAILY 05/16/19 Folic Acid [Folvite 1 mg Tablet] 1 mg PO DAILY 05/16/19 Lidocaine 4% Cream 1 applic TP BID 05/16/19 Magnesium Oxide 500 mg PO Q12 05/16/19 Naltrexone 100 mg PO DAILY 05/16/19 Thiamine HCl [Thiamine 100 mg Tablet] 100 mg PO DAILY 05/16/19 Trazodone HCl 100 mg PO QHS 05/16/19 Acetaminophen [Tylenol 325 mg Tablet] 650 mg PO Q4HP PRN tablet 05/17/19 Cholecalciferol (Vitamin D3) [Vitamin D3 1000 Unit Tablet] 2,000 unit PO DAILY 30 Days tablet 05/17/19 Colchicine [Colcrys 0.6 mg Tablet] 0.6 mg PO DAILY 7 Days #7 tablet 05/17/19 Metoprolol Tartrate 75 mg PO Q12 #15 05/17/19 Pantoprazole Sodium [Protonix [address] Tablet] 40 mg PO DAILY #30 tablet.dr 05/17/19 Prednisone [Deltasone 20 mg Tablet] 20 mg PO DAILY 3 Days #3 tablet 05/17/19 Allergies/Adverse Reactions: No Known Allergies Allergy (Verified 05/13/18 18:08) Physical Exam Vital Signs: Temp Pulse Resp BP Pulse Ox 98.7 F 62 18 119/80 97 08/17/19 23:54 08/18/19 02:00 08/17/19 23:54 08/17/19 23:54 08/17/19 23:54 Intake & Output 08/16/19 08/17/19 08/18/19 06:59 06:59 06:59 Intake Total 690 Output Total 1200 Balance -510 Weight 121 kg Results Laboratory Results: 08/17/19 10:10 08/17/19 08/17/19 08/17/19 10:10 10:10 10:10 WBC 5.7 RBC 4.04 L Hgb 14.9 Hct 41.5 MCV 103 H MCH 36.9 H MCHC 35.9 RDW 17.2 H Plt Count 230 Seg Neutrophils % 74.1 Carbonic Acid HCO3/H2CO3 Ratio ABG pH ABG pCO2 ABG pO2 ABG HCO3 ABG O2 Saturation ABG Base Excess FiO2 Sodium 134.7 L Potassium 3.4 L Chloride 92 L Carbon Dioxide 33 H Anion Gap 10 BUN 13 Creatinine 0.89 Est GFR ( Amer) > 60 Glucose 162 H Calcium 8.7 Magnesium 0.8 L* Total Bilirubin 1.6 H AST 81 H Alkaline Phosphatase 76 Total Protein 6.1 L Albumin 3.8 Urine Color Urine Appearance Urine pH Ur Specific [place] Urine Protein Urine Glucose (UA) Urine Ketones Urine Blood Urine Nitrite Ur Leukocyte Esterase Urine WBC (Auto) Urine RBC (Auto) 08/17/19 08/17/19 08/17/19 11:15 12:52 17:40 WBC RBC Hgb Hct MCV MCH MCHC RDW Plt Count Seg Neutrophils % Carbonic Acid 1.20 HCO3/H2CO3 Ratio 22:1 ABG pH 7.45 ABG pCO2 40.0 ABG pO2 164.3 H ABG HCO3 27.4 H ABG O2 Saturation 99.2 H ABG Base Excess 3.3 FiO2 40% Sodium 135.2 L Potassium 3.6 Chloride 90 L Carbon Dioxide 37 H Anion Gap 8 BUN 11 Creatinine 0.88 Est GFR ( Amer) > 60 Glucose 145 H Calcium 8.8 Magnesium 1.2 L* Total Bilirubin AST Alkaline Phosphatase Total Protein Albumin Urine Color YELLOW Urine Appearance CLEAR Urine pH 7.0 Ur Specific [place] 1.008 Urine Protein NEGATIVE Urine Glucose (UA) 50 H Urine Ketones NEGATIVE Urine Blood NEGATIVE Urine Nitrite NEGATIVE Ur Leukocyte Esterase NEGATIVE Urine WBC (Auto) 1 Urine RBC (Auto) 1 08/17/19 08/17/19 08/17/19 10:10 10:10 10:10 Creatine Kinase 56 CK-MB (CK-2) 1.34 Troponin I 0.016 NT-Pro-B Natriuret Pep 2960 H 08/17/19 08/17/19 17:40 22:11 Creatine Kinase CK-MB (CK-2) Troponin I < 0.012 < 0.012 NT-Pro-B Natriuret Pep Impressions: Chest X-Ray 08/17/19 10:02 IMPRESSION: Fluid overload or congestive failure 08/17/19 10:10 MCV 103 fl (80-97) H 08/17/19 10:10 MCH 36.9 pg (27.0-33.4) H 08/17/19 10:10 MCHC 35.9 g/dL (32.0-36.0) 08/17/19 10:10 RDW 17.2 % (11.5-14.0) H 08/17/19 10:10 Seg Neutrophils % 74.1 % (42-78) 08/17/19 10:10 Carbonic Acid 1.20 mmol/L (1.05-1.35) 08/17/19 11:15 HCO3/H2CO3 Ratio 22:1 08/17/19 11:15 ABG pH 7.45 (7.35-7.45) 08/17/19 11:15 ABG pCO2 40.0 mmHg (35-45) 08/17/19 11:15 ABG pO2 164.3 mmHg (80-100) H 08/17/19 11:15 ABG HCO3 27.4 mmol/L (20-24) H 08/17/19 11:15 ABG O2 Saturation 99.2 % (94-98) H 08/17/19 11:15 ABG Base Excess 3.3 mmol/L 08/17/19 11:15 FiO2 40% 08/17/19 11:15 Chloride 90 mmol/L (98-107) L 08/17/19 17:40 Carbon Dioxide 37 mmol/L (22-30) H 08/17/19 17:40 Anion Gap 8 (5-19) 08/17/19 17:40 Est GFR ( Amer) > 60 (>60) 08/17/19 17:40 Glucose 145 mg/dL (75-110) H 08/17/19 17:40 Calcium 8.8 mg/dL (8.4-10.2) 08/17/19 17:40 Magnesium 1.2 mg/dL (1.6-2.3) L* 08/17/19 17:40 Total Bilirubin 1.6 mg/dL (0.2-1.3) H 08/17/19 10:10 AST 81 U/L (17-59) H 08/17/19 10:10 Alkaline Phosphatase 76 U/L (38-126) 08/17/19 10:10 Total Protein 6.1 g/dL (6.3-8.2) L 08/17/19 10:10 Albumin 3.8 g/dL (3.5-5.0) 08/17/19 10:10 Urine Color YELLOW 08/17/19 12:52 Urine Appearance CLEAR 08/17/19 12:52 Urine pH 7.0 (5.0-9.0) 08/17/19 12:52 Ur Specific [place] 1.008 08/17/19 12:52 Urine Protein NEGATIVE mg/dL (NEGATIVE) 08/17/19 12:52 Urine Glucose (UA) 50 mg/dL (NEGATIVE) H 08/17/19 12:52 Urine Ketones NEGATIVE mg/dL (NEGATIVE) 08/17/19 12:52 Urine Blood NEGATIVE (NEGATIVE) 08/17/19 12:52 Urine Nitrite NEGATIVE (NEGATIVE) 08/17/19 12:52 Ur Leukocyte Esterase NEGATIVE (NEGATIVE) 08/17/19 12:52 Urine WBC (Auto) 1 /HPF 08/17/19 12:52 Urine RBC (Auto) 1 /HPF 08/17/19 12:52 08/17/19 08/17/19 08/17/19 10:10 10:10 10:10 Creatine Kinase 56 CK-MB (CK-2) 1.34 Troponin I 0.016 NT-Pro-B Natriuret Pep 2960 H 08/17/19 08/17/19 17:40 22:11 Creatine Kinase CK-MB (CK-2) Troponin I < 0.012 < 0.012 NT-Pro-B Natriuret Pep Current Medication List Generic Name Dose Route Start Last Admin Trade Name Freq PRN Reason Stop Dose Admin Acetaminophen 650 mg 08/17/19 16:24 Tylenol 325 Mg Tablet PO 09/16/19 16:23 Q4HP PRN pain or temp greater than 101F Al Hydrox/Mg Hydrox/Simethicone 30 ml 08/17/19 16:24 Maalox Plus Susp 30 Udcup PO 09/16/19 16:23 Q4HP PRN HEARTBURN Atorvastatin Calcium 40 mg 08/17/19 22:00 08/17/19 21:57 Lipitor 40 Mg Tablet PO 09/16/19 21:59 40 mg QHS VINCENT Administration Clopidogrel Bisulfate 75 mg 08/18/19 10:00 Plavix 75 Mg Tablet PO 09/17/19 09:59 DAILY REPLACED BY [facility] Folic Acid 1 mg 08/18/19 10:00 Folvite 1 Mg Tablet PO 09/17/19 09:59 DAILY REPLACED BY [facility] Furosemide 20 mg 08/18/19 10:00 Lasix Inj/Pf 20 Mg/2 Ml Sdv IV 09/17/19 09:59 DAILY REPLACED BY [facility] Heparin Sodium (Porcine) 5,000 unit 08/17/19 22:00 08/18/19 05:18 Heparin Inj 5,000 Units/Ml 1 Ml Vial SUBCUT 09/16/19 21:59 5,000 unit Q8 VINCENT Administration Lisinopril 5 mg 08/18/19 10:00 Prinivil 5 Mg Tablet PO 09/17/19 09:59 DAILY VINCENT Lorazepam 2 mg 08/17/19 16:38 Ativan Inj 2 Mg/1 Ml Vial IV 08/24/19 16:37 Q4HP PRN ANXIETY/AGITATION Magnesium Hydroxide 30 ml 08/17/19 16:24 Milk Of Magnesia 30 Ml Udcup PO 09/16/19 16:23 HSP PRN FOR CONSTIPATION Magnesium Oxide 400 mg 08/17/19 18:00 08/17/19 17:22 Mag-Ox 400 Mg Tablet PO 09/16/19 17:59 400 mg BID VINCENT Administration Metoprolol Tartrate 75 mg 08/17/19 22:00 08/17/19 21:56 Lopressor 50 Mg Tablet PO 09/16/19 21:59 75 mg Q12 VINCENT Administration Morphine Sulfate 5 mg 08/17/19 17:15 Morphine 10 Mg/Ml Inj IV 08/24/19 17:14 Q4HP PRN FOR CHEST PAIN Nitroglycerin 1 gm 08/17/19 18:00 08/18/19 05:18 Nitrol 2% Ointment 1gm Packet TP 09/16/19 17:59 1 gm Q6 VINCENT Administration Nitroglycerin 1 tab 08/17/19 16:42 Nitrostat 0.4 Mg (1/150 Gr) Tabs 25/Bottle SL 09/16/19 16:41 Q5MP PRN FOR CHEST PAIN Pantoprazole Sodium 40 mg 08/18/19 06:00 08/18/19 05:[address] Tablet PO 09/17/19 05:59 40 mg Q6AM VINCENT Administration Potassium Chloride 40 meq 08/17/19 22:00 08/17/19 21:56 Klor-Con 10 Meq Tablet Er PO 09/16/19 21:59 40 meq Q12 VINCENT Administration Sodium Chloride 2.5 ml 08/17/19 22:00 08/18/19 05:19 Saline Flush 2.5 Ml Monoject Prefil Syrin IV 09/16/19 21:59 2.5 ml Q8 VINCENT Administration Thiamine HCl 100 mg 08/18/19 10:00 Thiamine 100 Mg Tablet PO 09/17/19 09:59 DAILY VINCENT Trazodone HCl 100 mg 08/17/19 22:00 08/17/19 21:56 Desyrel 50 Mg Tablet PO 09/16/19 21:59 100 mg QHS VINCENT Administration Discontinued Medications Generic Name Dose Route Start Last Admin Trade Name Freq PRN Reason Stop Dose Admin Furosemide 40 mg 08/17/19 11:56 08/17/19 12:15 Lasix Inj/Pf 20 Mg/2 Ml Sdv IV 08/17/19 11:57 40 mg NOW ONE Administration Potassium Chloride/Water 20 meq in 50 mls @ 25 mls/hr 08/17/19 11:59 08/17/19 14:20 Potassium Chloride Omid 20 Meq/50 Ml IV 08/17/19 13:58 Infused NOW ONE Infusion Magnesium Sulfate/Dextrose 1 gm in 100 mls @ 100 mls/hr 08/17/19 13:30 0 08/17/19 16:49 Magnesium Sulfate Rtu-D5w 1 Gm/100 Ml Premix IV 08/17/19 15:29 Infused Q1H VINCENT Infusion Magnesium Sulfate/Dextrose 1 gm in 100 mls @ 100 mls/hr 08/17/19 20:00 08/17/19 21:55 Magnesium Sulfate Rtu-D5w 1 Gm/100 Ml Premix IV 08/17/19 21:59 Infused Q1H VINCENT Infusion Metoprolol Tartrate 5 mg 08/17/19 20:15 08/17/19 20:17 Lopressor Inj/Pf 5 Mg/5 Ml Sdv IV 08/17/19 20:16 5 mg NOW ONE Administration Nitroglycerin 1 gm 08/17/19 11:59 08/17/19 12:13 Nitrol 2% Ointment 1gm Packet TP 08/17/19 12:00 1 gm NOW ONE Administration Potassium Chloride 20 meq 08/17/19 22:00 Klor-Con 10 Meq Tablet Er PO 09/16/19 21:59 Q12 REPLACED BY [facility] Assessment & Plan - Diagnosis (1) Acute on chronic diastolic heart failure with preserved ejection fraction Plan: The patient is fluid overloaded and dyspneic with just normal conversation as of this morning. His heart failure exacerbation is likely secondary to medication and particularly, diet noncompliance. Recommendations: -Increase Lasix to 40 mg twice daily. -continue with DAVID inhibitor, beta-jo. -Restrict fluid intake to 1500 cc daily. -Low sodium diet, less than 1500 mg daily. -Strict intake and output. -Daily weights. -Agree with repeating echocardiogram. (2) CAD (coronary artery disease) Qualifiers: Coronary Disease-Associated Artery/Lesion type: bypass graft [place] vs. transplanted heart: [place] heart Associated angina: without angina Qualified Code(s): I25.810 - Atherosclerosis of coronary artery bypass graft(s) without angina pectoris Plan: The patient has an extensive cardiovascular history however those details are unknown at this time. He is fluid overloaded likely from medication dietary noncompliance but denies angina and angina equivalents. Recommendations: -Continue with beta-jo, DAVID inhibitor and Plavix for now. -Noninvasive ischemic assessment when the patient is not in heart failure. (3) Hypertension Qualifiers: Hypertension type: essential hypertension Qualified Code(s): I10 - Essential (primary) hypertension Plan: His blood pressure is above goal. Recommendations: -Continue with current medical management for now. -May consider switching metoprolol to carvedilol for better blood pressure control. (4) Hyperlipidemia Plan: His direct LDL is above goal at 185. Recommendations: -Increase atorvastatin to 80 mg daily. -Repeat LFTs and fasting lipid panel in 6 weeks.
--- NOTE | 2019-08-18 08:54 | RADIOLOGY REPORT (SQ) ---
EXAM DESCRIPTION: CHEST SINGLE VIEW IMAGES COMPLETED DATE/TIME: 08/18/2019 8:11 am REASON FOR STUDY: chf COMPARISON: CT chest 12/29/2018 Chest films 12/29/2018, 05/15/2019, 08/17/2019 EXAM PARAMETERS: NUMBER OF VIEWS: One view. TECHNIQUE: Single frontal radiographic view of the chest acquired. RADIATION DOSE: NA LIMITATIONS: Portable film, large patient FINDINGS: LUNGS AND PLEURA: Increased interstitial markings are present at both lung bases, question mild fluid overload or congestive failure with Tristin lines. No pleural effusion. No pneumothorax. No dense consolidation worrisome for pneumonia. MEDIASTINUM AND HILAR STRUCTURES: No masses. Contour normal. HEART AND VASCULAR STRUCTURES: Mild cardiomegaly BONES: No acute findings. HARDWARE: None in the chest. OTHER: No other significant finding. IMPRESSION: Persistent Tristin lines at both lung bases from mild interstitial edema TECHNICAL DOCUMENTATION: JOB ID: [id number] 2010 [employer]- All Rights Reserved Reading location - IP/workstation name: [email or web address]
[2019-08-18] MEDS ORDERED: MAGNESIUM SULFATE/D5W 1 GM/100 ML RTUPB IV ONE (09:00)
[2019-08-18] MEDS: MAGNESIUM OXIDE 400 MG TABLET PO SCH ×2 (09:05→17:07)
[2019-08-18] MEDS: FUROSEMIDE INJ/PF 20 MG/2 ML SDV IV SCH (09:05)
[2019-08-18] MEDS: CLOPIDOGREL BISULFATE 75 MG TABLET PO SCH (09:05)
[2019-08-18] MEDS: POTASSIUM CHLORIDE 10 MEQ TABLET.ER PO SCH ×2 (09:05→22:34)
[2019-08-18] MEDS: THIAMINE HCL 100 MG TABLET PO SCH (09:05)
[2019-08-18] MEDS: FOLIC ACID 1 MG TABLET PO SCH (09:06)
[2019-08-18] MEDS: METOPROLOL TARTRATE 50 MG TABLET PO SCH ×2 (09:06→22:33)
[2019-08-18] MEDS: LISINOPRIL 5 MG TABLET PO SCH (09:06)
--- NOTE | 2019-08-18 10:35 | EKG REPORT ---
SEVERITY:- BORDERLINE ECG - SINUS RHYTHM MINIMAL ST DEPRESSION, ANTERIOR LEADS BORDERLINE PROLONGED QT INTERVAL : Confirmed by: Lorraine Parker 18-Aug-2019 10:34:38
--- NOTE | 2019-08-18 10:35 | EKG REPORT ---
SEVERITY:- BORDERLINE ECG - SINUS RHYTHM BORDERLINE T ABNORMALITIES, ANTERIOR LEADS BORDERLINE PROLONGED QT INTERVAL : Confirmed by: Lorraine Parker 18-Aug-2019 10:34:26
--- NOTE | 2019-08-18 11:59 | PDOC PROGRESS REPORT ---
Subjective Progress Note for:: 08/18/19 Subjective:: Patient was sleeping. He awakens easily. He reports less shortness of breath and decreased edema. He denies any chest pain. Reason For Visit: HEART FAILURE Physical Exam Vital Signs: Temp Pulse Resp BP Pulse Ox 98.5 F 81 18 153/87 H 97 08/18/19 04:00 08/18/19 07:00 08/18/19 04:00 08/18/19 04:00 08/18/19 04:00 Intake & Output 08/17/19 08/18/19 08/19/19 06:59 06:59 06:59 Intake Total 690 100 Output Total 1300 Balance -610 100 Weight 121 kg General appearance: PRESENT: no acute distress, disheveled, well-developed Head exam: PRESENT: atraumatic, normocephalic Eye exam: PRESENT: conjunctiva pink. ABSENT: scleral icterus Ear exam: PRESENT: normal external ear exam. ABSENT: bleeding, drainage Respiratory exam: PRESENT: rales - Faint rales at bases, symmetrical, unlabored. ABSENT: prolonged expiratory phas, rhonchi, tachypnea, wheezes Cardiovascular exam: PRESENT: RRR, +S1, +S2. ABSENT: diastolic murmur, systolic murmur GI/Abdominal exam: PRESENT: distended, normal bowel sounds, soft, other - Protuberant abdomen. ABSENT: guarding, tenderness Rectal exam: PRESENT: deferred Gentrourinary exam: ABSENT: indwelling catheter Extremities exam: PRESENT: pedal edema Musculoskeletal exam: PRESENT: ambulatory, normal inspection. ABSENT: deformity Neurological exam: PRESENT: alert, awake, oriented to person, oriented to place, oriented to time, oriented to situation, CN II-XII grossly intact. ABSENT: altered, motor sensory deficit Psychiatric exam: PRESENT: flat affect. ABSENT: agitated, anxious Focused psych exam: ABSENT: delusional, paranoid, restlessness Skin exam: PRESENT: dry, normal color, warm. ABSENT: rash Results Laboratory Results: 08/17/19 10:10 08/18/19 05:25 08/17/19 08/17/19 08/17/19 10:10 12:52 17:40 Sodium 135.2 L Potassium 3.6 Chloride 90 L Carbon Dioxide 37 H Anion Gap 8 BUN 11 Creatinine 0.88 Est GFR ( Amer) > 60 Glucose 145 H Calcium 8.8 Magnesium 0.8 L* 1.2 L* Triglycerides Cholesterol LDL Cholesterol Direct VLDL Cholesterol HDL Cholesterol Urine Color YELLOW Urine Appearance CLEAR Urine pH 7.0 Ur Specific [place] 1.008 Urine Protein NEGATIVE Urine Glucose (UA) 50 H Urine Ketones NEGATIVE Urine Blood NEGATIVE Urine Nitrite NEGATIVE Ur Leukocyte Esterase NEGATIVE Urine WBC (Auto) 1 Urine RBC (Auto) 1 08/18/19 05:25 Sodium 132.6 L Potassium 3.7 Chloride 93 L Carbon Dioxide 33 H Anion Gap 7 BUN 11 Creatinine 0.81 Est GFR ( Amer) > 60 Glucose 115 H Calcium 8.5 Magnesium 1.5 L Triglycerides 195 H Cholesterol 222.36 H LDL Cholesterol Direct 185 H VLDL Cholesterol 39.0 H HDL Cholesterol 47 Urine Color Urine Appearance Urine pH Ur Specific [place] Urine Protein Urine Glucose (UA) Urine Ketones Urine Blood Urine Nitrite Ur Leukocyte Esterase Urine WBC (Auto) Urine RBC (Auto) 08/17/19 08/17/19 08/17/19 10:10 10:10 10:10 Creatine Kinase 56 CK-MB (CK-2) 1.34 Troponin I 0.016 NT-Pro-B Natriuret Pep 2960 H 08/17/19 08/17/19 08/18/19 17:40 22:11 05:25 Creatine Kinase CK-MB (CK-2) Troponin I < 0.012 < 0.012 NT-Pro-B Natriuret Pep 2520 H Impressions: Chest X-Ray 08/18/19 07:00 IMPRESSION: Persistent Tristin lines at both lung bases from mild interstitial edema Assessment and Plan - Diagnosis (1) Acute on chronic diastolic heart failure with preserved ejection fraction Is this a current diagnosis for this admission?: Yes Plan: 08/17/2019 The patient presents with worsening shortness of breath as well as increasing lower extremity edema. He is not compliant with a cardiac diet. He does report compliance with medication. He is not on a diuretic, DAVID inhibitor or statin therapy. He is on Plavix for his coronary disease. He has responded to IV furosemide and initially IV nitroglycerin that has been changed to nitroglycerin paste. He has had significant diuresis. His breathing is much better but he still requires oxygen supplementation (2 L nasal cannula) that we will taper to off. He has echocardiogram in 2018 revealed normal ejection fraction and no diastolic failure. I have ordered another echocardiogram for this admission. I have also asked cardiology to see the patient. He will be placed on a cardiac diet with daily weights and strict intake and output. 08/18/2019 The patient is being seen by cardiology. An echocardiogram has been ordered. We will continue her current regimen at this time. (2) CAD (coronary artery disease) Qualifiers: Coronary Disease-Associated Artery/Lesion type: bypass graft [place] vs. transplanted heart: [place] heart Associated angina: without angina Qualified Code(s): I25.810 - Atherosclerosis of coronary artery bypass graft(s) without angina pectoris Is this a current diagnosis for this admission?: Yes Plan: 08/17/2019 The patient has an extensive history of coronary artery disease with extensive family history. We will continue his Plavix and beta-jo therapy. I have added low-dose DAVID inhibitor as well as furosemide. He is also on nitroglycerin paste. We will monitor the patient on telemetry. Serial troponins have been ordered. 08/18/2019 No evidence of acute coronary syndrome. I will convert the Nitropaste to a lo ng-acting nitrate tomorrow if this is agreeable with cardiology. (3) Hypertension Qualifiers: Hypertension type: essential hypertension Qualified Code(s): I10 - Essential (primary) hypertension Is this a current diagnosis for this admission?: Yes Plan: 08/17/2019 Continue topical nitroglycerin for now. Continue furosemide by IV. Resume metoprolol. I have added low-dose DAVID inhibitor as well. We will need to optimize his medication regimen to try and avoid recurrent heart failure. 08/18/2019 Achieving good control with current regimen. No changes at this time. (4) Hypokalemia Is this a current diagnosis for this admission?: Yes Plan: 08/17/2019 The patient was hypokalemic on admission. With the aggressive diuresis and potassium will only decrease. He will receive IV potassium chloride today and I have initiated oral dosing. We will monitor with daily chemistries. 08/18/2019 Currently corrected. Continue to monitor and supplement potassium (5) Hypomagnesemia Is this a current diagnosis for this admission?: Yes Plan: 08/17/2019 Serum magnesium was markedly low. The patient will be given intravenous magnesium and will resume his oral magnesium supplement. 08/18/2019 Still low. We will give additional IV magnesium. Magnesium oxide has been started in tablet form. (6) Alcohol dependence Qualifiers: Substance use status: uncomplicated Qualified Code(s): F10.20 - Alcohol dependence, uncomplicated Is this a current diagnosis for this admission?: Yes Plan: 08/17/2019 The patient is a current drinker. His intake varies. On some days he will drink over 1 quart of vodka. On other days it is significantly less. He is on naltrexone as an outpatient. This is nonformulary. Benzodiazepine therapy is available. Will monitor closely. He will also be on thiamine daily. 08/18/2019 Naltrexone is not available. Continue thiamine and benzodiazepines available as needed. (7) Edema, lower extremity Is this a current diagnosis for this admission?: Yes Plan: 08/17/2019 The patient and realize his ankles are getting swollen. He has pitting edema. This should respond to diuretic therapy. 08/18/2019 Improving with treatment of heart failure (8) Hyperlipidemia Qualifiers: Hyperlipidemia type: mixed hyperlipidemia Qualified Code(s): E78.2 - Mixed hyperlipidemia Is this a current diagnosis for this admission?: Yes Plan: 08/18/2019 See lab results. Triglycerides, total cholesterol and LDL are all elevated. Statin therapy initiated. Will need follow-up in 6 to 8 weeks. - Time Time Spent with patient: 15-24 minutes Medications reviewed and adjusted accordingly: Yes Anticipated discharge: Home
[2019-08-18] MEDS ORDERED: VANCOMYCIN HCL INJ 1000 MG VIAL IV PRN (20:07)
--- NOTE | 2019-08-18 20:14 | Progress Note ---
Provider Note Provider Note: Critical CARE needed: 08/18/2019 Critical care start time: 1952 Critical care issue: Positive blood cultures I was notified by the patient's nurse that his aerobic blood culture was positive for gram-positive cocci in clusters and further characterization showed it to be a coagulase-negative Staphylococcus not sensitive to methicillin. The patient's vital signs have remained stable and his overall examination appears to be little changed from that described by Dr. Nazario in his admission history and physical. Patient has been hemodynamically stable over the course of the day. A discussion of his positive blood cultures is introduced to the patient and he agrees with a plan to initiate antibiotic therapy. To that end the patient has been started on vancomycin with a 2 g initial bolus and 1 g IV every 8 hours with pharmacy to dose. Critical care end time: 2012 Total critical care time: 20 minutes
[2019-08-18] MEDS ORDERED: VANCOMYCIN HCL INJ 1000 MG VIAL IV SCH (20:15)
[2019-08-18] MEDS ORDERED: VANCOMYCIN HCL 2,000 MG in DEXTROSE 5%-WATER 500 ML IV ONE (20:30)
[2019-08-18] MEDS ORDERED: VANCOMYCIN HCL INJ 1000 MG VIAL ONE (20:46)
[2019-08-18] MEDS: ATORVASTATIN CALCIUM 40 MG TABLET PO SCH (22:34)
[2019-08-18] MEDS: TRAZODONE HCL 50 MG TABLET PO SCH (22:34)
[2019-08-19] MEDS ORDERED: VANCOMYCIN HCL INJ 1000 MG VIAL IV PRN (05:02)
[2019-08-19] MEDS ORDERED: VANCOMYCIN HCL 1,250 MG in DEXTROSE 5%-WATER 250 ML IV ONE (06:00)
[2019-08-19] MEDS: PANTOPRAZOLE SODIUM 40 MG TABLET.DR PO SCH (06:02)
[2019-08-19] MEDS: HEPARIN SOD (PORCINE) 5,000 UNIT/ML 1 ML VIAL SUBCUT SCH ×3 (06:02→22:52)
[2019-08-19] MEDS: NITROGLYCERIN 2% OINTMENT 1 GM PACKET TP SCH ×3 (06:02→18:30)
[2019-08-19] MEDS ORDERED: VANCOMYCIN HCL INJ 500 MG VIAL ONE (07:38)
[2019-08-19] MEDS ORDERED: VANCOMYCIN HCL INJ 1000 MG VIAL ONE (07:38)
--- NOTE | 2019-08-19 08:50 | PDOC PROGRESS REPORT ---
Subjective Progress Note for:: 08/19/19 Subjective:: WOODROW JERNIGAN is a 59 year old male with history of coronary artery disease status post one-vessel CABG 5 or 6 years ago as well as 13 stents the last one for 5 years ago, hypertension, hyperlipidemia, heart failure who is consulted to our service for further evaluation of heart failure. Unfortunately the patient does not remember any details of his cardiac history and does not have any of his cardiac stents. He states that his CABG was done in [place] but does not even remember the name of the hospital. He had been in his usual state of health until 2 to 3 days prior to admission when he developed lower extremity edema associated with class III dyspnea on exertion. His symptoms were so severe that he called EMS at which time his blood pressure taken by EMS was noted to be greater than 200/150. He was given nitroglycerin in route. His brain natruretic peptide is elevated and has had 3 sets of troponins which were negative. This morning he continues to complain of dyspnea on exertion as well as lower extremity edema. Upon further questioning, he endorses noncompliance with medications as well as diet. He states that he eats cold cuts, pizza and other food items high in sodium. His telemetry demonstrates normal sinus rhythm. 08/19/2019: The patient had an uneventful night. 1 of his blood cultures came back positive therefore he was begun on vancomycin last night however the nursing staff tells me that it was only 1 set that came back positive which was taking in the emergency room and she stated that most of those blood cultures come back positive. He remains asymptomatic and feeling better. Unfortunately his fluid balance is inaccurate as he does not use the urinal. His chest x-ray from 08/18/2019 still demonstrates pulmonary edema. Physical exam on 08/19/2019: GENERAL: Pleasant and conversational. Mildly dyspneic with normal conversation. Oriented x3 with normal mood. Not in acute distress. Well groomed and well developed. HEENT: Normocephalic, atraumatic. Pupils equal. Sclerae anicteric. Oropharynx moist. NECK: No JVD. No carotid bruits. LUNGS: Clear to auscultation bilaterally. Normal respiratory effort without the use of accessory muscles or intercostal retractions. CARDIOVASCULAR: Regular rate and rhythm, normal S1 and S2 without murmurs, rubs, or gallops. PMI not displaced. ABDOMEN: No masses or tenderness to palpation. No bruit. No splenomegaly or hepatomegaly. No abdominal aorta bruit noted. EXTREMITIES: Trace pitting edema bilaterally, no cyanosis, no clubbing. +2 pulses femoral and pedal pulses bilaterally. SKIN: No lesions or rashes. MUSCULOSKELETAL: No chest tenderness to palpation. NEUROLOGIC: Nonfocal. No gross sensory or motor deficits bilateral upper or lo wer extremities. Reason For Visit: HEART FAILURE Physical Exam Vital Signs: Temp Pulse Resp BP Pulse Ox 97.9 F 66 18 135/77 H 97 08/19/19 00:48 08/19/19 02:00 08/19/19 00:48 08/19/19 06:00 08/19/19 00:48 Intake & Output 08/18/19 08/19/19 08/20/19 06:59 06:59 06:59 Intake Total 690 1560 Output Total 1300 Balance -610 1560 Weight 121 kg 121 kg Results Laboratory Results: 08/17/19 10:10 08/18/19 05:25 08/17/19 14:19 Blood Blood Culture (PCR) - Final Staphylococcus Species 08/17/19 08/17/19 08/17/19 10:10 10:10 10:10 Creatine Kinase 56 CK-MB (CK-2) 1.34 Troponin I 0.016 NT-Pro-B Natriuret Pep 2960 H 08/17/19 08/17/19 08/18/19 17:40 22:11 05:25 Creatine Kinase CK-MB (CK-2) Troponin I < 0.012 < 0.012 NT-Pro-B Natriuret Pep 2520 H Impressions: Chest X-Ray 08/18/19 07:00 IMPRESSION: Persistent Tristin lines at both lung bases from mild interstitial edema 08/17/19 10:10 08/18/19 05:25 MCV 103 fl (80-97) H 08/17/19 10:10 MCH 36.9 pg (27.0-33.4) H 08/17/19 10:10 MCHC 35.9 g/dL (32.0-36.0) 08/17/19 10:10 RDW 17.2 % (11.5-14.0) H 08/17/19 10:10 Seg Neutrophils % 74.1 % (42-78) 08/17/19 10:10 Carbonic Acid 1.20 mmol/L (1.05-1.35) 08/17/19 11:15 HCO3/H2CO3 Ratio 22:1 08/17/19 11:15 ABG pH 7.45 (7.35-7.45) 08/17/19 11:15 ABG pCO2 40.0 mmHg (35-45) 08/17/19 11:15 ABG pO2 164.3 mmHg (80-100) H 08/17/19 11:15 ABG HCO3 27.4 mmol/L (20-24) H 08/17/19 11:15 ABG O2 Saturation 99.2 % (94-98) H 08/17/19 11:15 ABG Base Excess 3.3 mmol/L 08/17/19 11:15 FiO2 40% 08/17/19 11:15 Chloride 93 mmol/L (98-107) L 08/18/19 05:25 Carbon Dioxide 33 mmol/L (22-30) H 08/18/19 05:25 Anion Gap 7 (5-19) 08/18/19 05:25 Est GFR ( Amer) > 60 (>60) 08/18/19 05:25 Glucose 115 mg/dL (75-110) H 08/18/19 05:25 Calcium 8.5 mg/dL (8.4-10.2) 08/18/19 05:25 Magnesium 1.5 mg/dL (1.6-2.3) L 08/18/19 05:25 Total Bilirubin 1.6 mg/dL (0.2-1.3) H 08/17/19 10:10 AST 81 U/L (17-59) H 08/17/19 10:10 Alkaline Phosphatase 76 U/L (38-126) 08/17/19 10:10 Total Protein 6.1 g/dL (6.3-8.2) L 08/17/19 10:10 Albumin 3.8 g/dL (3.5-5.0) 08/17/19 10:10 Triglycerides 195 mg/dL (<150) H 08/18/19 05:25 Cholesterol 222.36 mg/dL (0-200) H 08/18/19 05:25 LDL Cholesterol Direct 185 mg/dL (<100) H 08/18/19 05:25 VLDL Cholesterol 39.0 mg/dL (10-31) H 08/18/19 05:25 HDL Cholesterol 47 mg/dL (>40) 08/18/19 05:25 Urine Color YELLOW 08/17/19 12:52 Urine Appearance CLEAR 08/17/19 12:52 Urine pH 7.0 (5.0-9.0) 08/17/19 12:52 Ur Specific [place] 1.008 08/17/19 12:52 Urine Protein NEGATIVE mg/dL (NEGATIVE) 08/17/19 12:52 Urine Glucose (UA) 50 mg/dL (NEGATIVE) H 08/17/19 12:52 Urine Ketones NEGATIVE mg/dL (NEGATIVE) 08/17/19 12:52 Urine Blood NEGATIVE (NEGATIVE) 08/17/19 12:52 Urine Nitrite NEGATIVE (NEGATIVE) 08/17/19 12:52 Ur Leukocyte Esterase NEGATIVE (NEGATIVE) 08/17/19 12:52 Urine WBC (Auto) 1 /HPF 08/17/19 12:52 Urine RBC (Auto) 1 /HPF 08/17/19 12:52 08/17/19 14:19 Blood Blood Culture (PCR) - Final Staphylococcus Species 08/17/19 08/17/19 08/17/19 10:10 10:10 10:10 Creatine Kinase 56 CK-MB (CK-2) 1.34 Troponin I 0.016 NT-Pro-B Natriuret Pep 2960 H 08/17/19 08/17/19 08/18/19 17:40 22:11 05:25 Creatine Kinase CK-MB (CK-2) Troponin I < 0.012 < 0.012 NT-Pro-B Natriuret Pep 2520 H Current Medication List Generic Name Dose Route Start Last Admin Trade Name Freq PRN Reason Stop Dose Admin Acetaminophen 650 mg 08/17/19 16:24 Tylenol 325 Mg Tablet PO 09/16/19 16:23 Q4HP PRN pain or temp greater than 101F Al Hydrox/Mg Hydrox/Simethicone 30 ml 08/17/19 16:24 Maalox Plus Susp 30 Udcup PO 09/16/19 16:23 Q4HP PRN HEARTBURN Atorvastatin Calcium 40 mg 08/17/19 22:00 08/18/19 22:34 Lipitor 40 Mg Tablet PO 09/16/19 21:59 40 mg QHS VINCENT Administration Clopidogrel Bisulfate 75 mg 08/18/19 10:00 08/18/19 09:05 Plavix 75 Mg Tablet PO 09/17/19 09:59 75 mg DAILY VINCENT Administration Folic Acid 1 mg 08/18/19 10:00 08/18/19 09:06 Folvite 1 Mg Tablet PO 09/17/19 09:59 1 mg DAILY VINCENT Administration Furosemide 20 mg 08/18/19 10:00 08/18/19 09:05 Lasix Inj/Pf 20 Mg/2 Ml Sdv IV 09/17/19 09:59 20 mg DAILY VINCENT Administration Heparin Sodium (Porcine) 5,000 unit 08/17/19 22:00 08/19/19 06:02 Heparin Inj 5,000 Units/Ml 1 Ml Vial SUBCUT 09/16/19 21:59 5,000 unit Q8 VINCENT Administration Vancomycin HCl 1,250 mg/ 250 mls @ 166.667 mls/hr 08/19/19 14:00 Dextrose IV 08/26/19 13:59 Q8 VINCENT Lisinopril 5 mg 08/18/19 10:00 08/18/19 09:06 Prinivil 5 Mg Tablet PO 09/17/19 09:59 5 mg DAILY VINCENT Administration Lorazepam 2 mg 08/17/19 16:38 Ativan Inj 2 Mg/1 Ml Vial IV 08/24/19 16:37 Q4HP PRN ANXIETY/AGITATION Magnesium Hydroxide 30 ml 08/17/19 16:24 Milk Of Magnesia 30 Ml Udcup PO 09/16/19 16:23 HSP PRN FOR CONSTIPATION Magnesium Oxide 400 mg 08/17/19 18:00 08/18/19 17:07 Mag-Ox 400 Mg Tablet PO 09/16/19 17:59 400 mg BID VINCENT Administration Metoprolol Tartrate 75 mg 08/17/19 22:00 08/18/19 22:33 Lopressor 50 Mg Tablet PO 09/16/19 21:59 75 mg Q12 VINCENT Administration Morphine Sulfate 5 mg 08/17/19 17:15 Morphine 10 Mg/Ml Inj IV 08/24/19 17:14 Q4HP PRN FOR CHEST PAIN Nitroglycerin 1 gm 08/17/19 18:00 08/19/19 06:02 Nitrol 2% Ointment 1gm Packet TP 09/16/19 17:59 1 gm Q6 VINCENT Administration Nitroglycerin 1 tab 05/16/20 16:42 Nitrostat 0.4 Mg (1/150 Gr) Tabs 25/Bottle SL 09/16/19 16:41 Q5MP PRN FOR CHEST PAIN Pantoprazole Sodium 40 mg 08/18/19 06:00 08/19/19 06:[address] Tablet PO 09/17/19 05:59 40 mg Q6AM VINCENT Administration Potassium Chloride 40 meq 08/17/19 22:00 08/18/19 22:34 Klor-Con 10 Meq Tablet Er PO 09/16/19 21:59 40 meq Q12 VINCENT Administration Sodium Chloride 2.5 ml 08/17/19 22:00 08/19/19 06:17 Saline Flush 2.5 Ml Monoject Prefil Syrin IV 09/16/19 21:59 2.5 ml Q8 VINCENT Administration Thiamine HCl 100 mg 08/18/19 10:00 08/18/19 09:05 Thiamine 100 Mg Tablet PO 09/17/19 09:59 100 mg DAILY VINCENT Administration Trazodone HCl 100 mg 08/17/19 22:00 08/18/19 22:34 Desyrel 50 Mg Tablet PO 09/16/19 21:59 100 mg QHS VINCENT Administration Discontinued Medications Generic Name Dose Route Start Last Admin Trade Name Freq PRN Reason Stop Dose Admin Furosemide 40 mg 08/17/19 11:56 08/17/19 12:15 Lasix Inj/Pf 20 Mg/2 Ml Sdv IV 08/17/19 11:57 40 mg NOW ONE Administration Potassium Chloride/Water 20 meq in 50 mls @ 25 mls/hr 08/17/19 11:59 08/17/19 14:20 Potassium Chloride Omid 20 Meq/50 Ml IV 08/17/19 13:58 Infused NOW ONE Infusion Magnesium Sulfate/Dextrose 1 gm in 100 mls @ 100 mls/hr 08/17/19 13:30 08/17/19 16:49 Magnesium Sulfate Rtu-D5w 1 Gm/100 Ml Premix IV 08/17/19 15:29 Infused Q1H VINCENT Infusion Magnesium Sulfate/Dextrose 1 gm in 100 mls @ 100 mls/hr 08/17/19 20:00 08/17/19 21:55 Magnesium Sulfate Rtu-D5w 1 Gm/100 Ml Premix IV 08/17/19 21:59 Infused Q1H VINCENT Infusion Magnesium Sulfate/Dextrose 1 gm in 100 mls @ 100 mls/hr 08/18/19 09:00 08/18/19 10:45 Magnesium Sulfate Rtu-D5w 1 Gm/100 Ml Premix IV 08/18/19 09:59 Infused NOW ONE Infusion Vancomycin HCl 2,000 mg/ 500 mls @ 250 mls/hr 08/18/19 20:30 08/19/19 00:33 Dextrose IV 08/18/19 22:29 Infused NOW ONE Infusion Vancomycin HCl 1,250 mg/ 250 mls @ 166.667 mls/hr 08/19/19 06:00 08/19/19 07:53 Dextrose IV 08/19/19 07:29 166.67 mls/hr NOW ONE 166.67 mls/hr Administration Metoprolol Tartrate 5 mg 08/17/19 20:15 08/17/19 20:17 Lopressor Inj/Pf 5 Mg/5 Ml Sdv IV 08/17/19 20:16 5 mg NOW ONE Administration Nitroglycerin 1 gm 08/17/19 11:59 08/17/19 12:13 Nitrol 2% Ointment 1gm Packet TP 08/17/19 12:00 1 gm NOW ONE Administration Potassium Chloride 20 meq 08/17/19 22:00 Klor-Con 10 Meq Tablet Er PO 09/16/19 21:59 Q12 VINCENT Vancomycin HCl 2,000 mg 08/18/19 20:07 Vancocin Inj 1000 Mg Vial IV 08/19/19 07:00 ASDIR PRN Vancomycin HCl Confirm 08/18/19 20:46 08/18/19 22:33 Vancocin Inj 1000 Mg Vial Administered 08/18/19 20:47 Not Given Dose 1,000 mg .ROUTE .STK-MED ONE Vancomycin HCl 1,250 mg 08/19/19 05:02 Vancocin Inj 1000 Mg Vial IV 08/19/19 07:00 ASDIR PRN Vancomycin HCl Confirm 08/19/19 07:38 08/19/19 07:50 Vancocin Inj 1000 Mg Vial Administered 08/19/19 07:39 Not Given Dose 1,000 mg .ROUTE .STK-MED ONE Vancomycin HCl Confirm 08/19/19 07:38 08/19/19 07:52 Vancocin Inj 500 Mg Vial Administered 08/19/19 07:39 Not Given Dose 500 mg .ROUTE .[facility] ONE Assessment & Plan - Diagnosis (1) Acute on chronic diastolic heart failure with preserved ejection fraction Plan: The patient had an uneventful night and feels slightly better this morning. His lower extremity edema is essentially resolved however his chest x-ray continues to demonstrate pulmonary edema. Unfortunately his fluid balance is inaccurate as the patient does not use the urinal. His echocardiogram is still pending. I encouraged the patient to use the urinal. Recommendations: -Increase Lasix to 40 mg IV twice daily. -continue with DAVID inhibitor, beta-jo. -Restrict fluid intake to 1500 cc daily. -Low sodium diet, less than 1500 mg daily. -Strict intake and output. -Daily weights. -Agree with repeating echocardiogram. (2) CAD (coronary artery disease) Qualifiers: Coronary Disease-Associated Artery/Lesion type: bypass graft [place] vs. transplanted heart: [place] heart Associated angina: without angina Qualified Code(s): I25.810 - Atherosclerosis of coronary artery bypass graft(s) without angina pectoris Plan: The patient has an extensive cardiovascular history however those details are unknown at this time. He is fluid overloaded likely from medication dietary noncompliance but denies angina and angina equivalents. Recommendations: -Continue with beta-jo, DAVID inhibitor and Plavix for now. -Noninvasive ischemic assessment when the patient is not in heart failure. (3) Hypertension Qualifiers: Hypertension type: essential hypertension Qualified Code(s): I10 - Essential (primary) hypertension Plan: His blood pressure is now at goal. Recommendations: -Continue with current medical management for now. (4) Hyperlipidemia Qualifiers: Hyperlipidemia type: mixed hyperlipidemia Qualified Code(s): E78.2 - Mixed hyperlipidemia Plan: His direct LDL is above goal at 185. His atorvastatin was increased to 80 mg daily. Recommendations: -Continue with current medical management. -Repeat LFTs and fasting lipid panel in 6 weeks.
[2019-08-19 09:20] LABS: ANION GAP 8 (5-19); BLOOD UREA NITROGEN 9 mg/dL (7-20); CALCIUM 7.9 mg/dL (8.4-10.2); CARBON DIOXIDE 28 mmol/L (22-30); CHLORIDE 97 mmol/L (98-107); GLUCOSE 163 mg/dL (75-110); POTASSIUM 3.9 mmol/L (3.6-5.0)
[2019-08-19] MEDS: FOLIC ACID 1 MG TABLET PO SCH (09:55)
[2019-08-19] MEDS: MAGNESIUM OXIDE 400 MG TABLET PO SCH ×2 (09:55→18:30)
[2019-08-19] MEDS: CLOPIDOGREL BISULFATE 75 MG TABLET PO SCH (09:55)
[2019-08-19] MEDS: POTASSIUM CHLORIDE 10 MEQ TABLET.ER PO SCH ×2 (09:55→22:52)
[2019-08-19] MEDS: METOPROLOL TARTRATE 50 MG TABLET PO SCH ×2 (09:56→22:58)
[2019-08-19] MEDS: FUROSEMIDE INJ/PF 20 MG/2 ML SDV IV SCH (09:56)
[2019-08-19] MEDS: LISINOPRIL 5 MG TABLET PO SCH (09:57)
[2019-08-19] MEDS: THIAMINE HCL 100 MG TABLET PO SCH (10:01)
[2019-08-19] MEDS: VANCOMYCIN HCL 1,250 MG in DEXTROSE 5%-WATER 250 ML IV SCH ×2 (14:37→22:47)
--- NOTE | 2019-08-19 15:03 | PDOC PROGRESS REPORT ---
Subjective Progress Note for:: 08/19/19 Subjective:: The patient is feeling better. He had a positive blood culture for Clostridium perfringens which is surprising based on his clinical status. His breathing is much better. Reason For Visit: HEART FAILURE Physical Exam Vital Signs: Temp Pulse Resp BP Pulse Ox 99.3 F 71 18 116/68 98 08/19/19 11:30 08/19/19 11:30 08/19/19 11:30 08/19/19 11:30 08/19/19 11:30 Intake & Output 08/18/19 08/19/19 08/20/19 06:59 06:59 06:59 Intake Total 690 1560 480 Output Total 1300 Balance -610 1560 480 Weight 121 kg 121 kg General appearance: PRESENT: no acute distress, cooperative, well-developed Eye exam: PRESENT: conjunctiva pink, EOMI. ABSENT: scleral icterus Ear exam: PRESENT: normal external ear exam. ABSENT: bleeding, drainage Mouth exam: PRESENT: moist, tongue midline Respiratory exam: PRESENT: clear to auscultation sebas, symmetrical, unlabored. ABSENT: prolonged expiratory phas, rales, rhonchi, tachypnea, wheezes Cardiovascular exam: PRESENT: RRR, +S1, +S2. ABSENT: diastolic murmur, irregular rhythm, systolic murmur GI/Abdominal exam: PRESENT: distended - Protuberant abdomen, normal bowel sounds, soft. ABSENT: guarding, mass, tenderness Rectal exam: PRESENT: deferred Gentrourinary exam: ABSENT: indwelling catheter Extremities exam: ABSENT: pedal edema Musculoskeletal exam: PRESENT: ambulatory, normal inspection. ABSENT: deformity Neurological exam: PRESENT: alert, awake, oriented to person, oriented to place, oriented to time, oriented to situation, CN II-XII grossly intact. ABSENT: altered, motor sensory deficit Psychiatric exam: PRESENT: appropriate affect, normal mood. ABSENT: agitated, anxious Focused psych exam: ABSENT: delusional, paranoid Skin exam: PRESENT: dry, normal color, warm. ABSENT: mottled, rash Results Laboratory Results: 08/17/19 10:10 08/19/19 08:36 08/19/19 08:36 Sodium 133.1 L Potassium 3.9 Chloride 97 L Carbon Dioxide 28 Anion Gap 8 BUN 9 Creatinine 0.74 Est GFR ( Amer) > 60 Glucose 163 H Calcium 7.9 L 08/17/19 14:19 Blood Blood Culture (PCR) - Final Staphylococcus Species 08/17/19 08/17/19 08/17/19 10:10 10:10 10:10 Creatine Kinase 56 CK-MB (CK-2) 1.34 Troponin I 0.016 NT-Pro-B Natriuret Pep 2960 H 08/17/19 08/17/19 08/18/19 17:40 22:11 05:25 Creatine Kinase CK-MB (CK-2) Troponin I < 0.012 < 0.012 NT-Pro-B Natriuret Pep 2520 H Impressions: Chest X-Ray 08/18/19 07:00 IMPRESSION: Persistent Tristin lines at both lung bases from mild interstitial edema Assessment and Plan - Diagnosis (1) Acute on chronic diastolic heart failure with preserved ejection fraction Is this a current diagnosis for this admission?: Yes Plan: 08/17/2019 The patient presents with worsening shortness of breath as well as increasing lower extremity edema. He is not compliant with a cardiac diet. He does report compliance with medication. He is not on a diuretic, DAVID inhibitor or statin therapy. He is on Plavix for his coronary disease. He has responded to IV furosemide and initially IV nitroglycerin that has been changed to nitroglycerin paste. He has had significant diuresis. His breathing is much better but he still requires oxygen supplementation (2 L nasal cannula) that we will taper to off. He has echocardiogram in 2018 revealed normal ejection fraction and no diastolic failure. I have ordered another echocardiogram for this admission. I have also asked cardiology to see the patient. He will be placed on a cardiac diet with daily weights and strict intake and output. 08/18/2019 The patient is being seen by cardiology. An echocardiogram has been ordered. We will continue her current regimen at this time. 08/19/[address] Poole recommendation will increase furosemide. Continue to monitor on telemetry as well as intake and output. (2) CAD (coronary artery disease) Qualifiers: Coronary Disease-Associated Artery/Lesion type: bypass graft [place] vs. transplanted heart: [place] heart Associated angina: without angina Qualified Code(s): I25.810 - Atherosclerosis of coronary artery bypass graft(s) without angina pectoris Is this a current diagnosis for this admission?: Yes Plan: 08/17/2019 The patient has an extensive history of coronary artery disease with extensive family history. We will continue his Plavix and beta-jo therapy. I have added low-dose DAVID inhibitor as well as furosemide. He is also on nitroglycerin paste. We will monitor the patient on telemetry. Serial troponins have been ordered. 08/18/2019 No evidence of acute coronary syndrome. I will convert the Nitropaste to a long-acting nitrate tomorrow if this is agreeable with cardiology. 08/19/2019 No ACS symptoms. Continue current regimen (3) Hypertension Qualifiers: Hypertension type: essential hypertension Qualified Code(s): I10 - Essential (primary) hypertension Is this a current diagnosis for this admission?: Yes Plan: 08/17/2019 Continue topical nitroglycerin for now. Continue furosemide by IV. Resume metoprolol. I have added low-dose DAVID inhibitor as well. We will need to optimize his medication regimen to try and avoid recurrent heart failure. 08/18/2019 Achieving good control with current regimen. No changes at this time. 08/19/2019 Blood pressure is still high. With increased furosemide I would expect improvement. (4) Hypokalemia Is this a current diagnosis for this admission?: Yes Plan: 08/17/2019 The patient was hypokalemic on admission. With the aggressive diuresis and potassium will only decrease. He will receive IV potassium chloride today and I have initiated oral dosing. We will monitor with daily chemistries. 08/18/2019 Currently corrected. Continue to monitor and supplement potassium 08/19/2019 Continue to monitor especially in light of increased furosemide (5) Hypomagnesemia Is this a current diagnosis for this admission?: Yes Plan: 08/17/2019 Serum magnesium was markedly low. The patient will be given intravenous magnesium and will resume his oral magnesium supplement. 08/18/2019 Still low. We will give additional IV magnesium. Magnesium oxide has been started in tablet form. 08/19/2019 Still catching up with magnesium level. Continue to monitor and supplement accordingly. (6) Alcohol dependence Qualifiers: Substance use status: uncomplicated Qualified Code(s): F10.20 - Alcohol dependence, uncomplicated Is this a current diagnosis for this admission?: Yes Plan: 08/17/2019 The patient is a current drinker. His intake varies. On some days he will drink over 1 quart of vodka. On other days it is significantly less. He is on naltrexone as an outpatient. This is nonformulary. Benzodiazepine therapy is available. Will monitor closely. He will also be on thiamine daily. 08/18/2019 Naltrexone is not available. Continue thiamine and benzodiazepines available as needed. 08/19/2019 Continue current regimen. Continue to monitor for signs of withdrawal. (7) Edema, lower extremity Is this a current diagnosis for this admission?: Yes Plan: 08/17/2019 The patient and realize his ankles are getting swollen. He has pitting edema. This should respond to diuretic therapy. 08/18/2019 Improving with treatment of heart failure 08/19/2019 Minimal (8) Hyperlipidemia Qualifiers: Hyperlipidemia type: mixed hyperlipidemia Qualified Code(s): E78.2 - Mixed hyperlipidemia Is this a current diagnosis for this admission?: Yes Plan: 08/18/2019 See lab results. Triglycerides, total cholesterol and LDL are all elevated. Statin therapy initiated. Will need follow-up in 6 to 8 weeks. (9) Bacterial infection due to Clostridium perfringens Is this a current diagnosis for this admission?: Yes Plan: 08/19/2019 The patient did have better anaerobic blood culture bottle positive for Clostridium perfringens. He does not appear to have a focus of severe infection. Appreciate Dr. Bower's input from infectious diseases. Per her recommendation we will discontinue vancomycin and start metronidazole 500 mg 3 times a day for 5 days. The patient should avoid alcohol while on this medication. - Time Time Spent with patient: 15-24 minutes Medications reviewed and adjusted accordingly: Yes Anticipated discharge: Home
--- NOTE | 2019-08-19 16:36 | XCELERA REPORT ---
[address] [address] Transthoracic Echocardiogram Report Name: WOODROW JERNIGAN Age: 59 yrs Gender: Male : 1960 Patient Status: Inpatient Patient Location: [address] [place], [place] [address] Study Date: 08/19/2019 03:30 PM Height: 73 in Weight: 273 lb BSA: 2.5 m2 Procedure: A complete two-dimensional transthoracic echocardiogram was performed (2D, M-mode, spectral and color flow Doppler). The study was technically difficult with many images being suboptimal in quality. Reason For Study: Acute heart failure Ordering Physician: AIRAM RIZO Performed By: Estela Alexander Interpretation Summary The left ventricle is normal in size, thickness and function. There is mild concentric left ventricular hypertrophy. Left ventricular systolic function is normal. The Ejection Fraction estimate is 60-65%. Doppler measurements suggest impaired left ventricular relaxation, which is associated with grade I/IV or mild diastolic dysfunction. Grossly normal wall motion at least on apical windows. There is no thrombus. Mild LAE. Trace to mild MR, trace to mild TR, trace PI. When compared to a prior study dated APR 20, there is no significant change. MMode/2D Measurements & Calculations RVDd: 3.7 cm LVIDd: 5.8 cm FS: 37.4 % Ao root diam: 2.7 cm IVSd: 1.2 cm LVIDs: 3.7 cm EDV(Teich): 169.7 ml Ao root area: 5.9 cm2 LVPWd: 1.2 cm ESV(Teich): 56.7 ml LA dimension: 4.1 cm EF(Teich): 66.6 % Doppler Measurements & Calculations MV E max milady: MV P1/2t max milady: Ao V2 max: LV V1 max P.2 cm/sec 71.3 cm/sec 108.0 cm/sec 3.5 mmHg MV A max milady: MV P1/2t: 69.9 msec Ao max P.7 mmHg LV V1 max: 44.3 cm/sec MVA(P1/2t): 3.1 cm2 93.3 cm/sec MV E/A: 1.6 MV dec slope: LV dP/dt: 1136 mmHg/s 299.1 cm/sec2 MV dec time: 0.22 sec PA V2 max: TR max milady: MV P1/2t-pr_phl: 75.5 cm/sec 253.4 cm/sec 69.9 msec PA max PG: TR max P.7 mmHg 2.3 mmHg Left Ventricle The left ventricle is normal in size, thickness and function. There is mild concentric left ventricular hypertrophy. Left ventricular systolic function is normal. The Ejection Fraction estimate is 60-65%. Doppler measurements suggest impaired left ventricular relaxation, which is associated with grade I/IV or mild diastolic dysfunction. Grossly normal wall motion at least on apical windows. There is no thrombus. Right Ventricle The right ventricle is normal in size, thickness and function. The right ventricular systolic function is normal. Atria The right atrium is normal. The left atrium is mildly dilated. There is no Doppler evidence for an interatrial shunt. Mitral Valve The mitral valve is normal in structure and function. There is a trace to mild amount of mitral regurgitation. Aortic Valve The aortic valve is normal in structure and functions normally. There is no aortic valve stenosis. No aortic regurgitation is present. Tricuspid Valve The tricuspid is normal in structure and function. There is a trace to mild amount of tricuspid regurgitation. Pulmonic Valve There is a trace amount of pulmonic regurgitation. Great Vessels The aortic root is normal size. The inferior vena cava appeared normal. Effusions There is no pleural effusion. : AIRAM RIZO Antonio
--- NOTE | 2019-08-19 16:59 | Progress Note ---
Provider Note Provider Note: [facility] Telephone Advice Consultation Chart reviewed. Patient is a 59-year-old man who has an extensive cardiac his tory due to multiple cardiac events and HI requiring multiple stents in the past 5 years and CABG. Per notes, he is not compliant with diet and continues drinking alcohol. He was admitted due to CHF exacerbation. He presented with worsening shortness of breath, cough. His initial CXR was consistent with congestive heart failure. BNP was above 2000. Blood pressure was elevated. A new CXR was consistent with vascular congestion. He has been receiving diuretics. Blood culture positive for Staphylococcus spp and Clostridium perfringens. He was started on vancomycin. ID consulted for recommendations. Allergies: No Known Allergies Allergy (Verified 05/13/18 18:08) Medications: Clopidogrel Bisulfate [Plavix 75 mg Tablet] 75 mg PO DAILY 05/16/19 Folic Acid [Folvite 1 mg Tablet] 1 mg PO DAILY 05/16/19 Magnesium Oxide 500 mg PO Q12 05/16/19 Thiamine HCl [Thiamine 100 mg Tablet] 100 mg PO DAILY 05/16/19 Trazodone HCl 100 mg PO QHS 05/16/19 Nitroglycerin [Nitrostat 0.4 mg (1/150 Gr) Tabs 25/Bottle] 1 tab SL Q5MP PRN 08/18/19 Sertraline HCl 100 mg PO DAILY 08/18/19 Vital Signs: Temp Pulse Resp BP Pulse Ox 99.3 F 71 18 116/68 98 08/19/19 11:30 08/19/19 11:30 08/19/19 11:30 08/19/19 11:30 08/19/19 11:30 Intake & Output 08/18/19 08/19/19 08/20/19 06:59 06:59 06:59 Intake Total 690 1560 480 Output Total 1300 Balance -610 1560 480 Weight 121 kg 121 kg Weight/Height Weight 121 kg Height 6 ft 1 in Laboratories: 08/17/19 10:10 08/19/19 08:36 MCV 103 fl (80-97) H 08/17/19 10:10 MCH 36.9 pg (27.0-33.4) H 08/17/19 10:10 MCHC 35.9 g/dL (32.0-36.0) 08/17/19 10:10 RDW 17.2 % (11.5-14.0) H 08/17/19 10:10 Seg Neutrophils % 74.1 % (42-78) 08/17/19 10:10 Carbonic Acid 1.20 mmol/L (1.05-1.35) 08/17/19 11:15 HCO3/H2CO3 Ratio 22:1 08/17/19 11:15 ABG pH 7.45 (7.35-7.45) 08/17/19 11:15 ABG pCO2 40.0 mmHg (35-45) 08/17/19 11:15 ABG pO2 164.3 mmHg (80-100) H 08/17/19 11:15 ABG HCO3 27.4 mmol/L (20-24) H 08/17/19 11:15 ABG O2 Saturation 99.2 % (94-98) H 08/17/19 11:15 ABG Base Excess 3.3 mmol/L 08/17/19 11:15 FiO2 40% 08/17/19 11:15 Chloride 97 mmol/L (98-107) L 08/19/19 08:36 Carbon Dioxide 28 mmol/L (22-30) 08/19/19 08:36 Anion Gap 8 (5-19) 08/19/19 08:36 Est GFR ( Amer) > 60 (>60) 08/19/19 08:36 Glucose 163 mg/dL (75-110) H 08/19/19 08:36 Calcium 7.9 mg/dL (8.4-10.2) L 08/19/19 08:36 Magnesium 1.5 mg/dL (1.6-2.3) L 08/18/19 05:25 Total Bilirubin 1.6 mg/dL (0.2-1.3) H 08/17/19 10:10 AST 81 U/L (17-59) H 08/17/19 10:10 Alkaline Phosphatase 76 U/L (38-126) 08/17/19 10:10 Total Protein 6.1 g/dL (6.3-8.2) L 08/17/19 10:10 Albumin 3.8 g/dL (3.5-5.0) 08/17/19 10:10 Triglycerides 195 mg/dL (<150) H 08/18/19 05:25 Cholesterol 222.36 mg/dL (0-200) H 08/18/19 05:25 LDL Cholesterol Direct 185 mg/dL (<100) H 08/18/19 05:25 VLDL Cholesterol 39.0 mg/dL (10-31) H 08/18/19 05:25 HDL Cholesterol 47 mg/dL (>40) 08/18/19 05:25 Urine Color YELLOW 08/17/19 12:52 Urine Appearance CLEAR 08/17/19 12:52 Urine pH 7.0 (5.0-9.0) 08/17/19 12:52 Ur Specific [place] 1.008 08/17/19 12:52 Urine Protein NEGATIVE mg/dL (NEGATIVE) 08/17/19 12:52 Urine Glucose (UA) 50 mg/dL (NEGATIVE) H 08/17/19 12:52 Urine Ketones NEGATIVE mg/dL (NEGATIVE) 08/17/19 12:52 Urine Blood NEGATIVE (NEGATIVE) 08/17/19 12:52 Urine Nitrite NEGATIVE (NEGATIVE) 08/17/19 12:52 Ur Leukocyte Esterase NEGATIVE (NEGATIVE) 08/17/19 12:52 Urine WBC (Auto) 1 /HPF 08/17/19 12:52 Urine RBC (Auto) 1 /HPF 08/17/19 12:52 08/17/19 14:19 Blood Blood Culture (PCR) - Final Staphylococcus Species 08/17/19 08/17/19 08/17/19 10:10 10:10 10:10 Creatine Kinase 56 CK-MB (CK-2) 1.34 Troponin I 0.016 NT-Pro-B Natriuret Pep 2960 H 08/17/19 08/17/19 08/18/19 17:40 22:11 05:25 Creatine Kinase CK-MB (CK-2) Troponin I < 0.012 < 0.012 NT-Pro-B Natriuret Pep 2520 H Microbiology: Blood culture: 08/17/19 1 set with Staphylococcus spp and Clostridium perfringens Radiology: Chest X-Ray 08/18/19 07:00 IMPRESSION: Persistent Tristin lines at both lung bases from mild interstitial edema Assessment and Recommendations: Patient admitted with CHF exacerbation in the setting of uncontrolled hypertension and poor compliance with cardiac diet. He has been afebrile, but blood culture has 1 set positive for Clostridium perfringens and a CoNS. These could be considered contaminants as it was only 1 set positive. Clostridium has been associated with necrotizing infections and GI infection. He did not present with any of these, but he did have CHF exacerbation for which will recommend to treat the Clostridium perfringens. Fortunately this organism can be treated with metronidazole by mouth to avoid a PICC line. He would have to avoid alcohol while taking it though. Metronidazole 500 mg po tid x 8 days recommended. EOT 08/27/19. Please call back if any questions. Jenny Bower MD [facility] [phone]
[2019-08-19] MEDS: FUROSEMIDE INJ/PF 40 MG/4 ML SDV IV SCH (18:31)
[2019-08-19] MEDS: TRAZODONE HCL 50 MG TABLET PO SCH (22:52)
[2019-08-19] MEDS: ATORVASTATIN CALCIUM 40 MG TABLET PO SCH (22:53)
[2019-08-20] MEDS: NITROGLYCERIN 2% OINTMENT 1 GM PACKET TP SCH ×5 (00:53→23:22)
[2019-08-20 06:37] LABS: VANCOMYCIN,TROUGH 18.7 ug/mL (5.0-20.0)
[2019-08-20] MEDS: FUROSEMIDE INJ/PF 40 MG/4 ML SDV IV SCH (06:40)
[2019-08-20] MEDS: PANTOPRAZOLE SODIUM 40 MG TABLET.DR PO SCH (06:41)
[2019-08-20] MEDS: HEPARIN SOD (PORCINE) 5,000 UNIT/ML 1 ML VIAL SUBCUT SCH ×3 (06:41→23:25)
[2019-08-20 07:17] LABS: ANION GAP 5 (5-19); BLOOD UREA NITROGEN 8 mg/dL (7-20); CALCIUM 8.5 mg/dL (8.4-10.2); CARBON DIOXIDE 30 mmol/L (22-30); CHLORIDE 97 mmol/L (98-107); GLUCOSE 111 mg/dL (75-110); POTASSIUM 4.4 mmol/L (3.6-5.0)
[2019-08-20] MEDS ORDERED: METOPROLOL TARTRATE 50 MG TABLET PO SCH (10:00)
[2019-08-20] MEDS ORDERED: MAGNESIUM OXIDE 400 MG TABLET PO SCH (10:00)
[2019-08-20] MEDS: POTASSIUM CHLORIDE 10 MEQ TABLET.ER PO SCH ×2 (11:28→23:21)
[2019-08-20] MEDS: CLOPIDOGREL BISULFATE 75 MG TABLET PO SCH (11:29)
[2019-08-20] MEDS: MAGNESIUM OXIDE 400 MG TABLET PO SCH ×2 (11:29→18:02)
[2019-08-20] MEDS: LISINOPRIL 5 MG TABLET PO SCH (11:29)
[2019-08-20] MEDS: THIAMINE HCL 100 MG TABLET PO SCH (11:29)
[2019-08-20] MEDS: METOPROLOL TARTRATE 50 MG TABLET PO SCH ×2 (11:30→23:21)
[2019-08-20] MEDS: FOLIC ACID 1 MG TABLET PO SCH (11:30)
[2019-08-20] MEDS: SERTRALINE HCL 50 MG TABLET PO SCH (11:30)
--- NOTE | 2019-08-20 12:24 | PDOC PROGRESS REPORT ---
Subjective Progress Note for:: 08/20/19 Subjective:: WOODROW JERNIGAN is a 59 year old male with history of coronary artery disease status post one-vessel CABG 5 or 6 years ago as well as 13 stents the last one for 5 years ago, hypertension, hyperlipidemia, heart failure who is consulted to our service for further evaluation of heart failure. Unfortunately the patient does not remember any details of his cardiac history and does not have any of his cardiac stents. He states that his CABG was done in [place] but does not even remember the name of the hospital. He had been in his usual state of health until 2 to 3 days prior to admission when he developed lower extremity edema associated with class III dyspnea on exertion. His symptoms were so severe that he called EMS at which time his blood pressure taken by EMS was noted to be greater than 200/150. He was given nitroglycerin in route. His brain natruretic peptide is elevated and has had 3 sets of troponins which were negative. This morning he continues to complain of dyspnea on exertion as well as lower extremity edema. Upon further questioning, he endorses noncompliance with medications as well as diet. He states that he eats cold cuts, pizza and other food items high in sodium. His telemetry demonstrates normal sinus rhythm. 08/20/2019: The patient had an uneventful night. He is on p.o. Flagyl for a positive blood culture. He remains asymptomatic from a cardiovascular standpoint and his main complaint is that he is urinating too much. His fluid balance documentation is inaccurate as he does not use the urinal regularly. His chest x-ray from 08/18/2019 still demonstrates pulmonary edema. 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 He is walking the quintero without significant symptoms. He feels better. Physical exam on 08/20/2019: GENERAL: Pleasant and conversational. Mildly dyspneic with normal conversation. Oriented x3 with normal mood. Not in acute distress. Well groomed and well developed. HEENT: Normocephalic, atraumatic. Pupils equal. Sclerae anicteric. Oropharynx moist. NECK: No JVD. No carotid bruits. LUNGS: Clear to auscultation bilaterally. Normal respiratory effort without the use of accessory muscles or intercostal retractions. CARDIOVASCULAR: Regular rate and rhythm, normal S1 and S2 without murmurs, rubs, or gallops. PMI not displaced. ABDOMEN: No masses or tenderness to palpation. No bruit. No splenomegaly or hepatomegaly. No abdominal aorta bruit noted. EXTREMITIES: No pitting edema bilaterally, no cyanosis, no clubbing. +2 pulses femoral and pedal pulses bilaterally. SKIN: No lesions or rashes. MUSCULOSKELETAL: No chest tenderness to palpation. NEUROLOGIC: Nonfocal. No gross sensory or motor deficits bilateral upper or lower extremities. Reason For Visit: HEART FAILURE Physical Exam Vital Signs: Temp Pulse Resp BP Pulse Ox 98.1 F 63 17 115/78 97 08/19/19 23:40 08/20/19 02:00 08/19/19 23:40 08/19/19 23:40 08/20/19 04:30 Intake & Output 08/19/19 08/20/19 08/21/19 06:59 06:59 06:59 Intake Total 1560 1900 Output Total 3000 Balance 1560 -1100 Weight 121 kg 121.8 kg Results Laboratory Results: 08/17/19 10:10 08/20/19 05:54 08/19/19 08/20/19 08/20/19 08:36 05:54 05:54 Sodium 133.1 L 131.5 L Potassium 3.9 4.4 Chloride 97 L 97 L Carbon Dioxide 28 30 Anion Gap 8 5 BUN 9 8 Creatinine 0.74 0.79 0.79 Est GFR ( Amer) > 60 > 60 > 60 Glucose 163 H 111 H Calcium 7.9 L 8.5 Magnesium 1.3 L 08/17/19 14:19 Blood Blood Culture (PCR) - Final Staphylococcus Species 08/17/19 08/17/19 08/17/19 10:10 10:10 10:10 Creatine Kinase 56 CK-MB (CK-2) 1.34 Troponin I 0.016 NT-Pro-B Natriuret Pep 2960 H 08/17/19 08/17/19 08/18/19 17:40 22:11 05:25 Creatine Kinase CK-MB (CK-2) Troponin I < 0.012 < 0.012 NT-Pro-B Natriuret Pep 2520 H Impressions: Chest X-Ray 08/18/19 07:00 IMPRESSION: Persistent Tristin lines at both lung bases from mild interstitial edema 08/17/19 10:10 08/20/19 05:54 MCV 103 fl (80-97) H 08/17/19 10:10 MCH 36.9 pg (27.0-33.4) H 08/17/19 10:10 MCHC 35.9 g/dL (32.0-36.0) 08/17/19 10:10 RDW 17.2 % (11.5-14.0) H 08/17/19 10:10 Seg Neutrophils % 74.1 % (42-78) 08/17/19 10:10 Carbonic Acid 1.20 mmol/L (1.05-1.35) 08/17/19 11:15 HCO3/H2CO3 Ratio 22:1 08/17/19 11:15 ABG pH 7.45 (7.35-7.45) 08/17/19 11:15 ABG pCO2 40.0 mmHg (35-45) 08/17/19 11:15 ABG pO2 164.3 mmHg (80-100) H 08/17/19 11:15 ABG HCO3 27.4 mmol/L (20-24) H 08/17/19 11:15 ABG O2 Saturation 99.2 % (94-98) H 08/17/19 11:15 ABG Base Excess 3.3 mmol/L 08/17/19 11:15 FiO2 40% 08/17/19 11:15 Chloride 97 mmol/L (98-107) L 08/20/19 05:54 Carbon Dioxide 30 mmol/L (22-30) 08/20/19 05:54 Anion Gap 5 (5-19) 08/20/19 05:54 Est GFR ( Amer) > 60 (>60) 08/20/19 05:54 Est GFR ( Amer) > 60 (>60) 08/20/19 05:54 Glucose 111 mg/dL (75-110) H 08/20/19 05:54 Calcium 8.5 mg/dL (8.4-10.2) 08/20/19 05:54 Magnesium 1.3 mg/dL (1.6-2.3) L 08/20/19 05:54 Total Bilirubin 1.6 mg/dL (0.2-1.3) H 08/17/19 10:10 AST 81 U/L (17-59) H 08/17/19 10:10 Alkaline Phosphatase 76 U/L (38-126) 08/17/19 10:10 Total Protein 6.1 g/dL (6.3-8.2) L 08/17/19 10:10 Albumin 3.8 g/dL (3.5-5.0) 08/17/19 10:10 Triglycerides 195 mg/dL (<150) H 08/18/19 05:25 Cholesterol 222.36 mg/dL (0-200) H 08/18/19 05:25 LDL Cholesterol Direct 185 mg/dL (<100) H 08/18/19 05:25 VLDL Cholesterol 39.0 mg/dL (10-31) H 08/18/19 05:25 HDL Cholesterol 47 mg/dL (>40) 08/18/19 05:25 Urine Color YELLOW 08/17/19 12:52 Urine Appearance CLEAR 08/17/19 12:52 Urine pH 7.0 (5.0-9.0) 08/17/19 12:52 Ur Specific [place] 1.008 08/17/19 12:52 Urine Protein NEGATIVE mg/dL (NEGATIVE) 08/17/19 12:52 Urine Glucose (UA) 50 mg/dL (NEGATIVE) H 08/17/19 12:52 Urine Ketones NEGATIVE mg/dL (NEGATIVE) 08/17/19 12:52 Urine Blood NEGATIVE (NEGATIVE) 08/17/19 12:52 Urine Nitrite NEGATIVE (NEGATIVE) 08/17/19 12:52 Ur Leukocyte Esterase NEGATIVE (NEGATIVE) 08/17/19 12:52 Urine WBC (Auto) 1 /HPF 08/17/19 12:52 Urine RBC (Auto) 1 /HPF 08/17/19 12:52 08/17/19 14:19 Blood Blood Culture (PCR) - Final Staphylococcus Species 08/17/19 08/17/19 08/17/19 10:10 10:10 10:10 Creatine Kinase 56 CK-MB (CK-2) 1.34 Troponin I 0.016 NT-Pro-B Natriuret Pep 2960 H 08/17/19 08/17/19 08/18/19 17:40 22:11 05:25 Creatine Kinase CK-MB (CK-2) Troponin I < 0.012 < 0.012 NT-Pro-B Natriuret Pep 2520 H Current Medication List Generic Name Dose Route Start Last Admin Trade Name Freq PRN Reason Stop Dose Admin Acetaminophen 650 mg 08/17/19 16:24 Tylenol 325 Mg Tablet PO 09/16/19 16:23 Q4HP PRN pain or temp greater than 101F Al Hydrox/Mg Hydrox/Simethicone 30 ml 08/17/19 16:24 Maalox Plus Susp 30 Udcup PO 09/16/19 16:23 Q4HP PRN HEARTBURN Atorvastatin Calcium 40 mg 08/17/19 22:00 08/19/19 22:53 Lipitor 40 Mg Tablet PO 09/16/19 21:59 40 mg QHS VINCENT Administration Clopidogrel Bisulfate 75 mg 08/18/19 10:00 08/19/19 09:55 Plavix 75 Mg Tablet PO 09/17/19 09:59 75 mg DAILY VINCENT Administration Folic Acid 1 mg 08/18/19 10:00 08/19/19 09:55 Folvite 1 Mg Tablet PO 09/17/19 09:59 1 mg DAILY VINCENT Administration Furosemide 40 mg 08/19/19 18:00 08/20/19 06:40 Lasix Inj/Pf 40 Mg/4 Ml Sdv IV 09/18/19 17:59 40 mg Q12A VINCENT Administration Heparin Sodium (Porcine) 5,000 unit 08/17/19 22:00 08/20/19 06:41 Heparin Inj 5,000 Units/Ml 1 Ml Vial SUBCUT 09/16/19 21:59 5,000 unit Q8 VINCENT Administration Lisinopril 5 mg 08/18/19 10:00 08/19/19 09:57 Prinivil 5 Mg Tablet PO 09/17/19 09:59 5 mg DAILY VINCENT Administration Lorazepam 2 mg 08/17/19 16:38 Ativan Inj 2 Mg/1 Ml Vial IV 08/24/19 16:37 Q4HP PRN ANXIETY/AGITATION Magnesium Hydroxide 30 ml 08/17/19 16:24 Milk Of Magnesia 30 Ml Udcup PO 09/16/19 16:23 HSP PRN FOR CONSTIPATION Magnesium Oxide 400 mg 08/17/19 18:00 08/19/19 18:30 Mag-Ox 400 Mg Tablet PO 09/16/19 17:59 400 mg BID VINCENT Administration Magnesium Oxide 400 mg 08/20/19 10:00 Mag-Ox 400 Mg Tablet PO 09/19/19 09:59 Q12 VINCENT Metoprolol Tartrate 75 mg 08/17/19 22:00 08/19/19 22:58 Lopressor 50 Mg Tablet PO 09/16/19 21:59 75 mg Q12 VINCENT Administration Metoprolol Tartrate 75 mg 08/20/19 10:00 Lopressor 50 Mg Tablet PO 09/19/19 09:59 Q12 VINCENT Metronidazole 500 mg 08/20/19 14:00 Flagyl 500 Mg Tablet PO 08/25/19 13:59 Q8 VINCENT Morphine Sulfate 5 mg 08/17/19 17:15 Morphine 10 Mg/Ml Inj IV 08/24/19 17:14 Q4HP PRN FOR CHEST PAIN Nitroglycerin 1 gm 08/17/19 18:00 08/20/19 06:38 Nitrol 2% Ointment 1gm Packet TP 09/16/19 17:59 1 gm Q6 VINCENT Administration Nitroglycerin 1 tab 08/17/19 16:42 Nitrostat 0.4 Mg (1/150 Gr) Tabs 25/Bottle SL 09/16/19 16:41 Q5MP PRN FOR CHEST PAIN Pantoprazole Sodium 40 mg 08/18/19 06:00 08/20/19 06:[address] Tablet PO 09/17/19 05:59 40 mg Q6AM VINCENT Administration Potassium Chloride 40 meq 08/17/19 22:00 08/19/19 22:52 Klor-Con 10 Meq Tablet Er PO 09/16/19 21:59 40 meq Q12 VINCENT Administration Sertraline HCl 100 mg 08/20/19 10:00 Zoloft 50 Mg Tablet PO 09/19/19 09:59 DAILY VINCENT Sodium Chloride 2.5 ml 08/17/19 22:00 08/20/19 06:41 Saline Flush 2.5 Ml Monoject Prefil Syrin IV 09/16/19 21:59 2.5 ml Q8 VINCENT Administration Thiamine HCl 100 mg 08/18/19 10:00 08/19/19 10:01 Thiamine 100 Mg Tablet PO 09/17/19 09:59 100 mg DAILY VINCENT Administration Trazodone HCl 100 mg 08/17/19 22:00 08/19/19 22:52 Desyrel 50 Mg Tablet PO 09/16/19 21:59 100 mg QHS VINCENT Administration Trazodone HCl 100 mg 08/20/19 22:00 Desyrel 50 Mg Tablet PO 09/19/19 21:59 QHS VINCENT Discontinued Medications Generic Name Dose Route Start Last Admin Trade Name Olayinka PRN Reason Stop Dose Admin Furosemide 40 mg 08/17/19 11:56 08/17/19 12:15 Lasix Inj/Pf 20 Mg/2 Ml Sdv IV 08/17/19 11:57 40 mg NOW ONE Administration Furosemide 20 mg 08/18/19 10:00 08/19/19 09:56 Lasix Inj/Pf 20 Mg/2 Ml Sdv IV 09/17/19 09:59 20 mg DAILY VINCENT Administration Potassium Chloride/Water 20 meq in 50 mls @ 25 mls/hr 08/17/19 11:59 08/17/19 14:20 Potassium Chloride Omid 20 Meq/50 Ml IV 08/17/19 13:58 Infused NOW ONE Infusion Magnesium Sulfate/Dextrose 1 gm in 100 mls @ 100 mls/hr 08/17/19 13:30 08/17/19 16:49 Magnesium Sulfate Rtu-D5w 1 Gm/100 Ml Premix IV 08/17/19 15:29 Infused Q1H VINCENT Infusion Magnesium Sulfate/Dextrose 1 gm in 100 mls @ 100 mls/hr 08/17/19 20:00 08/17/19 21:55 Magnesium Sulfate Rtu-D5w 1 Gm/100 Ml Premix IV 08/17/19 21:59 Infused Q1H VINCENT Infusion Magnesium Sulfate/Dextrose 1 gm in 100 mls @ 100 mls/hr 08/18/19 09:00 08/18/19 10:45 Magnesium Sulfate Rtu-D5w 1 Gm/100 Ml Premix IV 08/18/19 09:59 Infused NOW ONE Infusion Vancomycin HCl 2,000 mg/ 500 mls @ 250 mls/hr 08/18/19 20:30 08/19/19 00:33 Dextrose IV 08/18/19 22:29 Infused NOW ONE Infusion Vancomycin HCl 1,250 mg/ 250 mls @ 166.667 mls/hr 08/19/19 06:00 08/19/19 07:53 Dextrose IV 08/19/19 07:29 166.67 mls/hr NOW ONE 166.67 mls/hr Administration Vancomycin HCl 1,250 mg/ 250 mls @ 166.667 mls/hr 08/19/19 14:00 08/20/19 00:55 Dextrose IV 08/26/19 13:59 Infused Q8 VINCENT Infusion Metoprolol Tartrate 5 mg 08/17/19 20:15 08/17/19 20:17 Lopressor Inj/Pf 5 Mg/5 Ml Sdv IV 08/17/19 20:16 5 mg NOW ONE Administration Nitroglycerin 1 gm 08/17/19 11:59 08/17/19 12:13 Nitrol 2% Ointment 1gm Packet TP 08/17/19 12:00 1 gm NOW ONE Administration Potassium Chloride 20 meq 08/17/19 22:00 Klor-Con 10 Meq Tablet Er PO 09/16/19 21:59 Q12 VINCENT Vancomycin HCl 2,000 mg 08/18/19 20:07 Vancocin Inj 1000 Mg Vial IV 08/19/19 07:00 ASDIR PRN Vancomycin HCl Confirm 08/18/19 20:46 08/18/19 22:33 Vancocin Inj 1000 Mg Vial Administered 08/18/19 20:47 Not Given Dose 1,000 mg .ROUTE .STK-MED ONE Vancomycin HCl 1,250 mg 08/19/19 05:02 Vancocin Inj 1000 Mg Vial IV 08/19/19 07:00 ASDIR PRN Vancomycin HCl Confirm 08/19/19 07:38 08/19/19 07:50 Vancocin Inj 1000 Mg Vial Administered 08/19/19 07:39 Not Given Dose 1,000 mg .ROUTE .STK-MED ONE Vancomycin HCl Confirm 08/19/19 07:38 08/19/19 07:52 Vancocin Inj 500 Mg Vial Administered 08/19/19 07:39 Not Given Dose 500 mg .ROUTE .STK-MED ONE Assessment & Plan - Diagnosis (1) Acute on chronic diastolic heart failure with preserved ejection fraction Plan: The patient had an uneventful night and feels slightly better this morning. His lower extremity edema is essentially resolved however his chest x-ray continues to demonstrate pulmonary edema as of 08/18/2019. Unfortunately his fluid balance is inaccurate as the patient does not use the urinal. His echocardiogram is still pending. I encouraged the patient to use the urinal. His echocardiogram on 08/19/2019 demonstrated a normal ejection fraction normal no other findings. Recommendations: -Continue with current medical management. -Transition patient to Lasix 40 mg twice daily in preparation for discharge. -Continue with DAVID inhibitor, beta-jo. -Restrict fluid intake to 1500 cc daily. -Low sodium diet, less than 1500 mg daily. -Strict intake and output. -Daily weights. -[facility] (2) CAD (coronary artery disease) Qualifiers: Coronary Disease-Associated Artery/Lesion type: bypass graft [place] vs. transplanted heart: [place] heart Associated angina: without angina Qualified Code(s): I25.810 - Atherosclerosis of coronary artery bypass graft(s) without angina pectoris Plan: The patient has an extensive cardiovascular history however those details are unknown at this time. He continues to remain free of angina and angina equivale nts. Recommendations: -Continue with current medical management. -Noninvasive ischemic assessment when the patient is not in heart failure. (3) Hypertension Qualifiers: Hypertension type: essential hypertension Qualified Code(s): I10 - Essential (primary) hypertension Plan: His blood pressure is now at goal. Recommendations: -Continue with current medical management for now. (4) Hyperlipidemia Qualifiers: Hyperlipidemia type: mixed hyperlipidemia Qualified Code(s): E78.2 - Mixed hyperlipidemia Plan: His direct LDL is above goal at 185. His atorvastatin was increased to 80 mg daily. Recommendations: -Continue with current medical management. -Repeat LFTs and fasting lipid panel in 6 weeks.
[2019-08-20] MEDS: METRONIDAZOLE 500 MG TABLET PO SCH ×2 (14:19→23:21)
--- NOTE | 2019-08-20 15:25 | PDOC PROGRESS REPORT ---
Subjective Progress Note for:: 08/20/19 Subjective:: Patient is resting in bed. He is comfortable. No acute complaints. Reason For Visit: HEART FAILURE Physical Exam Vital Signs: Temp Pulse Resp BP Pulse Ox 98.1 F 68 17 115/78 97 08/19/19 23:40 08/20/19 07:00 08/19/19 23:40 08/19/19 23:40 08/20/19 04:30 Intake & Output 08/19/19 08/20/19 08/21/19 06:59 06:59 06:59 Intake Total 1560 1900 240 Output Total 3000 Balance 1560 -1100 240 Weight 121 kg 121.8 kg General appearance: PRESENT: no acute distress, cooperative, well-developed Head exam: PRESENT: atraumatic, normocephalic Eye exam: PRESENT: conjunctiva pink. ABSENT: scleral icterus Ear exam: PRESENT: normal external ear exam. ABSENT: bleeding, drainage Respiratory exam: PRESENT: clear to auscultation sebas, symmetrical, unlabored. ABSENT: rales, rhonchi, tachypnea, wheezes Cardiovascular exam: PRESENT: RRR, +S1, +S2, systolic murmur GI/Abdominal exam: PRESENT: distended - Protuberant abdomen, normal bowel sounds, soft, other - Umbilical hernia noted. ABSENT: guarding, tenderness Rectal exam: PRESENT: deferred Gentrourinary exam: ABSENT: indwelling catheter Extremities exam: ABSENT: pedal edema Musculoskeletal exam: PRESENT: ambulatory, normal inspection Neurological exam: PRESENT: alert, awake, oriented to person, oriented to place, oriented to time, oriented to situation, CN II-XII grossly intact. ABSENT: altered, motor sensory deficit Psychiatric exam: PRESENT: appropriate affect. ABSENT: agitated, anxious Focused psych exam: ABSENT: delusional, paranoid, restlessness Skin exam: PRESENT: dry, normal color, warm. ABSENT: rash Results Laboratory Results: 08/17/19 10:10 08/20/19 05:54 08/20/19 08/20/19 05:54 05:54 Sodium 131.5 L Potassium 4.4 Chloride 97 L Carbon Dioxide 30 Anion Gap 5 BUN 8 Creatinine 0.79 0.79 Est GFR ( Amer) > 60 > 60 Glucose 111 H Calcium 8.5 Magnesium 1.3 L 08/17/19 14:19 Blood Blood Culture (PCR) - Final Staphylococcus Species 08/17/19 14:19 Blood Blood Culture - Final Clostridium Perfringens Staphylococcus Epidermidis 08/17/19 08/17/19 08/17/19 10:10 10:10 10:10 Creatine Kinase 56 CK-MB (CK-2) 1.34 Troponin I 0.016 NT-Pro-B Natriuret Pep 2960 H 08/17/19 08/17/19 08/18/19 17:40 22:11 05:25 Creatine Kinase CK-MB (CK-2) Troponin I < 0.012 < 0.012 NT-Pro-B Natriuret Pep 2520 H Impressions: Chest X-Ray 08/18/19 07:00 IMPRESSION: Persistent Tristin lines at both lung bases from mild interstitial edema Assessment and Plan - Diagnosis (1) Acute on chronic diastolic heart failure with preserved ejection fraction Is this a current diagnosis for this admission?: Yes Plan: 08/17/2019 The patient presents with worsening shortness of breath as well as increasing lower extremity edema. He is not compliant with a cardiac diet. He does report compliance with medication. He is not on a diuretic, DAVID inhibitor or statin therapy. He is on Plavix for his coronary disease. He has responded to IV furosemide and initially IV nitroglycerin that has been changed to nitroglycerin paste. He has had significant diuresis. His breathing is much better but he still requires oxygen supplementation (2 L nasal cannula) that we will taper to off. He has echocardiogram in 2018 revealed normal ejection fraction and no diastolic failure. I have ordered another echocardiogram for this admission. I have also asked cardiology to see the patient. He will be placed on a cardiac diet with daily weights and strict intake and output. 08/18/2019 The patient is being seen by cardiology. An echocardiogram has been ordered. We will continue her current regimen at this time. 08/19/[address] Poole recommendation will increase furosemide. Continue to monitor on telemetry as well as intake and output. 08/20/2019 Change to oral diuretic in anticipation of discharge tomorrow (2) CAD (coronary artery disease) Qualifiers: Coronary Disease-Associated Artery/Lesion type: bypass graft [place] vs. transplanted heart: [place] heart Associated angina: without angina Qualified Code(s): I25.810 - Atherosclerosis of coronary artery bypass graft(s) without angina pectoris Is this a current diagnosis for this admission?: Yes Plan: 08/17/2019 The patient has an extensive history of coronary artery disease with extensive family history. We will continue his Plavix and beta-jo therapy. I have added low-dose DAVID inhibitor as well as furosemide. He is also on nitroglycerin paste. We will monitor the patient on telemetry. Serial troponins have been ordered. 08/18/2019 No evidence of acute coronary syndrome. I will convert the Nitropaste to a long-acting nitrate tomorrow if this is agreeable with cardiology. 08/19/2019 No ACS symptoms. Continue current regimen 08/20/2019 Stable at this time (3) Hypertension Qualifiers: Hypertension type: essential hypertension Qualified Code(s): I10 - Essential (primary) hypertension Is this a current diagnosis for this admission?: Yes Plan: 08/17/2019 Continue topical nitroglycerin for now. Continue furosemide by IV. Resume metoprolol. I have added low-dose DAVID inhibitor as well. We will need to opti vitor his medication regimen to try and avoid recurrent heart failure. 08/18/2019 Achieving good control with current regimen. No changes at this time. 08/19/2019 Blood pressure is still high. With increased furosemide I would expect improvement. 08/20/2019 Blood pressure is much improved with increased furosemide (4) Hypokalemia Is this a current diagnosis for this admission?: Yes Plan: 08/17/2019 The patient was hypokalemic on admission. With the aggressive diuresis and potassium will only decrease. He will receive IV potassium chloride today and I have initiated oral dosing. We will monitor with daily chemistries. 08/18/2019 Currently corrected. Continue to monitor and supplement potassium 08/19/2019 Continue to monitor especially in light of increased furosemide 08/20/2019 No changes at this time (5) Hypomagnesemia Is this a current diagnosis for this admission?: Yes Plan: 08/17/2019 Serum magnesium was markedly low. The patient will be given intravenous magnesium and will resume his oral magnesium supplement. 08/18/2019 Still low. We will give additional IV magnesium. Magnesium oxide has been started in tablet form. 08/19/2019 Still catching up with magnesium level. Continue to monitor and supplement accordingly. 08/20/2019 Continue to monitor (6) Alcohol dependence Qualifiers: Substance use status: uncomplicated Qualified Code(s): F10.20 - Alcohol dependence, uncomplicated Is this a current diagnosis for this admission?: Yes Plan: 08/17/2019 The patient is a current drinker. His intake varies. On some days he will drink over 1 quart of vodka. On other days it is significantly less. He is on naltrexone as an outpatient. This is nonformulary. Benzodiazepine therapy is available. Will monitor closely. He will also be on thiamine daily. 08/18/2019 Naltrexone is not available. Continue thiamine and benzodiazepines available as needed. 08/19/2019 Continue current regimen. Continue to monitor for signs of withdrawal. 08/20/2019 Resume naltrexone at discharge (7) Edema, lower extremity Is this a current diagnosis for this admission?: Yes Plan: 08/17/2019 The patient and realize his ankles are getting swollen. He has pitting edema. This should respond to diuretic therapy. 08/18/2019 Improving with treatment of heart failure 08/19/2019 Minimal 08/20/2019 Responded very well to diuretic therapy and low-salt diet (8) Hyperlipidemia Qualifiers: Hyperlipidemia type: mixed hyperlipidemia Qualified Code(s): E78.2 - Mixed hyperlipidemia Is this a current diagnosis for this admission?: Yes Plan: 08/18/2019 See lab results. Triglycerides, total cholesterol and LDL are all elevated. Statin therapy initiated. Will need follow-up in 6 to 8 weeks. 08/20/2019 Recheck when he follows up with cardiology (9) Bacterial infection due to Clostridium perfringens Is this a current diagnosis for this admission?: Yes Plan: 08/19/2019 The patient did have better anaerobic blood culture bottle positive for Clostridium perfringens. He does not appear to have a focus of severe infection. Appreciate Dr. Bower's input from infectious diseases. Per her recommendation we will discontinue vancomycin and start metronidazole 500 mg 3 times a day for 5 days. The patient should avoid alcohol while on this medication. 08/20/2019 As above. Still no obvious source of infection. - Time Time Spent with patient: 15-24 minutes Medications reviewed and adjusted accordingly: Yes Anticipated discharge: Home Within: within 24 hours
[2019-08-20] MEDS: FUROSEMIDE 40 MG TABLET PO SCH (18:02)
[2019-08-20] MEDS ORDERED: TRAZODONE HCL 50 MG TABLET PO SCH (22:00)
[2019-08-20] MEDS: TRAZODONE HCL 50 MG TABLET PO SCH (23:21)
[2019-08-20] MEDS: ATORVASTATIN CALCIUM 40 MG TABLET PO SCH (23:25)
[2019-08-21] MEDS: PANTOPRAZOLE SODIUM 40 MG TABLET.DR PO SCH (06:48)
[2019-08-21] MEDS: METRONIDAZOLE 500 MG TABLET PO SCH (06:48)
[2019-08-21] MEDS: HEPARIN SOD (PORCINE) 5,000 UNIT/ML 1 ML VIAL SUBCUT SCH (06:48)
[2019-08-21] MEDS: NITROGLYCERIN 2% OINTMENT 1 GM PACKET TP SCH (06:49)
[2019-08-21 08:53] LABS: ANION GAP 7 (5-19); BLOOD UREA NITROGEN 11 mg/dL (7-20); CALCIUM 8.6 mg/dL (8.4-10.2); CARBON DIOXIDE 28 mmol/L (22-30); CHLORIDE 98 mmol/L (98-107); GLUCOSE 138 mg/dL (75-110); POTASSIUM 4.6 mmol/L (3.6-5.0)
--- NOTE | 2019-08-21 10:03 | PDOC PROGRESS REPORT ---
Subjective Progress Note for:: 08/21/19 Subjective:: WOODROW JERNIGAN is a 59 year old male with history of coronary artery disease status post one-vessel CABG 5 or 6 years ago as well as 13 stents the last one for 5 years ago, hypertension, hyperlipidemia, heart failure who is consulted to our service for further evaluation of heart failure. Unfortunately the patient does not remember any details of his cardiac history and does not have any of his cardiac stents. He states that his CABG was done in [place] but does not even remember the name of the hospital. He had been in his usual state of health until 2 to 3 days prior to admission when he developed lower extremity edema associated with class III dyspnea on exertion. His symptoms were so severe that he called EMS at which time his blood pressure taken by EMS was noted to be greater than 200/150. He was given nitroglycerin in route. His brain natruretic peptide is elevated and has had 3 sets of troponins which were negative. This morning he continues to complain of dyspnea on exertion as well as lower extremity edema. Upon further questioning, he endorses noncompliance with medications as well as diet. He states that he eats cold cuts, pizza and other food items high in sodium. His telemetry demonstrates normal sinus rhythm. 08/21/2019: The patient had an uneventful night. He remains asymptomatic from a cardiovascular standpoint and his main complaint is that he is urinating too much. His fluid balance documentation continues to be inaccurate as he does not use the urinal regularly. His BMP this morning demonstrates a normal renal function with normal electrolytes and his proBNP is down to 383. He denies new cardiac complaints. His telemetry demonstrates sinus bradycardia and chief investigator hours otherwise normal sinus rhythm without sustained dysrhythmias. He is walking the [place] without significant symptoms. He feels 100% better. Physical exam on 08/21/2019: GENERAL: Pleasant and conversational. Mildly dyspneic with normal conversation. Oriented x3 with normal mood. Not in acute distress. Well groomed and well developed. HEENT: Normocephalic, atraumatic. Pupils equal. Sclerae anicteric. Oropharynx moist. NECK: No JVD. No carotid bruits. LUNGS: Clear to auscultation bilaterally. Normal respiratory effort without the use of accessory muscles or intercostal retractions. CARDIOVASCULAR: Regular rate and rhythm, normal S1 and S2 without murmurs, rubs, or gallops. PMI not displaced. ABDOMEN: No masses or tenderness to palpation. No bruit. No splenomegaly or hepatomegaly. No abdominal aorta bruit noted. EXTREMITIES: No pitting edema bilaterally, no cyanosis, no clubbing. +2 pulses femoral and pedal pulses bilaterally. SKIN: No lesions or rashes. MUSCULOSKELETAL: No chest tenderness to palpation. NEUROLOGIC: Nonfocal. No gross sensory or motor deficits bilateral upper or low er extremities. Cardiac studies: Echocardiogram on 08/19/2019: -LV is normal in size. -Mild concentric LVH. -EF 60 to 65%. -Grade 1 diastolic dysfunction. -Grossly normal wall motion. -Mild LAE. -Trace to mild MR, trace to mild TR, trace PI. -When compared to prior study dated 07 April 2017 there is no significant change. Reason For Visit: HEART FAILURE Physical Exam Vital Signs: Temp Pulse Resp BP Pulse Ox 98.1 F 62 17 122/84 97 08/20/19 19:42 08/21/19 02:00 08/20/19 19:42 08/20/19 19:42 08/21/19 06:12 Intake & Output 08/20/19 08/21/19 08/22/19 06:59 06:59 06:59 Intake Total 1900 720 Output Total 3000 Balance -1100 720 Weight 121.8 kg 121.8 kg Results Laboratory Results: 08/17/19 10:10 08/20/19 05:54 08/20/19 05:54 Sodium 131.5 L Potassium 4.4 Chloride 97 L Carbon Dioxide 30 Anion Gap 5 BUN 8 Creatinine 0.79 Est GFR ( Amer) > 60 Glucose 111 H Calcium 8.5 Magnesium 1.3 L 08/17/19 14:19 Blood Blood Culture (PCR) - Final Staphylococcus Species 08/17/19 14:19 Blood Blood Culture - Final Clostridium Perfringens Staphylococcus Epidermidis 08/17/19 08/17/19 08/17/19 10:10 10:10 10:10 Creatine Kinase 56 CK-MB (CK-2) 1.34 Troponin I 0.016 NT-Pro-B Natriuret Pep 2960 H 08/17/19 08/17/19 08/18/19 17:40 22:11 05:25 Creatine Kinase CK-MB (CK-2) Troponin I < 0.012 < 0.012 NT-Pro-B Natriuret Pep 2520 H Impressions: Chest X-Ray 08/18/19 07:00 IMPRESSION: Persistent Tristin lines at both lung bases from mild interstitial edema 08/17/19 10:10 08/20/19 05:54 MCV 103 fl (80-97) H 08/17/19 10:10 MCH 36.9 pg (27.0-33.4) H 08/17/19 10:10 MCHC 35.9 g/dL (32.0-36.0) 08/17/19 10:10 RDW 17.2 % (11.5-14.0) H 08/17/19 10:10 Seg Neutrophils % 74.1 % (42-78) 08/17/19 10:10 Carbonic Acid 1.20 mmol/L (1.05-1.35) 08/17/19 11:15 HCO3/H2CO3 Ratio 22:1 08/17/19 11:15 ABG pH 7.45 (7.35-7.45) 08/17/19 11:15 ABG pCO2 40.0 mmHg (35-45) 08/17/19 11:15 ABG pO2 164.3 mmHg (80-100) H 08/17/19 11:15 ABG HCO3 27.4 mmol/L (20-24) H 08/17/19 11:15 ABG O2 Saturation 99.2 % (94-98) H 08/17/19 11:15 ABG Base Excess 3.3 mmol/L 08/17/19 11:15 FiO2 40% 08/17/19 11:15 Chloride 97 mmol/L (98-107) L 08/20/19 05:54 Carbon Dioxide 30 mmol/L (22-30) 08/20/19 05:54 Anion Gap 5 (5-19) 08/20/19 05:54 Est GFR ( Amer) > 60 (>60) 08/20/19 05:54 Est GFR ( Amer) > 60 (>60) 08/20/19 05:54 Glucose 111 mg/dL (75-110) H 08/20/19 05:54 Calcium 8.5 mg/dL (8.4-10.2) 08/20/19 05:54 Magnesium 1.3 mg/dL (1.6-2.3) L 08/20/19 05:54 Total Bilirubin 1.6 mg/dL (0.2-1.3) H 08/17/19 10:10 AST 81 U/L (17-59) H 08/17/19 10:10 Alkaline Phosphatase 76 U/L (38-126) 08/17/19 10:10 Total Protein 6.1 g/dL (6.3-8.2) L 08/17/19 10:10 Albumin 3.8 g/dL (3.5-5.0) 08/17/19 10:10 Triglycerides 195 mg/dL (<150) H 08/18/19 05:25 Cholesterol 222.36 mg/dL (0-200) H 08/18/19 05:25 LDL Cholesterol Direct 185 mg/dL (<100) H 08/18/19 05:25 VLDL Cholesterol 39.0 mg/dL (10-31) H 08/18/19 05:25 HDL Cholesterol 47 mg/dL (>40) 08/18/19 05:25 Urine Color YELLOW 08/17/19 12:52 Urine Appearance CLEAR 08/17/19 12:52 Urine pH 7.0 (5.0-9.0) 08/17/19 12:52 Ur Specific [place] 1.008 08/17/19 12:52 Urine Protein NEGATIVE mg/dL (NEGATIVE) 08/17/19 12:52 Urine Glucose (UA) 50 mg/dL (NEGATIVE) H 08/17/19 12:52 Urine Ketones NEGATIVE mg/dL (NEGATIVE) 08/17/19 12:52 Urine Blood NEGATIVE (NEGATIVE) 08/17/19 12:52 Urine Nitrite NEGATIVE (NEGATIVE) 08/17/19 12:52 Ur Leukocyte Esterase NEGATIVE (NEGATIVE) 08/17/19 12:52 Urine WBC (Auto) 1 /HPF 08/17/19 12:52 Urine RBC (Auto) 1 /HPF 08/17/19 12:52 08/17/19 14:19 Blood Blood Culture (PCR) - Final Staphylococcus Species 08/17/19 14:19 Blood Blood Culture - Final Clostridium Perfringens Staphylococcus Epidermidis 08/17/19 08/17/19 08/17/19 10:10 10:10 10:10 Creatine Kinase 56 CK-MB (CK-2) 1.34 Troponin I 0.016 NT-Pro-B Natriuret Pep 2960 H 08/17/19 08/17/19 08/18/19 17:40 22:11 05:25 Creatine Kinase CK-MB (CK-2) Troponin I < 0.012 < 0.012 NT-Pro-B Natriuret Pep 2520 H Current Medication List Generic Name Dose Route Start Last Admin Trade Name Freq PRN Reason Stop Dose Admin Acetaminophen 650 mg 08/17/19 16:24 Tylenol 325 Mg Tablet PO 09/16/19 16:23 Q4HP PRN pain or temp greater than 101F Al Hydrox/Mg Hydrox/Simethicone 30 ml 08/17/19 16:24 Maalox Plus Susp 30 Udcup PO 09/16/19 16:23 Q4HP PRN HEARTBURN Atorvastatin Calcium 40 mg 08/17/19 22:00 08/20/19 23:25 Lipitor 40 Mg Tablet PO 09/16/19 21:59 40 mg QHS VINCENT Administration Clopidogrel Bisulfate 75 mg 08/18/19 10:00 08/20/19 11:29 Plavix 75 Mg Tablet PO 09/17/19 09:59 75 mg DAILY VINCENT Administration Folic Acid 1 mg 08/18/19 10:00 08/20/19 11:30 Folvite 1 Mg Tablet PO 09/17/19 09:59 1 mg DAILY VINCENT Administration Furosemide 40 mg 08/20/19 18:00 08/20/19 18:02 Lasix 40 Mg Tablet PO 09/19/19 17:59 40 mg BID VINCENT Administration Heparin Sodium (Porcine) 5,000 unit 08/17/19 22:00 08/21/19 06:48 Heparin Inj 5,000 Units/Ml 1 Ml Vial SUBCUT 09/16/19 21:59 5,000 unit Q8 VINCENT Administration Lisinopril 5 mg 08/18/19 10:00 08/20/19 11:29 Prinivil 5 Mg Tablet PO 09/17/19 09:59 5 mg DAILY VINCENT Administration Lorazepam 2 mg 08/17/19 16:38 Ativan Inj 2 Mg/1 Ml Vial IV 08/24/19 16:37 Q4HP PRN ANXIETY/AGITATION Magnesium Hydroxide 30 ml 08/17/19 16:24 Milk Of Magnesia 30 Ml Udcup PO 09/16/19 16:23 HSP PRN FOR CONSTIPATION Magnesium Oxide 400 mg 08/17/19 18:00 08/20/19 18:02 Mag-Ox 400 Mg Tablet PO 09/16/19 17:59 400 mg BID VINCENT Administration Metoprolol Tartrate 75 mg 08/17/19 22:00 08/20/19 23:21 Lopressor 50 Mg Tablet PO 09/16/19 21:59 75 mg Q12 VINCENT Administration Metronidazole 500 mg 08/20/19 14:00 08/21/19 06:48 Flagyl 500 Mg Tablet PO 08/25/19 13:59 500 mg Q8 VINCENT Administration Morphine Sulfate 5 mg 08/17/19 17:15 Morphine 10 Mg/Ml Inj IV 08/24/19 17:14 Q4HP PRN FOR CHEST PAIN Nitroglycerin 1 gm 08/17/19 18:00 08/21/19 06:49 Nitrol 2% Ointment 1gm Packet TP 09/16/19 17:59 1 gm Q6 VINCENT Administration Nitroglycerin 1 tab 08/17/19 16:42 Nitrostat 0.4 Mg (1/150 Gr) Tabs 25/Bottle SL 09/16/19 16:41 Q5MP PRN FOR CHEST PAIN Pantoprazole Sodium 40 mg 08/18/19 06:00 08/21/19 06:[address] Tablet PO 09/17/19 05:59 40 mg Q6AM VINCENT Administration Potassium Chloride 40 meq 08/17/19 22:00 08/20/19 23:21 Klor-Con 10 Meq Tablet Er PO 09/16/19 21:59 40 meq Q12 VINCENT Administration Sertraline HCl 100 mg 08/20/19 10:00 08/20/19 11:30 Zoloft 50 Mg Tablet PO 09/19/19 09:59 100 mg DAILY VINCENT Administration Sodium Chloride 2.5 ml 08/17/19 22:00 08/21/19 06:56 Saline Flush 2.5 Ml Monoject Prefil Syrin IV 09/16/19 21:59 Not Given Q8 VINCENT Thiamine HCl 100 mg 08/18/19 10:00 08/20/19 11:29 Thiamine 100 Mg Tablet PO 09/17/19 09:59 100 mg DAILY VINCENT Administration Trazodone HCl 100 mg 08/17/19 22:00 08/20/19 23:21 Desyrel 50 Mg Tablet PO 09/16/19 21:59 100 mg QHS VINCENT Administration Discontinued Medications Generic Name Dose Route Start Last Admin Trade Name Carlq PRN Reason Stop Dose Admin Furosemide 40 mg 08/17/19 11:56 08/17/19 12:15 Lasix Inj/Pf 20 Mg/2 Ml Sdv IV 08/17/19 11:57 40 mg NOW ONE Administration Furosemide 20 mg 08/18/19 10:00 08/19/19 09:56 Lasix Inj/Pf 20 Mg/2 Ml Sdv IV 09/17/19 09:59 20 mg DAILY VINCENT Administration Furosemide 40 mg 08/19/19 18:00 08/20/19 06:40 Lasix Inj/Pf 40 Mg/4 Ml Sdv IV 09/18/19 17:59 40 mg Q12A VINCENT Administration Potassium Chloride/Water 20 meq in 50 mls @ 25 mls/hr 08/17/19 11:59 08/17/19 14:20 Potassium Chloride Omid 20 Meq/50 Ml IV 08/17/19 13:58 Infused NOW ONE Infusion Magnesium Sulfate/Dextrose 1 gm in 100 mls @ 100 mls/hr 08/17/19 13:30 08/17/19 16:49 Magnesium Sulfate Rtu-D5w 1 Gm/100 Ml Premix IV 08/17/19 15:29 Infused Q1H VINCENT Infusion Magnesium Sulfate/Dextrose 1 gm in 100 mls @ 100 mls/hr 08/17/19 20:00 08/17/19 21:55 Magnesium Sulfate Rtu-D5w 1 Gm/100 Ml Premix IV 08/17/19 21:59 Infused Q1H VINCENT Infusion Magnesium Sulfate/Dextrose 1 gm in 100 mls @ 100 mls/hr 08/18/19 09:00 08/18/19 10:45 Magnesium Sulfate Rtu-D5w 1 Gm/100 Ml Premix IV 08/18/19 09:59 Infused NOW ONE Infusion Vancomycin HCl 2,000 mg/ 500 mls @ 250 mls/hr 08/18/19 20:30 08/19/19 00:33 Dextrose IV 08/18/19 22:29 Infused NOW ONE Infusion Vancomycin HCl 1,250 mg/ 250 mls @ 166.667 mls/hr 08/19/19 06:00 08/19/19 07:53 Dextrose IV 08/19/19 07:29 166.67 mls/hr NOW ONE 166.67 mls/hr Administration Vancomycin HCl 1,250 mg/ 250 mls @ 166.667 mls/hr 08/19/19 14:00 08/20/19 00:55 Dextrose IV 08/26/19 13:59 Infused Q8 [facility] Infusion Magnesium Oxide 400 mg 08/20/19 10:00 Mag-Ox 400 Mg Tablet PO 09/19/19 09:59 Q12 [facility] Metoprolol Tartrate 5 mg 08/17/19 20:15 08/17/19 20:17 Lopressor Inj/Pf 5 Mg/5 Ml Sdv IV 08/17/19 20:16 5 mg NOW ONE Administration Metoprolol Tartrate 75 mg 08/20/19 10:00 Lopressor 50 Mg Tablet PO 09/19/19 09:59 Q12 [facility] Nitroglycerin 1 gm 08/17/19 11:59 08/17/19 12:13 Nitrol 2% Ointment 1gm Packet TP 08/17/19 12:00 1 gm NOW ONE Administration Potassium Chloride 20 meq 08/17/19 22:00 Klor-Con 10 Meq Tablet Er PO 09/16/19 21:59 Q12 [facility] Trazodone HCl 100 mg 08/20/19 22:00 Desyrel 50 Mg Tablet PO 09/19/19 21:59 QHS [facility] Vancomycin HCl 2,000 mg 08/18/19 20:07 Vancocin Inj 1000 Mg Vial IV 08/19/19 07:00 ASDIR PRN Vancomycin HCl Confirm 08/18/19 20:46 08/18/19 22:33 Vancocin Inj 1000 Mg Vial Administered 08/18/19 20:47 Not Given Dose 1,000 mg .ROUTE .STK-MED ONE Vancomycin HCl 1,250 mg 08/19/19 05:02 Vancocin Inj 1000 Mg Vial IV 08/19/19 07:00 ASDIR PRN Vancomycin HCl Confirm 08/19/19 07:38 08/19/19 07:50 Vancocin Inj 1000 Mg Vial Administered 08/19/19 07:39 Not Given Dose 1,000 mg .ROUTE .STK-MED ONE Vancomycin HCl Confirm 08/19/19 07:38 08/19/19 07:52 Vancocin Inj 500 Mg Vial Administered 08/19/19 07:39 Not Given Dose 500 mg .ROUTE .STK-MED ONE Assessment & Plan - Diagnosis (1) Acute on chronic diastolic heart failure with preserved ejection fraction Is this a current diagnosis for this admission?: Yes Plan: The patient feels 100% better and appears to be euvolemic. He is ready to be discharged from a cardiovascular standpoint. Recommendations: -May discharge home from the cardiovascular standpoint. -Continue with metoprolol, atorvastatin, furosemide at current doses. -The patient will be followed by my partner, Dr. Hernandez, in his office within 1 week of discharge. -He was instructed on low-sodium diet as well as daily weights and to call the office immediately if he gains 3 pounds overnight or 5 pounds in 1 week. (2) CAD (coronary artery disease) Qualifiers: Coronary Disease-Associated Artery/Lesion type: bypass graft [place] vs. transplanted heart: [place] heart Associated angina: without angina Qualified Code(s): I25.810 - Atherosclerosis of coronary artery bypass graft(s) without angina pectoris Is this a current diagnosis for this admission?: Yes Plan: The patient has an extensive cardiovascular history however those details are unknown at this time. He continues to remain free of angina and angina equivalents. Recommendations: -Continue with current medical management. -Noninvasive ischemic assessment in the outpatient setting. -Follow-up with Dr. Hernandez. (3) Hypertension Qualifiers: Hypertension type: essential hypertension Qualified Code(s): I10 - Essential (primary) hypertension Is this a current diagnosis for this admission?: Yes Plan: His blood pressure is now at goal. Recommendations: -Continue with current medical management for now. (4) Hyperlipidemia Qualifiers: Hyperlipidemia type: mixed hyperlipidemia Qualified Code(s): E78.2 - Mixed hyperlipidemia Is this a current diagnosis for this admission?: Yes Plan: His direct LDL is above goal at 185. His atorvastatin was increased to 80 mg daily. Recommendations: -Continue with current medical management. -Repeat LFTs and fasting lipid panel in 6 weeks.
[2019-08-21] MEDS: CLOPIDOGREL BISULFATE 75 MG TABLET PO SCH (10:40)
[2019-08-21] MEDS: MAGNESIUM OXIDE 400 MG TABLET PO SCH (10:41)
[2019-08-21] MEDS: FUROSEMIDE 40 MG TABLET PO SCH (10:41)
[2019-08-21] MEDS: LISINOPRIL 5 MG TABLET PO SCH (10:41)
[2019-08-21] MEDS: POTASSIUM CHLORIDE 10 MEQ TABLET.ER PO SCH (10:41)
[2019-08-21] MEDS: SERTRALINE HCL 50 MG TABLET PO SCH (10:41)
[2019-08-21] MEDS: FOLIC ACID 1 MG TABLET PO SCH (10:41)
[2019-08-21] MEDS: METOPROLOL TARTRATE 50 MG TABLET PO SCH (10:41)
[2019-08-21] MEDS: THIAMINE HCL 100 MG TABLET PO SCH (10:42)
--- NOTE | 2019-08-21 10:49 | PDOC DISCHARGE SUMMARY ---
Impression - Admit/DC Date/PCP Admission Date/Primary Care Provider: 08/17/19 14:[facility] Discharge Date: 08/21/19 - Discharge Diagnosis (1) Acute on chronic diastolic heart failure with preserved ejection fraction Is this a current diagnosis for this admission?: Yes (2) CAD (coronary artery disease) Is this a current diagnosis for this admission?: Yes (3) Hypertension Is this a current diagnosis for this admission?: Yes (4) Hypokalemia Is this a current diagnosis for this admission?: Yes (5) Hypomagnesemia Is this a current diagnosis for this admission?: Yes (6) Alcohol dependence Is this a current diagnosis for this admission?: Yes (7) Edema, lower extremity Is this a current diagnosis for this admission?: Yes (8) Hyperlipidemia Is this a current diagnosis for this admission?: Yes (9) Bacterial infection due to Clostridium perfringens Is this a current diagnosis for this admission?: Yes - Additional Information Resuscitation Status: Full Code Discharge Diet: Cardiac Discharge Activity: Activity As Tolerated, Balance Activity w/Rest, Weigh Daily Referrals: [facility] [[facility]] - Follow up as needed (the tx will assign a ca rdiologist to you) Prescriptions: Metronidazole [Flagyl 500 mg Tablet] 500 mg PO Q8 #15 tablet Metronidazole [Flagyl 500 mg Tablet] 500 mg PO TID #21 tablet Potassium Chloride [Klor-Con 10 Meq Tablet ER] 40 meq PO Q12 #30 tablet.er Furosemide [Lasix 40 mg Tablet] 40 mg PO BID #30 tablet Furosemide [Lasix 40 mg Tablet] 40 mg PO BID #30 tablet Atorvastatin Calcium [Lipitor 40 mg Tablet] 40 mg PO QHS #15 tablet Atorvastatin Calcium [Lipitor 40 mg Tablet] 40 mg PO QHS #15 tablet Potassium Chloride 40 meq PO BID #30 tab.er.prt Lisinopril [Prinivil 5 mg Tablet] 5 mg PO DAILY #15 tablet Lisinopril [Prinivil 5 mg Tablet] 5 mg PO DAILY #15 tablet Home Medications: Clopidogrel Bisulfate [Plavix 75 mg Tablet] 75 mg PO DAILY 05/16/19 Folic Acid [Folvite 1 mg Tablet] 1 mg PO DAILY 05/16/19 Magnesium Oxide 500 mg PO Q12 05/16/19 Thiamine HCl [Thiamine 100 mg Tablet] 100 mg PO DAILY 02/13/20 Trazodone HCl 100 mg PO QHS 05/16/19 Metoprolol Tartrate 75 mg PO Q12 #15 05/17/19 Nitroglycerin [Nitrostat 0.4 mg (1/150 Gr) Tabs 25/Bottle] 1 tab SL Q5MP PRN 08/18/19 Sertraline HCl 100 mg PO DAILY 08/18/19 Atorvastatin Calcium [Lipitor 40 mg Tablet] 40 mg PO QHS #15 tablet 08/21/19 Atorvastatin Calcium [Lipitor 40 mg Tablet] 40 mg PO QHS #15 tablet 08/21/19 Clopidogrel Bisulfate [Plavix 75 mg Tablet] 75 mg PO DAILY tablet 08/21/19 Folic Acid [Folvite 1 mg Tablet] 1 mg PO DAILY tablet 08/21/19 Furosemide [Lasix 40 mg Tablet] 40 mg PO BID #30 tablet 08/21/19 Furosemide [Lasix 40 mg Tablet] 40 mg PO BID #30 tablet 08/21/19 Lisinopril [Prinivil 5 mg Tablet] 5 mg PO DAILY #15 tablet 08/21/19 Lisinopril [Prinivil 5 mg Tablet] 5 mg PO DAILY #15 tablet 08/21/19 Magnesium Oxide [Mag-Ox 400 mg Tablet] 400 mg PO BID tablet 08/21/19 Metoprolol Tartrate [Lopressor 50 mg Tablet] 75 mg PO Q12 tablet 08/21/19 Metronidazole [Flagyl 500 mg Tablet] 500 mg PO Q8 #15 tablet 08/21/19 Metronidazole [Flagyl 500 mg Tablet] 500 mg PO TID #21 tablet 08/21/19 Nitroglycerin [Nitrostat 0.4 mg (1/150 Gr) Tabs 25/Bottle] 1 tab SL Q5MP PRN bottle 08/21/19 Potassium Chloride 40 meq PO BID #30 tab.er.prt 08/21/19 Potassium Chloride [Klor-Con 10 Meq Tablet ER] 40 meq PO Q12 #30 tablet.er 08/21/19 Thiamine HCl [Thiamine 100 mg Tablet] 100 mg PO DAILY tablet 08/21/19 Trazodone HCl [Desyrel 50 mg Tablet] 100 mg PO QHS tablet 08/21/19 History of Present Illiness History of Present Illness: WOODROW JERNIGAN is a 59 year old male who was recently admitted in May of this year for nausea and vomiting. At that time he had an acute kidney injury. Today he presents with several days of worsening shortness of breath. He states that at rest he can breathe comfortably but he has experienced progressive shortness of breath with less and less exertion. He got to the point where walking to the bathroom had him completely out of breath. In addition he has very poorly controlled hypertension and his blood pressures were markedly elevated earlier when he arrived to the emergency department. He has a significant history of coronary disease having received 13 stents over multiple procedures and a history of coronary artery bypass graft surgery. Unfortunately he is noncompliant with a cardiac diet. He continues to use alcohol excessively. He does not weigh himself daily. He is requiring oxygen supplementation in the emergency department. He reports that his blood pressure taken by EMS was systolic greater than 200 and diastolic greater than 150. He was given nitroglycerin in route. In the emergency department he still exhibited high blood pressures but systolic pressures were now less than 170 with diastolic pressures for the most part less than 100. He is not tachycardic at this time. He is requiring 2 L nasal cannula oxygen. His brain natruretic peptide is elevated and his first troponin was negative. He will be admitted to the hospitalist service. We will continue to diurese aggressively. He will be on nitroglycerin and we will add an DAVID inhibitor and furosemide to his beta- jo therapy. We will also continue his Plavix. Hospital Course Hospital Course: (1) Acute on chronic diastolic heart failure with preserved ejection fraction Is this a current diagnosis for this admission?: Yes Plan: 08/17/2019 The patient presents with worsening shortness of breath as well as increasing lower extremity edema. He is not compliant with a cardiac diet. He does report compliance with medication. He is not on a diuretic, DAVID inhibitor or statin therapy. He is on Plavix for his coronary disease. He has responded to IV furosemide and initially IV nitroglycerin that has been changed to nitroglycerin paste. He has had significant diuresis. His breathing is much better but he still requires oxygen supplementation (2 L nasal cannula) that we will taper to off. He has echocardiogram in 2018 revealed normal ejection fraction and no diastolic failure. I have ordered another echocardiogram for this admission. I have also asked cardiology to see the patient. He will be placed on a cardiac diet with daily weights and strict intake and output. 08/18/2019 The patient is being seen by cardiology. An echocardiogram has been ordered. We will continue her current regimen at this time. 08/19/[address] Poole recommendation will increase furosemide. Continue to monitor on telemetry as well as intake and output. 08/20/2019 Change to oral diuretic in anticipation of discharge tomorrow 08/21/2019 Continue furosemide 40 mg twice daily along with 40 mEq of potassium twice daily (2) CAD (coronary artery disease) Qualifiers: Coronary Disease-Associated Artery/Lesion type: bypass graft [place] vs. transplanted heart: [place] heart Associated angina: without angina Qualified Code(s): I25.810 - Atherosclerosis of coronary artery bypass graft(s) without angina pectoris Is this a current diagnosis for this admission?: Yes Plan: 08/17/2019 The patient has an extensive history of coronary artery disease with extensive family history. We will continue his Plavix and beta-jo therapy. I have added low-dose DAVID inhibitor as well as furosemide. He is also on nitroglycerin paste. We will monitor the patient on telemetry. Serial troponins have been ordered. 08/18/2019 No evidence of acute coronary syndrome. I will convert the Nitropaste to a long-acting nitrate tomorrow if this is agreeable with cardiology. 08/19/2019 No ACS symptoms. Continue current regimen 08/20/2019 Stable at this time (3) Hypertension Qualifiers: Hypertension type: essential hypertension Qualified Code(s): I10 - Essential (primary) hypertension Is this a current diagnosis for this admission?: Yes Plan: 08/17/2019 Continue topical nitroglycerin for now. Continue furosemide by IV. Resume metoprolol. I have added low-dose DAVID inhibitor as well. We will need to optimize his medication regimen to try and avoid recurrent heart failure. 08/18/2019 Achieving good control with current regimen. No changes at this time. 08/19/2019 Blood pressure is still high. With increased furosemide I would expect improvement. 08/20/2019 Blood pressure is much improved with increased furosemide 08/21/2019 Continue to monitor blood pressure. Follow-up with primary care and cardiology. (4) Hypokalemia Is this a current diagnosis for this admission?: Yes Plan: 08/17/2019 The patient was hypokalemic on admission. With the aggressive diuresis and potassium will only decrease. He will receive IV potassium chloride today and I have initiated oral dosing. We will monitor with daily chemistries. 08/18/2019 Currently corrected. Continue to monitor and supplement potassium 08/19/2019 Continue to monitor especially in light of increased furosemide 08/20/2019 No changes at this time 08/21/2019 Continue current 40 mEq twice daily (5) Hypomagnesemia Is this a current diagnosis for this admission?: Yes Plan: 08/17/2019 Serum magnesium was markedly low. The patient will be given intravenous magnesium and will resume his oral magnesium supplement. 08/18/2019 Still low. We will give additional IV magnesium. Magnesium oxide has been started in tablet form. 08/19/2019 Still catching up with magnesium level. Continue to monitor and supplement accordingly. 08/20/2019 Continue to monitor 08/21/2019 Continue magnesium oxide (6) Alcohol dependence Qualifiers: Substance use status: uncomplicated Qualified Code(s): F10.20 - Alcohol dependence, uncomplicated Is this a current diagnosis for this admission?: Yes Plan: 08/17/2019 The patient is a current drinker. His intake varies. On some days he will drink over 1 quart of vodka. On other days it is significantly less. He is on naltrexone as an outpatient. This is nonformulary. Benzodiazepine therapy is available. Will monitor closely. He will also be on thiamine daily. 08/18/2019 Naltrexone is not available. Continue thiamine and benzodiazepines available as needed. 08/19/2019 Continue current regimen. Continue to monitor for signs of withdrawal. 08/20/2019 Resume naltrexone at discharge (7) Edema, lower extremity Is this a current diagnosis for this admission?: Yes Plan: 08/17/2019 The patient and realize his ankles are getting swollen. He has pitting edema. This should respond to diuretic therapy. 08/18/2019 Improving with treatment of heart failure 08/19/2019 Minimal 08/20/2019 Responded very well to diuretic therapy and low-salt diet (8) Hyperlipidemia Qualifiers: Hyperlipidemia type: mixed hyperlipidemia Qualified Code(s): E78.2 - Mixed hyperlipidemia Is this a current diagnosis for this admission?: Yes Plan: 08/18/2019 See lab results. Triglycerides, total cholesterol and LDL are all elevated. Statin therapy initiated. Will need follow-up in 6 to 8 weeks. 08/20/2019 Recheck when he follows up with cardiology (9) Bacterial infection due to Clostridium perfringens Is this a current diagnosis for this admission?: Yes Plan: 08/19/2019 The patient did have better anaerobic blood culture bottle positive for Clostridium perfringens. He does not appear to have a focus of severe infection. Appreciate Dr. Bower's input from infectious diseases. Per her recommendation we will discontinue vancomycin and start metronidazole 500 mg 3 times a day for 5 days. The patient should avoid alcohol while on this medication. 08/20/2019 As above. Still no obvious source of infection. Physical Exam Vital Signs: Temp Pulse Resp BP Pulse Ox 98.1 F 71 17 122/84 97 08/20/19 19:42 08/21/19 07:00 08/20/19 19:42 08/20/19 19:42 08/21/19 06:12 Intake & Output 08/20/19 08/21/19 08/22/19 06:59 06:59 06:59 Intake Total 1900 720 Output Total 3000 Balance -1100 720 Weight 121.8 kg 121.8 kg General appearance: PRESENT: no acute distress, cooperative, well-developed Respiratory exam: PRESENT: clear to auscultation sebas, symmetrical, unlabored. ABSENT: rales, rhonchi, tachypnea, wheezes Cardiovascular exam: PRESENT: RRR, +S1, +S2 GI/Abdominal exam: PRESENT: distended - Protuberant abdomen, soft, other - Umbilical hernia. ABSENT: guarding, tenderness Rectal exam: PRESENT: deferred Gentrourinary exam: ABSENT: indwelling catheter Extremities exam: ABSENT: pedal edema Neurological exam: PRESENT: alert, awake, oriented to person, oriented to place, oriented to time, oriented to situation, CN II-XII grossly intact. ABSENT: altered, motor sensory deficit Psychiatric exam: PRESENT: appropriate affect, normal mood. ABSENT: agitated, anxious Focused psych exam: ABSENT: delusional, paranoid, restlessness Results Laboratory Results: WBC 5.7 10^3/uL (4.0-10.5) 08/17/19 10:10 RBC 4.04 10^6/uL (4.35-5.55) L 08/17/19 10:10 Hgb 14.9 g/dL (13.5-17.0) 08/17/19 10:10 Hct 41.5 % (37.9-51.0) 08/17/19 10:10 MCV 103 fl (80-97) H 08/17/19 10:10 MCH 36.9 pg (27.0-33.4) H 08/17/19 10:10 MCHC 35.9 g/dL (32.0-36.0) 08/17/19 10:10 RDW 17.2 % (11.5-14.0) H 08/17/19 10:10 Plt Count 230 10^3/uL (150-450) 08/17/19 10:10 Lymph % (Auto) 13.2 % (13-45) 08/17/19 10:10 [place] % (Auto) 11.4 % (3-13) 08/17/19 10:10 Eos % (Auto) 0.9 % (0-6) 08/17/19 10:10 Baso % (Auto) 0.4 % (0-2) 08/17/19 10:10 Absolute Neuts (auto) 4.3 10^3/uL (1.7-8.2) 08/17/19 10:10 Absolute Lymphs (auto) 0.8 10^3/uL (0.5-4.7) 08/17/19 10:10 Absolute Monos (auto) 0.7 10^3/uL (0.1-1.4) 08/17/19 10:10 Absolute Eos (auto) 0.1 10^3/uL (0.0-0.6) 08/17/19 10:10 Absolute Basos (auto) 0.0 10^3/uL (0.0-0.2) 08/17/19 10:10 Seg Neutrophils % 74.1 % (42-78) 08/17/19 10:10 PT 13.2 SEC (11.4-15.4) 08/17/19 17:40 INR 1.00 08/17/19 17:40 APTT 29.1 SEC (23.5-35.8) 08/17/19 17:40 Carbonic Acid 1.20 mmol/L (1.05-1.35) 08/17/19 11:15 HCO3/H2CO3 Ratio 22:1 08/17/19 11:15 ABG pH 7.45 (7.35-7.45) 08/17/19 11:15 ABG pCO2 40.0 mmHg (35-45) 08/17/19 11:15 ABG pO2 164.3 mmHg (80-100) H 08/17/19 11:15 ABG HCO3 27.4 mmol/L (20-24) H 08/17/19 11:15 ABG Total CO2 28.7 mmol/L (23-27) H 08/17/19 11:15 ABG O2 Saturation 99.2 % (94-98) H 08/17/19 11:15 ABG Base Excess 3.3 mmol/L 08/17/19 11:15 FiO2 40% 08/17/19 11:15 Sodium 132.9 mmol/L (137-145) L 08/21/19 07:53 Potassium 4.6 mmol/L (3.6-5.0) 08/21/19 07:53 Chloride 98 mmol/L (98-107) 08/21/19 07:53 Carbon Dioxide 28 mmol/L (22-30) 08/21/19 07:53 Anion Gap 7 (5-19) 08/21/19 07:53 BUN 11 mg/dL (7-20) 08/21/19 07:53 Creatinine 0.92 mg/dL (0.52-1.25) 08/21/19 07:53 Est GFR ( Amer) > 60 (>60) 08/21/19 07:53 Est GFR (MDRD) Non-Af > 60 (>60) 08/21/19 07:53 Glucose 138 mg/dL (75-110) H 08/21/19 07:53 Calcium 8.6 mg/dL (8.4-10.2) 08/21/19 07:53 Magnesium 1.3 mg/dL (1.6-2.3) L 08/20/19 05:54 Total Bilirubin 1.6 mg/dL (0.2-1.3) H 08/17/19 10:10 Direct Bilirubin 0.2 mg/dL (0.0-0.4) 08/17/19 10:10 Neonat Total Bilirubin Not Reportable 08/17/19 10:10 Neonat Direct Bilirubin Not Reportable 08/17/19 10:10 Neonat Indirect Bili Not Reportable 08/17/19 10:10 AST 81 U/L (17-59) H 08/17/19 10:10 ALT 43 U/L (<50) 08/17/19 10:10 Alkaline Phosphatase 76 U/L (38-126) 08/17/19 10:10 Creatine Kinase 56 U/L (55-170) 08/17/19 10:10 CK-MB (CK-2) 1.34 ng/mL (<4.55) 08/17/19 10:10 Troponin I < 0.012 ng/mL 08/17/19 22:11 NT-Pro-B Natriuret Pep 383 pg/mL (<125) H 08/21/19 07:53 Total Protein 6.1 g/dL (6.3-8.2) L 08/17/19 10:10 Albumin 3.8 g/dL (3.5-5.0) 08/17/19 10:10 Triglycerides 195 mg/dL (<150) H 08/18/19 05:25 Cholesterol 222.36 mg/dL (0-200) H 08/18/19 05:25 LDL Cholesterol Direct 185 mg/dL (<100) H 08/18/19 05:25 VLDL Cholesterol 39.0 mg/dL (10-31) H 08/18/19 05:25 HDL Cholesterol 47 mg/dL (>40) 08/18/19 05:25 Urine Color YELLOW 08/17/19 12:52 Urine Appearance CLEAR 08/17/19 12:52 Urine pH 7.0 (5.0-9.0) 08/17/19 12:52 Ur Specific [place] 1.008 08/17/19 12:52 Urine Protein NEGATIVE mg/dL (NEGATIVE) 08/17/19 12:52 Urine Glucose (UA) 50 mg/dL (NEGATIVE) H 08/17/19 12:52 Urine Ketones NEGATIVE mg/dL (NEGATIVE) 08/17/19 12:52 Urine Blood NEGATIVE (NEGATIVE) 08/17/19 12:52 Urine Nitrite NEGATIVE (NEGATIVE) 08/17/19 12:52 Urine Bilirubin NEGATIVE (NEGATIVE) 08/17/19 12:52 Urine Urobilinogen NEGATIVE mg/dL (<2.0) 08/17/19 12:52 Ur Leukocyte Esterase NEGATIVE (NEGATIVE) 08/17/19 12:52 Urine WBC (Auto) 1 /HPF 08/17/19 12:52 Urine RBC (Auto) 1 /HPF 08/17/19 12:52 Squamous Epi Cells Auto <1 /HPF 08/17/19 12:52 Urine Mucus (Auto) RARE /LPF 08/17/19 12:52 Urine Ascorbic Acid NEGATIVE (NEGATIVE) 08/17/19 12:52 Time Trough Drawn 0554 08/20/19 05:54 Vancomycin Trough 18.7 ug/mL (5.0-20.0) 08/20/19 05:54 SARS-CoV-2 (PCR) NEGATIVE (NEGATIVE) 08/17/19 14:19 08/17/19 08/17/19 08/17/19 10:10 10:10 17:40 CK-MB (CK-2) 1.34 Troponin I 0.016 < 0.012 NT-Pro-B Natriuret Pep 2960 H 08/17/19 08/18/19 08/21/19 22:11 05:25 07:53 CK-MB (CK-2) Troponin I < 0.012 NT-Pro-B Natriuret Pep 2520 H 383 H Impressions: Chest X-Ray 08/17/19 10:02 IMPRESSION: Fluid overload or congestive failure Chest X-Ray 08/18/19 07:00 IMPRESSION: Persistent [place] lines at both lung bases from mild interstitial edema Plan Health Concerns: Continued use of alcohol and medication compliance Plan of Treatment: As outlined above Goals: Maintain control of heart failure. Alcohol cessation. Time Spent: Greater than 30 Minutes Stroke Is this a Stroke Patient?: No Acute Heart Failure - Is this a Heart Failure Patient?: Yes Documentation of LVEF assessment?: Yes LVEF: LVEF Greater Than 40% Anticoagulant Therapy: N/A Discharged on Evidence-Based Beta Blockers: Yes Discharged on ARNI?: No-Document Contraindications Reason(s) not discharged on ARNI: ACEI use within the prior 36 hours Discharged on ARB?: No-document contraindications Reason(s) not Discharged on ARB: Other - Discharged on DAVID inhibitor ARB Reason - Other: Discharged on DAVID inhibitor Discharged on ACEI?: Yes For LVEF <35%, discharged on Aldosterone Antagonist?: N/A (LVEF > or = 35%) Follow-up Appointment scheduled within 7 days?: Yes
--- NOTE | 2019-08-21 10:50 | RADIOLOGY REPORT (SQ) ---
EXAM DESCRIPTION: CHEST 2 VIEWS IMAGES COMPLETED DATE/TIME: 08/21/2019 10:29 am REASON FOR STUDY: CHF COMPARISON: 08/18/2019 NUMBER OF VIEWS: Two view TECHNIQUE: Frontal and lateral radiographic images of the chest acquired. LIMITATIONS: None. FINDINGS: LUNGS AND PLEURA: Stable appearance. MEDIASTINUM AND HILAR STRUCTURES: Stable heart size and mediastinal structures. HEART AND VASCULAR STRUCTURES: Stable appearance. BONES: No acute findings. HARDWARE: None in the chest. OTHER: No other significant finding. IMPRESSION: STABLE APPEARANCE OF THE CHEST. TECHNICAL DOCUMENTATION: JOB ID: [id number] 2010 [employer]- All Rights Reserved Reading location - IP/workstation name: [email or web address]
[2019-08-21 11:53] VITALS: BP 133/79
== END 2019-08-21 12:40 | disposition home or self-care (01) | DRG 293 ==
LOC: ER 10:00 → EH 14:49 → 4N 17:04
PROVIDERS: ADMIT Hospitalist; ATTEND Hospitalist
DX: I11.0 Hypertensive heart disease with heart failure (principal); I50.33 Acute on chronic diastolic (congestive) heart failure; I25.10 Atherosclerotic heart disease of native coronary artery without angina pectoris; E87.6 Hypokalemia; E83.42 Hypomagnesemia; E78.5 Hyperlipidemia, unspecified; F10.20 Alcohol dependence, uncomplicated; B96.7 Clostridium perfringens [C. perfringens] as the cause of diseases classified elsewhere; Z91.11 Patient's noncompliance with dietary regimen; I25.2 Old myocardial infarction; Z87.891 Personal history of nicotine dependence; Z82.49 Family history of ischemic heart disease and other diseases of the circulatory system; Z20.828 Contact with and (suspected) exposure to other viral communicable diseases; Z95.5 Presence of coronary angioplasty implant and graft
CPT/HCPCS: 36415; 71045; 71046; 80048; 80053; 80061; 80202; 81001; 82550; 82553; 82565; 82803; 83735; 83880; 84484; 85025; 85610; 85730; 87040; 87077; 87150; 87186; 87635; 93005; 93010; 93306; 96365; 96366; 96367; 96375; 99291; J1644; J1940; J3370; J3475; J3480; J3490; J7060